=== PATIENT | male | born 1940 | race Caucasian/White ===

== ENCOUNTER → 2023-03-09 12:51 | Outpatient (CLI) | payer MEDICARE, SELFPAY ==
--- NOTE | ~2023-03-09 | XR_ITS ---
EXAMINATION: XR thoracic spine 2V DATE: 03/09/2023 13:58 INDICATION: Thoracic back pain TECHNIQUE: AP, lateral and lateral swimmer's views of the thoracic spine were obtained. COMPARISON: None. FINDINGS: There is a mid thoracic compression fracture, possibly T7, with 25% loss of anterior verteb ral body height. The remaining thoracic vertebral bodies appear normal. Bone alignment is normal. The re is mild loss of intervertebral disc space height at multiple levels in the thoracic spine. Coronar y artery stents are noted. IMPRESSION: 1. Mid thoracic compression fracture, possibly T7, with 25% loss of anterior vertebral body height. Reviewed, dictated and finalized at location L. IMPRESSION: 1. Mid thoracic compression fracture, possibly T7, with 25% loss of anterior ve rtebral body height.
--- NOTE | ~2023-03-09 | MR_ITS ---
EXAMINATION: MR lumbar spine wo con DATE: 03/09/2023 13:34 INDICATION: Low back pain. TECHNIQUE: Magnetic resonance imaging (MRI) of the lumbar spine was performed without intravenous con trast. Sequences included sagittal T2-weighted FSE, sagittal T2-weighted FS FSE, sagittal T1-weighted FSE, and axial T2-weighted FSE. COMPARISON: None FINDINGS: There is 5 degrees levocurvature of lumbar spine. There is a transitional segment at lumbos acral junction that is designated L5. There is mild chronic anterior wedging of T11 vertebral body. T here is a chronic burst fracture of T12 with 3/5 loss of height and retropulsion of bone 1 mm into ce ntral spinal canal. There is a chronic compression fracture of L3 with 1/5 loss of height on the left . There is mildly decreased disc height at L2-L3. The distal spinal cord signal intensity is normal. The conus medullaris is at L1. The following disc levels are specifically discussed: L1-L2: The disc is bulging. There is mild bilateral facet joint osteoarthritis. There is mild bilater al neural foraminal stenosis. There is mild central canal stenosis. L2-L3: The disc is bulging. There is moderate right and severe left facet joint osteoarthritis. There is mild bilateral neural foraminal stenosis. There is mild central canal stenosis. L3-L4: The disc is bulging. There is moderate bilateral facet joint osteoarthritis. There is mild grabiel ateral neural foraminal stenosis. There is mild central canal stenosis. L4-L5: The disc is bulging. There is severe bilateral facet joint osteoarthritis. There is mild bilat eral neural foraminal stenosis. There is mild central canal stenosis. L5-S1: The disc does not extend beyond the endplate margin. There is no facet joint hypertrophy. Ther e is no neural foraminal stenosis. There is no central canal stenosis. IMPRESSION: 1. Mild lumbar spondylosis. Reviewed, dictated and finalized at location A. IMPRESSION: 1. Mild lumbar spondylosis.
== END ==
PROVIDERS: PCP Internal Medicine; Visit Provider Nurse Practitioner Family
DX: M54.59 Other low back pain (principal); M48.54XA Collapsed vertebra, not elsewhere classified, thoracic region, initial encounter for fracture; M43.06 Spondylolysis, lumbar region
CPT/HCPCS: 72070; 72148

== ENCOUNTER → 2023-03-25 07:25 | Outpatient (CLI) | payer MEDICARE, SELFPAY ==
--- NOTE | ~2023-03-25 | MR_ITS ---
EXAMINATION: MR thoracic spine wo con DATE: 03/25/2023 08:21 INDICATION: Thoracic back pain. TECHNIQUE: Magnetic resonance imaging (MRI) of the thoracic spine was performed without intravenous c ontrast. COMPARISON: Thoracic spine radiographs 03/09/2023 FINDINGS: There is 14 degrees dextroscoliosis of thoracic spine. There is kyphosis of thoracic spine. There is a chronic compression fracture of T7 with 2/5 loss of height. There is a chronic burst frac ture of L1 with 3/5 loss of height. There is mild chronic anterior wedging of T5, T6, and T11 vertebr al bodies. Intervertebral disc heights are normal and thoracic spine. The discs do not extend beyond the endplate margins in thoracic spine. There is multilevel facet joint osteoarthritis. There is mult ilevel mild neural foraminal stenosis bilaterally. On the right, there is moderate neural foraminal s tenosis at T4-T5. There is no central canal stenosis. The spinal cord signal intensity is normal. The conus medullaris is at L1-L2. IMPRESSION: 1. Moderate neural foraminal stenosis on the right at T4-T5. Otherwise mild thoracic spondylosis. 2. Thoracic dextroscoliosis and kyphosis. Reviewed, dictated and finalized at location E. IMPRESSION: 1. Moderate neural foraminal stenosis on the right at T4-T5. Otherwise mild tho racic spondylosis. 2. Thoracic dextroscoliosis and kyphosis.
== END ==
PROVIDERS: PCP Internal Medicine; Visit Provider Nurse Practitioner Family
DX: M48.04 Spinal stenosis, thoracic region (principal); M41.84 Other forms of scoliosis, thoracic region
CPT/HCPCS: 72146

== ENCOUNTER 2023-04-26 18:49 | Observation (INO) | payer MEDICARE, SELFPAY ==
--- NOTE | ~2023-04-26 | CT_ITS ---
EXAMINATION: CTA chest abdomen pelvis DATE: 04/26/2023 19:32 INDICATION: chest pain into back . TECHNIQUE: Computed tomography (CT) of the chest, abdomen, and pelvis was performed with 100 mL Omnip aque-350 intravenous contrast in the arterial phase. Automated exposure control and iterative reconst ruction technique were employed. The dose-length product was 728.27 mGy-cm. COMPARISON: MRI thoracic and lumbar spine 03/17/2023 and 03/09/2023 respectively. FINDINGS: CHEST: Thoracic aorta: Mild ectasia and moderate arch calcification. No dissection or significant aneurysm.. Lung parenchyma and airways: Biapical pleural scarring. Emphysematous change. Dependent atelectasis. Thoracic inlet, axillae and chest wall: No thyroid or soft tissue mass. No axillary lymphadenopathy. Right gynecomastia. Mediastinum: No mass or lymphadenopathy. Heart and pericardium: Normal heart size. No pericardial effusion. Coronary artery calcifications: Moderate. Pleura: No effusion or mass. Thoracic bones: No acute osseous finding in the chest. ABDOMEN/PELVIS: Liver: Normal. Biliary/Gallbladder: Gallbladder is absent. No bile duct dilation. Pancreas: No mass or duct dilation. Spleen: Normal. Adrenals:No mass. Kidneys: Moderate bilateral perinephric stranding. Bilateral cortical thinning. No suspicious mass, o bstructing calcification, or hydronephrosis GI tract: Uncomplicated duodenal diverticulum. No small or large bowel dilation. Appendix not visuali zed. Diverticulosis without diverticulitis. Mesentery/Peritoneum: No ascites, mass, or free air. Retroperitoneum: No mass Atherosclerotic abdominal aortic and/or arterial calcifications. No signific ant abdominal aortic branch stenosis. Right accessory renal artery. Pelvis: Mild bladder wall thickening and surrounding inflammatory change. Soft Tissues: Moderate uncomplicated fat-containing umbilical hernia. Abdominopelvic bones: Chronic multilevel vertebral body height loss, mild at T7, moderate at L1. Con cave superior endplate deformity at L4. IMPRESSION: No aortic aneurysm or dissection. Asymmetric gynecomastia on the right, recommend outpatient breast ultrasound and mammography. Cystitis. Reviewed, dictated and finalized at location K. CHASER IMPRESSION: No aortic aneurysm or dissection. Asymmetric gynecomastia on the right, recommend outpatient breast ultrasound an d mammography. Cystitis.
[2023-04-26 18:52] VITALS: BP 120/72; PULSE 82; RESP 15; TEMP 36.5; O2SAT 96
--- NOTE | 2023-04-26 18:53 | ECG_ITS ---
Measurements Intervals [place] Rate: 82 P: [place]: 0 QRS: 36 QRSD: 98 T: 1 QT: 364 QTc: 426 Interpretive Statements ATRIAL FIBRILLATION VENTRICULAR PREMATURE COMPLEX BORDERLINE R WAVE PROGRESSION, ANTERIOR LEADS BORDERLINE ST-T WAVE ABNORMALITY- INFERIOR LEADS BASELINE ARTIFACT- I, II, III, AVR, AVL, AVF, V1-V6 ABNORMAL ECG NO PREVIOUS ECG AVAILABLE FOR COMPARISON Electronically Signed On 04-26-2023 19:26:23 VOCATIONAL AIDE by Byron Cisneros D.O.
--- NOTE | 2023-04-26 18:58 | ED.CHESTPAIN ---
HPI - Chest Pain General Chief Complaint: Chest Pain Stated Complaint: chest pain Time Seen by Provider: 04/26/23 18:56 History of Present Illness HPI narrative: Patient is an 83-year-old male with history of CAD with [address], CHF, COPD here with chest pain x3 days. He notes that it has been intermittent over the last 3 days and he has been also experiencing some shortness of breath and a cough. The pain is located in his anterior chest and radiates into his back. Tonight it seemed to be worse and persistent and EMS was called. He did take 2 nitroglycerin prior to EMS arrival, they provided him with 4 aspirin and additional nitroglycerin. Pain has improved but persists. No nausea, vomiting, lightheadedness. He is a former smoker. Related Data Allergies Allergy/AdvReac Type Severity Reaction Status Date / Time Penicillins Allergy Unknown Other Verified 04/26/23 18:57 ticagrelor [From Brilinta] Allergy Difficulty Verified 04/26/23 18:57 Breathing Review of Systems Review of Systems: All systems reviewed & are unremarkable except as noted in HPI and below Exam Narrative: GENERAL: Well-appearing, well-nourished, and in no acute distress. HEAD: Normocephalic, atraumatic. EYES: PERRLA and EOMI. ENT: Nares clear. Mucous membranes moist. NECK: Supple. CHEST: Bilateral wheeze present with some mild increased work of breathing. HEART: Regular rate and rhythm. Normal peripheral pulses. ABDOMEN: Soft, nontender, nondistended. EXTREMITIES: Normal range of motion. Bilateral pitting pedal edema present. SKIN: Warm, dry, no rash. NEURO: No focal deficits. Alert and oriented x3. PSYCH: Normal mood and affect. Course Course Emergency Course: STEMI activated in the field by EMS. Spoke with interventional cardiology [facility], will forward EKG on their arrival. Patient seen on EMS arrival. He has been having chest pains and a STEMI alert was activated in the field. Patient placed on the monitor and our EKG was performed. No obvious STEMI, confirmed by cardiology. Will do ACS workup as well as CTA dissection study given chest pain into the back. Lab work reviewed, CBC unremarkable, CMP grossly unremarkable, creatinine is 1.0. Initial troponin negative, BNP mildly elevated at 1930. COVID, influenza, RSV negative. CTA dissection study negative. Will re-evaluate the patient. Patient feeling much better after dose of morphine. Breathing treatment ordered. Discussed heart score of 6, agreeable to inpatient stay. They did discuss that his brand advocate is at [facility], they would prefer to not wait for a transferring bed and stay here if possible. Will discuss with hospitalist. Additional pain, morphine ordered. Repeat EKG unchanged. Repeat troponin mildly elevated at 0.065. Will hold on heparin given patient is already anticoagulated. Doxycycline ordered given productive cough, expect component of COPD exacerbation playing role in chest discomfort. Spoke with Dr. Mccarty, accepts patient for observation. Patient would like to be full code at this time. Vital Signs Vital signs: Vital Signs Temperature 97.7 F 04/26/23 18:52 Pulse Rate 82 04/26/23 18:52 Respiratory Rate 15 04/26/23 18:52 Blood Pressure 120/72 04/26/23 18:52 Pulse Oximetry 96 04/26/23 18:52 Oxygen Delivery Room Air 04/26/23 18:52 Temperature 97.7 F 04/26/23 18:52 Pulse Rate 68 04/26/23 21:35 Respiratory Rate 16 04/26/23 21:35 Blood Pressure 140/91 H 04/26/23 19:35 Pulse Oximetry 97 04/26/23 19:35 Oxygen Delivery Room Air 04/26/23 18:52 MDM - Chest Pain Lab Data 04/26/23 18:52 04/26/23 18:52 Labs: Lab Results 04/26/23 04/26/23 04/26/23 Range/Units 18:52 19:15 21:44 WBC 9.7 (4.5-10.0) K/mm3 RBC 4.50 L (4.6-6.20) M/mm3 Hgb 14.7 (14.0-18.0) g/dL Hct 45.0 (42.0-52.0) % MCV 100.0 (80-100) fl MCH 32.7 (26-34) pg
[2023-04-26 19:01] LABS: Basophils Absolute Auto 0.1 K/mm3 (0.0-0.1); Basophils Percent Auto 0.6 % (0.2-1.2); Eosinophils Absolute Auto 0.7 K/mm3 (0-0.3); Eosinophils Percent Auto 6.9 % (0-4.4); Hemoglobin 14.7 g/dL (14.0-18.0); Immature Granulocyte Absolute 0.03 K/mm3 (0.00-0.031); Immature Granulocyte Percent A 0.3 % (0-0.5); Lymphocytes Absolute Auto 3.84 K/mm3 (0.9-3.2); Lymphocytes Percent Auto 39.5 % (18.3-44.2); Mean Corpuscular HGB Conc 32.7 g/dl (32-36); Mean Corpuscular Hemoglobin 32.7 pg (26-34); Mean Platelet Volume 10.4 fl (7.4-10.4); Monocytes Absolute Auto 0.9 K/mm3 (0.1-0.6); Monocytes Percent Auto 9.4 % (2.6-8.5); Neutrophils Absolute Auto 4.2 K/mm3 (1.3-6.7); Neutrophils Percent Auto 43.3 % (45.5-73.1); Platelet Count Result 193 k/mm3 (150-375); Red Cell Distribution Width 12.2 % (11.5-14.5); White Blood Count 9.7 K/mm3 (4.5-10.0)
[2023-04-26 19:09] LABS: Alanine Aminotransferase 17 U/L (6-50); Albumin Level 4.5 g/dL (3.5-5.1); Alkaline Phosphatase 84 U/L (38-126); Anion Gap 10 mmol/L (8-16); Aspartate Amino Transferase 36 U/L (17-59); Bilirubin,Total 0.6 mg/dL (0.2-1.3); Blood Urea Nitrogen 10 mg/dL (9-20); Calcium 9.6 mg/dL (8.4-10.2); Carbon Dioxide 29 mmol/L (22-30); Chloride 102 mmol/L (98-107); Estimated CRCL calculation 52 ml/min; Estimated Glomerular Filt Rate > 60; Glucose 117 mg/dL (65-110); Lipase 72 U/L (23-300); Potassium 4.4 mmol/L (3.4-5.0); Sodium 141 mmol/L (137-145)
[2023-04-26 19:13] LABS: INR 1.2; Prothrombin Time 15.6 Seconds (11.1-14.7)
[2023-04-26 19:21] LABS: NT Pro B Type Natriuretic Pept 1930 pg/mL (19.9-100); Troponin I < 0.012 ng/mL (0.000-0.034)
[2023-04-26 19:35] VITALS: BP 140/91; PULSE 83; RESP 15; O2SAT 97
[2023-04-26 19:57] LABS: Influenza A QL RT-PCR Negative (Negative); Influenza B QL RT-PCR Negative (Negative); RSV RNA, RT-PCR Negative (Negative); SARS-CoV-2 RNA PCR Negative (Negative)
[2023-04-26] MEDS: MORPHINE SULFATE (*CRX) 4 MG/ML INJ IV PUSH ×2 (20:02→22:08)
[2023-04-26] MEDS: ONDANSETRON INJ 4 MG/2 ML VIAL IV PUSH (20:02)
[2023-04-26] MEDS: ALBUTEROL SULFATE NEB 2.5 MG/3 ML INH INHALATION (21:26)
[2023-04-26 21:27] VITALS: PULSE 78; RESP 18
[2023-04-26] MEDS: IPRATROPIUM BR 0.02% INH SOLN 0.5 MG/2.5 ML VIAL INHALATION (21:27)
[2023-04-26 21:35] VITALS: PULSE 68; RESP 16
[2023-04-26] MEDS: predniSONE 20 MG TABLET 40 MG PO (21:38)
--- NOTE | 2023-04-26 22:02 | ECG_ITS ---
Measurements Intervals [place] Rate: 85 P: [place]: 0 QRS: 41 QRSD: 100 T: 18 QT: 341 QTc: 407 Interpretive Statements ATRIAL FIBRILLATION LOW QRS VOLTAGE IN LIMB LEADS CANNOT RULE OUT SEPTAL INFARCT, AGE INDETERMINATE BORDERLINE ST-T WAVE ABNORMALITY- INF/LAT LEADS BASELINE ARTIFACT- II, III, AVF ABNORMAL ECG COMPARED TO ECG 04/26/2023 18:51:46 NO SIGNIFICANT CHANGES Electronically Signed On 04-27-2023 6:29:38 SECONDARY HISTORY TEACHER by Byron Cisneros D.O.
[2023-04-26 22:15] LABS: Troponin I 0.065 ng/mL (0.000-0.034)
[2023-04-26 23:21] VITALS: BP 115/69; PULSE 84; RESP 15; O2SAT 94
[2023-04-26 23:22] VITALS: PULSE 84
[2023-04-27] VITALS (21 sets, daily range): BP systolic 100–122; BP diastolic 54–68; PULSE 61–104; RESP 18–20; TEMP 36.2–36.7; O2SAT 92–99; BMI 25.2
[2023-04-27] MEDS: DOXYCYCLINE HYCLATE 100 MG TABLET PO (00:18)
[2023-04-27] MEDS: MORPHINE SULFATE (*CRX) 2 MG/ML INJ 1 MG IV PUSH (00:26)
--- NOTE | 2023-04-27 00:56 | ADMGEN ---
0050 This patient, Yifan Schaefer, was admitted to IMU Room 210-01. Patient/family oriented to hospital policies and general routines including ID bracelet, bed and alarms, visiting hours, pain management, procedures, bathroom and other care routines, personal items, smoking policy, room service/diet, and visiting hours. Information on how to activate the Rapid Response Team has been discussed. Patient/Family are encouraged to report perceived risks to care and to ask questions if they do not understand what they are told or what they should do.
[2023-04-27 02:20] LABS: Troponin I 0.378 ng/mL (0.000-0.034)
[2023-04-27 05:00] LABS: Hematocrit 45.7 % (42.0-52.0); Mean Corpuscular HGB Conc 32.8 g/dl (32-36); Mean Corpuscular Volume 100.4 fl (80-100); Mean Platelet Volume 10.5 fl (7.4-10.4); Platelet Count Result 189 k/mm3 (150-375); Red Blood Count 4.55 M/mm3 (4.6-6.20); Red Cell Distribution Width 11.9 % (11.5-14.5); White Blood Count 13.6 K/mm3 (4.5-10.0)
[2023-04-27 05:22] LABS: Anion Gap 14 mmol/L (8-16); Blood Urea Nitrogen 9 mg/dL (9-20); Calcium 9.3 mg/dL (8.4-10.2); Carbon Dioxide 22 mmol/L (22-30); Chloride 103 mmol/L (98-107); Estimated CRCL calculation 64 ml/min; Estimated Glomerular Filt Rate > 60; Glucose 165 mg/dL (65-110); Magnesium 1.9 mg/dL (1.6-2.3); Potassium 4.4 mmol/L (3.4-5.0); Sodium 139 mmol/L (137-145)
--- NOTE | 2023-04-27 09:16 | ECG_ITS ---
Measurements Intervals [place] Rate: 78 P: [place]: 0 QRS: 26 QRSD: 99 T: 25 QT: 366 QTc: 419 Interpretive Statements ATRIAL FIBRILLATION VENTRICULAR PREMATURE COMPLEX LOW QRS VOLTAGE IN LIMB LEADS ANTEROSEPTAL INFARCT, AGE INDETERMINATE BASELINE WANDER- V1-V2 ABNORMAL ECG COMPARED TO ECG 04/26/2023 22:06:42 MYOCARDIAL INFARCT NOW PRESENT Electronically Signed On 04-27-2023 9:32:52 HYPERBARIC NURSE by Byron Cisneros D.O.
--- NOTE | 2023-04-27 09:36 | PM.IMHP ---
H&P: HPI History of Present Illness Date/Time: 04/27/23 09:36 Chief Complaint: chest pain Narrative: A pleasant 83M accompanied by his w/ PMH HTN, a fib on eliquis, emphysema, previous smoker, NIDDM, CKD stage 2, chronic back pain, dementia, right eye blindness, CHF (unable to specify) CAD s/p 19 stents. He gets his heart care at [facility] w/ Dr. Almaraz. His last stent was 10/2022 and laser was needed. He complains of severe dull mid chest pain while sitting down at home. The pain was only mildly improved with aspirin and nitroglycerin. He denies any associated symptoms such as dizziness, sweating, numbness, radiation of pain, however him and his report this is the pain he has and every time has a cardiac cath with intervention. Of note, he has had a cough for many years likely related to his emphysema, productive of clear sputum. Denies urinary symptoms, n/v/d. In room 210 the pain is now resolved. Him and request transfer to [facility]. Review of Systems Review of Systems: All systems reviewed & are unremarkable except as noted in HPI and below PMFSH Past Medical History Medical History (Updated 04/27/23 @ 09:48 by Negrita Lee MD) CAD (coronary artery disease) Social History Social History Smoking packs per day: 2 Smoking cigarettes per day: 40.0 Smoking status: Former smoker Alcohol intake: never Substance use: never Lack of Transportation: No Lack of Food: Never True Current Housing: I Have Housing Concerned About Future Housing: No Difficulty Paying Gas/Electric Bills: No Difficulty Paying for Meds: No Currently Unemployed: No Education: Decline to Answer Difficulty w/ Childcare or Family Care: No Spiritual care concerns: No Meds Home Medications and Allergies Home Medications Medication Instructions Recorded Confirmed Type albuterol sulfate 2.5 mg/3 mL 2.5 mg inhalation TID PRN 04/27/23 04/27/23 History (0.083 %) solution for nebulization Shortness Of Breath Or Wheezing amlodipine 10 mg tablet 10 mg PO DAILY 04/27/23 04/27/23 History apixaban 5 mg tablet (Eliquis) 5 mg PO BID 04/27/23 04/27/23 History budesonide-formoterol HFA 160 2 inh inhalation BID 04/27/23 04/27/23 History mcg-4.5 mcg/actuation aerosol inhaler (Symbicort) calcitriol 0.25 mcg capsule 0.25 mcg PO DAILY 04/27/23 04/27/23 History clopidogrel 75 mg tablet 75 mg PO DAILY 04/27/23 04/27/23 History cyclobenzaprine 5 mg tablet 5 mg PO Q8-10H 04/27/23 04/27/23 History ergocalciferol (vitamin D2) 1,250 1,250 mcg PO WEEKLY 04/27/23 04/27/23 History mcg (50,000 unit) capsule furosemide 40 mg tablet 40 mg PO DAILY 04/27/23 04/27/23 History isosorbide mononitrate 120 mg 120 mg PO DAILY 04/27/23 04/27/23 History tablet,extended release 24 hr metformin 500 mg tablet 500 mg PO BID 04/27/23 04/27/23 History metoprolol tartrate 25 mg tablet 25 mg PO BID 04/27/23 04/27/23 History pantoprazole 40 mg tablet,delayed 40 mg PO DAILY PRN Acid Reflux 04/27/23 04/27/23 History release rosuvastatin 20 mg tablet 20 mg PO DAILY 04/27/23 04/27/23 History spironolactone 25 mg tablet 25 mg PO DAILY 04/27/23 04/27/23 History Allergies Allergy/AdvReac Type Severity Reaction Status Date / Time Penicillins Allergy Unknown Other Verified 04/26/23 18:57 ticagrelor [From Brilinta] Allergy Difficulty Verified 04/26/23 18:57 Breathing Vital Signs Vital Signs - 24 hr 04/26/23 18:52 04/26/23 19:35 04/26/23 21:27 Temperature 97.7 F Pulse Rate 82 83 78 Respiratory Rate 15 15 18 Blood Pressure 120/72 140/91 H Pulse Oximetry 96 97 Oxygen Delivery Room Air Oxygen Flow Rate 04/26/23 21:35 04/26/23 23:21 04/26/23 23:22 Temperature Pulse Rate 68 84 84 Respiratory Rate 16 15 Blood Pressure 115/69 Pulse Oximetry 94 Oxygen Delivery Oxygen Flow Rate 04/27/23 00:38 04/27/23 00:49 04/27/23 01:06 Temperature 97.2 F L Pulse Rate 92 104 H Respir
--- NOTE | 2023-04-27 10:39 | PM.CNCAR ---
Assessment and Plan Assessment and plan (1) NSTEMI (non-ST elevated myocardial infarction): Code(s): I21.4 - Non-ST elevation (NSTEMI) myocardial infarction Status: Acute Assessment and Plan: Patient presents with an NSTEMI. Troponins of <0.012 / 0.065 / 0.378 / 9.890. EKG shows rate controlled atrial fibrillation, no ischemic changes. After discussion with the patient and his this morning, I explained to them that given his NSTEMI, we do recommend cardiac catheterization, however, would need a 48 hour washout of Eliquis, therefore, the earliest time we would be able to cath patient would be on Monday. However, his last intervention required laser atherectomy, which we do not have here at this institution. Therefore, if patient needed complex or high risk intervention, we would not be able to perform it here at [facility] and patient would need to be transferred to a tertiary center with those capabilities. Given this, patient and request transfer to [facility] where their primary cardiology team ([facility]) is so that cardiac catheterization and possible intervention can be performed by them. In the meantime, while awaiting transfer, recommend continued medical management with Heparin drip, ASA, Plavix, antianginal therapy. Recommendations/Plan discussed with Hospitalist. History of Present Illness History of Present Illness Consult date/time: 04/27/23 10:39 Requesting physician: Negrita Lee MD Consult reason: Other (NSTEMI) Reason For Visit: chest pain Narrative: We are consulted for NSTEMI. This is an 83 year old male with coronary artery disease s/p stents, atrial fibrillation on Eliquis, emphysema, congestive heart failure who presented with progressive chest pain that began about 3 days ago. Patient follows with Dr. Ramirez with [facility]. Patient tells me that he's had total of 19 stents placed. From the records I see from [facility], last coronary intervention was done in October 2022. He had a 99% mid LAD in-stent restenosis that was treated with laser atherectomy and stent. Has known chronic total occlusion of distal LAD. Patient states that his chest pain this time is similar to when he needed his prior coronary interventions done. Patient states that his chest pain is getting better this morning. Has NTG patch on. Last took his Eliquis 04/26 morning. Review of Systems Review of Systems: All systems reviewed & are unremarkable except as noted in HPI and below (HPI) [facility] Past Medical History Medical History CAD (coronary artery disease) Social History Social History Smoking packs per day: 2 Smoking cigarettes per day: 40.0 Smoking status: Former smoker Alcohol intake: never Substance use: never Lack of Transportation: No Lack of Food: Never True Current Housing: I Have Housing Concerned About Future Housing: No Difficulty Paying Gas/Electric Bills: No Difficulty Paying for Meds: No Currently Unemployed: No Education: Decline to Answer Difficulty w/ Childcare or Family Care: No Spiritual care concerns: No Meds Home Medications and Allergies Home Medications Medication Instructions Recorded Confirmed Type albuterol sulfate 2.5 mg/3 mL 2.5 mg inhalation TID PRN 04/27/23 04/27/23 History (0.083 %) solution for nebulization Shortness Of Breath Or Wheezing amlodipine 10 mg tablet 10 mg PO DAILY 04/27/23 04/27/23 History apixaban 5 mg tablet (Eliquis) 5 mg PO BID 04/27/23 04/27/23 History budesonide-formoterol HFA 160 2 inh inhalation BID 04/27/23 04/27/23 History mcg-4.5 mcg/actuation aerosol inhaler (Symbicort) calcitriol 0.25 mcg capsule 0.25 mcg PO DAILY 04/27/23 04/27/23 History clopidogrel 75 mg tablet 75 mg PO DAILY 04/27/23 04/27/23 History cyclobenzaprine 5 mg tablet 5 mg PO Q8-10H 04/27/23 04/27/23 History ergocalci
[2023-04-27] MEDS: CLOPIDOGREL BISULFATE 75 MG TABLET PO (10:51)
[2023-04-27] MEDS: ROSUVASTATIN 10 MG TABLET 20 MG PO (10:51)
[2023-04-27] MEDS: FUROSEMIDE 40 MG TABLET PO (10:51)
[2023-04-27] MEDS: METOPROLOL TARTRATE 25 MG TABLET PO ×2 (10:52→17:38)
[2023-04-27] MEDS: SPIRONOLACTONE 25 MG TABLET PO (10:52)
[2023-04-27] MEDS: NITROGLYCERIN 0.4 MG/HR PATCH 1 PATCH TRANSDERM (10:53)
[2023-04-27] MEDS: HEPARIN SOD/D5W 100 UNITS/ML 25,000 UNITS/250 ML BAG 10 UNITS IV CONT (10:54)
[2023-04-27] MEDS: DEXTROSE 5%/0.9% SOD CHL 1,000 ML 50 ML IV CONT (10:55)
[2023-04-27] MEDS: ASPIRIN 81 MG ENTERIC TABLET PO (11:08)
[2023-04-27 11:30] LABS: Glucose Point of Care 155 mg/dl (65-105)
[2023-04-27 12:31] LABS: Appearance Urine Clear (Clear); Bilirubin Urine Negative (Negative); Blood Urine Negative (Negative); Color Urine Yellow (Yellow); Glucose Urine UA Negative (Negative); Ketones Urine Negative (Negative); Leukocyte Esterase Ur Negative LEU/UL (NEGATIVE); Nitrate Urine Negative (Negative); Protein Urine Negative (Negative); Specific Grav Ur 1.008 (1.001-1.035); Urobilinogen Urine 0.2 mg/dL (<2.0); pH Urine 6.5 (5.0-9.0)
[2023-04-27 12:46] LABS: Add Urine Microscopic? NO
--- NOTE | 2023-04-27 12:46 | ECG_ITS ---
Measurements Intervals [place] Rate: 74 P: [place]: 0 QRS: 10 QRSD: 86 T: 52 QT: 348 QTc: 386 Interpretive Statements ATRIAL FIBRILLATION LOW QRS VOLTAGE IN LIMB LEADS ANTEROSEPTAL INFARCT, AGE INDETERMINATE ABNORMAL ECG COMPARED TO ECG 04/27/2023 09:29:59 NO SIGNIFICANT CHANGES Electronically Signed On 04-27-2023 13:05:43 RESISTANCE WELDER by Byron Cisneros D.O.
[2023-04-27] MEDS: IPRATROPIUM BR 0.02% INH SOLN 0.5 MG/2.5 ML VIAL INHALATION (12:56)
[2023-04-27] MEDS: ALBUTEROL SULFATE NEB 2.5 MG/3 ML INH INHALATION (12:56)
[2023-04-27] MEDS: CYCLOBENZAPRINE HCL 5 MG TABLET PO (14:29)
[2023-04-27 16:23] LABS: Glucose Point of Care 166 mg/dl (65-105)
--- NOTE | 2023-04-27 16:39 | PC.NURSE ---
Updated akila Tyler on pt's troponin levels. New order to continue to trend troponin until peak. Continue heparin gtt, ASA, & plavix. Await transfer to [facility].
[2023-04-27] MEDS: HEPARIN SODIUM 5,000 UNITS/ML VIAL 3500 UNITS IV PUSH (17:43)
--- NOTE | 2023-04-27 18:40 | PC.NURSE ---
1816: Report called to DIVINE Meng @ [facility]. 1825: Henna, /POA, updated that the patient has received a room at [facility] and will be transferred this evening. Pt will be going to room 919.
--- NOTE | 2023-05-02 16:45 | PM.TDS ---
Transfer Discharge Sum: Prov Provider Date of admission: 04/26/23 23:41 Primary care physician: Vinny Sorto, Admitting clinician: Rebekah Mccarty MD Attending physician on admission: Rebekah Mccarty Consults: 04/27/23 Consult to Physician Routine Comment: left voicemail with Jaz Brenner @[id number](ER,US) Consulting Provider: Jaz Brenner call center nurse/MD group to consult: Reason for consultation: CHEST PAIN, ELEVATED TROPONIN, HX OF 19 CARDIAC STENTS Has provider been notified: Yes Attending physician on discharge: Rebekah Mccarty V. Discharging clinician: Negrita Lee Anticipated date of transfer: 04/27/23 Receiving physician/facility: [facility] DS: Admitting Diagnosis Discharge Date 04/27/23 Admitting Diagnosis chest pain DS: Discharge Diagnosis Discharge Diagnosis (1) CAD (coronary artery disease): Code(s): I25.10 - Atherosclerotic heart disease of [place] coronary artery without angina pectoris Status: Acute (2) NSTEMI (non-ST elevated myocardial infarction): Code(s): I21.4 - Non-ST elevation (NSTEMI) myocardial infarction Status: Acute (3) Chest pain: Qualifiers: Chest pain type: unspecified Qualified Code(s): R07.9 - Chest pain, unspecified Code(s): R07.9 - Chest pain, unspecified Status: Acute Transfer Discharge Sum: Med Medications Active and Home Medications: Home Medications albuterol sulfate 2.5 mg/3 mL (0.083 %) solution for nebulization 2.5 mg inhalation TID PRN Shortness Of Breath Or Wheezing 04/27/23 [History Confirmed 04/27/23] amlodipine 10 mg tablet 10 mg PO DAILY 04/27/23 [History Confirmed 04/27/23] apixaban 5 mg tablet (Eliquis) 5 mg PO BID 04/27/23 [History Confirmed 04/27/23] budesonide-formoterol HFA 160 mcg-4.5 mcg/actuation aerosol inhaler (Symbicort) 2 inh inhalation BID 04/27/23 [History Confirmed 04/27/23] calcitriol 0.25 mcg capsule 0.25 mcg PO DAILY 04/27/23 [History Confirmed 04/27/23] clopidogrel 75 mg tablet 75 mg PO DAILY 04/27/23 [History Confirmed 04/27/23] cyclobenzaprine 5 mg tablet 5 mg PO Q8-10H 04/27/23 [History Confirmed 04/27/23] ergocalciferol (vitamin D2) 1,250 mcg (50,000 unit) capsule 1,250 mcg PO WEEKLY 04/27/23 [History Confirmed 04/27/23] furosemide 40 mg tablet 40 mg PO DAILY 04/27/23 [History Confirmed 04/27/23] isosorbide mononitrate 120 mg tablet,extended release 24 hr 120 mg PO DAILY 04/27/23 [History Confirmed 04/27/23] metformin 500 mg tablet 500 mg PO BID 04/27/23 [History Confirmed 04/27/23] metoprolol tartrate 25 mg tablet 25 mg PO BID 04/27/23 [History Confirmed 04/27/23] pantoprazole 40 mg tablet,delayed release 40 mg PO DAILY PRN Acid Reflux 04/27/23 [History Confirmed 04/27/23] rosuvastatin 20 mg tablet 20 mg PO DAILY 04/27/23 [History Confirmed 04/27/23] spironolactone 25 mg tablet 25 mg PO DAILY 04/27/23 [History Confirmed 04/27/23] Transfer Discharge Sum: Hosp Hospital Course Hospital course: A pleasant 83M accompanied by his w/ PMH HTN, a fib on eliquis, emphysema, previous smoker, NIDDM, CKD stage 2, chronic back pain, dementia, right eye blindness, CHF (unable to specify) CAD s/p 19 stents. He gets his heart care at [facility] w/ Dr. Almaraz. His last stent was 10/2022 and laser was needed. He complains of severe dull mid chest pain while sitting down at home. The pain was only mildly improved with aspirin and nitroglycerin. He denies any associated symptoms such as dizziness, sweating, numbness, radiation of pain, however him and his report this is the pain he has and every time has a cardiac cath with intervention. Of note, he has had a cough for many years likely related to his emphysema, productive of clear sputum. Denies urinary symptoms, n/v/d. In room 210 the pain is now resolved. Him and request transfer to [facility]. Cardiology was consulted and they suggested the patient have continuity of care at [facility]
== END 2023-04-27 19:45 | disposition home or self-care (01) ==
LOC: ANHED 23:48 → ANHIMU 04-27 00:44
PROVIDERS: General Practice; Internal Medicine; Admitting Provider Internal Medicine; Emergency Provider Student in an Organized Health Care Education/Training Program; PCP Internal Medicine; Visit Provider Internal Medicine
DX: I21.4 Non-ST elevation (NSTEMI) myocardial infarction (principal); J44.1 Chronic obstructive pulmonary disease with (acute) exacerbation; J43.9 Emphysema, unspecified; I25.10 Atherosclerotic heart disease of native coronary artery without angina pectoris; Z95.5 Presence of coronary angioplasty implant and graft; I13.0 Hypertensive heart and chronic kidney disease with heart failure and stage 1 through stage 4 chronic kidney disease, or unspecified chronic kidney disease; E11.22 Type 2 diabetes mellitus with diabetic chronic kidney disease; N18.2 Chronic kidney disease, stage 2 (mild); I50.9 Heart failure, unspecified; J96.01 Acute respiratory failure with hypoxia; N30.90 Cystitis, unspecified without hematuria; G89.29 Other chronic pain; M54.9 Dorsalgia, unspecified; N62 Hypertrophy of breast; R94.31 Abnormal electrocardiogram [ECG] [EKG]; F03.90 Unspecified dementia, unspecified severity, without behavioral disturbance, psychotic disturbance, mood disturbance, and anxiety; Z20.822 Contact with and (suspected) exposure to COVID-19; I48.91 Unspecified atrial fibrillation; Z79.51 Long term (current) use of inhaled steroids; Z79.01 Long term (current) use of anticoagulants; Z79.02 Long term (current) use of antithrombotics/antiplatelets; Z79.84 Long term (current) use of oral hypoglycemic drugs; Z79.899 Other long term (current) drug therapy
CPT/HCPCS: 36415; 71275; 74174; 80048; 80053; 81003; 82948; 83690; 83735; 83880; 84100; 84484; 85025; 85027; 85610; 85730; 87637; 93005; 94640; 96365; 96366; 96374; 96375; 96376; 99285; A9270; G0378; J1644; J2270; J2405; J7042; J7512; Q9967

== ENCOUNTER → 2023-05-27 08:05 | Outpatient (CLI) | payer MEDICARE, SELFPAY ==
--- NOTE | ~2023-05-27 | MR_ITS ---
EXAMINATION: MR brain/brain stem wo con DATE: 05/27/2023 09:07 INDICATION: Dementia. TECHNIQUE: Magnetic resonance imaging (MRI) of the brain and brainstem was performed without intraven ous contrast. COMPARISON: None. FINDINGS: There are scattered small acute infarcts in the frontal lobes, right parietal lobe, and lef t temporal occipital region. There are small old infarcts in the cerebellum bilaterally. There is an old infarct in the right basal ganglia. There are old infarcts in the occipital lobes, frontal lobes, and parietal lobes. There is no intracranial hemorrhage or abnormal mass lesion. There are scattered areas of nonspecific increased T2-weighted signal intensity in the cerebral white matter and manuel. T he ventricles are normal in size. There is mucosal thickening in the paranasal sinuses. There are lik jhonny changes of left ocular lens replacement surgery. There is a trace right mastoid effusion. IMPRESSION: 1. Small acute infarcts in the frontal lobes, right parietal lobe, and left temporal occipital region . 2. Multiple old infarcts in the brain. 3. Moderate nonspecific cerebral white matter disease and pontine disease, which likely represents ch ronic small vessel ischemic disease. Reviewed, dictated and finalized at location A. [employer] IMPRESSION: 1. Small acute infarcts in the frontal lobes, right parietal lobe, and left tem poral occipital region. 2. Multiple old infarcts in the brain. 3. Moderate nonspecific cerebral white matter disease and pontine disease, whic h likely represents chronic small vessel ischemic disease.
== END ==
PROVIDERS: PCP Internal Medicine; Visit Provider Internal Medicine
DX: F03.90 Unspecified dementia, unspecified severity, without behavioral disturbance, psychotic disturbance, mood disturbance, and anxiety (principal); R90.82 White matter disease, unspecified
CPT/HCPCS: 70551

== ENCOUNTER → 2023-07-31 08:08 | Outpatient (CLI) | payer MEDICARE, SELFPAY ==
--- NOTE | ~2023-07-31 | MM_ITS ---
EXAMINATION: MM diagnostic davon RT w amber HISTORY: Gynecomastia on CT TECHNIQUE: Craniocaudal and mediolateral oblique 3-D tomosynthesis images of the right breast were pe rformed and synthetic 2-D images were generated. Mediolateral oblique 3-D tomosynthesis images of the left breast anteriorly synthetic images were generated for comparison. CAD analysis was submitted an d interpreted. COMPARISON: CT, 04/26/2023 BREAST PARENCHYMAL COMPOSITION: The breasts are almost entirely fatty. FINDINGS: There is moderate asymmetric gynecomastia of the right breast compared to the left. No susp icious mass, calcification, or architectural distortion are identified. IMPRESSION: 1. Asymmetric gynecomastia of the right breast without mammographic evidence of malignancy. BI-RADS Category 2: Benign finding(s). Reviewed, dictated and finalized at location B. E WIRER
== END ==
PROVIDERS: Visit Provider Internal Medicine
DX: N62 Hypertrophy of breast (principal)
CPT/HCPCS: 77061; 77065; G0279

== ENCOUNTER 2024-01-31 08:16 | Outpatient (CLI) | payer MEDICARE, SELFPAY ==
--- NOTE | ~2024-01-31 | US_ITS ---
US abdomen limited INDICATION: Elevated liver function tests PROCEDURE: Realtime right upper abdominal ultrasound. COMPARISON: No prior studies for comparison. FINDINGS: The pancreas is normal without focal mass or pancreatic ductal dilation. Nodular appearanc e to the liver surface, suspicious for cirrhosis. No hepatic masses. There is normal directional rubi w in the portal vein. Gallbladder is surgically absent. Common bile duct measures 6 mm. IMPRESSION: 1: Nodular liver surface, compatible with cirrhosis. Reviewed, dictated and finalized at location B.
== END 2024-01-31 08:17 | disposition home or self-care (01) ==
PROVIDERS: PCP Internal Medicine; Visit Provider Internal Medicine
DX: R74.01 Elevation of levels of liver transaminase levels (principal)
CPT/HCPCS: 76705

== ENCOUNTER 2024-07-23 13:31 | Outpatient (CLI) | payer MEDICARE, SELFPAY ==
--- NOTE | ~2024-07-23 | CT_ITS ---
EXAMINATION:CT diagnostic chest wo con DATE: 07/23/2024 13:50 INDICATION: Chronic obstructive pulmonary disease. TECHNIQUE: Computed tomography (CT) of the chest was performed without intravenous contrast. Automate d exposure control and iterative reconstruction technique were employed. The dose-length product (DLP ) was 231.66 mGy-cm. COMPARISON: Chest CT 04/26/2023 FINDINGS: There is mild emphysema. Calcified bilateral lung nodules and calcified hilar and mediastin al lymph nodes are consistent with old granulomatous disease. There is stable mild scarring at the cali ng apices. There are stable nodules in right upper lobe measuring up to 9 mm, likely benign. No pleur al effusion. The heart size is normal. There are coronary artery calcifications. No pericardial effus ion. There are changes of cholecystectomy. There is a 12 mm cyst in the liver. There is right-sided g ynecomastia. There are old healed left rib fractures. There is a chronic compression fracture of T7. There is a chronic burst fracture of L1. IMPRESSION: 1. Mild emphysema. Reviewed, dictated and finalized at location A. OAT DISPATCHER IMPRESSION: 1. Mild emphysema.
== END 2024-07-23 13:32 | disposition home or self-care (01) ==
LOC: MICIMG 13:32
PROVIDERS: PCP Internal Medicine; Visit Provider Internal Medicine
DX: J44.9 Chronic obstructive pulmonary disease, unspecified (principal); J43.9 Emphysema, unspecified
CPT/HCPCS: 71250

== ENCOUNTER 2024-08-08 07:29 | Outpatient (CLI) | payer MEDICARE, SELFPAY ==
--- OUTSIDE RECORDS SUMMARY | 2024-08-08 07:45 | XMS_ITS | Data Portability ---
Author Organization [place] [facility], Main Office Address [address] [place] [address] Care Team Providers Care Event Marketing Specialist Name Role Phone FREEDOM SORTO Primary Care Provider [phone] FREEDOM SORTO Referring Provider TERRY BLAKELY Furniture Dipper [phone] [place] [facility] Pain Management TRAVIS SANZ SI Neurologist YVES MAC General Surgeon TUAN RAMIREZ Pharmacy Picking Technician Assessment Encounter Date Assessment Date Assessment LastModified by Organization Details LastModified Time 01/25/2024 01/25/2024 08/05/2022: A1C 6.3 Folate/B12/FT4: WNL GFR 57 MCV 98.9 TSH: 5.010 HDL 34 Urine <6.0 12/01/2022: A1C 6.4 Gluc 103 MCV 99.1 03/22/2023: A1C 6.3 MCV 101.6 Gluc 106 04/26/2023: Joao ER NT Pro BNP: 1930 Gluc 117 06/21/2023: A1C 6.1 MCV 100.2 10/27/2023: A1C 6.1 TG 151 MCV 100.0 01/18/2024: A1C 6.0 Gluc 106, AST 87 MCV 101.3 Not available 01/25/2024 09:45:05 05/16/2024 05/16/2024 08/05/2022: A1C 6.3 Folate/B12/FT4: WNL GFR 57 MCV 98.9 TSH: 5.010 HDL 34 Urine <6.0 12/01/2022: A1C 6.4 Gluc 103 MCV 99.1 03/22/2023: A1C 6.3 MCV 101.6 Gluc 106 04/26/2023: Jooa ER NT Pro BNP: 1930 Gluc 117 06/21/2023: A1C 6.1 MCV 100.2 10/27/2023: A1C 6.1 TG 151 MCV 100.0 01/18/2024: A1C 6.0 Gluc 106, AST 87 MCV 101.3 05/06/2024: A1C 6.1 Hep panel/GGT: Neg Gluc 111, GFR 56 MCV 100.2 Not available 05/18/2024 12:42:11 07/09/2024 07/09/2024 Time spent with patient included: preparing to see patient by reviewing tests, obtaining and reviewing history, medical examination and evaluation, counseling and educating the patient, ordering medications and tests, documenting clinical information in EHR, independently interpreting results and communicating results to the patient for a total of 68 minutes. [email or web address] Not available 07/09/2024 12:47:18 Plan of Treatment Reminders Order Date Submit Date Provider Last Modified By Organization Details Last Modified Time Details Appointments Any 15 2024 10:30A M Freedom sifuentes MD Not available Not available Not available Any 15 2024 10:00A M Candy Marie NP Not available Not available Not available Lab gas panel, arterial blood 2024 025 [facility], [address] [place] [address] [place] [address], [address], 08/07/2024 08:05:14 BNP (B-type natriuret ic peptide), serum or plasma 2024 025 [facility] (Lab), [facility] RT [address] [place] [address], [address], 08/07/2024 08:05:13 ige, total, serum 2024 025 [facility] ([facility]), [facility] [address], [address], 08/07/2024 08:05:13 tb (M tuberculo sis), ifn-gamma dereck, blood [address] [place] [address] (Lab), [address] [place] [address], [place], [address], 08/07/2024 08:05:13 [address]cl[address] s 1+2+3+4, serum [address] [place] [address] (Lab), [address] [place] [address], [place], [address], 08/07/2024 08:05:13 respirato ry allergen panel, [facility] A, serum [address] [place] [address] (Lab), [address] [place] [address], [place], [address], 08/07/2024 08:05:14 respirato ry allergen panel - [facility] b [address] [place] [address] (Lab), [address] [place] [address], [place], [address], 08/07/2024 08:05:14 eosinophi ls, quant, blood [address] [place] [address] (Lab), [address] [place] [address], [place], [address], 08/07/2024 08:05:14 vitamin B12 + folate, serum or blood [address] (Lab), [address] [place], [address], 05/16/2024 12:35:19 lipid panel, serum [address] (Lab), [address] [place], [address], 05/16/2024 12:35:17 CMP, serum or plasma [address] (Lab), [address] [place], [address], 05/16/2024 12:35:17 CBC w/ auto diff [address] (Lab), [address] [place], [address], 05/16/2024 12:35:17 TSH, serum or plasma [address] (Lab), [address] [place], [address], 05/16/2024 12:35:18 glycohemo globin, total, blood [address] (Lab), [address] [place], [address], 05/16/2024 12:35:18 microalbu min, urine [address] (Lab), [address] [place], [address], 05/16/2024 12:35:18 vitamin B12 + folate, serum or blood [address] (Lab), [address] [place], [address], 07/23/2024 08:48:52 lipid panel, serum 2023 024 [facility] (Lab), [address] [place], [address], 01/26/2024 18:38:14 CMP, serum or plasma 2023 024 [facility] (Lab), [address] [place], [address], 01/26/2024 18:38:14 CBC w/ auto diff 2023 024 [facility] (Lab), [address] [place], [address], 01/26/2024 18:38:12 TSH, serum or plasma 2023 024 [facility] (Lab), [address] [place], [address], 01/26/2024 18:38:15 glycohemo globin, total, blood 2023 024 [facility] (Lab), [address] [place], [address], 01/26/2024 18:38:15 microalbu min, urine 2023 024 [facility] (Lab), [address] [place], [address], 01/26/2024 18:38:13 gamma-glu tamyl transfera se (ggt), serum 2023 024 [facility] (Lab), [address] [place], [address], 05/06/2024 13:13:08 hepatitis panel (A+B+C), acute, serum 2023 024 [facility] (Lab), [address] [place], [address], 05/06/2024 14:33:03 Referral cardiolog ist referral 2024 025 [email or web address] [place], [address], [address], [address], 07/09/2024 18:39:25 [email or web address] gist referral 2024 025 [email or web address] Fidel Fleming MD, [address] [place], [address], 07/09/2024 18:38:15 ophthalmo logist referral - Please call patient to schedule. 2023 024 [email or web address] Terry Garcia, [address], [address], [place], [address], 08/06/2024 16:30:03 podiatris t referral - Please call patient to schedule. 2023 024 Alexi Contreras DPM, [address] [facility], [address], [place], [address], 08/06/2024 16:30:03 cardiolog ist referral - Please call pt to schedule appt. Thank you 2023 024 [place], [address] [facility], [address], [address], 05/27/2024 08:59:48 gastroent erologist referral - Please call patient to schedule. 2023 024 [email or web address] Mikhail Gamez MD, [address], [address], [place], [address], 08/06/2024 16:30:03 ophthalmo logist referral 2023 024 [email or web address] Henrry Burgos, [address] [facility], [place], [address], 05/27/2024 09:00:48 podiatris t referral - Please call pt to schedule appt. Thank you 2023 024 [email or web address] Alexi Contreras DPM, [address] [facility], [address], [place], [address], 05/27/2024 09:00:32 cardiolog ist referral - Please call pt to schedule appt. Thank you 2023 024 [place], [address], [address], [place], [address], 07/23/2024 08:49:08 Procedures None recorded. Surgeries None recorded. Imaging US, liver 2023 024 [email or web address] [facility], [address], [address], [place], [address], 02/15/2024 17:59:11 Medication Orders Trelegy Ellipta 200 mcg-62.5 mcg-25 mcg powder for inhalatio n 2024 025 [id number], [address], [place], [address], 07/09/2024 12:16:25 prednison e 20 mg tablet 2024 025 [id number], [address], [place], [address], 07/09/2024 12:42:01 Zithromax Z-Enio 250 mg tablet 2023 024 [id number], [address], [place], [address], 05/16/2024 12:41:13 albuterol sulfate HFA 90 mcg/actua tion aerosol inhaler 2023 024 [id number], [address], [place], [address], 05/16/2024 12:41:13 Patient TargetsNo targets recorded. Patient Instructions Encounter Date Encounter Id Patient Instructions Last Modified By Organization Details Last Modified Time 01/25/2024 [id number] dementia rating scale-2* [email or web address] Not available 01/25/2024 10:17:53 alcohol misuse* [email or web address] Not available 01/25/2024 10:18:12 depression screening* [email or web address] Not available 01/25/2024 10:18:27 Timed Up and Go test (TUG)* [email or web address] Not available 01/25/2024 10:18:46 multi-dimensiona l health assessment questionnaire* [email or web address] Not available 01/31/2024 08:02:11 advance care planning: care instructions davis Warner Not available 01/25/2024 18:55:22 advance directiv es: care instructions davis Warner Not available 01/25/2024 18:55:23 [place] Advance Directives davis Warner Not available 01/25/2024 18:55:23 Personalized Hea lt Plan and Screening Recommendations Advance Directives - Do you have one? Yes Advance Directives - Do we have your advance directive on file in your health record? Yes Primary Prevention/Interven tion (prevents or decreases the chance of common diseases from occurring) Smoking Risk: Non Smoker Alcohol Misuse Screening: Negative Weight: Appropriate Physical activity: Need more exercise/physical activity decrease sitting time to no more than 5hr/day Nutrition: Good Average Refer to attached handout Heart-Healthy Diet: After Your Visit Fall Risk (screened today): High Refer to attached handout Preventing Falls: After your Visit Recommend regular use of cane or walker Vaccines Pneumococcal: Ordered Recommended today Recommended today, but you have declined No further needed Influenza: Your next one in the fall of this year Chronic Disease Risks Stroke: Low Risk Intermediate Risk Heart Attack: Low risk Intermediate Risk Clogging of the Arteries: Low risk Intermediate Risk Diabetes: High Risk Active diagnosis, Continue current treatment plan Secondary Prevention/Interven tion (detects treatable diseases before they may cause symptoms, disability, or ) Prostate Cancer Screening: No PSA screening necessary Colon Cancer Screening: Colonoscopy Date Screening Last Performed: 2014 Eye Disease Screening: Ordered Recommended today Dementia Risk: High Depression Screening: Negative [email or web address] Not available 01/25/2024 10:21:40 07/09/2024 [id number] complete PFT w/ post bronchodilator spirometry* [email or web address] Not available 08/08/2024 04:18:12 Reason for Referral Staffing Clerk Referral for Type 2 dia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 Please call pt to schedule appt. Thank you Referring Physician: Freedom Sorto, Internal Medicine, Encounter Date: 01/25/2024 Pharmacy Picking Technician Referral for Co ronary arteriosclerosis Please call pt to schedule appt. Thank you Referring Physician: Freedom Sorto Internal Medicine, Encounter Date: 01/25/2024 Furniture Dipper Referral for Visual impairment Referring Physician: Freedom Sorto Internal Medicine, Encounter Date: 01/25/2024 Staffing Clerk Referral for Type 2 dia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 Please call patient to schedule. Referring Physician: Freedom Sorto Internal Medicine, Encounter Date: 05/16/2024 Pharmacy Picking Technician Referral for Co ronary arteriosclerosis Please call pt to schedule appt. Thank you Referring Physician: Freedom Sorto Internal Medicine, Encounter Date: 05/16/2024 Furniture Dipper Referral for Visual impairment Please call patient to schedule. Referring Physician: Desire Melton Medicine, Encounter Date: 05/16/2024 Director Long Term Care Referral for Liver enzymes level above reference range Please call patient to schedule. Referring Physician: Freedom Sorto Internal Medicine, Encounter Date: 05/16/2024 Second Watch Sergeant Referral for C hronic obstructive pulmonary disease Referring Physician: Freedom Sorto Internal Medicine, Encounter Date: 07/09/2024 Pharmacy Picking Technician Referral for Co ronary arteriosclerosis Referring Physician: Freedom Sorto Internal Medicine, Encounter Date: 07/09/2024 Results Created Date Observation Date Name Description Value Unit Range Abnormal Flag Note LastModifiedBy Organization Detail LastModifiedTime 01/18/20 24 01/18/2024 CBC/C OMPLE TE BLD COUNT W/DIF F white blood cells 8.2 x10'3 /uL 4.2-10 .[address] [facility] (Lab) [address] [place], [address], 01/18/2024 11:41:42 01/18/20 24 01/18/2024 CBC/C OMPLE TE BLD COUNT W/DIF F red blood cells 4.48 x10'6 /uL 4.10-5 .[address] [facility] (Lab) [address] [place], [address], 01/18/2024 11:41:42 01/18/20 24 01/18/2024 CBC/C OMPLE TE BLD COUNT W/DIF F hemoglobin 15.2 g/dL 13.2-1 7.0 Not Available [facility] (Lab) [address] [place], [address], 01/18/2024 11:41:42 01/18/20 24 01/18/2024 CBC/C OMPLE TE BLD COUNT W/DIF F hematocrit 45.4 % 39.3-5 0.[address] [facility] (Lab) [address] [place], [address], 01/18/2024 11:41:42 01/18/20 24 01/18/2024 CBC/C OMPLE TE BLD COUNT W/DIF F mean red cell volume 101.3 fL 80.0-9 7.0 high Not Available [facility] (Lab) [address] [place], [address], 01/18/2024 11:41:42 01/18/20 24 01/18/2024 CBC/C OMPLE TE BLD COUNT W/DIF F mean red cell hemoglobin 33.9 pg 27.0-3 3.0 high Not Available [facility] (Lab) [address] [place], [address], 01/18/2024 11:41:42 01/18/20 24 01/18/2024 CBC/C OMPLE TE BLD COUNT W/DIF F mean RBC HGB concentratio n 33.5 g/dL 31.0-3 6.[address] [facility] (Lab) [address] [place], [address], 01/18/2024 11:41:42 01/18/20 24 01/18/2024 CBC/C OMPLE TE BLD COUNT W/DIF F red cell distribution width 11.9 % 11.8-1 5.5 Not Available [facility] (Lab) [address] [place], [address], 01/18/2024 11:41:42 01/18/20 24 01/18/2024 CBC/C OMPLE TE BLD COUNT W/DIF F platelets 186 x10'3 /uL 150-40 0 Not Available [facility] (Lab) [address] [place], [address], 01/18/2024 11:41:42 01/18/2001/18/2024 CBC/C OMPLE TE BLD COUNT W/DIF F mean platelet volume 11.7 fL 9.0-12 .[address] [facility] (Lab) [address] [place], [address], 01/18/2024 11:41:42 01/18/20 24 01/18/2024 CBC/C OMPLE TE BLD COUNT W/DIF F neutrophils 55.2 % 39.0-7 2.[address] [facility] (Lab) [address] [place], [address], 01/18/2024 11:41:42 01/18/20 24 01/18/2024 CBC/C OMPLE TE BLD COUNT W/DIF F lymphocytes 27.5 % 16.0-4 7.0 Not Available [facility] (Lab) [address] [place], [address], 01/18/2024 11:41:42 01/18/20 24 01/18/2024 CBC/C OMPLE TE BLD COUNT W/DIF F monocytes 9.5 % 5.0-12 [address] [facility] (Lab) [address] [place], [address], 01/18/2024 11:41:42 01/18/20 24 01/18/2024 CBC/C OMPLE TE BLD COUNT W/DIF F eosinophils 6.6 % 1.0-7. 0 Not Available [facility] (Lab) [address] [place], [address], 01/18/2024 11:41:42 01/18/20 24 01/18/2024 CBC/C OMPLE TE BLD COUNT W/DIF F basophils 0.7 % 0.0-2. 0 Not Available [facility] (Lab) [address] [place], [address], 01/18/2024 11:41:42 01/18/20 24 01/18/2024 CBC/C OMPLE TE BLD COUNT W/DIF F immature granulocytes 0.5 % 0.00-0 .[address] [facility] (Lab) [address] [place], [address], 01/18/2024 11:41:42 01/18/20 24 01/18/2024 CBC/C OMPLE TE BLD COUNT W/DIF F neutrophils, absolute count 4.52 x10'3 /uL 1.5-8. [address] [facility] (Lab) [address] [place], [address], 01/18/2024 11:41:42 01/18/20 24 01/18/2024 CBC/C OMPLE TE BLD COUNT W/DIF F lymphocytes, absolute count 2.25 x10'3 /uL 1.07-3 .[address] [facility] (Lab) [address] [place], [address], 01/18/2024 11:41:42 01/18/20 24 01/18/2024 CBC/C OMPLE TE BLD COUNT W/DIF F monocytes, absolute count 0.78 x10'3 /uL 0.29-0 .[address] [facility] (Lab) [address] [place], [address], 01/18/2024 11:41:42 01/18/20 24 01/18/2024 CBC/C OMPLE TE BLD COUNT W/DIF F eosinophils, absolute count 0.54 x10'3 /uL 0.02-0 .53 high Not Available [facility] (Lab) [address] [place], [address], 01/18/2024 11:41:42 01/18/20 24 01/18/2024 CBC/C OMPLE TE BLD COUNT W/DIF F basophils, absolute count 0.06 x10'3 /uL 0.01-0 .[address] [facility] (Lab) [address] [place], [address], 01/18/2024 11:41:42 01/18/20 24 01/18/2024 CBC/C OMPLE TE BLD COUNT W/DIF F immature granulocytes ,absolute 0.04 x10'3 /uL 0.00-0 .[address] [facility] (Lab) [address] [place], [address], 01/18/2024 11:41:42 01/18/20 24 01/18/2024 CBC/C OMPLE TE BLD COUNT W/DIF F nucleated red blood cells 0.0 % -0 Not Available [facility] (Lab) [address] [place], [address], 01/18/2024 11:41:42 01/18/20 24 01/18/2024 CBC/C OMPLE TE BLD COUNT W/DIF F NRBC# 0.00 x10'3 /uL Not Available [facility] (Lab) [address] [place], [address], 01/18/2024 11:41:42 01/18/20 24 01/18/2024 MICRO ALBUM IN RANDO M URINE microalbumin , urine 7.6 mg/L 0.0-16 .[address] [facility] (Lab) [address] [place], [address], 01/18/2024 12:36:24 01/18/20 24 01/18/2024 LIPID PANEL cholesterol 85 mg/dL 140-19 9 low NIH MERY NSUS RECOM MENDA TION FOR YESICA STERO L: ADULT CHILD LOW RISK: <200 <170 BORDE RLINE : <200- 239 ----- HIGH RISK: >240 >[address] [facility] (Lab) [address] [place], [address], 01/18/2024 12:46:43 01/18/20 24 01/18/2024 LIPID PANEL triglyceride s 115 mg/dL 0-150 NIH MERY NSUS REPOR T RECOM MENDA TION FOR TRIGL YCERI AURA: ADULT CHILD LOW RISK: <150 ----- BODER LINE: 150-1 99 ----- HIGH RISK: >200 ----- Not Available [facility] (Lab) [address] [place], [address], 01/18/2024 12:46:43 01/18/20 24 01/18/2024 LIPID PANEL HDL cholesterol 43 mg/dL 40- Not Available [facility] (Lab) [address] [place], [address], 01/18/2024 12:46:43 01/18/20 24 01/18/2024 LIPID PANEL LDL cholesterol, calculated 19 mg/dL 0-130 NIH MERY NSUS REPOR T RECOM MENDA TIONS FOR LDL: ADULT CHILD LOW RISK <130 <110 (OPTI MAL LDL) <100 ----- BORDE RLINE : 130-1 59 ----- HIGH RISK: >160 >130 A TRIGL YCERI DE RESUL T >400 INVAL IDATE S THE CALCU LATIO N FOR LDL FRACT IONAT ION - THE LDL RESUL T WILL NOT BE REPOR MARIO. Not Available [facility] (Lab) [address] [place], [address], 01/18/2024 12:46:43 01/18/20 24 01/18/2024 COMPR EHENS MICHAEL METAB OLIC PANEL sodium 140 mmol/ L 137-14 5 Not Available [facility] (Lab) [address] [place], [address], 01/18/2024 12:46:53 01/18/20 24 01/18/2024 COMPR EHENS MICHAEL METAB OLIC PANEL potassium 4.4 mmol/ L 3.5-5. 1 Not Available [facility] (Lab) [address] [place], [address], 01/18/2024 12:46:53 01/18/20 24 01/18/2024 COMPR EHENS MICHAEL METAB OLIC PANEL chloride 104 mmol/ L 98-[address] [facility] (Lab) [address] [place], [address], 01/18/2024 12:46:53 01/18/20 24 01/18/2024 COMPR EHENS MICHAEL METAB OLIC PANEL carbon dioxide 31 mmol/ L 22-30 high Not Available [facility] (Lab) [address] [place], [address], 01/18/2024 12:46:53 01/18/20 24 01/18/2024 COMPR EHENS MICHAEL METAB OLIC PANEL anion gap 9.4 mmol/ L 14-22 low Not Available [facility] (Lab) [address] [place], [address], 01/18/2024 12:46:53 01/18/20 24 01/18/2024 COMPR EHENS MICHAEL METAB OLIC PANEL glucose 106 mg/dL 70-99 high Not Available [facility] (Lab) [address] [place], [address], 01/18/2024 12:46:53 01/18/20 24 01/18/2024 COMPR EHENS MICHAEL METAB OLIC PANEL BUN 16 mg/dL 8-[address] [facility] (Lab) [address] [place], [address], 01/18/2024 12:46:53 01/18/20 24 01/18/2024 COMPR EHENS MICHAEL METAB OLIC PANEL creatinine 1.18 mg/dL 0.66-1 .[address] [facility] (Lab) [address] [place], [address], 01/18/2024 12:46:53 01/18/20 24 01/18/2024 COMPR EHENS MICHAEL METAB OLIC PANEL GFR 59 Refer ence Range : Gardner ge GFR Healt hy Adult : >60 mL/mi n/1.7 3 m2 Chron ic Kidne y Disea se: 15-60 mL/mi n/1.7 3 m2 Kidne y Failu re: <15/m L/min /1.73 m2 www.n iddk. nih.g ov The MDRD study equat ion has not been valid ated in child amanda <18 years of age; pregn ant women ; the elder ly >85 years of age; or in some racia l or ethni c subgr oups, such as Hisjack nics. Outsi de the valid ated anupama eters , estim ated GFR is less accur ate, requi ring clini gustavo judgm ent on a case- by-ca se basis . Clini gustavo inter preta tion for other races and ages must be made by the clini candida. The MDRD study equat ion has not been valid ated for the evalu ation of serum creat inine relat ed to nutri quinton l statu s or medic ation usage . For perso ns <18 years of age, a pedia tric GFR calcu lator is avail able on the F websi te: https ://alice w.cristal rhodes.o rg/pr ofess ional s/kdo qi/gf r_cal culat or Not Available [facility] (Lab) [address] [place], [address], 01/18/2024 12:46:53 01/18/20 24 01/18/2024 COMPR EHENS MICHAEL METAB OLIC PANEL alkaline phosphatase 72 U/L 38-126 Not Available [facility] (Lab) [address] [place], [address], 01/18/2024 12:46:53 01/18/20 24 01/18/2024 COMPR EHENS MICHAEL METAB OLIC PANEL alanine aminotransfe rase 16 U/L 0-50 Not Available [facility] (Lab) [address] [place], [address], 01/18/2024 12:46:53 01/18/20 24 01/18/2024 COMPR EHENS MICHAEL METAB OLIC PANEL aspartate aminotransfe rase 87 U/L 15-46 high Not Available [facility] (Lab) [address] [place], [address], 01/18/2024 12:46:53 01/18/20 24 01/18/2024 COMPR EHENS MICHAEL METAB OLIC PANEL bilirubin, total 1.10 mg/dL 0.20-1 .[address] [facility] (Lab) [address] [place], [address], 01/18/2024 12:46:53 01/18/20 24 01/18/2024 COMPR EHENS MICHAEL METAB OLIC PANEL calcium 9.6 mg/dL 8.4-10 .[address] [facility] (Lab) [address] [place], [address], 01/18/2024 12:46:53 01/18/20 24 01/18/2024 COMPR EHENS MICHAEL METAB OLIC PANEL total protein 8.0 g/dL 6.3-8. [address] [facility] (Lab) [address] [place], [address], 01/18/2024 12:46:53 01/18/20 24 01/18/2024 COMPR EHENS MICHAEL METAB OLIC PANEL albumin 4.4 g/dL 3.0-4. [address] [facility] (Lab) [address] [place], [address], 01/18/2024 12:46:53 01/18/20 24 01/18/2024 COMPR EHENS MICHAEL METAB OLIC PANEL globulin 3.6 g/dL 2.6-4. [address] [facility] (Lab) [address] [place], [address], 01/18/2024 12:46:53 01/18/20 24 01/18/2024 COMPR EHENS MICHAEL METAB OLIC PANEL A/G ratio 1.2 ratio 1.0-2. [address] [facility] (Lab) [address] [place], [address], 01/18/2024 12:46:53 01/18/20 24 01/18/2024 HEMOG LOBIN A1C HA1C 6.0 % 4.0-6. 0 Diabe vinayak Scree shae Crite chirag: <5.7% Consi stent with absen ce of diabe vinayak 5.7-6 .4% Consi stent with incre ased risk for diabe vinayak (pred iabet es) >OR=6 .5% Consi stent with diabe vinayak REFER ENCE: Diabe vinayak Care 2016, 39(Singer ppl.1 ):s13 -s22 Not Available [facility] (Lab) [address] [place], [address], 01/18/2024 14:19:34 01/18/2001/18/2024 TSH W/REF EVELYN FT4 TSH with reflex free T4 1.800 uIU/m L 0.465- 4.[address] [facility] (Lab) [address] [place], [address], 01/18/2024 14:24:57 01/18/20 24 01/18/2024 VITAM IN B12 (DOYLE FLORIDALMA ) vb12 371 pg/mL 239-[address] [facility] (Lab) [address] [place], [address], 01/18/2024 15:14:16 01/18/20 24 01/18/2024 FOLAT E, SERUM /PLAS MA folate >20.0 NG/mL 2.76-2 0.[address] [facility] (Lab) [address], [place], [address], 01/18/2024 15:14:17 01/31/20 24 01/31/2024 US, liver No observ ation record ed. [email or web address] [facility] [address], [place], [address], 02/14/2024 15:51:42 03/28/20 24 03/28/2024 imagi ng/di agnos tic resul t No observ ation record ed. [facility] [address] [facility] [address], [place], [address], 03/28/2024 14:12:49 03/28/20 24 03/28/2024 imagi ng/di agnos tic resul t No observ ation record ed. [facility] [address] [facility], [place], [address], 03/28/2024 14:24:55 07/23/19 25 07/23/2024 CT, chest , w/o contr ast No observ ation record ed. [facility] [address], [place], [address], 07/23/2024 17:33:21 Result Notes None recorded. 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 Not Available [facility] 4 08:43:19 Abdominal pain 00807589 Active Not Available [facility] 4 08:43:19 Transient cerebral ischemia 051462936 Active 2021 Not Available [facility] 4 08:43:19 Dyspnea 632470210 Active 2016 Not Available [facility] 4 08:43:19 Moderate chronic obstructi ve pulmonary disease 262726610 Active 2016 Not Available [facility] 4 08:43:19 Dysphagia 05616062 Active Not Available [facility] 4 08:43:19 Chronic ischemic heart disease 464061699 Active Marcia Joseph, CCM null, [place] [facility] 4 13:32:07 Compressi on fracture of lumbar spine 554759083 Active Not Available [facility] 4 08:43:19 Former heavy tobacco smoker 02633243639 4100 Active 2016 Not Available [facility] 4 08:43:19 Atrial fibrillat ion 74927027 Active 2017 Marcia Joseph CCM null, [place] [facility] [place] [facility] 4 13:32:07 Coronary arteriosc lerosis 96700579 Active 2016 Not Available [facility] 4 08:43:19 Hyperlipi demia 60485342 Active Not Available [facility] 4 08:43:19 Essential hypertens ion 39640515 Active Not Available [facility] 4 08:43:19 Ex-smoker 6368331 Completed 201603/20/2017 Not Available [facility] 3 06:08:09 Gastroeso phageal reflux disease without esophagit is 034599729 Active 2022 Not Available [facility] 4 08:43:19 Type 2 diabetes mellitus without complicat ion 461115461 Active 2022 Not Available [facility] 4 08:43:19 Visual impairmen t 444029076 Active 2022 Not Available [facility] 4 08:43:19 Aneurysm of thoracic aorta 329187106 Active 2022 Not Available [facility] 4 08:43:19 Macrocyto sis 488403516 Active 2022 Not Available [facility] 4 08:43:19 Umbilical hernia 466087316 Active 2022 Not Available [facility] 4 08:43:19 Proteinur ia 82106778 Active 2022 Not Available [facility] 4 08:43:19 Thoracic back pain 076778562 Active 2022 Not Available [facility] 4 08:43:19 Dementia 40078287 Active 2022 Marcia Joseph CCM null, [facility] 4 13:32:07 COVID-19 276062537 Active 2023 Not Available [facility] 4 08:43:19 Cerebral infarctio n 238153724 Active 2023 Not Available [facility] 4 08:43:19 Gynecomas tia 6547659 Active 2023 Not Available [facility] 4 08:43:19 Skin lesion 33066630 Active 2023 Janet Monroy MA null, [place] [facility] [employer] [facility] 4 14:25:13 Epidermoi d cyst of skin of neck 430430295 Active 2023 Yves rincon MD [address], [place], [address] , [facility] [employer] [facility] 4 15:17:03 Liver enzymes level above reference range 871665552 Active 2023 Freedom patricia MD [address], [place], [address] , [facility] 4 09:46:09 Unsteady when walking 04262487 Active 2023 Freedom patricia MD [address], [place], [address] , [facility] [place] [facility] 4 09:51:47 Sinusitis 43920089 Active 2023 Khadra Zhang CMA null, [facility] 4 13:51:23 Upper respirato ry infection 29658221 Active 2023 Freedom patricia MD [address], [place], [address] , [facility] [employer] [facility] 4 12:39:06 Cough 99554675 Active 2024 Yoly Stewart MA null, [facility] [employer] [facility] 5 16:05:59 Dyspnea on exertion 67528421 Active 2024 Candy Marie NP [address], [place], [address] , [facility] [employer] [facility] 5 12:03:04 Chronic cough 46484133 Active 2024 Candy Marie NP [address], [place], [address] , [facility] [employer] [facility] 5 12:42:47 Oxygen saturatio n below reference range 555432975 Active 2024 Candy Marie NP [address], [place], [address] , [facility] 5 12:43:55 Notes:Some problems listed i n Document: #[id number] could not be added to this patient's chart. Please review this document and add these problems to the patient's chart manually as needed. Problem Notes None recorded. Procedures Surgical History Date Name Laterality Status Provider Name and Address Organization Details Recorded Time 01/25/20 Medicare Wellness CPT Code, subsequent completed Luis M River LPN [facility] [employer] [facility] 01/25/2024 09:10:11 01/25/20 24 Advanced Care Planning completed Luis M River LPN [facility] 01/25/2024 10:14:01 01/22/20 24 Chronic care management services completed Lexi Jones [facility] 01/22/2024 14:17:20 12/21/19 24 Chronic care management services completed Lexi Jones [facility] 12/21/2023 13:33:15 12/19/19 24 Blank Procedure completed Yves faith MD [address], [place], [address], [facility] 12/19/2023 13:03:23 12/19/19 24 incision and drainage of cyst completed LYNDSEY Serrano [facility] 01/25/2024 09:32:10 11/07/19 24 Chronic care management services completed Lexi Jones [facility] 11/07/2023 13:42:57 12/09/19 23 Medicare Wellness CPT Code, subsequent completed Mary De La Vega RN [facility] 12/08/2022 10:33:58 10/05/19 23 Transitional_Care_ Management completed Freedom Sorto MD [address], [place], [address], [facility] 10/04/2022 12:05:41 03/13/20 19 Cardiovascular Procedure completed Not Available [facility] 07/27/2022 05:58:45 11/29/19 17 Cardiac Stent Placement completed Not Available [facility] 07/27/2022 05:58:45 07/28/19 16 Cataract Surgery completed Not Available [facility] 07/27/2022 05:58:45 Cholecystectomy completed Not Available [facility] 07/27/2022 05:58:45 Appendectomy completed Not Available [facility] 07/27/2022 05:58:45 Imaging Results Imaging Date Name Status LastModified by Organiz ation Details LastModified Time 01/31/2024 US, liver completed [email or web address] [facility] [address], [place], [address], 02/14/2024 15:51:42 03/28/2024 imaging/diagn ostic result active [facility] [address] [facility] [address], [place], [address], 03/28/2024 14:12:49 03/28/2024 imaging/diagn ostic result active [facility] [address] , [place], [address], 03/28/2024 14:24:55 07/23/2024 CT, chest, w/o contrast active [facility] [address], [place], [address], 07/23/2024 17:33:21 Procedure Notes None recorded. Medical Equipment None Reported. Allergies Allergen ID Allergen Name Allergen Category Reaction Reaction Severity Criticality Documentation Date Start Date Code Code System Note Provider Name and Address Organization Details Recorded Time 78269 ticagrelo r medicatio n Not available Not available Not available 07/27/2022 20049 32 RxNorm Other react ions and sever ities : 'Adve rse react ion to subst ance' . HODA Benjamin, [employer] 4 14:15:59 13441 Product containin g penicilli n (product) medicatio n Not available Not available Not available 07/27/2022 76253 8001 SNOMED Other react ions and sever ities : 'Adve rse react ion to subst ance' . HODA Benjamin, [employer] 4 14:15:59 Medications Name Sig Start Date Stop Date Status Note LastModified by Organization Details LastModified Time losartan 50 mg tablet TAKE 1 TABLET BY MOUTH EVERY DAY 03/25 completed Not Available Not Available Not Available furosemid e 40 mg tablet TAKE 1 TABLET BY MOUTH EVERY DAY active Not Available Not Available No t Available metformin 500 mg tablet TAKE 1 TABLET BY MOUTH TWICE A DAY active Not Available Not Available No t Available albuterol sulfate 0.63 mg/3 mL solution for nebulizat ion Inhale 2 mL every 4 hours by inhalati on route. 04/27 completed Not Available Not Available Not Available prednison e 10 mg tablet Take 10 mg by oral route for 10 days. active Not Available Not Available No t Available clindamyc in HCl 300 mg capsule TAKE 1 CAPSULE BY MOUTH EVERY 6 HOURS UNTIL GONE 01/21 completed Not Available Not Available Not Available albuterol sulfate 2.5 mg/3 mL (0.083 %) solution for nebulizat ion INHALE THE CONTENTS OF 1 VIAL VIA NEBULIZE R 3 TIMES A DAY NEEDED active Not Available Not Available No t Available azithromy cata 250 mg tablet Take 2 TABLET EVERY DAY by oral route for 1 day. Than 1 tablet for 4 days active Not Available Not Available No t Available aspirin 325 mg tablet Take 1 tablet every day by oral route for 90 days. 11/24 completed Not Available Not Available Not Available ofloxacin 0.3 % eye drops 01/18 completed Not Available Not Available Not Available metoprolo l succinate ER 50 mg tablet,ex tended release 24 hr 12/19 completed Not Available Not Available Not Available hydrocodo ne 5 mg-acetam inophen 325 mg tablet active Not Available Not Available Not Available ondansetr on HCl 4 mg tablet active Not Available Not Available No t Available prednison e 20 mg tablet PLEASE SEE ATTACHED FOR DETAILED DIRECTIO NS active Not Available Not Available No t Available Niaspan 500 mg tablet,ex tended release Take 1 tablet every day by oral route for 90 days. 2012 active Not Available Not Available Not Avai lable clopidogr el 75 mg tablet TAKE 1 TABLET BY MOUTH EVERY DAY active Not Available Not Available No t Available amlodipin e 5 mg tablet TAKE 1 TABLET BY MOUTH EVERY DAY 11/12 completed Not Available Not Available Not Available folic acid 400 mcg tablet Take 1 tablet every day by oral route as directed . 2016 active Not Available Not Available Not Avai lable sulfameth oxazole 800 mg-trimet hoprim 160 mg tablet 07/13 completed Not Available Not Available Not Available tramadol 50 mg tablet TAKE 1 TABLET BY MOUTH EVERY 6 HOURS NEEDED FOR PAIN active Not Available Not Available No t Available spironola ctone 25 mg tablet TAKE 1 TABLET BY MOUTH EVERY DAY active Not Available Not Available No t Available isosorbid e mononitra te ER 120 mg tablet,ex tended release 24 hr TAKE 1 TABLET BY MOUTH ONCE DAILY 07/04 completed Not Available Not Available Not Available ketorolac 0.5 % eye drops active Not Available Not Available Not Available meloxicam 7.5 mg tablet Take 1 tablet twice a day by oral route as needed for 30 days. 03/27 completed Not Available Not Available Not Available isosorbid e mononitra te ER 60 mg tablet,ex tended release 24 hr 07/13 completed Not Available Not Available Not Available prednisol one acetate 1 % eye drops,christine pension active Not Available Not Available Not Available amlodipin e 10 mg tablet TAKE 1 TABLET BY MOUTH EVERY DAY active Not Available Not Available No t Available cephalexi n 500 mg capsule Take 1 capsule 3 times a day by oral route. active Not Available Not Available No t Available pantopraz ole 40 mg tablet,de layed release TAKE 1 TABLET BY MOUTH DAILY NEEDED ONLY active Not Available Not Available No t Available simvastat in 20 mg tablet TAKE ONE TABLET BY MOUTH EVERY DAY active Not Available Not Available No t Available tobramyci n 0.3 % eye drops active Not Available Not Available No t Available nitroglyc pancho 400 mcg/spray transling ual [place] 1 spray as needed by translin gual route as needed. active Not Available Not Available No t Available dexametha sone 0.75 mg tablet 04/27 completed Not Available Not Available Not Available nitroglyc pancho 0.4 mg sublingua l tablet prn 01/21 completed Not Available Not Available Not Available omeprazol e 20 mg capsule,d elayed release TAKE ONE CAPSULE BY MOUTH EVERY DAY active Not Available Not Available No t Available ergocalci ferol (vitamin D2) 1,250 mcg (50,000 unit) capsule TAKE 1 CAPSULE BY MOUTH ONE TIME PER WEEK FOR 90 DAYS active Not Available Not Available No t Available levofloxa cata 500 mg tablet Take 1 tablet every 24 hours by oral route for 7 days. 08/24 completed Not Available Not Available Not Available methylpre dnisolone 4 mg tablets in a dose pack 07/13 completed Not Available Not Available Not Available albuterol sulfate HFA 90 mcg/actua tion aerosol inhaler INHALE 2 PUFFS BY MOUTH 4 TIMES A DAY NEEDED active Not Available Not Available No t Available fluticaso ne propionat e 50 mcg/actua tion nasal spray,christine pension [place] 2 sprays every day by intranas al route. active Not Available Not Available No t Available calcitrio l 0.25 mcg capsule Take 1 capsule every day by oral route. active Not Available Not Available No t Available ramipril 5 mg capsule TAKE ONE CAPSULE BY MOUTH EVERY DAY 07/27 completed Not Available Not Available Not Available ASA Buff (Mag Carb-Al Glyc) 325 mg tablet Take 1 tablet every day by oral route. 03/28 completed duplicat e Not Available Not Available Not Available ramipril 10 mg capsule TAKE 1 CAPSULE BY MOUTH EVERY DAY 11/12 completed Not Available Not Available Not Available Aspir-Tri n 325 mg tablet,de layed release Take 1 tablet every day by oral route as directed . 03/20 completed Not Available Not Available Not Available DuoNeb 2.5 mg-0.5 mg/3 mL solution for nebulizat ion Inhale 3 mL 4 times a day by nebuliza tion route as directed . 03/20 completed Not Available Not Available Not Available Vitamin D3 25 mcg (1,000 unit) capsule Take 1 capsule every day by oral route. 2021 active Not Available Not Available Not Avai lable cyclobenz aprine 5 mg tablet TAKE 1 TABLET BY MOUTH EVERY 8 HOURS 07/04 completed Not Available Not Available Not Available rosuvasta tin 20 mg tablet TAKE 1 TABLET BY MOUTH EVERY DAY active Not Available Not Available No t Available metoprolo l tartrate 25 mg tablet TAKE 1 TABLET BY MOUTH TWICE A DAY active Not Available Not Available No t Available Spiriva with [employer] r 18 mcg and inhalatio n capsules Inhale 1 capsule every day by inhalati on route. 04/27 completed Not Available Not Available Not Available albuterol sulfate 11/24 completed Not Available Not Available Not Available losartan 11/24 completed 50mg daily, [facility] [place] added on 07/08/19 21 Not Available Not Available Not Available multivita min TK 1T PO QD 2016 active Not Available Not Available Not Avai lable fenofibra te nanocryst allized 48 mg tablet TAKE 1 TABLET BY MOUTH ONCE DAILY 03/27 completed Not Available Not Available Not Available Symbicort 160 mcg-4.5 mcg/actua tion HFA aerosol inhaler INHALE 2 PUFFS BY MOUTH TWICE A DAY 07/09 completed Not Available Not Available Not Available ranolazin e ER 1,000 mg tablet,ex tended release,1 2 hr TAKE 1 TABLET BY MOUTH TWICE A DAY FOR CHRONIC ANGINA. 11/08 completed Stopped per 11/06/21 [facility] discharg e summary Not Available Not Available Not Available GaviLyte- N 420 gram oral solution active Not Available Not Available Not Available Effient 10 mg tablet active Not Available Not Available Not Available Combivent Respimat 20 mcg-100 mcg/actua tion solution for inhalatio n 12/19 completed Not Available Not Available Not Available Eliquis 5 mg tablet TAKE 1 TABLET BY MOUTH TWICE A DAY active Not Available Not Available No t Available Jardiance 10 mg tablet Take 1 tablet every day by oral route. 07/04 completed Not Available Not Available Not Available Incruse Ellipta 62.5 mcg/actua tion powder for inhalatio n Inhale 1 puff every day by inhalati on route. 11/04 completed Not Available Not Available Not Available Eye Health Plus Lutein TAKE 1 CAP BY MOUTH TWICE A DAY 2021 active Not Available Not Available Not Avai lable Wixela Inhub 250 mcg-50 mcg/dose powder for inhalatio n INHALE 1 PUFF TWICE A DAY BY INHALATI ON ROUTE. 10/04 completed Not Available Not Available Not Available Trelegy Ellipta 200 mcg-62.5 mcg-25 mcg powder for inhalatio n INHALE 1 PUFF BY MOUTH ONCE DAILY active Not Available Not Available No t Available aspirin 81 mg capsule Take 1 capsule every day by oral route. active Not Available Not Available No t Available Paxlovid 300 mg (150 mg x 2)-100 mg tablets in a dose pack USE DIRECTED 07/04 completed Not Available Not Available Not Available Inpefa 200 mg tablet TAKE 1 TABLET BY MOUTH EVERY DAY 03/28 completed stopped by cardio and nephro Not Available Not Available Not Available Vitals Date Recorded Body height Provider Name an d Address Organization Details Last Updated DateTime 01/19/2024 180.34 cm Lexi Jones CCM [facility] 01/22/2024 14:15:28 Date Recorded Body height Body mass index (BMI) Body weight Body temperature Heart rate Systolic blood pressure Diastolic blood pressure Provider Name and Address Organization Details Last Updated DateTime 4 180.34 cm 23.7 kg/m2 20716.7 g 97.4 [degF] 72 /min 124 mm[Hg] 62 mm[Hg] Noelle [place] [facility] 4 09:34:18 Date Recorded Pain severity - 0-10 verbal numeric rating [Score] - Reported Provider Name and Address Organization Details Last Updated DateTime 01/25/2024 0 Luis M River LPN [facility] 01/25/2024 10:08:13 Date Recorded Body height Body mass index (BMI) Body weight Body temperature Heart rate Systolic blood pressure Provider Name and Address Organization Details Last Updated DateTime 4 180.34 cm 23.6 kg/m2 04690.1 1 g 97.4 [degF] 78 /min 126 mm[Hg] Noelle [place] [facility] Merc[facility] 4 11:56:59 Date Recorded Body height Body temperature Heart rate Oxygen saturation Oxygen saturation in Arterial blood by Pulse oximetry Pain severity - 0-10 verbal numeric rating [Score] - Reported Systolic blood pressure Diastolic blood pressure Provider Name and Address Organization Details Last Updated DateTime 5 180.34 cm 97.4 [degF] 63 /min 91 % 91 % 0 128 mm[Hg] 60 mm[Hg] Odalys Sheffield MA [facility] 5 10:50:41 Date Recorded Body height Body mass index (BMI) Body weight Heart rate Oxygen saturation Oxygen saturation in Arterial blood by Pulse oximetry Body temperature Systolic blood pressure Diastolic blood pressure Provider Name and Address Organization Details Last Updated DateTime 5 180.34 cm 22.9 kg/m2 24666.1 5 g 78 /min 92 % 92 % 97.5 [degF] 130 mm[Hg] 64 mm[Hg] Yoly Stewart [place] [facility] 5 11:55:18 Social History Question Answer Notes LastModified by Organization Details LastModified Time Tobacco Smoking Status Former Smoker Patient quit 20 years ago. Not Available [facility] 07/27/2022 05:56:41 Do You Have An Advance Directive? No 01/25/24 POLST Signed Today. ACP Done Information not available 01/25/2024 What Is Your Level Of Alcohol Consumption? 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 [email or web address] [id number] Information not available 07/27/2022 Is Blood Transfusion Acceptable In An Emergency? Yes Information not available 01/25/2024 What Is Your Level Of Caffeine Consumption? Occasional [id number] Information not available 07/27/2022 What Is Your Code Status? DNR [email or web address] Information not available 01/25/2024 In The 14 Days Before Symptom Onset, Have You Had Close Contact With A Laboratory-confi rmed COVID-19 While That Case Was Ill? No [id number] Information not available 07/27/2022 In The 14 Days Before Symptom Onset, Have You Had Close Contact With A Person Who Is Under Investigation For COVID-19 While That Person Was Ill? No [id number] Information not available 07/27/2022 Are You Currently Employed? No Retired [email or web address] Information not available 11/02/2023 Are You Deaf Or Do You Have Serious Difficulty Hearing? No [id number] Information not available 07/27/2022 What Type Of Diet Are You Following? REGULAR [id number] Information not available 07/27/2022 What Is The Highest Grade Or Level Of School You Have Completed Or The Highest Degree You Have Received? [id number] [email or web address].[id number] Information not available 07/27/2022 How Many Days Of Moderate To Strenuous Exercise, Like A Brisk Walk, Did You Do In The Last 7 Days? 0 [email or web address].[id number] Information not available 07/27/2022 Have There Been Any Changes To Your Family Or Social Situation? No [email or web address].[id number] Information not available 07/27/2022 What Is The Fluoride Status Of Your Home? Unknown [email or web address] [id number] Information not available 07/27/2022 When Did You Quit Smoking? 16+yearssincelastc igarette [id number] Information not available 07/27/2022 Are There Any Guns Present In Your Home? Yes [email or web address] Information not available 01/25/2024 Do You Use Insect Repellent Routinely? No [email or web address].[id number] Information not available 07/27/2022 Where Do You Live? SingleLevelHouse [email or web address] [id number] Information not available 07/27/2022 Advance Directive- Providers Has Reviewed Directive And Consents To Follow Them (insert Provider Name With Any Objectives In Notes Field) Yes Information not available 01/25/2024 Presence Of Domestic Violence No [email or web address] Information not available 01/25/2024 Guns Present In The Home? Yes [email or web address] Information not available 01/25/2024 Are You Able To Care For Yourself? Yes Information not available 01/25/2024 Are You Blind Or Do Yo Have Difficulty Seeing? Yes Blind In Right Eye [email or web address] Information not available 01/25/2024 Are You Deaf Or Do You Have Serious Difficulty Hearing? No Information not available 01/25/2024 General Stress Level? Low [email or web address] Information not available 01/25/2024 Live Alone Of With Others? With Others [email or web address] Information not available 01/25/2024 Do You Have A Medical Power Of Marble Worker? No [id number] Information not available 07/27/2022 What Was The Date Of Your Most Recent Tobacco Screening? 07/09/2024 [email or web address] Information not available 07/09/2024 How Many Children Do You Have? 1 Information not available 01/25/2024 Have You Ever Been Counseled For Unhealthy Alcohol Use? No [id number] Information not available 07/27/2022 Do You Have Any Pets? Yes Dog [email or web address] Information not available 01/25/2024 What Is Your Relationship Status? [email or web address].[id number] Information not available 07/27/2022 Do You Use Your Seat Belt Or Car Seat Routinely? Yes [email or web address].[id number] Information not available 07/27/2022 Are You Sexually Active? No [email or web address] Information not available 01/25/2024 Do You Have Smoke And Carbon Monoxide Detectors In Your Home? Yes [id number] [id number] Information not available 07/27/2022 Are You Passively Exposed To Smoke? Yes [id number] [id number] Information not available 07/27/2022 Are There Any Smokers In Your House? Yes [email or web address] [id number] Information not available 07/27/2022 What Types Of Sporting Activities Do You Participate In? None MIGRATION.0301 [id number] Information not available 07/27/2022 Do You Feel Stressed (tense, Restless, Nervous, Or Anxious, Or Unable To Sleep At Night)? [id number] MIGRATION.0301 [id number] Information not available 07/27/2022 Do You Use Any Illicit Or Recreational Drugs? No MIGRATION.0301 [id number] Information not available 07/27/2022 Do You Use Sunscreen Routinely? No MIGRATION.0301 [id number] Information not available 07/27/2022 Has Tobacco Cessation Counseling Been Provided? No N/A MIGRATION.0301 [id number] Information not available 07/27/2022 Have You Recently Traveled Abroad? No MIGRATION.0301 [id number] Information not available 07/27/2022 Do You Have Any Dietary Restrictions? No MIGRATION.0301 [id number] Information not available 07/27/2022 Do You Or Have You Ever Used Any Other Forms Of Tobacco Or Nicotine? No MIGRATION.0301 [id number] Information not available 07/27/2022 Sex: Male Functional Status Question Answer Note LastModified by Organizat ion Details LastModified Time Do you have difficulty walking or climbing stairs? Yes uses Walker, cane [email or web address] Information not available 01/25/2024 Do you have transportation difficulties? No MIGRATION.[id number] Information not available 07/27/2022 Are you able to walk? YESASSIST Uses cane and walker [email or web address] Information not available 01/25/2024 Do you have difficulty doing errands alone? Yes does not drive [email or web address] Information not available 01/25/2024 Are you able to care for yourself? Yes MIGRATION.[id number] Information not available 07/27/2022 Do you have difficulty dressing or bathing? No MIGRATION.025001 [id number] Information not available 07/27/2022 What is your exercise level? None [email or web address] Information not available 01/25/2024 Mental Status Question Answer Note LastModified by Organizat ion Details LastModified Time Do you have difficulty concentrating, remembering or making decisions? Yes Dementia dx. [email or web address] Information not available 01/25/2024 Family History Relationship Description Onset Age of this Age Resolved Age Notes LastModified by Organization Details LastModified Time Mother Heart disease [id number] Not available 07/27/2022 05:58:50 Father Malignant tumor of lung [email or web address] Not available 2023 12:08:10 Medical History Condition Response NERVE DISEASE N BLINDNESS N RHEUMATIC FEVER N KIDNEY STONES N BLADDER PROBLEMS N MRSA N OTHER # 1 N POLIO N LUNG DISEASE/DISORDER N HISTORY OF DRUG ABUSE N RADIATION / CHEMOTHERAPY N COPD Y Other # 2 N BLOOD DISEASES N EAR OR HEARING PROBLEMS N MUMPS N SHINGLES N DEPRESSION (INCLUDING POST ) N BOWEL PROBLEMS N STROKE/TIA Y ULCERS N BENIGN PROSTATIC HYPERPLASIA N MEASLES N HYPOTENSION N MYOCARDIAL INFARCTION N OBESITY N GERD/NAUSEA Y ANEURYSM N URINARY/BLADDER/KIDNEY PROBLEMS N CORONARY ARTERY DISEASE (CAD) Y ADDICTION CONCERNS N Impotence N ENDOMETRIOSIS N USE OF BLOOD THINNERS N SKIN PROBLEMS N GASTROINTESTINAL DISORDER N PERIPHERAL VASCULAR DISEASE N MUSCLE,JOINT OR BONE PROBLEMS N GASTROINTESTINAL BLEEDING N BLOOD CLOTS N ASTHMA N CATARACTS N ERECTILE DYSFUNCTION N VARICOSITIES N GI PROBLEMS N Low Testosterone N INFERTILITY N AIDS/HIV N CHEMOTHERAPY / RADIATION N LIVER DISEASE N MALE HYPOGONADISM N HYPERTENSION Y Deficiency N TOURETTE'S N ANXIETY DISORDER N BLOOD TRANSFUSION N ANEMIA/BLOOD DISORDER N CHRONIC EAR INFECTIONS N BRONCHITIS N TUBERCULOSIS N GLAUCOMA N FOOT PROBLEM N DIVERTICULITIS N SLEEP APNEA N CHICKENPOX N INFECTIOUS DISEASE N PROSTATE N HEART ARRHYTHMIA N INSOMNIA N HIGH CHOLESTEROL / HYPERLIPIDEMIA Y HYPERTHYROIDISM N EYE PROBLEMS N EDEMA N CHRONIC PAIN SYNDROME N HYPOTHYROIDISM N CONSTIPATION N CAROTID BLOCKAGE N BACK / NECK PROBLEMS Y ATHEROSCLEROSIS N BREAST PROBLEMS N DIALYSIS N ECZEMA N OSTEOPOROSIS N ARTHRITIS N APPENDICITIS N DIABETES, TYPE N BAD TEETH N ENT N HEARTBURN / REFLUX N AUTISM SPECTRUM DISORDER (ASD) N HEPATITIS / LIVER DISEASE N GOUT N SLEEP DISORDER N ALZHEIMER'S DISEASE N Brain Problems N HERPES N DEMENTIA N SEIZURES/EPILEPSY N HEADACHES/MIGRAINES N VASCULAR DISEASE N PACEMAKER N Blood Disorder N DIZZINESS N KIDNEY DISEASE N HEART DISEASE/HEART PROBLEMS Y MULTIPLE SCLEROSIS N CARDIAC ARRHYTHMIA N CANCER: SPECIFY N Gall Stones N ATRIAL FIBRILLATION N PULMONARY EMBOLISM N AUTOIMMUNE DISEASE N Immunizations Vaccine Type Date Status Note Provider Nam e and Address Organization Details Recorded Time Influenza, adjuvanted, quadrivalent, PF 2 completed Lexi Jones CCM null, [facility] 11/07/2023 13:38:40 COVID-19, mRNA, LNP-S, PF, 30 mcg/0.3 mL dose 1 completed Lexi Jones CCM null, [facility] 11/07/2023 13:38:40 COVID-19, mRNA, LNP-S, PF, 30 mcg/0.3 mL dose 1 completed Lexi Jones CCM null, [facility] 11/07/2023 13:38:40 Influenza, high-dose, quadrivalent, PF 3 completed Freedom Sorto MD [address] [place] [address], [address], [address], [facility] 03/28/2023 16:43:46 COVID-19, mRNA, LNP-S, PF, 100 mcg/0.5mL dose or 50 mcg/0.25mL dose 1 completed HODA Benjamin, [facility] 11/07/2023 13:38:40 COVID-19, mRNA, LNP-S, PF, 100 mcg/0.5mL dose or 50 mcg/0.25mL dose 1 completed HODA Benjamin, [facility] 11/07/2023 13:38:40 Influenza, high-dose, trivalent, PF 9 completed Lexi Jones CCM null, [facility] 11/07/2023 13:38:40 Influenza, split virus, quadrivalent, PF 2 completed Lexi Jones CCM null, [facility] 11/07/2023 13:38:40 COVID-19, mRNA, LNP-S, PF, 30 mcg/0.3 mL dose 1 completed HODA Benjamin, [facility] [employer] [facility] 11/07/2023 13:38:40 Influenza, high-dose, quadrivalent, PF 1 completed Not Available [facility] 07/03/2023 08:43:21 Influenza, high-dose, quadrivalent, PF 0 completed Not Available [facility] 07/03/2023 08:43:21 pneumococcal polysaccharide PPV23 0 completed Not Available [facility] 07/03/2023 08:43:21 Pneumococcal conjugate PCV 13 8 completed Not Available [facility] 07/03/2023 08:43:21 Influenza, high-dose, trivalent, PF 8 completed Not Available [facility] 07/03/2023 08:43:21 Influenza, high-dose, trivalent, PF 7 completed Not Available [facility] 07/03/2023 08:43:21 Influenza, high-dose, trivalent, PF 6 completed Not Available [facility] 07/03/2023 08:43:21 Influenza, high-dose, trivalent, PF 5 completed Not Available [facility] 07/03/2023 08:43:21 Influenza, split virus, trivalent, preservative 4 completed LYNDSEY Serrano, [facility] [employer] [facility] 05/15/2024 14:44:06 Influenza, split virus, trivalent, preservative 3 completed LYNDSEY Serrano, [facility] [employer] [facility] 05/15/2024 14:44:07 Past Encounters Encounter ID Performer Location Encounter Start Date Encounter Closed Date Diagnosis/Indication Diagnosis SNOMED-CT Code Diagnosis ICD10 Code Diagnosis Note [id number] [facility] [address] [facility] [address] [place] [address] 11/24/2020 00:00:00 11/24/2020 15:37:17 [id number] [facility] [place] [address] [facility] [address] [place] [address] 01/12/2021 00:00:00 01/12/2021 09:59:30 [id number] [facility] [address] [place] [address] Ave[address] [address] 03/25/2021 00:00:00 03/25/2021 17:19:03 [id number] [facility] [address] [place], [place] [address]e., [place] [address] 04/01/2021 00:00:00 04/01/2021 11:26:18 [id number] [facility] [address] [place], [place] [address]e., [address] [address] 07/29/2021 00:00:00 07/29/2021 11:23:15 [id number] [facility] [address] [place], [place] [address]e., [address] [address] 11/04/2021 00:00:00 11/04/2021 14:16:35 [id number] [facility] [address] [place], [place] [address]e., [place] [address] 1 11/16/2021 00:00:00 11/16/2021 15:45:01 [id number] [facility] [address] [place], [place] [address]., [place] [address] 1 02/03/2022 00:00:00 02/03/2022 11:33:21 [id number] Freedom patricia MD [facility] [address] [place], [place] [address]e., [place] [address] 1 08/11/2022 10:28:09 08/11/2022 10:49:09 Screening - NAD [id number] Z13.9 C-scope: 4 years ago, at [place], clear as per his history, Get [email or web address]/ 08/15 Dr Ibarra CLeniscope UTD on flu shotUTD PCV #13 03/27/18, #23 11/13/2019 Should get shingles vaccineCan do tdapUTD COVID 19 vaccine and do all boosters as per CDC 11/14/17:F illed his handicap parking RTC in 3 monthsDo labsER if any symptoms worsensHe did verbalize his understand ing of the above Coronary arteriosclerosis 34810346 I25.10 S/p [facility] d/c on 01/03/2021 Hx of a.fibHx of ascending aortic dilatation On ASAOn NTGOn amlodipine 10mg dailyOn eliquisOn lasix 40mg dailyOn isosorbide 120mg daily filled by Marie Carter metoprolol 25mg bidOn aldactone 25mg dailyNot on ranolazine ER 1000mg bid Dr Ramirez Off plavix, stopped by Dr Ramirez 07/08/2020 Not on losartan 50mg daily, started by Dr Ramirez 07/08/[address] Ramirez 11/04/2021 : C/o severe SOB, +ve rales noted grabiel lower to mid lungs, severe pitting edemaAt this time refer to the ER at [facility], he will be taken in a wheelchair , discussed with Dr Palomo [facility] ER MD, also personally called Dr Ramirez 11/16/2021 :Much improved OV 02/03/2022 :Dr Ramirez 12/23/2021 , is now on jardiance, f/u in 05/2022 OV 08/11/2022 :Keep apt with Dr Ramirez Gastroesop 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 [id number] K21.9 On pantoprazo le 40mg daily PRNDoes well Hyperlipidemia 27841565 E78.5 On rosuvastat in 20mg dailyDoes well, get labs Chronic ob structive pulmonary disease 53532166 J44.9 Not on incruse On flonaseOn symbicortO n proairOn HHNs Does wellStill declines any referrals to pulmonary 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 857365317 E11.9 On metformin 500mg bidOn jardiance 10mg daily Does wellGet labs Dr Warren 08/06/2021 Visual impairment 755258 003 H54.[address] Dennis states that he is able to drive Aneurysm o f thoracic aorta 530874863 I71.20 S/p CT chest: 11/18/[address] [facility] [address] Ramirez Macrocytosis 184185357 D 75.89 Get labs Umbilical hernia 8698175 07 K42.9 Does well Proteinuria 86452604 R80 .9 CKD Declines any referrals to nephrology at this time Transient cerebral ischemia 554468211 G45.9 OV 02/03/2022 :S/p MRI 12/27/2021 : Neg for acuteNeeds to see neurology, referral was provided to Dr Hernandez, but he is very adamant that he does not want to see a neurologis t, states he is doing 'fine' and does not need to see 'all them doctors'Ad vised to go to the ER if there are any complaints and advised him of the red flags for a stroke, he did verbalize his understand ing of the above OV 08/11/2022 :States that he is doing very well now [id number] Freedom patricia MD [facility] Internal Med [facility] [address] [facility], [facility] [address] [place] [address] 10/04/2022 11:39:45 10/04/2022 12:18:29 Transition of care [id number] 105 Z75.8 Transition Care Management Questionna ireDate of Discharge 09/23/22Adm ission Date: 09/21/22Dat e of Contact: 1st attempt: 09/26/22Reas on for Admission[facility] Facility Type inpatient acute care [facility] Diagnosis( es): Acute COPD exacerbati on, acute on chronic diastolic CHFDiagnos tic Test(s) Performed: Other: chest xray, lab workDid your hospital physician prescribe any new medicines upon discharge? yes: Eliquis dose increased to 10mg BIDDid you apple picker your prescripti on(s) and begin taking them as the doctor prescribed ? yesDo you have any questions about your new medication s? noDid the hospital set up a follow up appointmen t with your PCP? yes, when: 3Did the hospital set up an appointmen t up with any specialist s? noDid the hospital set up Home Health Care or Outpatient therapy? noDid the hospital set you up with any equipment before discharge? noDo you have all the equipment you need to perform daily living activities ? yesPerform ed by: (include credential s) Lennox De La Vega RN Screening - NAD [id number] 3 Z13.9 C-scope: 4 years ago, at [place], clear as per his history, Get / 08/15 Dr Stacey Kennedy-francois UTD on flu shotUTD PCV #13 03/27/18, #23 11/13/2019 Should get shingles vaccineCan do tdapUTD COVID 19 vaccine and do all boosters as per CDC 11/14/17:F illed his handicap parking RTC in 2 monthsDo labsER if any symptoms worsensHe did verbalize his understand ing of the above Coronary arteriosclerosis 70021652 I25.10 S/p [facility] d/c on 01/03/2021 Hx of a.fibHx of ascending aortic dilatation On ASAOn NTGOn amlodipine 10mg dailyOn eliquisOn lasix 40mg dailyOn isosorbide 120mg daily filled by Marie Carter metoprolol 25mg bidOn aldactone 25mg dailyNot on ranolazine ER 1000mg bid Dr Ramirez Off plavix, stopped by Dr Ramirez 07/08/2020 Not on losartan 50mg daily, started by Dr Ramirez 07/08/[address] Ramirez 11/04/2021 : C/o severe SOB, +ve rales noted grabiel lower to mid lungs, severe pitting edemaAt this time refer to the ER at [facility], he will be taken in a wheelchair , discussed with Dr Palomo [facility] ER MD, also personally called Dr Ramirez 11/16/2021 :Much improved OV 02/03/2022 :Dr Ramirez 12/23/2021 , is now on jardiance, f/u in 05/2022 OV 08/11/2022 :Keep apt with Dr Ramirez OV 10/04/2022 :Admitted and d/c [facility] 09/21 to 09/23 for SOB, noted to have RUL pneumonia, treated with duoneb, IV solumedrol and azithromyc in, IV lasixAlso on eliquis 10mg bid then 5mg bid D/c onamlodipi ne 10mg dailyeliqu is 5mg bidisosorb amddie 120mg dailylasix 40mg dailymetfo rmin 500mg bidmetopro lol 25mg bidproairr osuvastati n 20mg ailyspiron olactone 25mg dailysymbi anel Gastroesop 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 339007812 K21.9 On pantoprazo le 40mg daily PRNDoes well Hyperlipidemia 62120314 E78.5 On rosuvastat in 20mg dailyDoes well, get labs Chronic ob structive pulmonary disease 46894307 J44.9 Not on incruse On flonaseOn symbicortO n proairOn HHNsOn Wixela, states 10/04/2022 that he has stopped this as it was 'not working' now agreeable to see Dr Fleming Does well 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 574235259 E11.9 On metformin 500mg bidOn jardiance 10mg daily Does wellGet labs Dr Warren 08/06/2021 Visual impairment 733569 003 H54.[address] Dennis states that he is able to drive Aneurysm o f thoracic aorta 531181308 I71.20 S/p CT chest: 11/18/[address] [facility] [address] Ramirez Macrocytosis 567855979 D 75.89 Get labs Umbilical hernia 5291269 07 K42.9 Does well Proteinuria 14538832 R80 .9 CKD Declines any referrals to nephrology at this time Transient cerebral ischemia 814261315 G45.9 OV 02/03/2022 :S/p MRI 12/27/2021 : Neg for acuteNeeds to see neurology, referral was provided to Dr Hernandez, but he is very adamant that he does not want to see a neurologis t, states he is doing 'fine' and does not need to see 'all them doctors'Ad vised to go to the ER if there are any complaints and advised him of the red flags for a stroke, he did verbalize his understand ing of the above OV 08/11/2022 :States that he is doing very well now OV 10/04/2022 :Does well now [id number] Freedom patricia MD [facility] Internal Med [facility] [address] [facility], [place] [address] [place] [address] 12/08/2022 10:02:59 12/08/2022 10:40:51 Screening - NAD 861602063 Z13.9 C-scope: 4 years ago, at [place], clear as per his history, Get [email or web address]/ 08/15 Dr Ibarra C-scope UTD on flu shotUTD PCV #13 03/27/18, #23 11/13/2019 Should get shingles vaccineCan do tdapUTD COVID 19 vaccine and do all boosters as per CDC 11/14/17:F illed his handicap parking RTC in 3 monthsDo labsER if any symptoms worsensHe did verbalize his understand ing of the above Coronary arteriosclerosis 69668845 I25.10 S/p [facility] d/c on 01/03/2021 Hx of a.fibHx of ascending aortic dilatation On ASAOn NTGOn amlodipine 10mg dailyOn plavixOn eliquisOn lasix 40mg dailyOn isosorbide 120mg daily filled by Marie Carter metoprolol 25mg bidOn aldactone 25mg dailyNot on ranolazine ER 1000mg bid Dr Ramirez Off plavix, stopped by Dr Ramirez 07/08/2020 Not on losartan 50mg daily, started by Dr Ramirez 07/08/[address] Ramirez 11/04/2021 : C/o severe SOB, +ve rales noted grabiel lower to mid lungs, severe pitting edemaAt this time refer to the ER at [facility], he will be taken in a wheelchair , discussed with Dr Palomo [facility] ER MD, also personally called Dr Ramirez 11/16/2021 :Much improved OV 02/03/2022 :Dr Ramirez 12/23/2021 , is now on jardiance, f/u in 05/2022 OV 08/11/2022 :Keep apt with Dr Ramirez OV 12/08/2022 :Sees Dr Ennis venous doppler 09/29/2022 Dr Ramirez Gastroesop 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 122998316 K21.9 On pantoprazo le 40mg daily PRNDoes well Hyperlipidemia 09720921 E78.5 On rosuvastat in 20mg dailyDoes well, get labs Chronic ob structive pulmonary disease 21726094 J44.9 Not on incruse On flonaseOn symbicortO n proairOn HHNs Does wellStill declines any referrals to pulmonary 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 741182766 E11.9 On metformin 500mg bidOn jardiance 10mg daily Does wellGet labs Dr Warren 08/06/2021 Visual impairment 368702 003 H54.[address] Burgos He states that he is able to drive Aneurysm o f thoracic aorta 617914167 I71.20 S/p CT chest: 11/18/[address] [facility] [address] Ramirez Macrocytosis 335690409 D 75.89 Get labs Umbilical hernia 0157473 07 K42.9 Does well Proteinuria 29806263 R80 .9 CKDDecline s any referrals to nephrology at this time BUN/Cr/GFR stable 12/01/2022 Transient cerebral ischemia 374562502 G45.9 OV 02/03/2022 :S/p MRI 12/27/2021 : Neg for acuteNeeds to see neurology, referral was provided to Dr Hernandez, but he is very adamant that he does not want to see a neurologis t, states he is doing 'fine' and does not need to see 'all them doctors'Ad vised to go to the ER if there are any complaints and advised him of the red flags for a stroke, he did verbalize his understand ing of the above OV 08/11/2022 :States that he is doing very well now OV 12/08/2022 : Does well now Adult heal th examination 714324490 Z00.00 Screening for disorder 073380085 Z13.9 [id number] Freedom patricia MD [facility] Internal Med [facility] [address] [facility], [facility] [address] [place] [address] 03/28/2023 09:10:36 03/28/2023 10:23:39 Screening - NAD 900247650 Z13.9 C-scope: 4 years ago, at [place], clear as per his history, Get / 08/15 Dr Ibarra C-scope UTD on flu shotUTD PCV #13 03/27/18, #23 11/13/2019 Should get shingles vaccineCan do tdapUTD COVID 19 vaccine and do all boosters as per CDC 11/14/17:F illed his handicap parking RTC in 3 monthsDo labsER if any symptoms worsensHe and his did verbalize his understand ing of the above Coronary arteriosclerosis 08003412 I25.10 S/p [facility] d/c on 01/03/2021 Hx of a.fibHx of ascending aortic dilatation On ASAOn NTGOn amlodipine 10mg dailyOn plavixOn eliquisOn lasix 40mg dailyOn isosorbide 120mg daily filled by Marie Carter metoprolol 25mg bidOn aldactone 25mg dailyNot on ranolazine ER 1000mg bid Dr Ramirez Off plavix, stopped by Dr Ramirez 07/08/2020 Not on losartan 50mg daily, started by Dr Ramirez 07/08/[address] Ramirez 11/04/2021 : C/o severe SOB, +ve rales noted grabiel lower to mid lungs, severe pitting edemaAt this time refer to the ER at [facility], he will be taken in a wheelchair , discussed with Dr Palomo [facility] ER MD, also personally called Dr Ramirez 11/16/2021 :Much improved OV 02/03/2022 :Dr Ramirez 12/23/2021 , is now on jardiance, f/u in 05/2022 OV 08/11/2022 :Keep apt with Dr Ramirez OV 12/08/2022 :Sees Dr Ennis venous doppler 09/29/2022 Dr Ramirez OV 03/28/2023 :On ASAOn plavixOn eliquisOn lasixOn isosorbide 120mg dailyOn metoprolol 25mg bidOn NTHOn spironolac tone 25mg dailyKeep apt with cardiology Dr Ramirez Gastroesop 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 152530200 K21.9 On pantoprazo le 40mg daily PRNDoes well Hyperlipidemia 69532942 E78.5 On rosuvastat in 20mg daily Does well, get labs Chronic ob structive pulmonary disease 72518967 J44.9 Not on incruse On flonaseOn symbicortO n proairOn HHNs Does wellStill declines any referrals to pulmonary 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 812082721 E11.9 On metformin 500mg bidOn jardiance 10mg daily Does wellGet labs Dr Warren 08/06/2021 Visual impairment 179779 003 H54.[address] Burgos He states that he is able to drive Aneurysm o f thoracic aorta 832544914 I71.20 S/p CT chest: 11/18/[address] [facility] [address] Ramirez Macrocytosis 438373110 D 75.89 Get labs Umbilical hernia 4538856 07 K42.9 Does well Proteinuria 79837965 R80 .9 CKDDecline s any referrals to nephrology at this time BUN/Cr/GFR stable 12/01/2022 Transient cerebral ischemia 241214188 G45.9 OV 02/03/2022 :S/p MRI 12/27/2021 : Neg for acuteNeeds to see neurology, referral was provided to Dr Hernandez, but he is very adamant that he does not want to see a neurologis t, states he is doing 'fine' and does not need to see 'all them doctors'Ad vised to go to the ER if there are any complaints and advised him of the red flags for a stroke, he did verbalize his understand ing of the above OV 08/11/2022 :States that he is doing very well now OV 12/08/2022 : Does well now OV 03/28/2023 : Does well, does not want a neurology referral in spite of c/o some forgetfuln ess, states that he does not want to go to any more referrals, states that his and him want a 'break' from the 'doctors' Thoracic back pain 08894 8004 M54.6 Xray T spine: 03/09/2023 MRI L Spine: 03/09/2023 See NS Adult heal th examination 818594263 Z00.00 Depression screening 171 304833 Z13.31 Administra tion of influenza vaccine 07199553 Z23 [id number] Freedom patricia MD [facility] Internal Med [facility] [address] [facility], [place] [address] [place] [address] 07/04/2023 09:12:10 07/04/2023 09:55:23 Screening - NAD 682332185 Z13.9 C-scope: 4 years ago, at [place], clear as per his history, Get yjaffpu24/ 08/15 Dr Ibarra C-scope, no complaints now, declines any testing or referrals UTD on flu shotUTD PCV #13 03/27/18, #23 11/13/2019 Should get shingles vaccineCan do tdapUTD COVID 19 vaccine and do all boosters as per CDCCan do RSV vaccine 11/14/17:F illed his handicap parking RTC in 3 monthsDo labsER if any symptoms worsensHe and his did verbalize his understand ing of the above Coronary arteriosclerosis 65145085 I25.10 S/p [facility] d/c on 01/03/2021 Hx of a.fibHx of ascending aortic dilatation 11/04/2021 : C/o severe SOB, +ve rales noted grabiel lower to mid lungs, severe pitting edemaAt this time refer to the ER at [facility], he will be taken in a wheelchair , discussed with Dr Palomo [facility] ER MD, also personally called Dr Ashley Ramirez 12/23/2021 , is now on jardiance, f/u in 05/2022 [place] venous doppler 09/29/2022 Dr Ramirez On ASAOn amlodipine 10mg dailyOn plavixOn eliquisOn lasixOn isosorbide 120mg dailyOn metoprolol 25mg bidOn NTGOn spironolac tone 25mg dailyKeep apt with cardiology Dr Ramirez Gastroesop 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 [id number] K21.9 On pantoprazo le 40mg daily PRNDoes well Hyperlipidemia 87650172 E78.5 On rosuvastat in 20mg daily Does well, get labs Chronic ob structive pulmonary disease 11293054 J44.9 Not on incruse On flonaseOn symbicortO n proairOn HHNs Does wellStill declines any referrals to pulmonary 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 915073390 E11.9 On metformin 500mg bidNot on jardiance 10mg daily Does wellGet labs Dr Warren 08/06/2021 Visual impairment 140431 003 H54.[address] Burgos He states that he is able to drive Aneurysm o f thoracic aorta 261548050 I71.20 S/p CT chest: 11/18/[address] [facility] [address] Ramirez Macrocytosis 711022827 D 75.89 Get labs Umbilical hernia 8744936 07 K42.9 Does well Proteinuria 89953683 R80 .9 CKDDecline s any referrals to nephrology at this time BUN/Cr/GFR stable 06/21/2023 Transient cerebral ischemia 028787310 G45.9 OV 02/03/2022 :S/p MRI 12/27/2021 : Neg for acuteNeeds to see neurology, referral was provided to Dr Hernandez, but he is very adamant that he does not want to see a neurologis t, states he is doing 'fine' and does not need to see 'all them doctors'Ad vised to go to the ER if there are any complaints and advised him of the red flags for a stroke, he did verbalize his understand ing of the above OV 08/11/2022 :States that he is doing very well now OV 12/08/2022 : Does well now OV 03/28/2023 : Does well, does not want a neurology referral in spite of c/o some forgetfuln ess, states that he does not want to go to any more referrals, states that his and him want a 'break' from the 'doctors' OV 07/04/2023 :MRI brain: 05/27/2023 : See case 06/12/2023 , needs to see neurology, as per she will get an apt [place] Thoracic back pain 30154 8004 M54.6 Xray T spine: 03/09/2023 MRI L Spine: 03/09/2023 As per his he is doing well, he still has some back pain, but she would like him to see neurology Gynecomastia 8900616 N62 Noted on CTA C/A/P 04/26/2023 [id number] Freedom patricia MD [facility] Internal Med [facility] [address] [facility], [facility] [address] [place] [address] 11/02/2023 09:58:39 11/02/2023 10:49:02 Screening - NAD [id number] Z13.9 C-scope: 4 years ago, at [place], clear as per his history, Get klamqfx31/ 08/15 Dr Ibarra C-scope, no complaints now, declines any testing or referrals UTD on flu shotUTD PCV #13 03/27/18, #23 11/13/2019 Should get shingles vaccine, declined 11/02/2023 Can do tdapUTD COVID 19 vaccine and do all boosters as per CDCCan do RSV vaccine 11/14/17:F illed his handicap parking RTC in 3 monthsDo labsER if any symptoms worsensHe and his did verbalize his understand ing of the above Coronary arteriosclerosis 51807407 I25.10 S/p [facility] d/c on 01/03/2021 Hx of a.fibHx of ascending aortic dilatation 11/04/2021 : C/o severe SOB, +ve rales noted grabiel lower to mid lungs, severe pitting edemaAt this time refer to the ER at [facility], he will be taken in a wheelchair , discussed with Dr Palomo [facility] ER MD, also personally called Dr Ashley Ramirez 12/23/2021 , is now on jardiance, f/u in 05/2022 US venous doppler 09/29/2022 Dr Ramirez On ASAOn amlodipine 10mg dailyOn plavixOn eliquisOn lasixNot taking isosorbide 120mg dailyOn metoprolol 25mg bidOn NTGOn spironolac tone 25mg daily Dr Ramirez 09/05/2023 , next in 6 months Gastroesop 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 719587034 K21.9 On pantoprazo le 40mg daily PRNDoes well Hyperlipidemia 99183464 E78.5 On rosuvastat in 20mg daily Does well, get labs Chronic ob structive pulmonary disease 50333754 J44.9 Not on incruse On flonaseOn symbicortO n proairOn HHNs Does wellStill declines any referrals to pulmonary 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 386745281 E11.9 On metformin 500mg bidNot on jardiance 10mg daily Does wellGet labs Dr Warren 08/06/2021 Visual impairment 632090 003 H54.[address] Burgos He states that he is able to drive Aneurysm o f thoracic aorta 231087630 I71.20 S/p CT chest: 11/18/[address] [facility] [address] Ramirez Macrocytosis 545693618 D 75.89 Get labs Umbilical hernia 0208120 07 K42.9 Does well Proteinuria 40598873 R80 .9 CKDDecline s any referrals to nephrology at this time BUN/Cr/GFR stable 06/21/2023 Transient cerebral ischemia 703442562 G45.9 OV 02/03/2022 :S/p MRI 12/27/2021 : Neg for acuteNeeds to see neurology, referral was provided to Dr Hernandez, but he is very adamant that he does not want to see a neurologis t, states he is doing 'fine' and does not need to see 'all them doctors'Ad vised to go to the ER if there are any complaints and advised him of the red flags for a stroke, he did verbalize his understand ing of the above OV 08/11/2022 :States that he is doing very well now OV 12/08/2022 : Does well now OV 03/28/2023 : Does well, does not want a neurology referral in spite of c/o some forgetfuln ess, states that he does not want to go to any more referrals, states that his and him want a 'break' from the 'doctors' OV 07/04/2023 :MRI brain: 05/27/2023 : See case 06/12/2023 , needs to see neurology, as per she will get an apt [place] OV 11/02/2023 :Dr Sanz 07/11/2023 , next in one year Thoracic back pain 51524 8004 M54.6 Xray T spine: 03/09/2023 MRI L Spine: 03/09/2023 As per his he is doing well, he still has some back pain, but she would like him to see neurology IPC 06/27/2023 : [place] Younger, f/u PRN Gynecomastia 2474094 N62 Noted on CTA C/A/P 04/26/2023 Mammogram: 07/31/2023 : asymmetric gynecomast ia of the R breastDoes not want any referrals 11/02/2023 [id number] Shital Nix [facility] Internal Med [facility] [address] [place] [place] [address] 11/07/2023 13:36:48 11/07/2023 14:02:21 Chronic obstructive pulmonary disease 15778468 J44.9 Hyperlipidemia 36338064 E78.5 Essential hypertension 82749665 I10 Atrial fibrillation 4943 6004 I48.91 [id number] Yves rincon MD [facility] General Surgery [address] [place] [address] 12/19/2023 12:04:09 12/25/2023 14:06:45 Epidermoid cyst of skin of neck 750359536 L72.0 [id number] Shital Nix [facility] Internal Med [facility] [address] [address] 12/21/2023 13:29:29 02/15/2024 15:14:35 Skin lesion 40675489 L98.9 Essential hypertension 51017760 I10 Hyperlipidemia 65952297 E78.5 Chronic ob structive pulmonary disease 64714685 J44.9 [id number] Freedom patricia MD [facility] Internal Med [facility] [address] [address] 01/25/2024 09:20:02 01/25/2024 10:03:11 Screening - NAD 934723312 Z13.9 C-scope: 4 years ago, at [place], clear as per his history, Get dsenixd78/ 08/15 Dr Ibarra C-scope, no complaints now, declines any testing or referrals UTD on flu shotUTD PCV #13 03/27/18, #23 11/13/2019 Should get shingles vaccine, declined 11/02/2023 Can do tdapUTD COVID 19 vaccine and do all boosters as per CDCCan do RSV vaccine 11/14/17:F illed his handicap parking RTC in 3 monthsDo labsER if any symptoms worsensHe and his did verbalize his understand ing of the above Coronary arteriosclerosis 99930497 I25.10 S/p [facility] d/c on 01/03/2021 Hx of a.fibHx of ascending aortic dilatation 11/04/2021 : C/o severe SOB, +ve rales noted grabiel lower to mid lungs, severe pitting edemaAt this time refer to the ER at [facility], he will be taken in a wheelchair , discussed with Dr Palomo [facility] ER MD, also personally called Dr Ashley Ramirez 12/23/2021 , is now on jardiance, f/u in 05/2022 US venous doppler 09/29/2022 Dr Ramirez On ASAOn amlodipine 10mg dailyNot on plavixOn eliquisOn lasixNot taking isosorbide 120mg dailyOn metoprolol 25mg bidOn NTGOn spironolac tone 25mg daily Dr Ramirez 09/05/2023 , next in 6 months Gastroesop 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 851907853 K21.9 On pantoprazo le 40mg daily PRNDoes well Hyperlipidemia 20637159 E78.5 On rosuvastat in 20mg daily Does well, get labs Chronic ob structive pulmonary disease 27205716 J44.9 Not on incruse On flonaseOn symbicortO n proairOn HHNs Does wellStill declines any referrals to pulmonary 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 466983340 E11.9 On metformin 500mg bidNot on jardiance 10mg daily Does wellGet labs Dr Warren 08/06/2021 Visual impairment 604870 003 H54.[address] Burgos He states that he is able to drive Aneurysm o f thoracic aorta 373746275 I71.20 S/p CT chest: 11/18/[address] [facility] [address] Ramirez Macrocytosis 004303337 D 75.89 Get labs Umbilical hernia 8946829 07 K42.9 Does well Proteinuria 07337180 R80 .9 CKDDecline s any referrals to nephrology at this time BUN/Cr/GFR stable 06/21/2023 Transient cerebral ischemia 233033489 G45.9 OV 02/03/2022 :S/p MRI 12/27/2021 : Neg for acuteNeeds to see neurology, referral was provided to Dr Hernandez, but he is very adamant that he does not want to see a neurologis t, states he is doing 'fine' and does not need to see 'all them doctors'Ad vised to go to the ER if there are any complaints and advised him of the red flags for a stroke, he did verbalize his understand ing of the above OV 08/11/2022 :States that he is doing very well now OV 12/08/2022 : Does well now OV 03/28/2023 : Does well, does not want a neurology referral in spite of c/o some forgetfuln ess, states that he does not want to go to any more referrals, states that his and him want a 'break' from the 'doctors' OV 07/04/2023 :MRI brain: 05/27/2023 : See case 06/12/2023 , needs to see neurology, as per she will get an apt [place] OV 11/02/2023 :Dr Sanz 07/11/2023 , next in one year OV 01/25/2024 : Sees his neurologis t Thoracic back pain 70443 8004 M54.6 Xray T spine: 03/09/2023 MRI L Spine: 03/09/2023 As per his he is doing well, he still has some back pain, but she would like him to see neurology IPC 06/27/2023 : [place] Younger, f/u PRN Gynecomastia 9387666 N62 Noted on CTA C/A/P 04/26/2023 Mammogram: 07/31/2023 : asymmetric gynecomast ia of the R breastDoes not want any referrals 11/02/2023 Adult heal th examination 196344739 Z00.00 Screening for disorder 040864789 Z13.9 Liver enzy mes level above reference range 756584468 R74.01 Get Labs and US liver done Unsteady when walking 22 817721 R26.89 OV 01/25/2024 :He does need to get a walker, this will assist him in his ADLs, IADLs and assist him in safely ambulating [id number] Shital Nix [facility] Internal Med [place] [address] [facility] [address] [address] 01/22/2024 14:14:26 02/21/2024 10:06:42 Chronic obstructive pulmonary disease 10742958 J44.9 Essential hypertension 25149846 I10 Hyperlipidemia 16682680 E78.5 Coronary arteriosclerosis 84560440 I25.10 [id number] Freedom patricia MD [facility] Internal Med [facility] [address] 05/16/2024 11:23:51 05/16/2024 12:40:03 Screening - NAD 323548275 Z13.9 C-scope: 4 years ago, at [place], clear as per his history, Get qwveaqa16/ 08/15 Dr Ibarra C-scope, no complaints now, declines any testing or referrals UTD on flu shotUTD PCV #13 03/27/18, #23 11/13/2019 Should get shingles vaccine, declined 11/02/2023 Can do tdapUTD COVID 19 vaccine and do all boosters as per CDCCan do RSV vaccine 11/14/17:F illed his handicap parking RTC in 3 monthsDo labsER if any symptoms worsensHe and his did verbalize his understand ing of the above Coronary arteriosclerosis 99873195 I25.10 S/p [facility] d/c on 01/03/2021 Hx of a.fibHx of ascending aortic dilatation 11/04/2021 : C/o severe SOB, +ve rales noted grabiel lower to mid lungs, severe pitting edemaAt this time refer to the ER at [facility], he will be taken in a wheelchair , discussed with Dr Palomo [facility] ER MD, also personally called Dr Ashley Ramirez 12/23/2021 , is now on jardiance, f/u in 05/2022 US venous doppler 09/29/2022 Dr Ramirez On ASAOn amlodipine 10mg dailyNot on plavixOn eliquisOn lasixNot taking isosorbide 120mg dailyOn metoprolol 25mg bidOn NTGOn spironolac tone 25mg daily Dr Ramirez 09/05/2023 , next in 6 months Gastroesop 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 116141567 K21.9 On pantoprazo le 40mg daily PRNDoes well Hyperlipidemia 84293084 E78.5 On rosuvastat in 20mg daily Does well, get labs Chronic ob structive pulmonary disease 52054549 J44.9 Not on incruse On flonaseOn symbicortO n proairOn HHNs Does wellStill declines any referrals to pulmonary 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 910110555 E11.9 On metformin 500mg bidNot on jardiance 10mg daily Does wellGet labs Dr Warren 08/06/2021 Visual impairment 081104 003 H54.[address] Burgos He states that he is able to drive Aneurysm o f thoracic aorta 525261611 I71.20 S/p CT chest: 11/18/[address] Ramirez Macrocytosis 855924101 D 75.89 Get labs Umbilical hernia 1283623 07 K42.9 Does well Proteinuria 33709612 R80 .9 CKDDecline s any referrals to nephrology at this time BUN/Cr/GFR stable 06/21/2023 Transient cerebral ischemia 048947586 G45.9 OV 02/03/2022 :S/p MRI 12/27/2021 : Neg for acuteNeeds to see neurology, referral was provided to Dr Hernandez, but he is very adamant that he does not want to see a neurologis t, states he is doing 'fine' and does not need to see 'all them doctors'Ad vised to go to the ER if there are any complaints and advised him of the red flags for a stroke, he did verbalize his understand ing of the above OV 08/11/2022 :States that he is doing very well now OV 12/08/2022 : Does well now OV 03/28/2023 : Does well, does not want a neurology referral in spite of c/o some forgetfuln ess, states that he does not want to go to any more referrals, states that his and him want a 'break' from the 'doctors' OV 07/04/2023 :MRI brain: 05/27/2023 : See case 06/12/2023 , needs to see neurology, as per she will get an apt [place] OV 11/02/2023 :Dr Sanz 07/11/2023 , next in one year OV 01/25/2024 : Sees his neurologis t Thoracic back pain 63069 8004 M54.6 Xray T spine: 03/09/2023 MRI L Spine: 03/09/2023 As per his he is doing well, he still has some back pain, but she would like him to see neurology IPC 06/27/2023 : [place] Younger, f/u PRN Gynecomastia 1928903 N62 Noted on CTA C/A/P 04/26/2023 Mammogram: 07/31/2023 : asymmetric gynecomast ia of the R breastDoes not want any referrals 11/02/2023 Liver enzy mes level above reference range 846446425 R74.01 Get LabsUS liver 01/31/2024 : nodular liver, cirrhosis, see GI today 05/16/2024 , he and his have declined any new referrals Unsteady when walking 22 017761 R26.89 OV 01/25/2024 :He does need to get a walker, this will assist him in his ADLs, IADLs and assist him in safely ambulating OV 05/16/2024 : He now has a walker, his GD bought him a walker, advised to use this diligently Upper resp iratory infection 31261737 J06.9 Has noted a cough and productive for whitish sputum, mild wheezingGe t on Z-pack, take OTC zyrtec, get on albuterol PRN, ER if worse, he and his verbalized his understand ing of the above [id number] Freedom patricia MD [facility] Internal Med [facility] [address] [facility], [facility] [place] [address] 07/09/2024 10:41:41 07/09/2024 11:46:17 Screening - NAD 163154616 Z13.9 C-scope: 4 years ago, at [place], clear as per his history, Get yqcezsz55/ 08/15 Dr Ibarra C-scope, no complaints now, declines any testing or referrals UTD on flu shotUTD PCV #13 03/27/18, #23 11/13/2019 Should get shingles vaccine, declined 11/02/2023 Can do tdapUTD COVID 19 vaccine and do all boosters as per CDCCan do RSV vaccine 11/14/17:F illed his handicap parking RTC in 3 monthsDo labsER if any symptoms worsensHe and his did verbalize his understand ing of the above Coronary arteriosclerosis 05265563 I25.10 S/p [facility] d/c on 01/03/2021 Hx of a.fibHx of ascending aortic dilatation 11/04/2021 : C/o severe SOB, +ve rales noted grabiel lower to mid lungs, severe pitting edemaAt this time refer to the ER at [facility], he will be taken in a wheelchair , discussed with Dr Palomo [facility] ER MD, also personally called Dr Ashley Ramirez 12/23/2021 , is now on jardiance, f/u in 05/2022 US venous doppler 09/29/2022 Dr Ramirez On ASAOn amlodipine 10mg dailyNot on plavixOn eliquisOn lasixNot taking isosorbide 120mg dailyOn metoprolol 25mg bidOn NTGOn spironolac tone 25mg daily Dr Ramirez 09/05/2023 , next in 6 months Chronic ob structive pulmonary disease 84180740 J44.9 Not on incruse On flonaseOn symbicortO n proairOn HHNs Has noted a cough, as per this is constant, his meds were renewed, will get referral to pulmonary Addendum: 07/09/2024 :Candy Marie NP 07/09/2024 , now on trelegy and is to see her again in 09/10/2024 [id number] Candy Marie NP [facility] [address] [address] 07/09/2024 11:39:32 07/11/2024 15:50:58 Chronic obstructive pulmonary disease 50647365 J44.9 Stop Symbicort and start Trelegy and use discussed- continued productive cough over 2 months, increased sob-requir es hob above 45 degreesUse Albuterol inhaler as neededAlbu terol nebulizer prnPFT orderLab work orderWife can give him Claritin dailyPredn isone titrate over 6 dayswill have [facility] home check doneDue to hx of smoking will consider Lung scan-does not want to do right nowEncoura ge to maintain vaccines when dueF/u with PMD for any new labsF/u with me in 3 months-Sym bicort use-will call if needs Albuterol (has some at home)Aware to call if any changes in symptoms or increase in use of Albuterol- severe symptoms ERPatient has COPD, hence the medical need for home oxygen therapy.O2 sat sitting on room air 81-85%Gosia ent is benefiting from oxygen therapy as this helps increase the patent's activities of daily living.The re is a continued need for oxygen as COPD is not reversible . Dyspnea on exertion 6084 5006 R06.09 Lab work todayPFT orderO2 orderCAT-3 7Mmrc-3PFT for baselinefo llow-up once testing is complete-s ooner for any changes in breathing and increase use of inhaler Chronic cough 68950400 R 05.3 CT order done by primary Oxygen sat uration below reference range 037387156 R79.81 [employer] order for care check, O2 set up, Goals Section Goal Description Progress Status Start Date LastModified by Organization Details LastModified Time Food Security Reports ability to access and obtain foods to meet nutritional needs NoChange active 2023 Lexi Jones CCM Information not available 11/07/2023 18:00:12 Follow-u p Appointm ent(s) Attends referral and/or follow-up appointment(s) as per care team recommendation (s) Progressing active 2023 Lexi Jones CCM Information not available 12/21/2023 17:37:53 Medicati on Regimen Follows medication regimen as per care team recommendation (s) Progressing active 2023 Lexi Jones CCM Information not available 12/21/2023 17:37:56 Activiti es of Daily Living Performs activities of daily living independently or with minimal assistance NoChange active 2023 Lexi Jones CCM Information not available 11/07/2023 18:00:12 Exercise Regularl y Follows a regular exercise regimen or instructed exercise plan as per care team recommendation (s) NoChange active 2023 Lexi Jones CCM Information not available 11/07/2023 18:00:12 Decrease d Alcohol Consumpt ion Reports decreased alcohol consumption as per care team recommendation (s) NoChange active 2023 Lexi Jones CCM Information not available 11/07/2023 18:00:12 Vaccinat ion Status Remains up to date on vaccines as per care team recommendation (s) Progressing active 2023 Lexi Jones CCM Information not available 12/21/2023 17:38:03 Heart Rate Control Achieves target heart rate as defined by care team Progressing active 2023 Lexi Jones CCM Information not available 12/21/2023 17:38:05 Chronic Disease Symptom Manageme nt Reports no new or worsening symptoms Progressing active 2023 Lexi Jones CCM Information not available 12/21/2023 17:38:08 Stroke/T IA Risk Reductio n Reduces risk factors for stroke NoChange active 2023 Lexi Jones CCM Information not available 11/07/2023 18:00:13 Effectiv e Coping Manages life events with effective coping methods NoChange active 2023 Lexi Jones CCM Information not available 11/07/2023 18:00:13 Diet Adherenc e Follows prescribed or recommended diet NoChange active 2023 Lexi Jones CCM Information not available 11/07/2023 18:00:13 Chronic Conditio n Action Plan Follows action plan for any worsening of chronic condition(s) as per care team recommendation (s) NoChange active 2023 Lexi Jones CCM Information not available 11/07/2023 18:00:13 Fall Safety Reports no recent falls and/or fall injuries NoChange active 2023 Lexi Jones CCM Information not available 11/07/2023 18:00:13 Knowledg e of Disease or Conditio n Demonstrates understanding of disease(s) or condition(s) Progressing active 2023 Lexi Jones CCM Information not available 12/21/2023 17:38:17 Adequate Sleep Achieves adequate, well-rested sleep with minimal disruption NoChange active 2023 Lexi Jones CCM Information not available 11/07/2023 18:00:13 Financia l Jeremiahit y Reports financial status and/or income meets needs NoCbeth israel hospitalge active 2023 Lexi Jones CCM Information not available 11/07/2023 18:00:13 Recreati onal Activiti es Participates in recreational activities NoC[facility]rael hospitalge active 2023 Lexi Jones CCM Information not available 11/07/2023 18:00:13 Weight Mervin dailey Exhibits stable weight with normal fluctuation NoChange active 2023 Lexi Jones CCM Information not available 11/07/2023 18:00:14 Blood Pressure Maintains blood pressure goal as defined by care team Progressing active 2023 Lexi Jones CCM Information not available 12/21/2023 17:38:24 Lipid Levels Maintains normal lipid levels as defined by care team NoChange active 2023 Lexi Jones CCM Information not available 11/07/2023 18:00:14 Health Concerns Section Related Observation LastModified by Organization Ricardoai ls LastModified Time None Recorded Concern Status LastModified by Organization Details LastModified Time Atrial fibrillation Active Lexi Jones CCM Not Availa ble 11/07/2023 17:53:58 Hyperlipidemia Active Lexi Jones CCM Not Available 0 11/07/2023 17:59:11 Essential hypertension Active Lexi Jones CCM Not Milena ilable 11/07/2023 17:54:24 Chronic obstructive lung disease Active Lexi Jones CCM Not Available 11/07/2023 17:5 4:07 Advance Directives Directive N: 01/25/24 POLST signed enid duncan Payers Encounter Date Sequence Insurance Name Policy Number Policy Rosen Covered Member ID Rosen Member ID Guarantor Name 01/19/2024 1 [facility] (MEDICARE REPLACEMENT/ ADVANTAGE - HMO) [id number] Yifan Schaefer [id number] Yifan Schaefer 01/25/2024 1 [facility] (MEDICARE REPLACEMENT/ ADVANTAGE - HMO) [id number] Yifan Schaefer [id number] Yifan [place] 05/16/2024 1 [facility] (MEDICARE REPLACEMENT/ ADVANTAGE - HMO) [id number] Yifan Schaefer [id number] Yifan T Silvano 07/09/2024 1 [facility] (MEDICARE REPLACEMENT/ ADVANTAGE - HMO) [id number] Yifan Schaefer [id number] Yifan T Silvano 07/09/2024 1 [facility] (MEDICARE REPLACEMENT/ ADVANTAGE - HMO) [id number] Yifan Schaefer [id number] [facility] Silvano Notes Date Note Type Note Provider Name and Address Organization Details Recorded Time 01/25/2024 text/html Here to everett Ram Hx:CADHTNHLDCOPDGERDR jorge social family and surgical historyHere to establish care, get labs alsoHere with his Ar states that he is doing very well, and needs to get a 'referral to Dr Ramirez'OV 07/27/17:Here for his 3 month aptHe states that he is doing well at this time, no recent labsHe did see Dr Ramirez on 05/15/17 and his next apt is in one yearOV 11/14/17:Here for his routine apt,He states that he is doing wellHe did do the labs on 07/28/17 and was contacted regarding theseOV 01/18/18:ACV:Here with his wifeHe is c/o pain in the back on the R side, more in the R hip areaNo acute or remote trauma notedNo N/T or weakness in the legsNo loss of bowel or bladder controlNormal gaitOV 02/13/18:Here for his follow up on the R hip and back painHe states that he is doing wellOV 03/27/18:Here s/p heart angio on 02/23/18He states that he is doing wellYesterday he did see Dr Ramirez, and was told to follow up in 6 months OV 09/20/18:Here for his routine aptHe did do the labsHe feels very well, infact he states that he is now doing a lot of yard work OV 03/12/19:Here for his routine aptHe do the labsHe does now have some SOB, and chest pain, states that has the pain in the mid chest and radiates also to the backSome palpitations, no presyncope or syncopeOV 03/19/19:Here s/p hospitalization for a cardiac stentIs doing much better now, no chest painDoes have L shoulder pain since the fall in 12/14, no N/T in UEHe is R HD OV 07/16/2019:Here for his routine aptHe does have some cough, white sputum, no bloodNo fevers or chills, no N/V or diarrhea, no chest pain or wheezing todayHe did do the labsOV 11/13/2019:Here for his routine aptHe did do the labsHe feels wellOV 03/17/2020:Here for his routine aptHe is doing well at this timeHe did do the labsOV 07/07/2020:Here for his routine aptHe is doing well and states that he is doing 'great' and he has done the labsOV 11/24/2020:Here for his routine aptHe does c/o some LE edema, and wants an earlier apt with Dr Ramirez [facility] as some of his meds were changed by Dr Vasquez did do the labsOV 01/12/2021:TCM visitAdmitted and d/c from [facility] for atypical R sided chest pain as per d/c summary from 01/03/2021een by cardiologyAt this time doing very wellSee extensive ROSOV 03/25/2021:Here for his routine aptHe feels wellHe did do the labsHere for his MWV also OV 04/01/2021:ACV: S/p ER visit for a fallSeen in the Er on 03/25/2021, for chest wall painS/p xray done no fractureHe feels well today, still has some tenderness in the mid to left chest wall, no bruising notedAble to take a deep breath, but has a cough with productive sputum, no fevers or chills no blood in the sputum, no wheezingOV 07/29/2021:Here for his routine aptHe is doing wellHe did do the labs on 07/27/2021 OV 11/04/2021:Here for his routine apt and MWVHe is c/o SOB, LE edema, states that he is unable to take a shower, cough is clearHe did the labs on 2OV 11/16/2021:Here for TCMAdmitted and D/c from [facility] for COPD/CHFFeels much better nowOV 02/03/2022:Here for his f/u apt, he feels well today, he did have a TIA and was admitted to [facility] from 12/27 to 12/30 and is feeling much better, he does need to see neurology and cardiology OV 08/11/2022:Here for his apt, he is doing well, he did do the labs on 08/05/2022 OV 10/04/2022:Here for his TCM apt, he feels well today OV 12/08/2022: Here for his f/u apt and MWV, he is doing well today, he did do the labs OV 03/28/2023: Here for his routine apt, c/o LBP, no injury, no N/T or weakness in LE or loss of B/B sx, he does state that he is not wanting to see any new 'doctors' as he already sees pain management OV 07/04/2023: Here for his f/u apt, he is doing well now, he did do the labs OV 11/02/2023: Here for his routine apt, he feels well today OV 01/25/2024: Here for his f/u apt, he is here for his MWV also, is doing well today, he is here with his Freedom Sorto MD [address] [facility], [facility] [address], [place], [address], [place] [employer] 01/25/2024 18:55:28 05/16/2024 text/html Here to everett Ram Hx:TIFFANI jorge social family and surgical historyHere to establish care, get labs alsoHere with his Ar states that he is doing very well, and needs to get a 'referral to Dr Ramirez'OV 07/27/17:Here for his 3 month aptHe states that he is doing well at this time, no recent labsHe did see Dr Ramirez on 05/15/17 and his next apt is in one yearOV 11/14/17:Here for his routine apt,He states that he is doing wellHe did do the labs on 07/28/17 and was contacted regarding theseOV 01/18/18:ACV:Here with his wifeHe is c/o pain in the back on the R side, more in the R hip areaNo acute or remote trauma notedNo N/T or weakness in the legsNo loss of bowel or bladder controlNormal gaitOV 02/13/18:Here for his follow up on the R hip and back painHe states that he is doing wellOV 03/27/18:Here s/p heart angio on 02/23/18He states that he is doing wellYesterday he did see Dr Ramirez, and was told to follow up in 6 months OV 09/20/18:Here for his routine aptHe did do the labsHe feels very well, infact he states that he is now doing a lot of yard work OV 03/12/19:Here for his routine aptHe do the labsHe does now have some SOB, and chest pain, states that has the pain in the mid chest and radiates also to the backSome palpitations, no presyncope or syncopeOV 03/19/19:Here s/p hospitalization for a cardiac stentIs doing much better now, no chest painDoes have L shoulder pain since the fall in 12/14, no N/T in UEHe is R HD OV 07/16/2019:Here for his routine aptHe does have some cough, white sputum, no bloodNo fevers or chills, no N/V or diarrhea, no chest pain or wheezing todayHe did do the labsOV 11/13/2019:Here for his routine aptHe did do the labsHe feels wellOV 03/17/2020:Here for his routine aptHe is doing well at this timeHe did do the labsOV 07/07/2020:Here for his routine aptHe is doing well and states that he is doing 'great' and he has done the labsOV 11/24/2020:Here for his routine aptHe does c/o some LE edema, and wants an earlier apt with Dr Ashley WORTHINGTON as some of his meds were changed by Dr Vasquez did do the labsOV 01/12/2021:TCM visitAdmitted and d/c from [facility] for atypical R sided chest pain as per d/c summary from 01/03/2021een by cardiologyAt this time doing very wellSee extensive ROSOV 03/25/2021:Here for his routine aptHe feels wellHe did do the labsHere for his MWV also OV 04/01/2021:ACV: S/p ER visit for a fallSeen in the Er on 03/25/2021, for chest wall painS/p xray done no fractureHe feels well today, still has some tenderness in the mid to left chest wall, no bruising notedAble to take a deep breath, but has a cough with productive sputum, no fevers or chills no blood in the sputum, no wheezingOV 07/29/2021:Here for his routine aptHe is doing wellHe did do the labs on 07/27/2021 OV 11/04/2021:Here for his routine apt and MWVHe is c/o SOB, LE edema, states that he is unable to take a shower, cough is clearHe did the labs on 2OV 11/16/2021:Here for TCMAdmitted and D/c from [facility] for COPD/CHFFeels much better nowOV 02/03/2022:Here for his f/u apt, he feels well today, he did have a TIA and was admitted to [facility] from 12/27 to 12/30 and is feeling much better, he does need to see neurology and cardiology OV 08/11/2022:Here for his apt, he is doing well, he did do the labs on 08/05/2022 OV 10/04/2022:Here for his TCM apt, he feels well today OV 12/08/2022: Here for his f/u apt and MWV, he is doing well today, he did do the labs OV 03/28/2023: Here for his routine apt, c/o LBP, no injury, no N/T or weakness in LE or loss of B/B sx, he does state that he is not wanting to see any new 'doctors' as he already sees pain management OV 07/04/2023: Here for his f/u apt, he is doing well now, he did do the labs OV 11/02/2023: Here for his routine apt, he feels well today OV 01/25/2024: Here for his f/u apt, he is here for his MWV also, is doing well today, he is here with his OV 05/16/2024: Here for his f/u apt, he is here with his , c/o URI sx with some wheezing and a mild cough productive for whiteish sputum, states that he now has been using a walker and he did do the labs Freedom Sorto MD [address] [place] [address], [address], [place], [address], [facility] 05/18/2024 12:42:55 07/09/2024 text/html Here to everett Ram Hx:LAURENCEHTNHLDCHATA jorge social family and surgical historyHere to establish care, get labs alsoHere with his Ar states that he is doing very well, and needs to get a 'referral to Dr Ramirez'OV 07/27/17:Here for his 3 month aptHe states that he is doing well at this time, no recent labsHe did see Dr Ramirez on 05/15/17 and his next apt is in one yearOV 11/14/17:Here for his routine apt,He states that he is doing wellHe did do the labs on 07/28/17 and was contacted regarding theseOV 01/18/18:ACV:Here with his wifeHe is c/o pain in the back on the R side, more in the R hip areaNo acute or remote trauma notedNo N/T or weakness in the legsNo loss of bowel or bladder controlNormal gaitOV 02/13/18:Here for his follow up on the R hip and back painHe states that he is doing wellOV 03/27/18:Here s/p heart angio on 02/23/18He states that he is doing wellYesterday he did see Dr Ramirez, and was told to follow up in 6 months OV 09/20/18:Here for his routine aptHe did do the labsHe feels very well, infact he states that he is now doing a lot of yard work OV 03/12/19:Here for his routine aptHe do the labsHe does now have some SOB, and chest pain, states that has the pain in the mid chest and radiates also to the backSome palpitations, no presyncope or syncopeOV 03/19/19:Here s/p hospitalization for a cardiac stentIs doing much better now, no chest painDoes have L shoulder pain since the fall in 12/14, no N/T in UEHe is R HD OV 07/16/2019:Here for his routine aptHe does have some cough, white sputum, no bloodNo fevers or chills, no N/V or diarrhea, no chest pain or wheezing todayHe did do the labsOV 11/13/2019:Here for his routine aptHe did do the labsHe feels wellOV 03/17/2020:Here for his routine aptHe is doing well at this timeHe did do the labsOV 07/07/2020:Here for his routine aptHe is doing well and states that he is doing 'great' and he has done the labsOV 11/24/2020:Here for his routine aptHe does c/o some LE edema, and wants an earlier apt with Dr Ramirez [facility] as some of his meds were changed by Dr Vasquez did do the labsOV 01/12/2021:TCM visitAdmitted and d/c from [facility] for atypical R sided chest pain as per d/c summary from 01/03/2021een by cardiologyAt this time doing very wellSee extensive ROSOV 03/25/2021:Here for his routine aptHe feels wellHe did do the labsHere for his MWV also OV 04/01/2021:ACV: S/p ER visit for a fallSeen in the Er on 03/25/2021, for chest wall painS/p xray done no fractureHe feels well today, still has some tenderness in the mid to left chest wall, no bruising notedAble to take a deep breath, but has a cough with productive sputum, no fevers or chills no blood in the sputum, no wheezingOV 07/29/2021:Here for his routine aptHe is doing wellHe did do the labs on 07/27/2021 OV 11/04/2021:Here for his routine apt and MWVHe is c/o SOB, LE edema, states that he is unable to take a shower, cough is clearHe did the labs on 2OV 11/16/2021:Here for TCMAdmitted and D/c from [facility] for COPD/CHFFeels much better nowOV 02/03/2022:Here for his f/u apt, he feels well today, he did have a TIA and was admitted to [facility] from 12/27 to 12/30 and is feeling much better, he does need to see neurology and cardiology OV 08/11/2022:Here for his apt, he is doing well, he did do the labs on 08/05/2022 OV 10/04/2022:Here for his TCM apt, he feels well today OV 12/08/2022: Here for his f/u apt and MWV, he is doing well today, he did do the labs OV 03/28/2023: Here for his routine apt, c/o LBP, no injury, no N/T or weakness in LE or loss of B/B sx, he does state that he is not wanting to see any new 'doctors' as he already sees pain management OV 07/04/2023: Here for his f/u apt, he is doing well now, he did do the labs OV 11/02/2023: Here for his routine apt, he feels well today OV 01/25/2024: Here for his f/u apt, he is here for his MWV also, is doing well today, he is here with his OV 05/16/2024: Here for his f/u apt, he is here with his , c/o MARCO ANTONIO hendersonx with some wheezing and a mild cough productive for whiteish sputum, states that he now has been using a walker and he did do the labs OV 07/09/2024: Here for his f/u apt, see case, he does have continues cough, non productive sputum, no fevers or chills, no chest pain Freedom Sorto MD [address], [address], [place], [address], [employer] 07/09/2024 18:12:46 07/09/2024 text/html COPDReported bypatient.Severity:ve ry limiting; severe; uses nebulizer/inhaler an average of 21 times/week lately Duration:attacks are frequent; constant Onset/Timing:chronic; chronic: slowly much worse Context:cigarette smoking; occupational exposure Modifying Factors:relieved with rest; worse with exertion Associated Symptoms:no snoring; no excessive daytime sleepiness; no arousals from sleep; no decrease in exercise capacity; no coughing up sputum; no fever; no weight loss; no depression;dyspnea at rest;decrease in exercise capacity;fatigue;coug bella up sputum clear / white and frothy;cough loose;wheezing at restNotes:sleeps with his dogcough started about 2 months agoincreased sob- has to help with dressing, shower and all ADL'shx of 2 ppd smoker for 50+ yearstruck driverhx of heart diseasewife notes pt has dementia early stage-wakes up scared because he is sob Candy Marie NP [address], [address], [place], [address], [employer] 07/11/2024 15:24:44
--- OUTSIDE RECORDS SUMMARY | 2024-08-08 07:45 | XMS_ITS ---
Author Organization [facility] Address [address] [address] [place] [address] Care Team Providers Care Degreasing Solution Reclaimer Name Role Phone Ronak Carlos Unavailable [phone] MEDICATIONS Medication SIG (Take, Route, Frequency, Duration) Notes Start Date End Date Status Ergocalciferol 1.25 MG (56815 UT) 1 capsule Orally Once a week for 90 day(s) 04/14/2023 01/09/2024 Active Calcitriol 0.25 MCG 1 capsule Orally Onc e a day for 90 day(s) 04/14/2023 01/09/2024 Active SOCIAL HISTORY Sex Assigned At : Social History Observation Description Sex Assigned At Male Encounters Encounter Location Date Provider Diagnosis [place] [facility] [address] [facility] [address] [place] [address] 04/14/2023 Carlos Simons PLAN OF TREATMENT Medication Medication Name Sig Start Date Stop Date Notes Ergocalciferol 1.25 MG (5000 0 UT) 1 capsule Orally Once a week for 90 day(s) 04/14/2023 01/09/2024 Calcitriol 0.25 MCG 1 capsule Orally Onc e a day for 90 day(s) 04/14/2023 01/09/2024 Progress Notes * Kevan SCHAEFER (Yifan) :1940 (83 yo M)Acc No.[id number]:04/14/2023 Patient: Kevan SCHAEFER) :1940 Age:83 Y Sex:Male Address:[address] [place] [address] * Refills Start Calcitriol Capsule, 0.25 MCG, Orally, 90 Capsule, 1 capsule, Once a day, 90 day(s), Refills=2 Start Ergocalciferol Capsule, 1.25 MG (39611 UT), Orally, 13, 1 capsule, Once a week, 90 day(s), Refills=2 * true * Date:
--- OUTSIDE RECORDS SUMMARY | 2024-08-08 07:45 | XMS_ITS | Patient Health Record ---
Author Organization [facility] Address [address] [place] [address] Care Team Providers Care Avionics Repair Technician Name Role Phone Ronak Carlos Unavailable [phone] REASON FOR REFERRAL No Information MEDICATIONS Medication SIG (Take, Route, Frequency, Duration) Notes Start Date End Date Status Calcitriol 0.25 MCG TAKE 1 CAPSULE BY MO UTH EVERY DAY FOR 90 DAYS for 90 Active Vitamin D (Ergocalciferol) 1.25 MG (22129 UT) TAKE 1 CAPSULE BY MOUTH ONE TIME PER WEEK FOR 90 DAYS for 90 Active SOCIAL HISTORY Sex Assigned At : Social History Observation Description Sex Assigned At Male PROBLEMS Problem Type ICD Code Onset Dates Problem Status W/U Status Risk SNOMED Code Notes Problem Vitamin D deficiency, unspecified (E55.9) Active confirmed Vitamin D deficiency (30939614) Problem Anxiety disorder, unspecified (F41.9) Active confirmed Anxiety disorde r (742119085) Problem Essential (primary) hypertension (I10) Active confirmed Essential hypertension (54673543) Problem Renal osteodystrophy (N25.0) Active confirmed Renal osteodystrophy (99712958) Problem Chronic kidney disease, stage 3a (N18.31) Active confirmed Chronic kidney disease stage 3A (disorder) (937649503) Encounters Encounter Location Date Provider Diagnosis [place] [facility] [address] [facility] [address] [place] [address] 11/03/2023 Carlos Simons Chronic kidney disea se, stage 3a N18.31 ; Essential (primary) hypertension I10 ; Anxiety disorder, unspecified F41.9 ; Renal osteodystrophy N25.0 and Vitamin D deficiency, unspecified E55.9 ASSESSMENTS Encounter Date Diagnosis Assessment Notes Treatment Notes Treatment Clinical Notes Section Notes 11/03/2023 Chronic kidney disease, stage 3a (ICD-10 - N18.31) 11/03/2023 Essential (primary) hypertension (ICD-10 - I10) 11/03/2023 Anxiety disorder, unspecified (ICD-10 - F41.9) 11/03/2023 Renal osteodystrophy (ICD-10 - N25.0) 11/03/2023 Vitamin D deficiency, unspecified (ICD-10 - E55.9) PLAN OF TREATMENT No Information
--- OUTSIDE RECORDS SUMMARY | 2024-08-08 07:46 | XMS_ITS ---
Author Organization [facility] Address [address] [address] [place] [address] Care Team Providers Care Washer Cutter Name Role Phone Ronak Carlos Unavailable [phone] MEDICATIONS Medication SIG (Take, Route, Frequency, Duration) Notes Start Date End Date Status Calcitriol 0.25 MCG 1 capsule Orally Onc e a day for 90 day(s) 04/14/2023 01/09/2024 Active Ergocalciferol 1.25 MG (98368 UT) 1 capsule Orally Once a week for 90 day(s) 04/14/2023 01/09/2024 Active SOCIAL HISTORY Sex Assigned At : Social History Observation Description Sex Assigned At Male Encounters Encounter Location Date Provider Diagnosis [place] [facility] [address] [facility] [address] [place] [address] 07/07/2023 Carlos Simons Chronic kidney disea se, stage 3a N18.31 ; Essential (primary) hypertension I10 ; Anxiety disorder, unspecified F41.9 ; Renal osteodystrophy N25.0 and Vitamin D deficiency, unspecified E55.9 ASSESSMENTS Encounter Date Diagnosis Assessment Notes Treatment Notes Treatment Clinical Notes Section Notes 07/07/2023 Chronic kidney disease, stage 3a (ICD-10 - N18.31) 07/07/2023 Essential (primary) hypertension (ICD-10 - I10) 07/07/2023 Anxiety disorder, unspecified (ICD-10 - F41.9) 07/07/2023 Renal osteodystrophy (ICD-10 - N25.0) 07/07/2023 Vitamin D deficiency, unspecified (ICD-10 - E55.9) PLAN OF TREATMENT No Information Progress Notes * Kevan SCHAEFER (Yifan) :1940 (84 yo M)Acc No.[id number]:07/07/2023 Progress Notes Patient: Kevan SCHAEFER (Yifan) Provider: MD LEELEE, Christian.Pastor.Brent.P, F.A.S.N. :1940 Age:83 Y Sex:Male Date:07/07/2023 Address:[address] [place] [address] Subjective: * Chief Complaints: * * Medical History: * Medications: Taking Calcitriol 0.25 MCG Capsule 1 capsule Orally Once a day , stop date 01/09/2024, Taking Ergocalciferol 1.25 MG (19220 UT) Capsule 1 capsule Orally Once a week , stop date 01/09/2024 Objective: Assessment: * Assessment: 1. Chronic kidney disease, stage 3a - N18.31 2. Essential (primary) hypertension - I10 3. Anxiety disorder, unspecified - F41.9 4. Renal osteodystrophy - N25.0 5. Vitamin D deficiency, unspecified - E55.9 Plan: * Treatment: * Billing Information: * Visit Code: [id number] Office Visit, Est Pt., Level 4. * Procedure Codes: * Sign off status: Pending * Provider: MD LEELEE, Corwin.P, F.A.S.N. Date: 07/07/2023
--- OUTSIDE RECORDS SUMMARY | 2024-08-08 07:46 | XMS_ITS ---
Author Organization [facility] Address [address] [address] [place] [address] Care Team Providers Care Sanitation Superintendent Name Role Phone Ronak Carlos Unavailable [phone] MEDICATIONS Medication SIG (Take, Route, Frequency, Duration) Notes Start Date End Date Status Calcitriol 0.25 MCG 1 capsule Orally Onc e a day for 90 day(s) 04/14/2023 01/09/2024 Active Ergocalciferol 1.25 MG (51973 UT) 1 capsule Orally Once a week for 90 day(s) 04/14/2023 01/09/2024 Active SOCIAL HISTORY Sex Assigned At : Social History Observation Description Sex Assigned At Male Encounters Encounter Location Date Provider Diagnosis [place] [facility] [address] [facility] [address] [place] [address] 11/03/2023 Carlos Simons Chronic kidney disea se, [...] Kevan SCHAEFER (Yifan) :1940 (84 yo M)Acc No.[id number]:11/03/2023 Progress Notes Patient: Kevan SCHAEFER (Yifan) Provider: MD LEELEE, DishaP, F.A.S.N. :1940 Age:83 Y Sex:Male Date:11/03/2023 Address:[address] [place] [address] Subjective: * Chief Complaints: * * Medical History: * Medications: Taking Calcitriol 0.25 MCG Capsule 1 capsule Orally Once a day , stop date 01/09/2024, Taking Ergocalciferol 1.25 MG (19879 UT) Capsule 1 capsule Orally Once a week , stop date 01/09/2024 Objective: Assessment: * Assessment: 1. Chronic kidney disease, stage 3a - N18.31 (Primary) 2. Essential (primary) hypertension - I10 3. Anxiety disorder, unspecified - F41.9 4. Renal osteodystrophy - N25.0 5. Vitamin D deficiency, unspecified - E55.9 Plan: * Treatment: * Billing Information: * Visit Code: [id number] Office Visit, Est Pt., Level 4. * Procedure Codes: * Sign off status: Pending * Provider: MD LEELEE, DishaP, F.A.S.N. Date: 11/03/2023
[2024-08-08 08:46] LABS: Basophils Absolute Auto 0.1 K/mm3 (0.0-0.1); Basophils Percent Auto 0.8 % (0.2-1.2); Eosinophils Absolute Auto 0.9 K/mm3 (0-0.3); Hematocrit 44.8 % (42.0-52.0); Hemoglobin 14.8 g/dL (14.0-18.0); Immature Granulocyte Absolute 0.02 K/mm3 (0.00-0.031); Immature Granulocyte Percent A 0.3 % (0-0.5); Lymphocytes Absolute Auto 1.77 K/mm3 (0.9-3.2); Lymphocytes Percent Auto 23.7 % (18.3-44.2); Mean Corpuscular Hemoglobin 32.9 pg (26-34); Mean Corpuscular Volume 99.6 fl (80-100); Mean Platelet Volume 10.5 fl (7.4-10.4); Monocytes Absolute Auto 0.7 K/mm3 (0.1-0.6); Monocytes Percent Auto 9.8 % (2.6-8.5); Neutrophils Percent Auto 53.4 % (45.5-73.1); Platelet Count Result 223 k/mm3 (150-375); Red Cell Distribution Width 11.9 % (11.5-14.5); White Blood Count 7.5 K/mm3 (4.5-10.0)
[2024-08-08 08:59] LABS: Alanine Aminotransferase 16 U/L (6-50); Albumin Level 4.4 g/dL (3.5-5.1); Alkaline Phosphatase 81 U/L (38-126); Anion Gap 9 mmol/L (4-12); Aspartate Amino Transferase 26 U/L (17-59); Bilirubin,Total 1.2 mg/dL (0.2-1.3); Blood Urea Nitrogen 19 mg/dL (9-20); Calcium 10.3 mg/dL (8.4-10.2); Carbon Dioxide 29 mmol/L (22-30); Chloride 102 mmol/L (98-107); Cholesterol 97 mg/dL (0-200); Estimated Glomerular Filt Rate 60; Glucose 95 mg/dL (65-110); HDL Direct 48 mg/dL; Potassium 4.3 mmol/L (3.4-5.0); Sodium 140 mmol/L (137-145); Triglycerides 107 mg/dL (<150)
[2024-08-08 09:05] LABS: NT Pro B Type Natriuretic Pept 2420 pg/mL (19.9-100)
[2024-08-08 09:08] LABS: Creatinine Urine 163.7 mg/dL
[2024-08-08 09:15] LABS: MALB Creatinine Ratio 10.4 mg/g (0-30)
[2024-08-08 09:56] LABS: Hemoglobin A1C 5.9 % (<5.7)
[2024-08-08 10:14] LABS: Folic Acid > 20.0 ng/mL (2.76->20)
[2024-08-08 18:18] LABS: LDL Cholesterol Direct < 30 mg/dL
[2024-08-10 18:18] LABS: Immunoglobulin E 44 kU/L (<OR=114)
[2024-08-10 19:34] LABS: Immunoglobulin G, Serum 846 mg/dL (600-1540); Immunoglobulin G1 519 mg/dL (382-929); Immunoglobulin G2 221 mg/dL (241-700); Immunoglobulin G3 70 mg/dL (22-178); Immunoglobulin G4 28.1 mg/dL (4.0-86.0)
[2024-08-12 11:59] LABS: NIL 0.03 IU/mL; Quantiferon TB Plus, 1T NEGATIVE (NEGATIVE)
== END 2024-08-08 07:30 | disposition home or self-care (01) ==
PROVIDERS: PCP Internal Medicine; Visit Provider Internal Medicine
DX: R06.9 Unspecified abnormalities of breathing (principal); J44.9 Chronic obstructive pulmonary disease, unspecified; E78.5 Hyperlipidemia, unspecified; E11.9 Type 2 dia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s
CPT/HCPCS: 36415; 80053; 80061; 82043; 82607; 82746; 82784; 82785; 82787; 83036; 83880; 84443; 85025; 86480

== ENCOUNTER 2024-09-06 17:31 | Emergency (ER) | payer MEDICARE, SELFPAY ==
--- NOTE | ~2024-09-06 | XR_ITS ---
XR chest 2V Ordering provider: Dulce Maria Greenfield APRN History: 84 years Male with . upper abdominal, lower chest pain . Comparison: None. FINDINGS: MEDIASTINUM: The cardiac silhouette is not enlarged. LUNGS: No infiltrates, effusions or pneumothorax. Granuloma seen in the right apical area. OTHER: No free air under the diaphragm. Degenerative changes of the spine. Old compression fractures are seen in the midthoracic area. Dextroscoliosis. IMPRESSION: No acute cardiopulmonary pathology. Reviewed, dictated and finalized at location A.
[2024-09-06 17:33] VITALS: BP 140/77; PULSE 72; RESP 16; TEMP 36.7; O2SAT 95
--- OUTSIDE RECORDS SUMMARY | 2024-09-06 17:35 | XMS_ITS | Continuity of Care Document ---
Author Organization [facility] Address [id number] [place] [address] [place] [address] Phone Care Team Providers Care C.O.D. Audit Clerk Name Role Phone [facility] Unavailable Unavail able Darnell Wynne Unavailable Unavailable Procedures Procedure Date Progressive Lens, Polycarb Frames Deluxe Scratch Resistant Coating Eye Exam, New Patient Refraction Advance Directives Directive Yes / No Effective Date File Name No Information Encounters Encounter Description Practice Location Reason(s) For Visit Diagnoses Date Provider Providers Copied on Encounter [facility], [address] [place] [address] [facility] [place], [place], [id number], [place] tel:[phone] [facility] [place] No Information [address] [facility] . [address] [facility], [address], [id number], [place]. tel:[phone] Referring Provider: Lobito Sotelo OD Pastor, [address] [place] [address] [address], [place], [address]. tel:[phone] sulting Provider: Darnell Wynne, [address] [place], [place] [address]ate [facility], [place], [address]. tel:[phone] [facility], [address] [place] [address] [address], [place], [place], [id number], [place] tel:[phone] [facility] [place] No Information Sep- 4-200 7 Sotelo GRACIELA Robin. [address] [place] [address] , [address], [place], [address], [place]. tel:[phone] Family History Family Member Type Diagnosis Age At Onset No Information Payers Payer name Insurance type Covered green party ID Fernando sow(s) [employer] Plan [id number] Social History Type Description Quantity Date Captured Comments Sex Male Smoking Status No Information Chief Complaint And Reason For Visit No Information Reason For Referral Reason For Referral No Information History Of Present Illness Encounter Date Complaint History Of Prese nt Illness No Information Functional Status Date Functional Assessmen t No Information Instructions Date Instruction Additional Infor mation No Information Assessments Type Assessment Date No Information Patient Care Teams Name Effective Dates (start - stop) Status Members No Information
--- OUTSIDE RECORDS SUMMARY | 2024-09-06 17:35 | XMS_ITS | Patient Health Record ---
Author Organization [facility] Address [address] [place] [address] Care Team Providers Care Dividing Machine Operator Helper Name Role Phone Ronak Carlos Unavailable [phone] REASON FOR REFERRAL No Information MEDICATIONS Medication SIG (Take, Route, Frequency, Duration) Notes Start Date End Date Status Calcitriol 0.25 MCG TAKE 1 CAPSULE BY MO UTH EVERY DAY FOR 90 DAYS for 90 Active Vitamin D (Ergocalciferol) 1.25 MG (31018 UT) TAKE 1 CAPSULE BY MOUTH ONE TIME PER WEEK FOR 90 DAYS for 90 Active SOCIAL HISTORY Sex Assigned At : Social History Observation Description Sex Assigned At Male PROBLEMS Problem Type ICD Code Onset Dates Problem Status W/U Status Risk SNOMED Code Notes Problem Vitamin D deficiency, unspecified (E55.9) Active confirmed Vitamin D deficiency (18516139) Problem Anxiety disorder, unspecified (F41.9) Active confirmed Anxiety disorde r (216588745) Problem Essential (primary) hypertension (I10) Active confirmed Essential hypertension (53294264) Problem Renal osteodystrophy (N25.0) Active confirmed Renal osteodystrophy (84958883) Problem Chronic kidney disease, stage 3a (N18.31) Active confirmed Chronic kidney disease stage 3A (disorder) (902789825) Encounters Encounter Location Date Provider Diagnosis [facility] [address] [facility] [address] [place] [address] 11/03/2023 Carlos Simons Chronic kidney disea se, [...]
--- OUTSIDE RECORDS SUMMARY | 2024-09-06 17:35 | XMS_ITS ---
Author Organization [facility] Address [address] [address] [place] [address] Care Team Providers Care Business Support Administrator Name Role Phone Ronak Carlos Unavailable [phone] MEDICATIONS Medication SIG (Take, Route, Frequency, Duration) Notes Start Date End Date Status Calcitriol 0.25 MCG 1 capsule Orally Onc e a day for 90 day(s) 04/14/2023 01/09/2024 Active Ergocalciferol 1.25 MG (40507 UT) 1 capsule Orally Once a week for 90 day(s) 04/14/2023 01/09/2024 Active SOCIAL HISTORY Sex Assigned At : Social History Observation Description Sex Assigned At Male Encounters Encounter Location Date Provider Diagnosis [place] [facility] [address] [facility] [place] [address] [place] [address] 07/07/2023 Carlos Simons Chronic kidney disea se, [...] Kevan SCHAEFER (Yifan) :1940 (84 yo M)Acc No.[id number]:07/07/2023 Progress Notes Patient: Kevan SCHAEFER (Yifan) Provider: MD LEELEE, Christian.Pastor.Brent.P, F.A.S.N. :1940 Age:83 Y Sex:Male Date:07/07/2023 Address:[address] [place] [address] Subjective: * Chief Complaints: * * Medical History: * Medications: Taking Calcitriol 0.25 MCG Capsule 1 capsule Orally Once a day , stop date 01/09/2024, Taking Ergocalciferol 1.25 MG (27472 UT) Capsule 1 capsule Orally Once a week , stop date 01/09/2024 Objective: Assessment: * Assessment: 1. Chronic kidney disease, stage 3a - N18.31 2. Essential (primary) hypertension - I10 3. Anxiety disorder, unspecified - F41.9 4. Renal osteodystrophy - N25.0 5. Vitamin D deficiency, unspecified - E55.9 Plan: * Treatment: * Billing Information: * Visit Code: 87923 Office Visit, Est Pt., Level 4. * Procedure Codes: * Sign off status: Pending * Provider: MD LEELEE, Corwin.P, F.A.S.N. Date: 07/07/2023
--- OUTSIDE RECORDS SUMMARY | 2024-09-06 17:35 | XMS_ITS | Data Portability ---
Author Organization [place] - [facility], Main Office Address [address] [place] [address] Care Team Providers Care Dairy Equipment Repairer Name Role Phone FREEDOM SORTO Primary Care Provider [phone] FREEDOM SORTO Referring Provider TERRY BLAKELY Antenna Installer [place] [facility] Pain Management TRAVIS SANZ SI Neurologist YVES MAC General Surgeon TUAN RAMIREZ Vamp Creaser Assessment Encounter Date Assessment Date Assessment LastModified [...] Modified Time Details Appointments Any 15 2024 10:00A M Candy Marie NP Not available Not available Not available Any 15 2024 10:30A M Freedom sifuentes MD Not available Not available Not available Lab gas panel, arterial blood [address] [facility], [address] [place] [address] [place] [address], [address], 08/21/2024 09:53:03 BNP (B-type natriuret ic peptide), serum or plasma [address] (Lab), [address] [place] [address] [address], [address], 08/21/2024 09:51:40 ige, total, serum [address] (Lab), [facility] [address], [address], 08/21/2024 09:51:53 tb (M tuberculo sis), ifn-gamma dereck, blood [address] (Lab), [address] [place] [address] [address], [place], [address], 08/21/2024 09:52:04 igg subclasse s 1+2+3+4, serum [address] [place] [address] (Lab), [address] [place] [address] [address], [place], [address], 08/21/2024 09:52:16 respirato ry allergen panel, [facility] A, serum [address] [place] [address] (Lab), [address] [place] [address] [address], [place], [address], 08/21/2024 09:52:28 respirato ry allergen panel - [facility] b [address] [place] [address] (Lab), [address] [place] [address] [address], [place], [address], 08/21/2024 09:52:41 eosinophi ls, quant, blood [address] (Lab), [address] [place] [address] [address], [place], [address], 08/21/2024 09:52:51 vitamin B12 + folate, serum or blood 2023 024 [facility] (Lab), [address] [place], [address], 08/08/2024 13:48:39 lipid panel, serum 2023 024 [facility] (Lab), [address] [place], [address], 08/08/2024 13:48:38 CMP, serum or plasma 2023 024 [facility] (Lab), [address] [place], [address], 08/08/2024 13:48:38 CBC w/ auto diff 2023 024 [facility] (Lab), [address] [place], [address], 08/08/2024 13:44:46 TSH, serum or plasma 2023 024 [facility] (Lab), [address] [place], [address], 08/08/2024 13:48:38 glycohemo globin, total, blood 2023 024 [facility] (Lab), [address] [place], [address], 08/08/2024 13:48:39 microalbu min, urine 2023 024 [facility] (Lab), [address] [place], [address], 08/08/2024 13:48:39 vitamin B12 + folate, serum or blood [address] (Lab), [address] [place], [address], 07/23/2024 08:48:52 lipid panel, serum 2023 024 [facility] (Lab), [address] [place], [address], 01/26/2024 18:38:14 CMP, serum or plasma 2023 024 [facility] (Lab), [address] [place], [address], 01/26/2024 18:38:14 CBC w/ auto diff 2023 024 [facility] (Lab), [address] [place], [address], 01/26/2024 18:38:12 TSH, serum or plasma 2023 024 [facility] (Lab), [address] [place], [address], 01/26/2024 18:38:15 glycohemo globin, total, blood 2023 024 [facility] (Lab), [address] [place], [address], 01/26/2024 18:38:15 microalbu min, urine 2023 024 [facility] (Lab), [address] [place], [address], 01/26/2024 18:38:13 gamma-glu tamyl transfera se (ggt), serum 2023 024 [facility] (Lab), [address] [place], [address], 05/06/2024 13:13:08 hepatitis panel (A+B+C), acute, serum 2023 024 [facility] (Lab), [address] [place], [address], 05/06/2024 14:33:03 Referral cardiolog ist referral 2024 025 [email or web address] [place], [address] [address], [address], [address], 07/09/2024 18:39:25 pulmonolo gist referral 2024 025 [email or web address] Fidel Fleming MD, [address] [place], [address], 07/09/2024 18:38:15 ophthalmo logist referral - Please call patient to schedule. 2023 024 Terry Gordonzoey, [address], [address], [place], [address], 08/06/2024 16:30:03 podiatris t referral - Please call patient to schedule. 2023 024 Alexi Contreras DPM, [address] [facility], [address], [place], [address], 08/06/2024 16:30:03 cardiolog ist referral - Please call pt to schedule appt. Thank you 2023 024 [email or web address] [place], [address] [address], [facility] [address], [address], 05/27/2024 08:59:48 gastroent erologist referral - Please call patient to schedule. 2023 024 [email or web address] Mikhail Gamez MD, [address] [facility], [address], [place], [address], 08/06/2024 16:30:03 ophthalmo logist referral 2023 024 [email or web address] Henrry Burgos, [address] [facility], [place], [address], 05/27/2024 09:00:48 podiatris t referral - Please call pt to schedule appt. Thank you 2023 024 [email or web address] Alexi Contreras DPM, [address] [facility], [address], [place], [address], 05/27/2024 09:00:32 cardiolog ist referral - Please call pt to schedule appt. Thank you 2023 024 [place], [address], [address], [place], [address], 07/23/2024 08:49:08 Procedures None recorded. Surgeries None recorded. Imaging US, liver 2023 024 [email or web address] [facility], [address], [address], [place], [address], 02/15/2024 17:59:11 Medication Orders Trelegy Ellipta 200 mcg-62.5 mcg-25 mcg powder for inhalatio n 2024 025 [id number], [address] [facility], [place], [address], 07/09/2024 12:16:25 prednison e 20 mg tablet 2024 [address]25 [id number], [address] [facility], [place], [address], 08/15/2024 11:25:02 Zithromax Z-Enio 250 mg tablet 2023 024 [id number], [address] [facility], [place], [address], 08/15/2024 11:24:43 albuterol sulfate HFA 90 mcg/actua tion aerosol inhaler 2023 024 [id number], [address] [facility], [place], [address], 05/16/2024 12:41:13 Patient TargetsNo targets recorded. Patient Instructions Encounter Date Encounter Id Patient Instructions Last Modified By Organization Details Last Modified Time 01/25/2024 [id number] dementia rating scale-2* [email or web address] Not available 01/25/2024 10:17:53 alcohol misuse* [email or web address] Not available 01/25/2024 10:18:12 depression screening* [email or web address] Not available 01/25/2024 10:18:27 Timed Up and Go test (TUG)* [email or web address] Not available 01/25/2024 10:18:46 multi-dimensiona l health assessment questionnaire* [email or web address] Not available 01/31/2024 08:02:11 advance care planning: care instructions davis Warner Not available 01/25/2024 18:55:22 advance directiv es: care instructions davis 2 Not available 01/25/2024 18:55:23 [place] Advance Directives davis 2 Not available 01/25/2024 18:55:23 Personalized Hea lt [...] today Dementia Risk: High Depression Screening: Negative [email or web address] Not available 01/25/2024 10:21:40 07/09/2024 [id number] complete PFT w/ post bronchodilator spirometry* Not available 08/21/2024 11:20:02 Reason for Referral Front Desk Attendant Referral for Type 2 dia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 Please call pt to schedule appt. Thank you Referring Physician: Freedom Sorto, Internal Medicine, Encounter Date: 01/25/2024 Vamp Creaser Referral for Co ronary arteriosclerosis Please call pt to schedule appt. Thank you Referring Physician: Freedom Sorto Internal Medicine, Encounter Date: 01/25/2024 Antenna Installer Referral for Visual impairment Referring Physician: Freedom Sorto Internal Medicine, Encounter Date: 01/25/2024 Front Desk Attendant Referral for Type 2 dia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 Please call patient to schedule. Referring Physician: Freedom Sorto Internal Medicine, Encounter Date: 05/16/2024 Vamp Creaser Referral for Co ronary arteriosclerosis Please call pt to schedule appt. Thank you Referring Physician: Freedom Sorto Internal Medicine, Encounter Date: 05/16/2024 Antenna Installer Referral for Visual impairment Please call patient to schedule. Referring Physician: Desire Melton Medicine, Encounter Date: 05/16/2024 Hard Rock Miner Blasting Referral for Liver enzymes level above reference range Please call patient to schedule. Referring Physician: Freedom Sorto Internal Medicine, Encounter Date: 05/16/2024 Polisher Balance Screwhead Referral for C hronic obstructive pulmonary disease Referring Physician: Freedom Sorto Internal Medicine, Encounter Date: 07/09/2024 Vamp Creaser Referral for Co ronary arteriosclerosis Referring Physician: Freedom Sorto Internal Medicine, Encounter Date: 07/09/2024 Vamp Creaser Referral for Co ronary arteriosclerosis Please call patient to schedule an appointment. Thank you. Referring Physician: Freedom Sorto Internal Medicine, Encounter Date: 08/15/2024 Front Desk Attendant Referral for Type 2 dia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 Please call patient to schedule an appointment. Thak you. Referring Physician: Freedom Sorto Internal Medicine, Encounter Date: 08/15/2024 Antenna Installer Referral for Visual impairment Please call patient to schedule an appointment. Thank you. Referring Physician: Freedom Sorto Internal Medicine, Encounter Date: 08/15/2024 [place] Miner Blasting Referral for Liver enzymes level above reference range Please call patient to schedule an appointment. Thank you. Referring Physician: Freedom Sorto Internal Medicine, Encounter Date: 08/15/2024 Neurologist Referral for Tra nsient cerebral ischemia Please call patient to schedule an appointment. Thank you. Referring Physician: Freedom Sorto Internal Medicine, Encounter Date: 08/15/2024 Results Created Date Observation Date Name Description Value Unit Range Abnormal Flag Note LastModifiedBy Organization Detail LastModifiedTime 01/18/20 24 01/18/2024 CBC/C OMPLE TE BLD COUNT W/DIF F white blood cells 8.2 x10'3 /uL 4.2-10 .8 Not Available [facility] (Lab) [address] [place], [address], 01/18/2024 11:41:42 01/18/20 24 01/18/2024 CBC/C OMPLE TE BLD COUNT W/DIF F red blood cells 4.48 x10'6 /uL 4.10-5 .80 Not Available [facility] (Lab) [address] [place], [address], 01/18/2024 11:41:42 01/18/20 24 01/18/2024 CBC/C OMPLE TE BLD COUNT W/DIF F hemoglobin 15.2 g/dL 13.2-1 7.0 Not Available [facility] (Lab) [address] [place], [address], 01/18/2024 11:41:42 01/18/20 24 01/18/2024 CBC/C OMPLE TE BLD COUNT W/DIF F hematocrit 45.4 % 39.3-5 0.0 Not Available [facility] (Lab) [address] [place], [address], 01/18/2024 11:41:42 01/18/20 24 01/18/2024 CBC/C OMPLE TE BLD COUNT W/DIF F mean red cell volume 101.3 fL 80.0-9 7.0 high Not Available [facility] (Lab) [address] [place], [address], 01/18/2024 11:41:42 01/18/20 24 01/18/2024 CBC/C OMPLE TE BLD COUNT W/DIF F mean red cell hemoglobin 33.9 pg 27.0-3 3.0 high Not Available [facility] (Lab) [address] [place], [address], 01/18/2024 11:41:42 01/18/20 24 01/18/2024 CBC/C OMPLE TE BLD COUNT W/DIF F mean RBC HGB concentratio n 33.5 g/dL 31.0-3 6.0 Not Available [facility] (Lab) [address] [place], [address], 01/18/2024 11:41:42 01/18/20 24 01/18/2024 CBC/C OMPLE TE BLD COUNT W/DIF F red cell distribution width 11.9 % 11.8-1 5.5 Not Available [facility] (Lab) [address] [place], [address], 01/18/2024 11:41:42 01/18/2001/18/2024 CBC/C OMPLE TE BLD COUNT W/DIF F platelets 186 x10'3 /uL 150-40 0 Not Available [facility] (Lab) [address] [place], [address], 01/18/2024 11:41:42 01/18/20 24 01/18/2024 CBC/C OMPLE TE BLD COUNT W/DIF F mean platelet volume 11.7 fL 9.0-12 .4 Not Available [facility] (Lab) [address] [place], [address], 01/18/2024 11:41:42 01/18/20 24 01/18/2024 CBC/C OMPLE TE BLD COUNT W/DIF F neutrophils 55.2 % 39.0-7 2.0 Not Available [facility] (Lab) [address] [place], [address], 01/18/2024 11:41:42 01/18/20 24 01/18/2024 CBC/C OMPLE TE BLD COUNT W/DIF F lymphocytes 27.5 % 16.0-4 7.0 Not Available [facility] (Lab) [address] [place], [address], 01/18/2024 11:41:42 01/18/20 24 01/18/2024 CBC/C OMPLE TE BLD COUNT W/DIF F monocytes 9.5 % 5.0-12 .0 Not Available [facility] (Lab) [address] [place], [address], 01/18/2024 11:41:42 01/18/20 24 01/18/2024 CBC/C OMPLE TE BLD COUNT W/DIF F eosinophils 6.6 % 1.0-7. 0 Not Available [facility] (Lab) [address] [place], [address], 01/18/2024 11:41:42 01/18/20 24 01/18/2024 CBC/C OMPLE TE BLD COUNT W/DIF F basophils 0.7 % 0.0-2. 0 Not Available [facility] (Lab) [address] [place], [address], 01/18/2024 11:41:42 01/18/20 24 01/18/2024 CBC/C OMPLE TE BLD COUNT W/DIF F immature granulocytes 0.5 % 0.00-0 .50 Not Available [facility] (Lab) [address] [place], [address], 01/18/2024 11:41:42 01/18/20 24 01/18/2024 CBC/C OMPLE TE BLD COUNT W/DIF F neutrophils, absolute count 4.52 x10'3 /uL 1.5-8. 0 Not Available [facility] (Lab) [address] [place], [address], 01/18/2024 11:41:42 01/18/20 24 01/18/2024 CBC/C OMPLE TE BLD COUNT W/DIF F lymphocytes, absolute count 2.25 x10'3 /uL 1.07-3 .43 Not Available [facility] (Lab) [address] [place], [address], 01/18/2024 11:41:42 01/18/20 24 01/18/2024 CBC/C OMPLE TE BLD COUNT W/DIF F monocytes, absolute count 0.78 x10'3 /uL 0.29-0 .99 Not Available [facility] (Lab) [address] [place], [address], 01/18/2024 11:41:42 01/18/20 24 01/18/2024 CBC/C OMPLE TE BLD COUNT W/DIF F eosinophils, absolute count 0.54 x10'3 /uL 0.02-0 .53 high Not Available [facility] (Lab) [address] [place], [address], 01/18/2024 11:41:42 01/18/20 24 01/18/2024 CBC/C OMPLE TE BLD COUNT W/DIF F basophils, absolute count 0.06 x10'3 /uL 0.01-0 .08 Not Available [facility] (Lab) [address] [place], [address], 01/18/2024 11:41:42 01/18/20 24 01/18/2024 CBC/C OMPLE TE BLD COUNT W/DIF F immature granulocytes ,absolute 0.04 x10'3 /uL 0.00-0 .05 Not Available [facility] (Lab) [address] [place], [address], 01/18/2024 11:41:42 01/18/20 24 01/18/2024 CBC/C OMPLE TE BLD COUNT W/DIF F nucleated red blood cells 0.0 % -0 Not Available [facility] (Lab) [address] [place], [address], 01/18/2024 11:41:42 01/18/20 24 01/18/2024 CBC/C OMPLE TE BLD COUNT W/DIF F NRBC# 0.00 x10'3 /uL Not Available [facility] (Lab) [address] [place], [address], 01/18/2024 11:41:42 01/18/20 24 01/18/2024 MICRO ALBUM IN RANDO M URINE microalbumin , urine 7.6 mg/L 0.0-16 .6 Not Available [facility] (Lab) [address] [place], [address], 01/18/2024 12:36:24 01/18/20 24 01/18/2024 LIPID PANEL cholesterol 85 mg/dL 140-19 9 low NIH MERY NSUS RECOM MENDA TION FOR YESICA STERO L: ADULT CHILD LOW RISK: <200 <170 BORDE RLINE : <200- 239 ----- HIGH RISK: >240 >200 Not Available [facility] (Lab) [address] [place], [address], 01/18/2024 12:46:43 01/18/20 24 01/18/2024 LIPID PANEL triglyceride s 115 mg/dL 0-150 NIH MERY NSUS REPOR T RECOM MENDA TION FOR TRIGL YCERI AURA: ADULT CHILD LOW RISK: <150 ----- BODER LINE: 150-1 99 ----- HIGH RISK: >200 ----- Not Available [facility] (Lab) [address] [place], [address], 01/18/2024 12:46:43 01/18/20 24 01/18/2024 LIPID PANEL HDL cholesterol 43 mg/dL 40- Not Available [facility] (Lab) [address] [place], [address], 01/18/2024 12:46:43 01/18/20 24 01/18/2024 LIPID PANEL [...] WILL NOT BE REPOR MARIO. Not Available [facility] (Lab) [address] [place], [address], 01/18/2024 12:46:43 01/18/20 24 01/18/2024 COMPR EHENS MICHAEL METAB OLIC PANEL sodium 140 mmol/ L 137-14 5 Not Available [facility] (Lab) [address] [place], [address], 01/18/2024 12:46:53 01/18/20 24 01/18/2024 COMPR EHENS MICHAEL METAB OLIC PANEL potassium 4.4 mmol/ L 3.5-5. 1 Not Available [facility] (Lab) [address] [place], [address], 01/18/2024 12:46:53 01/18/20 24 01/18/2024 COMPR EHENS MICHAEL METAB OLIC PANEL chloride 104 mmol/ L 98-107 Not Available [facility] (Lab) [address] [place], [address], 01/18/2024 12:46:53 01/18/20 24 01/18/2024 COMPR EHENS MICHAEL METAB OLIC PANEL carbon dioxide 31 mmol/ L 22-30 high Not Available [facility] (Lab) [address] [place], [address], 01/18/2024 12:46:53 01/18/20 24 01/18/2024 COMPR EHENS MICHAEL METAB OLIC PANEL anion gap 9.4 mmol/ L 14-22 low Not Available [facility] (Lab) [address] [place], [address], 01/18/2024 12:46:53 01/18/20 24 01/18/2024 COMPR EHENS MICHAEL METAB OLIC PANEL glucose 106 mg/dL 70-99 high Not Available [facility] (Lab) [address] [place], [address], 01/18/2024 12:46:53 01/18/20 24 01/18/2024 COMPR EHENS MICHAEL METAB OLIC PANEL BUN 16 mg/dL 8-19 Not Available [facility] (Lab) [address] [place], [address], 01/18/2024 12:46:53 01/18/20 24 01/18/2024 COMPR EHENS MICHAEL METAB OLIC PANEL creatinine 1.18 mg/dL 0.66-1 .25 Not Available [facility] (Lab) [address] [place], [address], 01/18/2024 12:46:53 01/18/20 24 01/18/2024 COMPR EHENS MICHAEL METAB OLIC PANEL GFR 59 Refer ence Range : [place] ge GFR Healt hy Adult : >60 [...] or ethni c subgr oups, such as Hispa nics. Outsi de the valid ated anupama [...] calcu lator is avail able on the [facility] websi te: https :[email or web address] samaniego.cristal rhodes.o dada/pr ofess ional s/kdo qi/gf r_cal culat or Not Available [facility] (Lab) [address] [place], [address], 01/18/2024 12:46:53 01/18/20 24 01/18/2024 COMPR EHENS MICHAEL METAB OLIC PANEL alkaline phosphatase 72 U/L 38-126 Not Available [facility] (Lab) [address] [place], [address], 01/18/2024 12:46:53 01/18/20 24 01/18/2024 COMPR EHENS MICHAEL METAB OLIC PANEL alanine aminotransfe rase 16 U/L 0-50 Not Available [facility] (Lab) [address] [place], [address], 01/18/2024 12:46:53 01/18/20 24 01/18/2024 COMPR EHENS MICHAEL METAB OLIC PANEL aspartate aminotransfe rase 87 U/L 15-46 high Not Available [facility] (Lab) [address] [place], [address], 01/18/2024 12:46:53 01/18/20 24 01/18/2024 COMPR EHENS MICHAEL METAB OLIC PANEL bilirubin, total 1.10 mg/dL 0.20-1 .30 Not Available [facility] (Lab) [address] [place], [address], 01/18/2024 12:46:53 01/18/20 24 01/18/2024 COMPR EHENS MICHAEL METAB OLIC PANEL calcium 9.6 mg/dL 8.4-10 .2 Not Available [facility] (Lab) [address] [place], [address], 01/18/2024 12:46:53 01/18/20 24 01/18/2024 COMPR EHENS MICHAEL METAB OLIC PANEL total protein 8.0 g/dL 6.3-8. 2 Not Available [facility] (Lab) [address] [place], [address], 01/18/2024 12:46:53 01/18/20 24 01/18/2024 COMPR EHENS MICHAEL METAB OLIC PANEL albumin 4.4 g/dL 3.0-4. 4 Not Available [facility] (Lab) [address] [place], [address], 01/18/2024 12:46:53 01/18/20 24 01/18/2024 COMPR EHENS MICHAEL METAB OLIC PANEL globulin 3.6 g/dL 2.6-4. 2 Not Available [facility] (Lab) [address] [place], [address], 01/18/2024 12:46:53 01/18/20 24 01/18/2024 COMPR EHENS MICHAEL METAB OLIC PANEL A/G ratio 1.2 ratio 1.0-2. 0 Not Available [facility] (Lab) [address] [place], [address], 01/18/2024 12:46:53 01/18/20 24 01/18/2024 HEMOG LOBIN A1C HA1C 6.0 % 4.0-6. 0 Diabe vinayak Scree shae Crite chirag: <5.7% Consi stent with absen ce of diabe vinayak 5.7-6 .4% Consi stent with incre ased risk for diabe vinayak (pred iabet es) >OR=6 .5% Consi stent with diabe vinayak REFER ENCE: Diabe vniayak Care 2016, 39(Singer ppl.1 ):s13 -s22 Not Available [facility] (Lab) [address] [place], [address], 01/18/2024 14:19:34 01/18/20 24 01/18/2024 TSH W/REF EVELYN FT4 TSH with reflex free T4 1.800 uIU/m L 0.465- 4.680 Not Available [facility] (Lab) [address] [place], [address], 01/18/2024 14:24:57 01/18/20 24 01/18/2024 VITAM IN B12 (DOYLE FLORIDALMA ) vb12 371 pg/mL 239-93 1 Not Available [facility] (Lab) [address] [place], [address], 01/18/2024 15:14:16 01/18/20 24 01/18/2024 FOLAT E, SERUM /PLAS MA folate >20.0 NG/mL 2.76-2 0.0 Not Available [facility] (Lab) [address] [place], [address], 01/18/2024 15:14:17 01/31/20 24 01/31/2024 US, liver No observ ation record ed. [facility] [address] [facility] [address], [place], [address], 02/14/2024 15:51:42 03/28/20 24 03/28/2024 imagi ng/di agnos tic resul t No observ ation record ed. [facility] [address] [facility] [address], [facility] [place], [address], 03/28/2024 14:12:49 03/28/20 24 03/28/2024 imagi ng/di agnos tic resul t No observ ation record ed. [facility] [address], [place], [address], 03/28/2024 14:24:55 07/23/19 25 07/23/2024 CT, chest , w/o contr ast No observ ation record ed. [facility] [address], [place], [address], 07/23/2024 17:33:21 Result Notes None recorded. 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 Not Available [facility] 4 08:43:19 Abdominal pain 31933558 Active Not Available [facility] 4 08:43:19 Transient cerebral ischemia 929779081 Active 2021 Not Available [facility] 4 08:43:19 Dyspnea 064589974 Active 2016 Not Available [facility] 4 08:43:19 Moderate chronic obstructi ve pulmonary disease 986463329 Active 2016 Not Available [facility] 4 08:43:19 Dysphagia 97585384 Active Not Available [facility] 4 08:43:19 Chronic ischemic heart disease 406016225 Active Marcia Joseph CCM null, [place] - [facility] 4 13:32:07 Compressi on fracture of lumbar spine 400190789 Active Not Available [facility] 4 08:43:19 Former heavy tobacco smoker 03329424659 4100 Active 2016 Not Available [facility] 4 08:43:19 Atrial fibrillat ion 35933484 Active 2017 Marcia Joseph CCM null, [place] - [facility] 4 13:32:07 Coronary arteriosc lerosis 53711101 Active 2016 Not Available [facility] 4 08:43:19 Hyperlipi demia 78605604 Active Not Available [facility] 4 08:43:19 Essential hypertens ion 43117723 Active Not Available [facility] 4 08:43:19 Ex-smoker 2486073 Completed 201603/20/2017 Not Available [facility] 3 06:08:09 Gastroeso phageal reflux disease without esophagit is 001515934 Active 2022 Not Available [facility] 4 08:43:19 Type 2 diabetes mellitus without complicat ion 438964853 Active 2022 Not Available [facility] 4 08:43:19 Visual impairmen t 709145409 Active 2022 Not Available [facility] 4 08:43:19 Aneurysm of thoracic aorta 483838006 Active 2022 Not Available [facility] 4 08:43:19 Macrocyto sis 875573258 Active 2022 Not Available [facility] 4 08:43:19 Umbilical hernia 263282915 Active 2022 Not Available [facility] 4 08:43:19 Proteinur ia 21242481 Active 2022 Not Available [facility] 4 08:43:19 Thoracic back pain 897749998 Active 2022 Not Available [facility] 4 08:43:19 Dementia 48949627 Active 2022 Marcia Joseph CCM null, [place] - [facility] 4 13:32:07 COVID-19 707911056 Active 2023 Not Available [facility] 4 08:43:19 Cerebral infarctio n 135858101 Active 2023 Not Available [facility] 4 08:43:19 Gynecomas tia 2030546 Active 2023 Not Available [facility] 4 08:43:19 Skin lesion 66895092 Active 2023 Janet Monroy MA null, [place] - [facility] [facility] 4 14:25:13 Epidermoi d cyst of skin of neck 925717875 Active 2023 Yves rincon MD [address], [place], [address] , [place] [facility] 4 15:17:03 Liver enzymes level above reference range 619961011 Active 2023 Freedom patricia MD [address], [place], [address] , [facility] 4 09:46:09 Unsteady when walking 92338504 Active 2023 Freedom patricia MD [address], [place], [address] , [facility] [place] [facility] 4 09:51:47 Sinusitis 51510798 Active 2023 Khadra Zhang CMA null, [place] [facility] 4 13:51:23 Upper respirato ry infection 00003513 Active 2023 Freedom patricia MD [address], [place], [address] , [place] [facility] 4 12:39:06 Cough 77309092 Active 2024 Yoly Stewart MA null, [place] [facility] 5 16:05:59 Dyspnea on exertion 51747403 Active 2024 Candy Marie NP [address], [place], [address] , [place] [facility] 12:03:04 Chronic cough 79244857 Active 2024 Candy Marie NP [address], [place], [address] , [place] [facility] 12:42:47 Oxygen saturatio n below reference range 411697315 Active 2024 Candy Marie NP [address], [place], [address] , [place] - [employer] [facility] 12:43:55 Notes:Some problems listed i n Document: #[id number] could not be added to this patient's chart. Please review this document and add these problems to the patient's chart manually as needed. Problem Notes None recorded. Procedures Surgical History Date Name Laterality Status Provider Name and Address Organization Details Recorded Time 01/25/20 Medicare Wellness CPT Code, subsequent completed Luis M River LPN [place] [employer] [place] [facility] 01/25/2024 09:10:11 01/25/20 24 Advanced Care Planning completed Luis M River LPN [employer] [facility] [employer] [facility] 01/25/2024 10:14:01 01/22/20 24 Chronic care management services completed Lexi Jones [facility] [employer] S [employer] [facility] 01/22/2024 14:17:20 12/21/19 24 Chronic care management services completed Lexi Jones [facility] [employer] [facility] [employer] [facility] 12/21/2023 13:33:15 12/19/19 24 Blank Procedure completed Yves faith MD [address], [place], [address], [employer] [facility] [employer] [facility] 12/19/2023 13:03:23 12/19/19 24 incision and drainage of cyst completed LYNDSEY Serrano [employer] - [facility] 01/25/2024 09:32:10 11/07/19 24 Chronic care management services completed Lexi Jones [facility] [place] [employer] [facility] 11/07/2023 13:42:57 12/09/19 23 Medicare Wellness CPT Code, subsequent completed Mary De La Vega RN [employer] 12/08/2022 10:33:58 10/05/19 23 Transitional_Care_ Management completed Freedom Sorto MD [address] [facility], [address], [place], [address], [place] [facility] 10/04/2022 12:05:41 03/13/20 19 Cardiovascular Procedure completed Not Available [facility] 07/27/2022 05:58:45 11/29/19 17 Cardiac Stent Placement completed Not Available [facility] 07/27/2022 05:58:45 07/28/19 16 Cataract Surgery completed Not Available [facility] 07/27/2022 05:58:45 Cholecystectomy completed Not Available [facility] 07/27/2022 05:58:45 Appendectomy completed Not Available [facility] 07/27/2022 05:58:45 Imaging Results Imaging Date Name Status LastModified by Organiz ation Details LastModified Time 01/31/2024 US, liver completed [email or web address] [facility] [address], [place], [address], 02/14/2024 15:51:42 03/28/2024 imaging/diagn ostic result active [facility] [address] [facility] [address], [place], [address], 03/28/2024 14:12:49 03/28/2024 imaging/diagn ostic result active [facility] [address] [facility], [place], [address], 03/28/2024 14:24:55 07/23/2024 CT, chest, w/o contrast active [facility] [address], [place], [address], 07/23/2024 17:33:21 Procedure Notes None recorded. Medical Equipment None Reported. Allergies Allergen ID Allergen Name Allergen Category Reaction Reaction Severity Criticality Documentation Date Start Date Code Code System Note Provider Name and Address Organization Details Recorded Time 87511 ticagrelo r medicatio n Not available Not available Not available 07/27/2022 57439 32 RxNorm Other react ions and sever ities : 'Adve rse react ion to subst ance' . Lexi Jones CCM null, [place] [employer] [facility] [facility] 4 14:15:59 74470 Product containin g penicilli n (product) medicatio n Not available Not available Not available 07/27/2022 65587 8001 SNOMED Other react ions and sever ities : 'Adve rse react ion to subst ance' . Lexi Jones CCM null, [employer] [facility] 4 14:15:59 Medications Name Sig Start Date [...] day. Than 1 tablet for 4 days 08/15 completed Not Available Not Available Not Available aspirin 325 mg tablet Take 1 [...] PLEASE SEE ATTACHED FOR DETAILED DIRECTIO NS 08/15 completed Not Available Not Available Not Available Niaspan 500 mg tablet,ex tended release [...] TAKE 1 TABLET BY MOUTH EVERY DAY 2024 active Not Available Not Available Not Avai lable isosorbid e mononitra te ER 120 mg [...] Available nitroglyc pancho 400 mcg/spray transling ual [place] 1 spray as needed by translin gual [...] BY MOUTH 4 TIMES A DAY NEEDED 2024 active Not Available Not Available Not Avai lable fluticaso ne propionat e 50 mcg/actua tion nasal spray,christine pension [place] 2 sprays every day by intranas al route. active Not Available Not Available No t Available calcitrio l 0.25 mcg capsule TAKE 1 CAPSULE BY MOUTH EVERY DAY active Not [...] CHRONIC ANGINA. 11/08 completed Stopped per 11/06/21 [facility] discharg e summary Not Available Not Available [...] Not Available Vitals Date Recorded Body height Body mass index (BMI) Body weight Body temperature Heart rate Systolic blood pressure Diastolic blood pressure Provider Name and Address Organization Details Last Updated DateTime 4 180.34 cm 23.7 kg/m2 97189.7 g 97.4 [degF] 72 /min 124 mm[Hg] 62 mm[Hg] LYNDSEY Serrano [facility] [place] [employer] 4 09:34:18 Date Recorded Pain severity - 0-10 verbal numeric rating [Score] - Reported Provider Name and Address Organization Details Last Updated DateTime 01/25/2024 0 Luis M River LPN [facility] [place] [employer] 01/25/2024 10:08:13 Date Recorded Body height Body mass index (BMI) Body weight Body temperature Heart rate Systolic blood pressure Provider Name and Address Organization Details Last Updated DateTime 4 180.34 cm 23.6 kg/m2 39534.1 1 g 97.4 [degF] 78 /min 126 mm[Hg] LYNDSEY Serrano [facility] [employer] [facility] 4 11:56:59 Date Recorded Body [...] 128 mm[Hg] 60 mm[Hg] Odalys Sheffield MA [facility] [employer] [facility] 5 10:50:41 Date Recorded Body height Body mass index (BMI) Body weight Heart rate Oxygen saturation Oxygen saturation in Arterial blood by Pulse oximetry Body temperature Systolic blood pressure Diastolic blood pressure Provider Name and Address Organization Details Last Updated DateTime 5 180.34 cm 22.9 kg/m2 09979.1 5 g 78 /min 92 % 92 % 97.5 [degF] 130 mm[Hg] 64 mm[Hg] Yoly Stewart MA [facility] [employer] [facility] 5 11:55:18 Date Recorded Body height Body mass index (BMI) Body weight Body temperature Heart rate Systolic blood pressure Diastolic blood pressure Provider Name and Address Organization Details Last Updated DateTime 5 180.34 cm 23.3 kg/m2 59829.9 3 g 97.4 [degF] 72 /min 120 mm[Hg] 64 mm[Hg] LYNDSEY Serrano [facility] [employer] [facility] 5 11:28:49 Social History Question Answer Notes LastModified by Organization Details LastModified Time Tobacco Smoking Status Former Smoker Patient quit 20 years ago. Not Available [employer] 07/27/2022 05:56:41 Do You Have An Advance Directive? No 01/25/24 POLST Signed Today. ACP Done [email or web address] Information not available 01/25/2024 What Is Your Level Of Alcohol Consumption? None [email or web address] Information not available 01/25/2024 Are You Blind Or Do You Have Difficulty Seeing? 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 MIGRATION.0301 [id number] Information not available 07/27/2022 Is Blood Transfusion Acceptable In An Emergency? Yes [email or web address] Information not available 01/25/2024 What Is Your Level Of Caffeine Consumption? Occasional MIGRATION.0301 [id number] Information not available 07/27/2022 What Is Your Code Status? DNR [email or web address] Information not available 01/25/2024 In The 14 Days Before Symptom Onset, Have You Had Close Contact With A Laboratory-confi rmed COVID-19 While That Case Was Ill? No MIGRATION.030 834817 Information not available 07/27/2022 In The 14 Days Before Symptom Onset, Have You Had Close Contact With A Person Who Is Under Investigation For COVID-19 While That Person Was Ill? No MIGRATION.0301 [id number] Information not available 07/27/2022 Are You Currently Employed? No Retired [email or web address] Information not available 11/02/2023 Are You Deaf Or Do You Have Serious Difficulty Hearing? No MIGRATION.0301 [id number] Information not available 07/27/2022 What Type Of Diet Are You Following? REGULAR MIGRATION.030 274608 Information not available 07/27/2022 What Is The Highest Grade Or Level Of School You Have Completed Or The Highest Degree You Have Received? [id number] MIGRATION.030 755813 Information not available 07/27/2022 How Many Days Of Moderate To Strenuous Exercise, Like A Brisk Walk, Did You Do In The Last 7 Days? 0 MIGRATION.030 560743 Information not available 07/27/2022 Have There Been Any Changes To Your Family Or Social Situation? No MIGRATION.030 915844 Information not available 07/27/2022 What Is The Fluoride Status Of Your Home? Unknown MIGRATION.030 808162 Information not available 07/27/2022 When Did You Quit Smoking? 16+yearssincelastc igarette MIGRATION.030 074558 Information not available 07/27/2022 Are There Any Guns Present In Your Home? Yes [email or web address] Information not available 01/25/2024 Do You Use Insect Repellent Routinely? No MIGRATION.0301 061171 Information not available 07/27/2022 Where Do You Live? SingleLevelHouse MIGRATION.0301 743090 Information not available 07/27/2022 Advance Directive- Providers Has Reviewed Directive And Consents To Follow Them (insert Provider Name With Any Objectives In Notes Field) Yes [email or web address] Information not available 01/25/2024 Presence Of Domestic Violence No Information not available 01/25/2024 Guns Present In The Home? Yes Information not available 01/25/2024 Are You Able To Care For Yourself? Yes [email or web address] Information not available 01/25/2024 Are You Blind Or Do Yo Have Difficulty Seeing? Yes Blind In Right Eye [email or web address] Information not available 01/25/2024 Are You Deaf Or Do You Have Serious Difficulty Hearing? No [email or web address] Information not available 01/25/2024 General Stress Level? Low [email or web address] Information not available 01/25/2024 Live Alone Of With Others? With Others [email or web address] Information not available 01/25/2024 Do You Have A Medical Power Of Cable Worker Helper? No MIGRATION.0301 229075 Information not available 07/27/2022 What Was The Date Of Your Most Recent Tobacco Screening? 08/15/2024 [email or web address] Information not available 08/15/2024 How Many Children Do You Have? 1 [email or web address] Information not available 01/25/2024 Have You Ever Been Counseled For Unhealthy Alcohol Use? No MIGRATION.0301 984063 Information not available 07/27/2022 Do You Have Any Pets? Yes Dog Information not available 01/25/2024 What Is Your Relationship Status? MIGRATION.0301 236431 Information not available 07/27/2022 Do You Use Your Seat Belt Or Car Seat Routinely? Yes MIGRATION.0301 792093 Information not available 07/27/2022 Are You Sexually Active? No [email or web address] Information not available 01/25/2024 Do You Have Smoke And Carbon Monoxide Detectors In Your Home? Yes MIGRATION.0301 734781 Information not available 07/27/2022 Are You Passively Exposed To Smoke? Yes MIGRATION.0301 996137 Information not available 07/27/2022 Are There Any Smokers In Your House? Yes MIGRATION.0301 715355 Information not available 07/27/2022 What Types Of Sporting Activities Do You Participate In? None MIGRATION.0301 714043 Information not available 07/27/2022 Do You Feel Stressed (tense, Restless, Nervous, Or Anxious, Or Unable To Sleep At Night)? [id number] MIGRATION.0301 928797 Information not available 07/27/2022 Do You Use Any Illicit Or Recreational Drugs? No MIGRATION.0301 438771 Information not available 07/27/2022 Do You Use Sunscreen Routinely? No MIGRATION.0301 726651 Information not available 07/27/2022 Has Tobacco Cessation Counseling Been Provided? No N/A MIGRATION.0301 727727 Information not available 07/27/2022 Have You Recently Traveled Abroad? No MIGRATION.0301 546301 Information not available 07/27/2022 Do You Have Any Dietary Restrictions? No MIGRATION.0301 702698 Information not available 07/27/2022 Do You Or Have You Ever Used Any Other Forms Of Tobacco Or Nicotine? No MIGRATION.0301 523440 Information not available 07/27/2022 Sex: Male Functional Status Question Answer Note LastModified by Organizat ion Details LastModified Time Do you have difficulty walking or climbing stairs? Yes uses Walker, cane [email or web address] Information not available 01/25/2024 Do you have transportation difficulties? No MIGRATION.771095 0749 Information not available 07/27/2022 Are you able to walk? YESASSIST Uses cane and walker [email or web address] Information not available 01/25/2024 Do you have difficulty doing errands alone? Yes does not drive [email or web address] Information not available 01/25/2024 Are you able to care for yourself? Yes MIGRATION.415658 5735 Information not available 07/27/2022 Do you have difficulty dressing or bathing? No MIGRATION.745496 7945 Information not available 07/27/2022 What is your exercise level? None [email or web address] Information not available 01/25/2024 Mental Status Question Answer Note LastModified by Organizat ion Details LastModified Time Do you have difficulty concentrating, remembering or making decisions? Yes Dementia dx. Information not available 01/25/2024 Family History Relationship Description Onset Age of this Age Resolved Age Notes LastModified by Organization Details LastModified Time Mother Heart disease MIGRATION.885 [id number] Not available 07/27/2022 05:58:50 Father Malignant tumor [...] HEARING PROBLEMS N MUMPS N SHINGLES N BOWEL PROBLEMS N DEPRESSION (INCLUDING POST ) N STROKE/TIA Y ULCERS N BENIGN PROSTATIC HYPERPLASIA N MEASLES N HYPOTENSION N MYOCARDIAL INFARCTION N OBESITY N GERD/NAUSEA Y ANEURYSM N URINARY/BLADDER/KIDNEY PROBLEMS N CORONARY ARTERY DISEASE (CAD) Y ADDICTION CONCERNS N ENDOMETRIOSIS N Impotence N USE OF BLOOD THINNERS N SKIN [...] GLAUCOMA N FOOT PROBLEM N DIVERTICULITIS N CHICKENPOX N SLEEP APNEA N INFECTIOUS DISEASE N HEART ARRHYTHMIA N PROSTATE N INSOMNIA N HIGH CHOLESTEROL / HYPERLIPIDEMIA Y HYPERTHYROIDISM N EYE PROBLEMS N EDEMA N CHRONIC PAIN SYNDROME N HYPOTHYROIDISM N CAROTID BLOCKAGE N CONSTIPATION N BACK / NECK PROBLEMS Y ATHEROSCLEROSIS N BREAST PROBLEMS N DIALYSIS N ECZEMA N OSTEOPOROSIS N ARTHRITIS N APPENDICITIS N DIABETES, TYPE N BAD TEETH N ENT N HEARTBURN / REFLUX N AUTISM SPECTRUM DISORDER (ASD) N HEPATITIS / LIVER DISEASE N GOUT N SLEEP DISORDER N ALZHEIMER'S DISEASE N Brain Problems N HERPES N DEMENTIA N HEADACHES/MIGRAINES N SEIZURES/EPILEPSY N VASCULAR DISEASE N PACEMAKER N Blood Disorder N DIZZINESS N HEART DISEASE/HEART PROBLEMS Y KIDNEY DISEASE N MULTIPLE SCLEROSIS N CARDIAC ARRHYTHMIA N CANCER: SPECIFY N ATRIAL FIBRILLATION N Gall Stones N PULMONARY EMBOLISM N AUTOIMMUNE DISEASE N Immunizations Vaccine Type Date Status Note Provider Nam e and Address Organization Details Recorded Time Influenza, adjuvanted, quadrivalent, PF 2 completed Lexi Jones CCM null, [facility] [employer] [facility] 11/07/2023 13:38:40 COVID-19, mRNA, LNP-S, PF, 30 mcg/0.3 mL dose 1 completed Lexi Jones CCM null, [facility] [place] [employer] [facility] 11/07/2023 13:38:40 COVID-19, mRNA, LNP-S, PF, 30 mcg/0.3 mL dose 1 completed Lexi Jones CCM null, [facility] 11/07/2023 13:38:40 Influenza, high-dose, quadrivalent, PF 3 completed Freedom Sorto MD [address] [place] [address], [address], [facility] 03/28/2023 16:43:46 COVID-19, mRNA, LNP-S, PF, 100 mcg/0.5mL dose or 50 mcg/0.25mL dose 1 completed Lexi Jones CCM null, [facility] 11/07/2023 13:38:40 COVID-19, mRNA, LNP-S, PF, 100 mcg/0.5mL dose or 50 mcg/0.25mL dose 1 completed [facility] 11/07/[facility]23 13:38:40 Influenza, high-dose, trivalent, PF 9 completed Lex[facility] 11/07/2023 13:38:40 Influenza, split virus, quadrivalent, PF 2 completed Lexi [facility] 11/07/2023 13:38:40 COVID-19, mRNA, LNP-S, PF, 30 mcg/0.3 mL dose 1 completed Lexi Jones [facility] 11/07/2023 13:38:40 Influenza, high-dose, quadrivalent, PF 1 completed Not Available [facility] 07/03/2023 08:43:21 Influenza, high-dose, quadrivalent, PF 0 completed Not Available [facility] 07/03/2023 08:43:21 pneumococcal polysaccharide PPV23 0 completed Not Available [facility] 07/03/2023 08:43:21 Pneumococcal conjugate PCV 13 8 completed Not Available [facility] 07/03/2023 08:43:21 Influenza, high-dose, trivalent, PF 8 completed Not Available [facility] 07/03/2023 08:43:21 Influenza, high-dose, trivalent, PF 7 completed Not Available [facility] 07/03/2023 08:43:21 Influenza, high-dose, trivalent, PF 6 completed Not Available [facility] 07/03/2023 08:43:21 Influenza, high-dose, trivalent, PF 5 completed Not Available [facility] 07/03/2023 08:43:21 Influenza, split virus, trivalent, preservative 4 completed Noelle Colorado RMA null, [facility] 05/15/2024 14:44:06 Influenza, split virus, trivalent, preservative 3 completed Noelle Colorado RMA null, [facility] [facility] 05/15/2024 14:44:07 Past Encounters Encounter ID Performer Location Encounter Start Date Encounter Closed Date Diagnosis/Indication Diagnosis SNOMED-CT Code Diagnosis ICD10 Code Diagnosis Note [id number] [facility] Internal [facility] [address] [place], [place] [address]e., [address] [address] 11/24/2020 00:00:00 11/24/2020 15:37:17 [id number] [facility] Internal Med [facility] [address] [place], [place] [address]e., [address] [address] 01/12/2021 00:00:00 01/12/2021 09:59:30 [id number] [facility] Internal Med [facility] [address] [place] [address] Ave[address] [address] 03/25/2021 00:00:00 03/25/2021 17:19:03 [id number] [facility] Internal [facility] [address] [place] [address] Ave[address] [address] 04/01/2021 00:00:00 04/01/2021 11:26:18 [id number] [facility] Internal [facility] [address] [address] 07/29/2021 00:00:00 07/29/2021 11:23:15 [id number] S_GMG Internal Med [facility] [address] [place] [address] 11/04/2021 00:00:00 11/04/2021 14:16:35 [id number] [facility] Internal Med [facility] [address] [facility] 15 [place] [address] 11/16/2021 00:00:00 11/16/2021 15:45:01 [id number] [facility] Internal Med [facility] [address] [place] [address] Ave[address] [facility] [address] [place] [address] 02/03/2022 00:00:00 02/03/2022 11:33:21 [id number] Freedom patricia MD S_[facility]G Internal Med [facility] [address] [facility] 15 [place] [address] 08/11/2022 10:28:09 08/11/2022 10:49:09 Screening - NAD [id number] Z13.9 C-scope: 4 years ago, at [facility], clear as per his history, Get [id number]/ 08/15 Dr Ibarra C-scope UTD on flu shotUTD PCV #13 03/27/18, #23 11/13/2019 Should get shingles vaccineCan do tdapUTD COVID 19 vaccine and do all boosters as per CDC 11/14/17:F illed his handicap parking RTC in 3 monthsDo labsER if any symptoms worsensHe did verbalize his understand ing of the above Coronary arteriosclerosis 51071150 I25.10 S/p [facility] d/c on 01/03/2021 Hx of a.fibHx of [...] this time refer to the ER at [facility], he will be taken in a wheelchair , discussed with Dr Palomo [facility] ER MD, also personally called Dr Ramirez 11/16/2021 :Much improved OV 02/03/2022 :Dr Ramirez 12/23/2021 , is now on jardiance, f/u in 05/2022 OV 08/11/2022 :Keep apt with Dr Ramirez Gastroesop 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 [id number] K21.9 On pantoprazo le 40mg daily PRNDoes well Hyperlipidemia 50512797 E78.5 On rosuvastat in 20mg dailyDoes well, get labs Chronic ob structive pulmonary disease 63529980 J44.9 Not on incruse On flonaseOn symbicortO n proairOn HHNs Does wellStill declines any referrals to pulmonary 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 [id number] E11.9 On metformin 500mg bidOn jardiance 10mg daily Does wellGet labs Dr Warren 08/06/2021 Visual impairment 831717 003 H54.[address] Dennis states that he is able to drive Aneurysm o f thoracic aorta 716561135 I71.20 S/p CT chest: 11/18/[address] Ramirez Macrocytosis 719005348 D 75.89 Get labs Umbilical hernia 6349834 07 K42.9 Does well Proteinuria 77157178 R80 .9 CKD Declines any referrals to nephrology at this time Transient cerebral ischemia 339604229 G45.9 OV 02/03/2022 :S/p MRI 12/27/2021 : [...] that he is doing very well now [id number] Freedom patricia MD [facility] Internal Med [facility] [address] [place] [address] 10/04/2022 11:39:45 10/04/2022 12:18:29 Transition of care [id number] 105 Z75.8 Transition Care Management Questionna ireDate of Discharge 09/23/22Adm ission Date: 09/21/22Dat e of Contact: 1st attempt: 09/26/22Reas on for Admission: [facility]Disc [facility] Diagnosis[facility] es): Acute COPD exacerbati on, acute on chronic diastolic CHFDiagnos tic Test(s) Performed: Other: chest xray, lab workDid your hospital physician prescribe any new medicines upon discharge? yes: Eliquis dose increased to 10mg BIDDid you brain picker your prescripti on(s) and begin taking [...] De La Vega RN Screening - NAD 05487091 3 Z13.9 C-scope: 4 years ago, at [facility], clear as per his history, Get [id number]/ 08/15 Dr Ibarra C-scope UTD on flu shotUTD PCV #13 03/27/18, #23 11/13/2019 Should get shingles vaccineCan do tdapUTD COVID 19 vaccine and do all boosters as per CDC 11/14/17:F illed his handicap parking RTC in 2 monthsDo labsER if any symptoms worsensHe did verbalize his understand ing of the above Coronary arteriosclerosis [id number] I25.10 S/p [facility] d/c on 01/03/2021 Hx of a.fibHx of [...] this time refer to the ER at [facility], he will be taken in a wheelchair , discussed with Dr Palomo [facility] ER MD, also personally called Dr Ramirez 11/16/2021 :Much improved OV 02/03/2022 :Dr Ramirez 12/23/2021 , is now on jardiance, f/u in 05/2022 OV 08/11/2022 :Keep apt with Dr Ramirez OV 10/04/2022 :Admitted and d/c [facility] 09/21 to 09/23 for SOB, noted to have RUL pneumonia, treated with duoneb, IV solumedrol and azithromyc in, IV lasixAlso on eliquis 10mg bid then 5mg bid D/c onamlodipi ne 10mg dailyeliqu is 5mg bidisosorb maddie 120mg dailylasix 40mg dailymetfo rmin 500mg bidmetopro lol 25mg bidproairr osuvastati n 20mg ailyspiron olactone 25mg dailysymbi anel Gastroesop 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 295474213 K21.9 On pantoprazo le 40mg daily PRNDoes well Hyperlipidemia 49744445 E78.5 On rosuvastat in 20mg dailyDoes well, get labs Chronic ob structive pulmonary disease 12798487 J44.9 Not on incruse On flonaseOn symbicortO n proairOn HHNsAgustín Pinedo, states 10/04/2022 that he has stopped this as it was 'not working' now agreeable to see Dr Fleming Does well 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 944440564 E11.9 On metformin 500mg bidOn jardiance 10mg daily Does wellGet labs Dr Warren 08/06/2021 Visual impairment 150643 003 H54.[address] Dennis states that he is able to drive Aneurysm o f thoracic aorta 144795160 I71.20 S/p CT chest: 11/18/2019 [facility] Dr Ramirez Macrocytosis 953568005 D 75.89 Get labs Umbilical hernia 6353685 07 K42.9 Does well Proteinuria 05715969 R80 .9 CKD Declines any referrals to nephrology at this time Transient cerebral ischemia 408727023 G45.9 OV 02/03/2022 :S/p MRI 12/27/2021 : [...] well now OV 10/04/2022 :Does well now [id number] Freedom patricia MD [facility] Internal Med [address] [address] [facility], [address] [place] [address] 12/08/2022 10:02:59 12/08/2022 10:40:51 Screening - NAD 323129442 Z13.9 C-scope: 4 years ago, at [place], clear as per his history, Get jftguvq32/ 08/15 Dr Ibarra C-scope UTD on flu shotUTD PCV #13 03/27/18, #23 11/13/2019 Should get shingles vaccineCan do tdapUTD COVID 19 vaccine and do all boosters as per CDC 11/14/17:F illed his handicap parking RTC in 3 monthsDo labsER if any symptoms worsensHe did verbalize his understand ing of the above Coronary arteriosclerosis 60069662 I25.10 S/p [facility] d/c on 01/03/2021 Hx of a.fibHx of ascending aortic dilatation On ASAOn NTGOn amlodipine 10mg dailyOn plavixOn eliquisOn lasix 40mg dailyOn isosorbide 120mg daily filled by Marie FranklinOn metoprolol 25mg bidOn aldactone 25mg dailyNot on ranolazine ER 1000mg bid Dr Ramirez Off plavix, stopped by Dr Ramirez 07/08/2020 Not on losartan 50mg daily, started by Dr Ramirez 07/08/[address] Ramirez 11/04/2021 : C/o severe SOB, +ve rales noted grabiel lower to mid lungs, severe pitting edemaAt this time refer to the ER at [facility], he will be taken in a wheelchair , discussed with Dr Palomo [facility] ER MD, also personally called Dr Ramirez 11/16/2021 :Much improved OV 02/03/2022 :Dr Ramirez 12/23/2021 , is now on jardiance, f/u in 05/2022 OV 08/11/2022 :Keep apt with Dr Ramirez OV 12/08/2022 :Sees Dr RamirezUS venous doppler 09/29/2022 Dr Ramirez Gastroesop 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 953993250 K21.9 On pantoprazo le 40mg daily PRNDoes well Hyperlipidemia 48963525 E78.5 On rosuvastat in 20mg dailyDoes well, get labs Chronic ob structive pulmonary disease 96895887 J44.9 Not on incruse On flonaseOn symbicortO n proairOn HHNs Does wellStill declines any referrals to pulmonary Type 2 connei 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 276434722 E11.9 On metformin 500mg bidOn jardiance 10mg daily Does wellGet labs Dr Warren 08/06/2021 Visual impairment 717183 003 H54.[address] Burgos He states that he is able to drive Aneurysm o f thoracic aorta 241747379 I71.20 S/p CT chest: 11/18/[address] [facility] [address] Ramirez Macrocytosis 896278020 D 75.89 Get labs Umbilical hernia 4994397 07 K42.9 Does well Proteinuria 09719003 R80 .9 CKDDecline s any referrals to nephrology at this time BUN/Cr/GFR stable 12/01/2022 Transient cerebral ischemia 353745184 G45.9 OV 02/03/2022 :S/p MRI 12/27/2021 : [...] Does well now Adult heal th examination 128622452 Z00.00 Screening for disorder 280120101 Z13.9 [id number] Freedom patricia MD [facility] Internal Med [address] [facility], [address] [place] [address] 03/28/2023 09:10:36 03/28/2023 10:23:39 Screening - NAD 620600423 Z13.9 C-scope: 4 years ago, at [place], clear as per his history, Get / 08/15 Dr Ibarra C-scope UTD on flu shotUTD PCV #13 03/27/18, #23 11/13/2019 Should get shingles vaccineCan do tdapUTD COVID 19 vaccine and do all boosters as per CDC 11/14/17:F illed his handicap parking RTC in 3 monthsDo labsER if any symptoms worsensHe and his did verbalize his understand ing of the above Coronary arteriosclerosis 66709352 I25.10 S/p [facility] d/c on 01/03/2021 Hx of a.fibHx of [...] this time refer to the ER at [facility], he will be taken in a wheelchair , discussed with Dr Palomo [facility] ER , also personally called Dr Ramirez 11/16/2021 :Much [...] Ramirez Gastroesop 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 230535177 K21.9 On pantoprazo le 40mg daily PRNDoes well Hyperlipidemia 80258587 E78.5 On rosuvastat in 20mg daily Does well, get labs Chronic ob structive pulmonary disease 22056348 J44.9 Not on incruse On flonaseOn symbicortO n proairOn HHNs Does wellStill declines any referrals to pulmonary 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 241249491 E11.9 On metformin 500mg bidOn jardiance 10mg daily Does wellGet labs Dr Warren 08/06/2021 Visual impairment 375376 003 H54.[address] Burgos He states that he is able to drive Aneurysm o f thoracic aorta 811311809 I71.20 S/p CT chest: 11/18/[address] Ramirez Macrocytosis 567834220 D 75.89 Get labs Umbilical hernia 1818598 07 K42.9 Does well Proteinuria 57870499 R80 .9 CKDDecline s any referrals to nephrology at this time BUN/Cr/GFR stable 12/01/2022 Transient cerebral ischemia 829755728 G45.9 OV 02/03/2022 :S/p MRI 12/27/2021 : [...] 'break' from the 'doctors' Thoracic back pain 46035 8004 M54.6 Xray T spine: 03/09/2023 MRI L Spine: 03/09/2023 See NS Adult heal th examination 784797661 Z00.00 Depression screening 171 542018 Z13.31 Administra tion of influenza vaccine 74654771 Z23 [id number] Freedom patricia MD [facility] Internal Med [facility] [address] [facility], [facility] [address] [place] [address] 07/04/2023 09:12:10 07/04/2023 09:55:23 Screening - NAD 973516765 Z13.9 C-scope: 4 years ago, at [place], clear as per his history, Get / 08/15 Dr Ibarra C-scope, no complaints now, [...] understand ing of the above Coronary arteriosclerosis 82984912 I25.10 S/p [facility] d/c on 01/03/2021 Hx of a.fibHx of ascending aortic dilatation 11/04/2021 : C/o severe SOB, +ve rales noted grabiel lower to mid lungs, severe pitting edemaAt this time refer to the ER at [facility], he will be taken in a wheelchair , discussed with Dr Palomo [facility] ER , also personally called Dr Ashley Ramirez 12/23/2021 , is now on jardiance, f/u in 05/2022 US venous doppler 09/29/2022 Dr Ramirez On ASAOn amlodipine 10mg dailyOn plavixOn eliquisOn lasixOn isosorbide 120mg dailyOn metoprolol 25mg bidOn NTGOn spironolac tone 25mg dailyKeep apt with cardiology Dr Ramirez Gastroesop 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 722294906 K21.9 On pantoprazo le 40mg daily PRNDoes well Hyperlipidemia 49232797 E78.5 On rosuvastat in 20mg daily Does well, get labs Chronic ob structive pulmonary disease 32137638 J44.9 Not on incruse On flonaseOn symbicortO n proairOn HHNs Does wellStill declines any referrals to pulmonary 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 045136156 E11.9 On metformin 500mg bidNot on jardiance 10mg daily Does wellGet labs Dr Warren 08/06/2021 Visual impairment 465270 003 H54.[address] Burgos He states that he is able to drive Aneurysm o f thoracic aorta 844543915 I71.20 S/p CT chest: 11/18/[address] [facility] [address] Ramirez Macrocytosis 428740764 D 75.89 Get labs Umbilical hernia 2313730 07 K42.9 Does well Proteinuria 59864383 R80 .9 CKDDecline s any referrals to nephrology at this time BUN/Cr/GFR stable 06/21/2023 Transient cerebral ischemia 016244080 G45.9 OV 02/03/2022 :S/p MRI 12/27/2021 : [...] get an apt WINDY Thoracic back pain 78200 8004 M54.6 Xray T spine: 03/09/2023 MRI L Spine: 03/09/2023 As per his he is doing well, he still has some back pain, but she would like him to see neurology Gynecomastia 4975251 N62 Noted on CTA C/A/P 04/26/2023 [id number] Freedom patricia MD [facility] Internal Med [facility] [address] [facility], [facility] [address] [place] [address] 11/02/2023 09:58:39 11/02/2023 10:49:02 Screening - NAD 027760405 Z13.9 C-scope: 4 years ago, at [place], clear as per his history, Get oienvit42/ 08/15 Dr Ibarra C-scope, no complaints now, [...] understand ing of the above Coronary arteriosclerosis 88185248 I25.10 S/p [facility] d/c on 01/03/2021 Hx of a.fibHx of ascending aortic dilatation 11/04/2021 : C/o severe SOB, +ve rales noted grabiel lower to mid lungs, severe pitting edemaAt this time refer to the ER at [facility], he will be taken in a wheelchair , discussed with Dr Palomo [facility] ER MD, also personally called Dr Ashley Ramirez 12/23/2021 , is now on jardiance, f/u in 05/2022 US venous doppler 09/29/2022 Dr Ramirez On ASAOn amlodipine 10mg dailyOn plavixOn eliquisOn lasixNot taking isosorbide 120mg dailyOn metoprolol 25mg bidOn NTGOn spironolac tone 25mg daily Dr Ramirez 09/05/2023 , next in 6 months Gastroesop 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 394167602 K21.9 On pantoprazo le 40mg daily PRNDoes well Hyperlipidemia 26176835 E78.5 On rosuvastat in 20mg daily Does well, get labs Chronic ob structive pulmonary disease 34183187 J44.9 Not on incruse On flonaseOn symbicortO n proairOn HHNs Does wellStill declines any referrals to pulmonary 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 948226008 E11.9 On metformin 500mg bidNot on jardiance 10mg daily Does wellGet labs Dr Warren 08/06/2021 Visual impairment 305827 003 H54.[address] Burgos He states that he is able to drive Aneurysm o f thoracic aorta 931231053 I71.20 S/p CT chest: 11/18/[address] [facility] [address] Ramirez Macrocytosis 839418668 D 75.89 Get labs Umbilical hernia 8660962 07 K42.9 Does well Proteinuria 25592499 R80 .9 CKDDecline s any referrals to nephrology at this time BUN/Cr/GFR stable 06/21/2023 Transient cerebral ischemia 298734735 G45.9 OV 02/03/2022 :S/p MRI 12/27/2021 : [...] next in one year Thoracic back pain 30790 8004 M54.6 Xray T spine: 03/09/2023 MRI L Spine: 03/09/2023 As per his he is doing well, he still has some back pain, but she would like him to see neurology IPC 06/27/2023 : [place] Younger, f/u PRN Gynecomastia 6904247 N62 Noted on CTA C/A/P 04/26/2023 Mammogram: 07/31/2023 : asymmetric gynecomast ia of the R breastDoes not want any referrals 11/02/2023 [id number] Shital Nix [facility] Internal Med [place] [address] [facility] [address] [place] [address] 11/07/2023 13:36:48 11/07/2023 14:02:21 Chronic obstructive pulmonary disease 07384381 J44.9 Hyperlipidemia 53094783 E78.5 Essential hypertension 85897781 I10 Atrial fibrillation 4943 6004 I48.91 [id number] Yves irncon MD [facility] General Surgery [address] [place] [address] 12/19/2023 12:04:09 12/25/2023 14:06:45 Epidermoid cyst of skin of neck 281160720 L72.0 [id number] Shital Nix [facility] Internal Med [place] [address] [place] [address] [place] [address] 12/21/2023 13:29:29 02/15/2024 15:14:35 Skin lesion 00337190 L98.9 Essential hypertension 06067127 I10 Hyperlipidemia 60135942 E78.5 Chronic ob structive pulmonary disease 25446130 J44.9 [id number] Freedom patricia MD [facility] Internal Med [place] [address] [facility] [address] [place] [address] 1 01/25/2024 09:20:02 01/25/2024 10:03:11 Screening - NAD 464032112 Z13.9 C-scope: 4 years ago, at [place], clear as per his history, Get omvqgqd05/ 08/15 Dr Stacey Terrell, no complaints now, declines any testing or [...] understand ing of the above Coronary arteriosclerosis 95832938 I25.10 S/p [facility] d/c on 01/03/2021 Hx of a.fibHx of ascending aortic dilatation 11/04/2021 : C/o severe SOB, +ve rales noted grabiel lower to mid lungs, severe pitting edemaAt this time refer to the ER at [facility], he will be taken in a wheelchair , discussed with Dr Palomo [facility] ER MD, also personally called Dr Ashley Ramirez 12/23/2021 , is now on jardiance, f/u in 05/2022 US venous doppler 09/29/2022 Dr Ramirez On ASAOn amlodipine 10mg dailyNot on plavixOn eliquisOn lasixNot taking isosorbide 120mg dailyOn metoprolol 25mg bidOn NTGOn spironolac tone 25mg [address] Ramirez 09/05/2023 , next in 6 months Gastroesop 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 892828242 K21.9 On pantoprazo le 40mg daily PRNDoes well Hyperlipidemia 47349179 E78.5 On rosuvastat in 20mg daily Does well, get labs Chronic ob structive pulmonary disease 45299965 J44.9 Not on incruse On flonaseOn symbicortO n proairOn HHNs Does wellStill declines any referrals to pulmonary 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 151179775 E11.9 On metformin 500mg bidNot on jardiance 10mg daily Does wellGet labs Dr Warren 08/06/2021 Visual impairment 723289 003 H54.[address] Burgos He states that he is able to drive Aneurysm o f thoracic aorta 435658063 I71.20 S/p CT chest: 11/18/[address] Ramirez Macrocytosis 946372453 D 75.89 Get labs Umbilical hernia 8693586 07 K42.9 Does well Proteinuria 79140188 R80 .9 CKDDecline s any referrals to nephrology at this time BUN/Cr/GFR stable 06/21/2023 Transient cerebral ischemia 015841893 G45.9 OV 02/03/2022 :S/p MRI 12/27/2021 : [...] Sees his neurologis t Thoracic back pain 20606 8004 M54.6 Xray T spine: 03/09/2023 MRI L Spine: 03/09/2023 As per his he is doing well, he still has some back pain, but she would like him to see neurology IPC 06/27/2023 : [place] Younger, f/u PRN Gynecomastia 9740490 N62 Noted on CTA C/A/P 04/26/2023 Mammogram: 07/31/2023 : asymmetric gynecomast ia of the R breastDoes not want any referrals 11/02/2023 Adult heal th examination 398826894 Z00.00 Screening for disorder 483009363 Z13.9 Liver enzy mes level above reference range 494575158 R74.01 Get Labs and US liver done Unsteady when walking 22 410950 R26.89 OV 01/25/2024 :He does need to get a walker, this will assist him in his ADLs, IADLs and assist him in safely ambulating [id number] Shital Nix [facility] Internal Med [facility] [address] [place] [address] 01/22/2024 14:14:26 02/21/2024 10:06:42 Chronic obstructive pulmonary disease 96184048 J44.9 Essential hypertension 41905010 I10 Hyperlipidemia 41785410 E78.5 Coronary arteriosclerosis 05647535 I25.10 [id number] Freedom patricia MD [facility] Internal Med [facility] [address] [place] [address] 05/16/2024 11:23:51 05/16/2024 12:40:03 Screening - NAD 334118208 Z13.9 C-scope: 4 years ago, at [place], clear as per his history, Get / 08/15 Dr Ibarra C-scope, no complaints now, [...] understand ing of the above Coronary arteriosclerosis 01721211 I25.10 S/p [facility] d/c on 01/03/2021 Hx of a.fibHx of ascending aortic dilatation 11/04/2021 : C/o severe SOB, +ve rales noted grabiel lower to mid lungs, severe pitting edemaAt this time refer to the ER at [facility], he will be taken in a wheelchair , discussed with Dr Palomo [facility] ER MD, also personally called Dr Ashley Ramirez 12/23/2021 , is now on jardiance, f/u in 05/2022 US venous doppler 09/29/2022 Dr Ramirez On ASAOn amlodipine 10mg dailyNot on plavixOn eliquisOn lasixNot taking isosorbide 120mg dailyOn metoprolol 25mg bidOn NTGOn spironolac tone 25mg daily Dr Ramirez 09/05/2023 , next in 6 months Gastroesop 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 334412728 K21.9 On pantoprazo le 40mg daily PRNDoes well Hyperlipidemia 46883599 E78.5 On rosuvastat in 20mg daily Does well, get labs Chronic ob structive pulmonary disease 17840835 J44.9 Not on incruse On flonaseOn symbicortO n proairOn HHNs Does wellStill declines any referrals to pulmonary 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 665369751 E11.9 On metformin 500mg bidNot on jardiance 10mg daily Does wellGet labs Dr Warren 08/06/2021 Visual impairment 302107 003 H54.[address] Burgos He states that he is able to drive Aneurysm o f thoracic aorta 377446369 I71.20 S/p CT chest: 11/18/[address] [facility] [address] Ramirez Macrocytosis 459961664 D 75.89 Get labs Umbilical hernia 9368643 07 K42.9 Does well Proteinuria 92784008 R80 .9 CKDDecline s any referrals to nephrology at this time BUN/Cr/GFR stable 06/21/2023 Transient cerebral ischemia 890409261 G45.9 OV 02/03/2022 :S/p MRI 12/27/2021 : [...] as per she will get an apt IWNDY OV 11/02/2023 :Dr Sanz 07/11/2023 , next in one year OV 01/25/2024 : Sees his neurologis t Thoracic back pain 03462 8004 M54.6 Xray T spine: 03/09/2023 MRI L Spine: 03/09/2023 As per his he is doing well, he still has some back pain, but she would like him to see neurology IPC 06/27/2023 : [place] Younger, f/u PRN Gynecomastia 4392827 N62 Noted on CTA C/A/P 04/26/2023 Mammogram: 07/31/2023 : asymmetric gynecomast ia of the R breastDoes not want any referrals 11/02/2023 Liver enzy mes level above reference range 393503412 R74.01 Get LabsUS liver 01/31/2024 : nodular liver, cirrhosis, see GI today 05/16/2024 , he and his have declined any new referrals Unsteady when walking 22 187323 R26.89 OV 01/25/2024 :He does need to get a walker, this will assist him in his ADLs, IADLs and assist him in safely ambulating OV 05/16/2024 : He now has a walker, his GD bought him a walker, advised to use this diligently Upper resp iratory infection 25812298 J06.9 Has noted a cough and productive for whitish sputum, mild wheezingGe t on Z-pack, take OTC zyrtec, get on albuterol PRN, ER if worse, he and his verbalized his understand ing of the above [id number] Freedom patricia MD [facility] Internal Med [place] [address] [facility] [address] [place] [address] 07/09/2024 10:41:41 07/09/2024 11:46:17 Screening - NAD 784470145 Z13.9 C-scope: 4 years ago, at [place], clear as per his history, Get hadorfn47/ 08/15 Dr Ibarra C-scope, no complaints now, [...] understand ing of the above Coronary arteriosclerosis 61480192 I25.10 S/p [facility] d/c on 01/03/2021 Hx of a.fibHx of ascending aortic dilatation 11/04/2021 : C/o severe SOB, +ve rales noted grabiel lower to mid lungs, severe pitting edemaAt this time refer to the ER at [facility], he will be taken in a wheelchair , discussed with Dr Palomo [facility] ER MD, also personally called Dr Ashley Ramirez 12/23/2021 , is now on jardiance, f/u in 05/2022 US venous doppler 09/29/2022 Dr Ramirez On ASAOn amlodipine 10mg dailyNot on plavixOn eliquisOn lasixNot taking isosorbide 120mg dailyOn metoprolol 25mg bidOn NTGOn spironolac tone 25mg daily Dr Ramirez 09/05/2023 , next in 6 months Chronic ob structive pulmonary disease 53844832 J44.9 Not on incruse On flonaseOn symbicortO n proairOn HHNs Has noted a cough, as per this is constant, his meds were renewed, will get referral to pulmonary Addendum: 07/09/2024 :Candy Marie FOOD COUNTER ATTENDANT 07/09/2024 , now on trelegy and is to see her again in 09/10/2024 [id number] Candy Marie NP [facility] Pulmonolo [facility] [place] [address] [address] 07/09/2024 11:39:32 07/11/2024 15:50:58 Chronic obstructive pulmonary disease 91715452 J44.9 Stop Symbicort and start Trelegy and [...] and increase use of inhaler Chronic cough 80538293 R 05.3 CT order done by primary Oxygen sat uration below reference range 973765875 R79.81 [facility] order for care check, O2 set up, [id number] Allyson Kumar [facility] Internal Med [facility] [address] [address] 08/15/2024 11:06:29 08/15/2024 12:03:01 Screening - NAD 710776192 Z13.9 C-scope: 4 years ago, at [place], clear as per his history, Get quddpfy21/ 08/15 Dr Ibarra C-scope, no complaints now, [...] understand ing of the above Coronary arteriosclerosis 47156479 I25.10 S/p [facility] d/c on 01/03/2021 Hx of a.fibHx of ascending aortic dilatation 11/04/2021 : C/o severe SOB, +ve rales noted grabiel lower to mid lungs, severe pitting edemaAt this time refer to the ER at [facility], he will be taken in a wheelchair , discussed with Dr Palomo [facility] ER MD, also personally called Dr Ashley Ramirez 12/23/2021 , is now on jardiance, f/u in 05/2022 US venous doppler 09/29/2022 Dr Ramirez On ASAOn amlodipine 10mg dailyNot on plavixOn eliquisOn lasixNot taking isosorbide 120mg dailyOn metoprolol 25mg bidOn NTGOn spironolac tone 25mg daily Dr Ramirez 09/05/2023 , next in 6 monthsDr Ramirez 03/04/2024 , f/u in 6 months Chronic ob structive pulmonary disease 53035744 J44.9 Not on incruse On flonaseOn symbicortO n proairOn HHNs Has noted a cough, as per this is constant, his meds were renewed, will get referral to pulmonary Addendum: 07/09/2024 :Candy Marie FOOD COUNTER ATTENDANT 07/09/2024 , now on trelegy and is to see her again in 09/10/2024 CT chest: 07/23/2024 : Mild emphysema Gastroesop 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 105215806 K21.9 On pantoprazo le 40mg daily PRNDoes well Hyperlipidemia 34845621 E78.5 On rosuvastat in 20mg daily Does well, get labs 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 132572471 E11.9 On metformin 500mg bidNot on jardiance 10mg daily Does wellGet labs Dr Warren 08/06/2021 Visual impairment 476133 003 H54.[address] Burgos He states that he is able to drive Aneurysm o f thoracic aorta 387688204 I71.20 S/p CT chest: 11/18/2019 [facility] Dr Ramirez Macrocytosis 370856303 D 75.89 Get labs Umbilical hernia 5488432 07 K42.9 Does well Proteinuria 11138982 R80 .9 CKDDecline s any referrals to nephrology at this time BUN/Cr/GFR stable 06/21/2023 Transient cerebral ischemia 406822278 G45.9 OV 02/03/2022 :S/p MRI 12/27/2021 : [...] Sees his neurologis t Thoracic back pain 05635 8004 M54.6 Xray T spine: 03/09/2023 MRI L Spine: 03/09/2023 As per his he is doing well, he still has some back pain, but she would like him to see neurology IPC 06/27/2023 : [place] Younger, f/u PRN Gynecomastia 5284035 N62 Noted on CTA C/A/P 04/26/2023 Mammogram: 07/31/2023 : asymmetric gynecomast ia of the R breastDoes not want any referrals 11/02/2023 Liver enzy mes level above reference range 380622518 R74.01 Get LabsUS liver 01/31/2024 : nodular liver, cirrhosis, see GI today 05/16/2024 , he and his have declined any new referrals Unsteady when walking 22 480006 R26.89 OV 01/25/2024 :He does need to get a walker, this will assist him in his ADLs, IADLs and assist him in safely ambulating OV 05/16/2024 : He now has a walker, his GD bought him a walker, advised to use this diligently OV 08/15/2024 : Does well now, uses his walker Goals Section Goal Description Progress Status Start Date LastModified by Organization Details LastModified Time Food Security Reports ability to access and obtain foods to meet nutritional needs NoCvenusge active 2023 Lexi Jones CCM Information not [...] daily living independently or with minimal assistance NoCvenusge active 2023 Lexi Jones CCM Information not available 11/07/2023 18:00:12 Exercise Regularl y Follows a regular exercise regimen or instructed exercise plan as per care team recommendation (s) Juange active 2023 Lexi Jones CCM Information not available 11/07/2023 18:00:12 Decrease d Alcohol Consumpt ion Reports decreased alcohol consumption as per care team recommendation (s) NoCvenusge active 2023 Lexi Jones CCM Information not [...] prescribed or recommended diet NoChange active 2023 eLxi Jones CCM Information not available 11/07/2023 18:00:13 [...] Information not available 11/07/2023 18:00:13 Financia l Stabilit y Reports financial status and/or income meets needs NoChange active 2023 Lexi Jones CCM Information not available 11/07/2023 18:00:13 Recreati onal Activiti es Participates in recreational activities NoChange active 2023 Lexi Jones CCM Information not available 11/07/2023 18:00:13 Weight Maintena nce Exhibits stable weight with normal fluctuation NoChange [...] Concerns Section Related Observation LastModified by Organization Detai ls LastModified Time None Recorded Concern Status [...] Member ID Rosen Member ID Guarantor Name 01/25/2024 1 [facility] (MEDICARE REPLACEMENT/ ADVANTAGE - HMO) [id number] Yifan Schaefer [id number] Yifan Schaefer 05/16/2024 1 [facility] (MEDICARE REPLACEMENT/ ADVANTAGE - HMO) [id number] Yifan Schaefer [id number] Yifan Schaefer 07/09/2024 1 [facility] (MEDICARE REPLACEMENT/ ADVANTAGE - HMO) [id number] Yifan Schaefer [id number] Yifan Schaefer 07/09/2024 1 [facility] (MEDICARE REPLACEMENT/ ADVANTAGE - HMO) [id number] Yifan Schaefer [id number] Yifan Schaefer Notes Date Note Type Note Provider Name and Address Organization Details Recorded Time 01/25/2024 text/html Here to everett Ram Hx:CADHTNHLDCOPDGBAKARI jorge social family and surgical historyHere to [...] the labsOV 01/12/2021:TCM visitAdmitted and d/c from [facility] for atypical R sided chest pain as [...] 2OV 11/16/2021:Here for TCMAdmitted and D/c from [facility] for COPD/CHFFeels much better nowOV 02/03/2022:Here for his f/u apt, he feels well today, he did have a TIA and was admitted to [facility] from 12/27 to 12/30 and is feeling [...] here with his Freedom Sorto MD [address] [facility], [place], [address], [facility] [employer] 01/25/2024 18:55:28 05/16/2024 text/html Here to everett [...] the labsOV 01/12/2021:TCM visitAdmitted and d/c from [facility] for atypical R sided chest pain as [...] 2OV 11/16/2021:Here for TCMAdmitted and D/c from [facility] for COPD/CHFFeels much better nowOV 02/03/2022:Here for his f/u apt, he feels well today, he did have a TIA and was admitted to [facility] from 12/27 to 12/30 and is feeling [...] did do the labs Freedom Sorto MD [address] [facility], [facility] [address], [place], [address], [facility] [employer] 05/18/2024 12:42:55 07/09/2024 text/html Here to everett Ram Hx:TIFFANI jorge [...] the labsOV 01/12/2021:TCM visitAdmitted and d/c from [facility] for atypical R sided chest pain as [...] 2OV 11/16/2021:Here for TCMAdmitted and D/c from [facility] for COPD/CHFFeels much better nowOV 02/03/2022:Here for his f/u apt, he feels well today, he did have a TIA and was admitted to [facility] from 12/27 to 12/30 and is feeling [...] chest pain Freedom Sorto MD [address], [place], [address], [employer] 07/09/2024 18:12:46 07/09/2024 text/html COPDReported bypatient.Severity:ve ry [...] he is sob Candy Marie NP [address], [place], [address], [employer] [facility] 07/11/2024 15:24:44
--- OUTSIDE RECORDS SUMMARY | 2024-09-06 17:35 | XMS_ITS ---
Author Organization [facility] Address [address] [address] [place] [address] Care Team Providers Care Food Demonstrator Name Role Phone Ronak Carlos Unavailable [phone] MEDICATIONS Medication SIG (Take, Route, Frequency, Duration) Notes Start Date End Date Status Ergocalciferol 1.25 MG (72981 UT) 1 capsule Orally Once a week for 90 day(s) 04/14/2023 01/09/2024 Active Calcitriol 0.25 MCG 1 capsule Orally Onc e a day for 90 day(s) 04/14/2023 01/09/2024 Active SOCIAL HISTORY Sex Assigned At : Social History Observation Description Sex Assigned At Male Encounters Encounter Location Date Provider Diagnosis [facility] [address] [facility] [address] [place] [address] 04/14/2023 Carlos Simons PLAN OF TREATMENT Medication Medication Name Sig Start Date Stop Date Notes Ergocalciferol 1.25 MG (5000 0 UT) 1 capsule Orally Once a week for 90 day(s) 04/14/2023 01/09/2024 Calcitriol 0.25 MCG 1 capsule Orally Onc e a day for 90 day(s) 04/14/2023 01/09/2024 Progress Notes * Kevan SCHAEFER (Yifan) :1940 (83 yo M)Acc No.[id number]:04/14/2023 Patient: Kevan SCHAEFER) :1940 Age:83 Y Sex:Male Address:[address] [place] [address] * Refills Start Calcitriol Capsule, 0.25 MCG, Orally, 90 Capsule, 1 capsule, Once a day, 90 day(s), Refills=2 Start Ergocalciferol Capsule, 1.25 MG (88543 UT), Orally, 13, 1 capsule, Once a week, 90 day(s), Refills=2 * true * Date:
--- OUTSIDE RECORDS SUMMARY | 2024-09-06 17:35 | XMS_ITS ---
Author Organization [facility] Address [address] [address] [place] [address] Care Team Providers Care Wiring Technician Name Role Phone Ronak Carlos Unavailable [phone] MEDICATIONS Medication SIG (Take, Route, Frequency, Duration) Notes Start Date End Date Status Calcitriol 0.25 MCG 1 capsule Orally Onc e a day for 90 day(s) 04/14/2023 01/09/2024 Active Ergocalciferol 1.25 MG (04256 UT) 1 capsule Orally Once a week for 90 day(s) 04/14/2023 01/09/2024 Active SOCIAL HISTORY Sex Assigned At : Social History Observation Description Sex Assigned At Male Encounters Encounter Location Date Provider Diagnosis [facility] [address] [facility] [address] [place] [address] 11/03/2023 Carlos Simons Chronic kidney disea se, [...] Kevan SCHAEFER (Yifan) :1940 (84 yo M)Acc No.[id number]:11/03/2023 Progress Notes Patient: Kevan SCHAEFER (Yifan) Provider: MD LEELEE, DishaP, F.A.S.N. :1940 Age:83 Y Sex:Male Date:11/03/2023 Address:[address] [place] [address] Subjective: * Chief Complaints: * * Medical History: * Medications: Taking Calcitriol 0.25 MCG Capsule 1 capsule Orally Once a day , stop date 01/09/2024, Taking Ergocalciferol 1.25 MG (48278 UT) Capsule 1 capsule Orally Once a week , stop date 01/09/2024 Objective: Assessment: * Assessment: 1. Chronic kidney disease, stage 3a - N18.31 (Primary) 2. Essential (primary) hypertension - I10 3. Anxiety disorder, unspecified - F41.9 4. Renal osteodystrophy - N25.0 5. Vitamin D deficiency, unspecified - E55.9 Plan: * Treatment: * Billing Information: * Visit Code: 09691 Office Visit, Est Pt., Level 4. * Procedure Codes: * Sign off status: Pending * Provider: MD LEELEE, DishaP, F.A.S.N. Date: 11/03/2023
--- OUTSIDE RECORDS SUMMARY | 2024-09-06 17:35 | XMS_ITS | CONTINUITY OF CARE DOCUMENT ---
Author Name crystal rojas Address Unknown Organization [facility] Address [address] [place] [address] Phone [phone] Care Team Providers Care Care Attendant Name Role Phone Tuan Ramriez MD Unavailable [phone] FREEDOM ATWOOD MD Unavailable [phone] FREEDOM ATWOOD MD Unavailable [phone] PROBLEMS Condition Status Date Provider Notes CAD-07/02 NUC ISCHEMIA completed - Tuan Ramirez MD HTN active Tuan Ramirez MD Tobacco use quit active Don Hermosillo MD to o reme screen CAD - 02/2019 CATH [employer] mid/distal LAD, patent RCA stent, mid LAD stent (90% ISR) active Heriberto Ott AAA-03/02 ABD US NORM completed - Tuan Ramirez MD CAROTID STENOSIS - <50% LICA active Tuan Ramirez MD Syncope active Tuan Ramirez MD Bradycardia active Tuan Ramirez MD Angina pectoris completed - Tuan Ramirez MD R groin lump completed - Tuan Ramirez MD Shortness of breath completed - Heriberto Ott Wheezing completed - Don Hermosillo MD COPD active Tuan Ramirez MD Atrial fibrillation active Heriberto Birch rg Chest pain completed - Tuan Ramirez MD Current use of anticoagulants active Heriberto Ott Claudication completed - Heriberto Vigilberg Leg pain, bilateral completed - Heriberto Ott Ascending aortic dilatation active Tuan Ramirez MD NSTEMI active Heriberto Ott Overweight active Heriberto Ott Cough due to DESTINY inhibitors active Don Hermosillo MD Leg edema, bilateral active Brandon Lovett MD CHF active Tuan Ramirez MD Confusion active Paulo Chester Cardiology examination active Tuan Garcia ENCOUNTERS Date Type Provider Location Encounter Diag nosis - In-person encounter Office Visit Tuan Ramirez MD [facility] Cardiology examination - In-person encounter Office Visit Tuan Ramirez MD [facility] - In-person encounter Office Visit Tuan Ramirez MD [facility] - In-person encounter Office Visit Tuan Ramirez MD [facility] Confusion - In-person encounter Office Visit Tuan Ramirez MD [facility] - In-person encounter Office Visit Tuan Ramirez MD [facility] - In-person encounter Office Visit Tuan Ramirez MD [facility] - In-person encounter Office Visit Tuan Ramirez MD [facility] - In-person encounter Office Visit Tuan Ramirez MD [facility] CHF - In-person encounter Office Visit Tuan Ramirez MD [facility] - In-person encounter Office Visit Tuan Ramirez MD [facility] - In-person encounter Office Visit Tuan Ramirez MD [facility] - In-person encounter Office Visit Tuan Ramirez MD [facility] - In-person encounter Office Visit Brandon Lovett MD [facility] Leg edema, bilateral - In-person encounter Office Visit Tuan Ramirez MD [facility] - In-person encounter Office Visit Don Hermosillo MD [facility] Tobacco use quitWheezingCough due to DESTINY inhibitors - In-person encounter Office Visit Tuan Ramirez MD [facility] Shortness of breathOverweight - In-person encounter Office Visit Tuan Ramirez MD [facility] 02/2019 CATH [employer] mid/distal LAD, patent RCA stent, mid LAD stent (90% ISR)Angina pectorisAtrial fibrillationChest painClaudicationLeg pain, bilateralNSTEMI - In-person encounter Office Visit Tuan Ramirez MD [facility] Ascending aortic dilatation - In-person encounter Office Visit Tuan Ramirez MD [facility] - In-person encounter Office Visit Tuan Ramirez MD [facility] R groin lump - In-person encounter Office Visit Tuan Ramirez MD [facility] - In-person encounter Office Visit Sunny Simons MD [facility] - In-person encounter Office Visit Tuan Ramirez MD [facility] - In-person encounter Office Visit Tuan Ramirez MD [facility] 02/2019 CATH [employer] mid/distal LAD, patent RCA stent, mid LAD stent (90% ISR)Current use of anticoagulants - In-person encounter Office Visit Tuan Ramirez MD [facility] - In-person encounter Office Visit Tuan Ramirez MD [facility] BradycardiaCOPD - In-person encounter Office Visit Tuan Ramirez MD [facility] - In-person encounter Office Visit Tuan Ramirez MD [facility] HTNCAD - 02/2019 CAT H [employer] mid/distal LAD, patent RCA stent, mid LAD stent (90% ISR)R groin lump - In-person encounter Office Visit Tuan Ramirez MD [facility] CAROTID STENOSIS - <50% LICA - In-person encounter Office Visit Tuan Ramirez MD [facility] CAD-07/02 NUC ISCHEMIATobacco use quitCAD - 02/2019 CATH [employer] mid/distal LAD, patent RCA stent, mid LAD stent (90% ISR)AAA-03/02 [facility] US NORMCAROTID STENOSIS - <50% LICABradycardia - In-person encounter Office Visit Tuan Ramirez MD [facility] - In-person encounter Office Visit Tuan Ramirez MD [facility] SyncopeBradycardia - In-person encounter Office Visit Tuan Ramirez MD [facility] - In-person encounter Office Visit Tuan Ramirez MD [facility] - In-person encounter Office Visit Tuan Ramirez MD [facility] - In-person encounter Office Visit Tuan Ramirez MD [facility] - In-person encounter Office Visit Tuan Ramirez MD [facility] - In-person encounter Office Visit Tuan Ramirez MD [facility] - In-person encounter Office Visit Tuan Ramirez MD [facility] - In-person encounter Office Visit Tuan Ramirez MD [facility] - In-person encounter Office Visit Tuan Ramirez MD [facility] VITAL SIGNS Date Observation Value Provider Body Mass Index (Ratio) 24.13 kg/m2 Marcus Mack blood pressure, diastolic 88 mm[Hg] Rosemary nkLogic blood pressure, systolic 144 mm[Hg] Aileen kLogic pulse rate 64 /min Martha Martinez blood pressure, cuff size regular Ta bitha Martinez blood pressure, diastolic 88 mm[Hg] Ta bitha Martinez blood pressure, systolic 144 mm[Hg] Tab itha Martinez respiratory rate E&M 18 /min Martha Martinez weight E&M 173 [lb_av] Martha Martinez height E&M 71 [in_i] Martha Hanover Body Mass Index (Ratio) 24.54 kg/m2 Grah am Nemo pulse rate 58 /min [facility] blood pressure, cuff size regular Fa [facility] blood pressure, diastolic 65 mm[Hg] Fa [facility] blood pressure, systolic 117 mm[Hg] [facility] oxygen saturation, oximetry 93 % [facility] respiratory rate E&M 18 /min Jazlyn M iller weight E&M 176 [lb_av] [facility] height E&M 71 [in_i] [facility] Body Mass Index (Ratio) 24.82 kg/m2 Grah am Nemo blood pressure, cuff size regular Fa ith Hanover blood pressure, diastolic 74 mm[Hg] Fa ith Hanover blood pressure, systolic 111 mm[Hg] Mauri [facility] oxygen saturation, oximetry 92 % [facility] respiratory rate E&M 16 /min Jazlyn M iller pulse rate 65 /min [facility] weight E&M 178 [lb_av] [facility] height E&M 71 [in_i] Jazlyn Martinez Body Mass Index (Ratio) 26.36 kg/m2 Tuan Ramirez MD blood pressure, cuff size regular Ja rret blood pressure, diastolic 79 mm[Hg] Ja rret blood pressure, systolic 142 mm[Hg] Jar ret pulse rate 77 /min Eduardo respiratory rate E&M 12 /min Eduardo oxygen saturation, oximetry 94 % weight E&M 189 [lb_av] Eduardo height E&M 71 [in_i] Eduardo Body Mass Index (Ratio) 27.75 kg/m2 Tuan Ramirez MD blood pressure, cuff size regular Ja rret blood pressure, diastolic 73 mm[Hg] Ja rret blood pressure, systolic 140 mm[Hg] Jar ret oxygen saturation, oximetry 96 % respiratory rate E&M 12 /min pulse rate 55 /min Eduardo weight E&M 199 [lb_av] Eduardo height E&M 71 [in_i] Eduardo Body Mass Index (Ratio) 29.29 kg/m2 Brionna Gray blood pressure, cuff size regular Ke rri Gruenenfeldjordin blood pressure, diastolic 80 mm[Hg] Ke rri Gruenenfelder blood pressure, systolic 124 mm[Hg] Darin Frances oxygen saturation, oximetry 97 % Sabina Frances respiratory rate E&M 12 /min Sabina moyeldjordin pulse rate 74 /min Sabina Schmidt er weight E&M 210 [lb_av] Sabina Schmidt er height E&M 71 [in_i] Sabina Schmidt [facility] Body Mass Index (Ratio) 29.87 kg/m2 Yaa tripp Estefanycoella blood pressure, diastolic 71 mm[Hg] Br júniorsebastian [facility] blood pressure, systolic 134 mm[Hg] Chika sahrahilario [facility] oxygen saturation, oximetry 98 % Nanette Jacobscoella respiratory rate E&M 15 /min Yaageorges katelynn Allisoncoella pulse rate 80 /min Nanette Allison adela weight E&M 214.2 [lb_av] Nanette goodrich height E&M 71 [in_i] Nanette Allison adela Body Mass Index (Ratio) 27.61 kg/m2 Luma Lacey RN blood pressure, cuff size large De khoa Almonte blood pressure, diastolic 70 mm[Hg] Alberta couch Al[place]te blood pressure, systolic 135 mm[Hg] [facility] ernesto Almonte oxygen saturation, oximetry 98 % Cely Almonte respiratory rate E&M 16 /min Rashida Almonte pulse rate 82 /min Cely garcia weight E&M 198 [lb_av] Cely garcia height E&M 71 [in_i] Cely garcia Body Mass Index (Ratio) 27.61 kg/m2 Tuan Ramirez MD blood pressure, diastolic 67 mm[Hg] Rosemary nkLogic blood pressure, systolic 145 mm[Hg] Aileen kLogic blood pressure, diastolic 67 mm[Hg] Ca therine [place] blood pressure, systolic 145 mm[Hg] Cat herine Alex oxygen saturation, oximetry 94 % Didi [place] respiratory rate E&M 14 /min Catheri ne Alex pulse rate 71 /min Iddi Alex weight E&M 198 [lb_av] Didi Alex blood pressure, cuff size regular Ca therine [place] height E&M 71 [in_i] Didi Alex Body Mass Index (Ratio) 27.47 kg/m2 Yaa arlin Han blood pressure, cuff size large Tr jermaine Daigle blood pressure, diastolic 60 mm[Hg] Tr jermaine Daigle blood pressure, systolic 130 mm[Hg] Nikolay orozcobarbara Daigle respiratory rate E&M 18 /min Rose Daigle oxygen saturation, oximetry 96 % Rose Daigle pulse rate 96 /min Rose Daigle weight E&M 197 [lb_av] Rose Daigle height E&M 71 [in_i] Rose Daigle Body Mass Index (Ratio) 28.31 kg/m2 Yaa tripp Emely blood pressure, cuff size regular Giorgi Simsby respiratory rate E&M 19 /min Ramandeep Simsby pulse rate 75 /min Ramandeep Simsby oxygen saturation, oximetry 96 % Ramandeep Simsby blood pressure, diastolic 72 mm[Hg] Giorgi isty Sabine blood pressure, systolic 140 mm[Hg] Giorgii mitali Regalado weight E&M 203 [lb_av] Ramandeep Sabine blood pressure, resting Yes Alex Regalado height E&M 71 [in_i] Ramandeep Sabine Body Mass Index (Ratio) 29.15 kg/m2 [facility] blood [facility], resting Yes Alex Sims blood pressure, cuff size regular Giorgi Sims blood pressure, diastolic 70 mm[Hg] Giorgi Sims blood pressure, systolic 130 mm[Hg] Dianelys Sims pulse rate 93 /min Ramandeep Sims oxygen saturation, oximetry 96 % Ramandeep Sims respiratory rate E&M 19 /min Ramandeep Sims weight E&M 209 [lb_av] Ramandeep Sims height E&M 71 [in_i] Ramandeepkatelynn Regalado Body Mass Index (Ratio) 29.84 kg/m2 Lakshmi Lovett MD blood pressure, diastolic 80 mm[Hg] Rosemary nkLogradha blood pressure, systolic 140 mm[Hg] Aileen kLog blood pressure, resting Yes Telly Webbford blood pressure, diastolic 80 mm[Hg] [facility] Webbford blood pressure, systolic 140 mm[Hg] She kathrinst. franc[facility] medical centereulalia WebbWolff oxygen saturation, oximetry 98 % [facility] Webbford pulse rate 64 /min [facility] Networkp[facility]ash Webb mackenzie respiratory rate E&M 18 /min [facility] Networkkarla darby Wolff weight E&M 214 [lb_av] Teresa Webb mackenzie height E&M 71 [in_i] Teresa Webb mackenzie Body Mass Index (Ratio) 30.40 kg/m2 Khoi Ott blood pressure, resting Yes Telly Webbford blood pressure, diastolic 68 mm[Hg] [facility] Centerm[facility] Webbford blood pressure, systolic 140 mm[Hg] She rkeiteulalia WebbWolff oxygen saturation, oximetry 97 % Teresa Wolff respiratory rate E&M 18 /min Joce Wolff pulse rate 90 /min Teresa mackenzie weight E&M 218 [lb_av] Teresa mackenzie height E&M 71 [in_i] Teresa mackenzie Body Mass Index (Ratio) 29.98 kg/m2 Tino Hermosillo MD blood pressure, cuff size large Ke rri Gruenenfeldjordin blood pressure, diastolic 80 mm[Hg] Ke rri Gruenenfelder blood pressure, systolic 150 mm[Hg] Ker ri Saraynffabier oxygen saturation, oximetry 95 % Sabina Yvrose respiratory rate E&M 16 /min Sabina Igor rodney pulse rate 77 /min Sabina Aguilare lder weight E&M 215 [lb_av] Sabina Gruenenfe lder height E&M 71 [in_i] Sabina Gruenenfe lder Body Mass Index (Ratio) 29.29 kg/m2 Khoi Ott blood pressure, diastolic 91 mm[Hg] To nsha Dalal blood pressure, systolic 165 mm[Hg] Ton juan carlos Dalal oxygen saturation, oximetry 97 % Tonsha Dalal respiratory rate E&M 16 /min Tonsha Dalal pulse rate 78 /min Tonsha Dalal height E&M 71 [in_i] Tonsha Dalal weight E&M 210 [lb_av] Heriberto Mcdonnell erg temperature site temporal Michelle Tank sley temperature E&M 97.5 [degF] Michelle Tanks samuel Body Mass Index (Ratio) 28.17 kg/m2 Tuan Ramirez MD blood pressure, cuff size regular Cy zoie Skelton blood pressure, diastolic 70 mm[Hg] Cy zoie Skelton blood pressure, systolic 134 mm[Hg] Sarah esther Skelton oxygen saturation, oximetry 95 % Neelima Skelton respiratory rate E&M 18 /min Neelima Skelton pulse rate 98 /min Neelima aguilera weight E&M 202 [lb_av] Neelima Sweeney l height E&M 71 [in_i] Neelima Sweeney l Body Mass Index (Ratio) 28.45 kg/m2 Khoi Ott blood pressure, diastolic 58 mm[Hg] astity Ruby blood pressure, systolic 110 mm[Hg] Arelis stity Ruby oxygen saturation, oximetry 97 % Chastity Ruby pulse rate 57 /min Chastity Ruby respiratory rate E&M 16 /min Chastit y Ruby weight E&M 204 [lb_av] Chastity Ruby height E&M 71 [in_i] Chastity Ruby Body Mass Index (Ratio) 29.43 kg/m2 Khoi Ott blood pressure, diastolic, left arm 70 mm [Hg] Liz Leigh blood pressure, systolic, left arm 142 mm [Hg] Wheeling Leigh blood pressure, diastolic, right arm 60 m m[Hg] Wheeling Leigh blood pressure, systolic, right arm 130 m m[Hg] Liz Leigh blood pressure, diastolic 70 mm[Hg] Ki lleen blood pressure, systolic 142 mm[Hg] Nikos farley Leigh oxygen saturation, oximetry 95 % Wheeling Leigh respiratory rate E&M 16 /min Wheeling Leigh pulse rate 54 /min Wheeling Leigh weight E&M 211 [lb_av] Wheeling Leigh height E&M 71 [in_i] Liz Leigh Body Mass Index (Ratio) 27.75 kg/m2 Khoi jacobo Namrata blood pressure, diastolic 80 mm[Hg] Da yusra Lona blood pressure, systolic 142 mm[Hg] Dac ia Lona oxygen saturation, oximetry 92 % Kimmy Lona respiratory rate E&M 16 /min Kimmy V oss pulse rate 53 /min Kimmy Lona weight E&M 199 [lb_av] Kimmy Lona height E&M 71 [in_i] Kimmy Lona Body Mass Index (Ratio) 27.61 kg/m2 Khoi jacobo [facility] blood pressure, cuff size large Cy zoie Skelton blood pressure, diastolic 70 mm[Hg] Cy zoie Skelton blood pressure, systolic 138 mm[Hg] Sarah esther Skelton oxygen saturation, oximetry 95 % Neelima Skelton respiratory rate E&M 20 /min Neelimaesther Skelton pulse rate 66 /min Neelima Corwinbel l weight E&M 198 [lb_av] Neelima Campbel l height E&M 71 [in_i] Neelima Campbel l Body Mass Index (Ratio) 29.10 kg/m2 Jose Ramon Simons MD weight E&M 208.7 [lb_av] Tuyet march blood pressure, cuff size regular Selvin Horton blood pressure, diastolic 86 mm[Hg] Selvin Horton blood pressure, systolic 160 mm[Hg] Keisha Horton oxygen saturation, oximetry 96 % Tuyet Horton respiratory rate E&M 20 /min Yoli Horton pulse rate 64 /min Tuyet prescott height E&M 71 [in_i] Tuyet Kaufman mary Body Mass Index (Ratio) 29.01 kg/m2 Khoi Ott blood pressure, cuff size regular Ke rri Aguilaramol blood pressure, diastolic 91 mm[Hg] Ke rri Yvrose blood pressure, systolic 147 mm[Hg] Darin ri Aguilaramol oxygen saturation, oximetry 98 % Sabina Sheikhfabijordin respiratory rate E&M 22 /min Sabina Costa chuyhermancentral vermont medical centerjordin pulse rate 88 /min Sabina Schmidt [facility] weight E&M 208 [lb_av] Sabina Schmidt [facility] height E&M 71 [in_i] Sabina [facility] Body Mass Index (Ratio) 27.89 kg/m2 Khoi Ott blood pressure, diastolic 71 mm[Hg] Selvin Horton blood pressure, systolic 148 mm[Hg] Keisha Horton oxygen saturation, oximetry 93 % Tuyet Horton respiratory rate E&M 18 /min Yoli Horton pulse rate 60 /min Tuyet prescott weight E&M 200 [lb_av] Tuyet prescott height E&M 71 [in_i] Tuyet prescott Body Mass Index (Ratio) 28.67 kg/m2 Tuan Ramirez MD blood pressure, diastolic 64 mm[Hg] Selvin Horton blood pressure, systolic 161 mm[Hg] Keisha Horton oxygen saturation, oximetry 97 % Tuyet Horton respiratory rate E&M 18 /min Yoli Horton pulse rate 60 /min Tuyet prescott weight E&M 205.6 [lb_av] Tuyet march height E&M 71 [in_i] Tuyet garzaon Body Mass Index (Ratio) 26.36 kg/m2 Khoi Ott blood pressure, cuff size regular Aj Sheikhamol blood pressure, diastolic 102 mm[Hg] Aj Sheikhamol blood pressure, systolic 157 mm[Hg] Darin morton Sarayhalleamol oxygen saturation, oximetry 91 % Sabina Sheikhamol respiratory rate E&M 20 /min Sabina Costa ronel pulse rate 83 /min Sabina Schmidt [facility] weight E&M 189 [lb_av] Sabina Schmidt [facility] height E&M 71 [in_i] Sabina Schmidt [facility] Body Mass Index (Ratio) 25.80 kg/m2 Khoi Ott blood pressure, diastolic, left arm 64 mm [Hg] Ramandeep [place] blood pressure, systolic, left arm 130 mm [Hg] Raamndeep [place] blood pressure, diastolic, standing 70 mm [Hg] Ramandeep Sabine blood pressure, systolic, standing 120 mm [Hg] Ramandeep [place] respiratory rate E&M 16 /min Ramandeep [place] oxygen saturation, oximetry 93 % Ramandeep Sabine pulse rate 77 /min Ramandeep Sabine blood pressure, diastolic 64 mm[Hg] Kr isty [place] blood pressure, systolic 130 mm[Hg] Kri sty [place] weight E&M 185 [lb_av] Ramandeep [place] blood pressure, cuff size regular Kr isty Sabine height E&M 71 [in_i] Ramandeep [place] Body Mass Index (Ratio) 25.41 kg/m2 Khoi Ott blood pressure, resting Yes Tuan Ramirez MD Body Mass Index (Ratio) 26.25 kg/m2 Tuan Ramirez MD height E&M 71 [in_i] Tuan Ramirez MD blood pressure, diastolic, left arm 58 mm [Hg] Michelle Wernerhley blood pressure, systolic, left arm 116 mm [Hg] Michelle Oliverio blood pressure, diastolic, right arm 60 m m[Hg] Michelle Oliverio blood pressure, systolic, right arm 118 m m[Hg] Michelle Oliverio blood pressure, cuff size regular Te kash Oliverio blood pressure, diastolic 58 mm[Hg] Te [facility] blood pressure, systolic 116 mm[Hg] Radames [facility] oxygen saturation, oximetry 95 % Michelle Oliverio respiratory rate E&M 18 /min Michelle Oliverio pulse rate 59 /min Michelle Oliverio blood pressure, resting Yes Khoi jacobo Namrata weight E&M 182.2 [lb_av] Michelle Fung y blood pressure, diastolic 69 mm[Hg] Selvin Horton blood pressure, systolic 144 mm[Hg] Keisha Horton oxygen saturation, oximetry 96 % Tuyet Horton respiratory rate E&M 20 /min Yoli Horton pulse rate 51 /min Tuyet prescott weight E&M 188.2 [lb_av] Tuyet march height E&M 71 [in_i] Tuyet prescott blood pressure, diastolic 60 mm[Hg] Selvin Horton blood pressure, systolic 130 mm[Hg] Keisha Horton pulse rate 54 /min Tuyet prescott oxygen saturation, oximetry 97 % Tuyet Horton respiratory rate E&M 16 /min Yoli Horton Body Mass Index (Ratio) 25.27 kg/m2 Maria Fernanda Horton weight E&M 181.2 [lb_av] Tuyet march blood pressure, diastolic 70 mm[Hg] Selvin Horton blood pressure, systolic 160 mm[Hg] Keisha Horton Body Mass Index (Ratio) 25.33 kg/m2 Maria Fernanda Horton pulse rate 46 /min Tuyet garzaon oxygen saturation, oximetry 94 % Tuyet Horton respiratory rate E&M 16 /min Yoli Horton weight E&M 181.6 [lb_av] Tuyet march blood pressure, diastolic 75 mm[Hg] Selvin Horton blood pressure, systolic 156 mm[Hg] Keisha Horton Body Mass Index (Ratio) 25.58 kg/m2 Maria Fernanda Horton pulse rate 49 /min Tuyet garzaon oxygen saturation, oximetry 95 % Tuyet Horton respiratory rate E&M 16 /min Yoli Horton weight E&M 183.4 [lb_av] Tuyetvianney damonon blood pressure, diastolic, left arm 69 mm [Hg] Pedro Pablo Lassiter RN blood pressure, systolic, left arm 139 mm [Hg] Pedro Pablo Lassiter RN blood pressure, diastolic, right arm 78 m m[Hg] Pedro Pablo Lassiter RN blood pressure, systolic, right arm 153 m m[Hg] Pedro Pablo Lassiter RN blood pressure, diastolic 69 mm[Hg] Live Lassiter RN blood pressure, systolic 139 mm[Hg] Pedro Pablo Lassiter RN pulse rate 54 /min Pedro Pablo Lassiter RN oxygen saturation, oximetry 97 % Pedro Pablo Lassiter RN respiratory rate E&M 12 /min Pedro Pablo skinner RN Body Mass Index (Ratio) 27.72 kg/m2 Pedro Pablo Lassiter RN weight E&M 198 [lb_av] Pedro Pablo Lassiter RN blood pressure, diastolic, left arm 64 mm [Hg] Adele Stueber blood pressure, systolic, left arm 122 mm [Hg] Adele Stueber blood pressure, diastolic, right arm 70 m m[Hg] Adele Stber blood pressure, systolic, right arm 128 m m[Hg] Adele Stber Body Mass Index (Ratio) 27.46 kg/m2 [address] blood pressure, diastolic 64 mm[Hg] Ollie thurman blood pressure, systolic 122 mm[Hg] Georges owen ber pulse rate 52 /min Adele oxygen saturation, oximetry 99 % Adele respiratory rate E&M 20 /min Adele Henderson mare weight E&M 196.2 [lb_av] Adele ber height E&M 71 [in_i] Adele Stber blood pressure, diastolic, left arm 76 mm [Hg] Pedro Pablo Lassiter RN blood pressure, systolic, left arm 141 mm [Hg] PedroP ablo Lassiter RN blood pressure, diastolic, right arm 71 m m[Hg] Pedro Pablo Lassiter RN blood pressure, systolic, right arm 143 m m[Hg] Pedro Pablo Lassiter RN blood pressure, diastolic 71 mm[Hg] Live Lassiter RN blood pressure, systolic 143 mm[Hg] Pedro Pablo Lassiter RN pulse rate 52 /min Pedro Pablo Lassiter RN oxygen saturation, oximetry 97 % Pedro Pablo Lassiter RN respiratory rate E&M 16 /min Pedro Pablo skinner RN weight E&M 195 [lb_av] Pedro Pablo Lassiter RN blood pressure, diastolic 74 mm[Hg] Selvin ray O'Willis blood pressure, systolic 152 mm[Hg] Keisha Limon'Willis pulse rate 56 /min Yuliet O'Willis oxygen saturation, oximetry 95 % Yuliet O'Willis respiratory rate E&M 18 /min Yuliet O'Willis weight E&M 202 [lb_av] Yuliet O'Willis blood pressure, diastolic 79 mm[Hg] Wale mane Zavala blood pressure, systolic 134 mm[Hg] Prabhu nunn Zavala pulse rate 60 /min Keeley Zavala oxygen saturation, oximetry 97 % Keeley Zavala respiratory rate E&M 16 /min Alexis Srivastavais weight E&M 197 [lb_av] Keeley Zavala blood pressure, diastolic, left arm 93 mm [Hg] Nita Charleston blood pressure, systolic, left arm 168 mm [Hg] Nita [place] blood pressure, diastolic, right arm 90 m m[Hg] Nita [place] blood pressure, systolic, right arm 172 m m[Hg] Nita [place] blood pressure, diastolic 90 mm[Hg] Fe ambrose Kiki blood pressure, systolic 172 mm[Hg] Fel icia Kiki pulse rate 57 /min Nita Kiki oxygen saturation, oximetry 96 % Nita Kiki respiratory rate E&M 20 /min Nita [place] weight E&M 204 [lb_av] Nita [place] blood pressure, diastolic 75 mm[Hg] Rolanda seph [place] blood pressure, systolic 149 mm[Hg] David monique [place] pulse rate 62 /min Andrea [place] oxygen saturation, oximetry 95 % Andrea [place] respiratory rate E&M 20 /min Andrea [place] weight E&M 208 [lb_av] Andrea Pazantonio blood pressure, diastolic, left arm 71 mm [Hg] Pedro Pablo Lassiter RN blood pressure, systolic, left arm 143 mm [Hg] Pedro Pablo Lassiter RN blood pressure, diastolic, right arm 83 m m[Hg] Pedro Pablo Lassiter RN blood pressure, systolic, right arm 146 m m[Hg] Pedro Pablo Lassiter RN pulse rate 73 /min Pedro Pablo Lassiter RN oxygen saturation, oximetry 93 % Pedro Pablo Lassiter RN respiratory rate E&M 18 /min Pedro Pablo pinonbeatriz RN weight E&M 203 [lb_av] Pedro Pablo Lassiter DIVINE blood pressure, diastolic 96 mm[Hg] Benedict Clemens blood pressure, systolic 155 mm[Hg] Salas pulse rate 52 /min Zenobia Clemens oxygen saturation, oximetry 95 % Zenobia Clemens respiratory rate E&M 20 /min Zenobia mcelroy weight E&M 202 [lb_av] Zenobia Clemens ALLERGIES Allergy Name Onset Date Reaction Criticality Status COZAAR NAUSEA NAUSEA Low Criticality active RAMIPRIL COUGH COUGH High Criticality active BETA BLOCKERS Bradycardia Bradycardia Low Criti cality active BRILINTA SOB SOB Low Criticality active PCN Low Criticality active RESULTS Date Observation Value Provider Reference Range Interpretation Location thyroid stimulating hormone, serum 2.600 u[IU]/mL Tuan Ramirez MD triglyceride, serum, random 100 mg/dL Tuan Ramirez MD triglyceride, serum, fasting 100 mg/dL Tuan Ramirez MD HDL cholesterol, serum 44 mg/dL Tuan Ramirez MD LDL cholesterol, serum 25 mg/dL Tuan Ramirez MD cholesterol, serum 89 mg/dL Tuan Ramirez MD platelet count 198 10*3/mm3 Tuan Ramirez MD platelet count 198 10*3/uL Tuan Ramirez MD red blood cell distribution width 12.0 % Tuan Ramirez MD mean corpuscular hemoglobin concentration, RBC 33.2 g/dL Tuan Ramirez MD mean corpuscular hemoglobin, RBC 32.5 pg Tuan Ramirez MD mean corpuscular volume, RBC 97.9 fL Tuan Ramirez MD hematocrit, blood 41.3 % Tuan Ramirez MD hemoglobin, blood 13.7 g/dL Tuan Ramirez MD erythrocyte (RBC) count 4.22 10*6/mm3 Tuan Ramirez MD leukocyte count, blood 8.2 10*3/mm3 Tuan Ramirez MD carbon dioxide, venous blood 28 mmol/L Tuan Ramirez MD protein, total, serum 7.0 g/dL Tuan Ramirez MD albumin, serum 4.2 g/dL Tuan Ramirez MD bilirubin, serum, total 0.80 mg/dL Tuan Ramirez MD alkaline phosphatase, serum 79 1/L Tuan Ramirez MD alanine aminotransferase (SGPT), serum 29 1/L Tuan Ramirez MD aspartate aminotransferase (SGOT), serum 42 1/L Tuan Ramirez MD calcium, serum 9.2 mg/dL Tuan Ramirez MD blood glucose, random 97 mg/dL Tuan Ramirez MD creatinine, serum 0.93 mg/dL Tuan Ramirez MD urea nitrogen, blood 17 mg/dL Tuan Ramirez MD carbon dioxide, serum, total 28 mmol/L Tuan Ramirez MD chloride, serum 103 mmol/L Tuan Ramirez MD potassium, serum 4.6 mmol/L Tuan Ramirez MD sodium, serum 141 mmol/L Tuan Ramirez MD hemoglobin A1C, blood, as % of total hemoglobin 6.2 % Heriberto Ott triglyceride, serum, fasting 108 mg/dL [facility] HDL cholesterol, serum 33 mg/dL [facility] LDL cholesterol, serum 67 mg/dL [facility] cholesterol, serum 123 mg/dL [facility] platelet count 204 10*3/uL [facility] red blood cell distribution width 11.7 % [facility] mean corpuscular hemoglobin concentration, RBC 32.5 g/dL [facility] mean corpuscular hemoglobin, RBC 31.9 pg [facility] mean corpuscular volume, RBC 97.9 fL [facility] hematocrit, blood 41.8 % [facility] hemoglobin, blood 13.6 g/dL [facility] erythrocyte (RBC) count 4.27 10*6/mm3 [facility] leukocyte count, blood 9.2 10*3/mm3 [facility] calcium, serum 9.2 mg/dL [facility] blood glucose, random 105 mg/dL [facility] creatinine, serum 0.85 mg/dL [facility] urea nitrogen, blood 13 mg/dL [facility] carbon dioxide, serum, total 29 mmol/L [facility] chloride, serum 103 mmol/L [facility] potassium, serum 4.7 mmol/L [facility] sodium, serum 139 mmol/L [facility] LDL cholesterol, serum 90 mg/dL [facility] prothrombin time (patient) 10.2 s Maria Fernanda Ashby RN international normalized ratio (INR) 0.99 Maria Fernanda Ashby RN creatinine, serum 1.02 mg/dL Maria Fernanda Ashby RN urea nitrogen, blood 11 mg/dL Maria Fernanda Ashby RN carbon dioxide, serum, total 34 mmol/L Maria Fernanda Ashby RN potassium, serum 4.0 mmol/L Maria Fernanda Ashby RN sodium, serum 138 mmol/L Maria Fernanda Ashby RN platelet count 222 10*3/uL Maria Fernanda Ashby RN mean corpuscular hemoglobin, RBC 32.2 pg Maria Fernanda Ashby RN mean corpuscular volume, RBC 95.5 fL Maria Fernanda Ashby RN hematocrit, blood 46.9 % Maria Fernanda Ashby RN hemoglobin, blood 15.8 g/dL Maria Fernanda Ashby DIVINE erythrocyte (RBC) count 4.91 10*6/mm3 Maria Fernanda Ashby DIVINE leukocyte count, blood 10.1 10*3/mm3 Maria Fernanda Ashby DIVINE HISTORY OF MEDICATION USE Medication Status Instructions Dates Provider Indications Com ments clopidogrel 75 mg tablet active TAKE 1 TABLET BY MOUTH DAILY Sabina Frances calcitriol 0.25 mcg capsule active Jazlyn Martinez furosemide 40 mg tablet active TAKE 1 TABLET BY MOUTH EVERY DAY Eduardo Ortega [place] 200 mg tablet completed 1 tablet by mouth once a day - Tuan Ramirez MD furosemide 40 mg tablet completed Take 1 tablet by mouth once a day - [facility]op[facility] 25 mg tablet active Tuan Ramirez MD rosuvastatin 20 mg tablet active Didihubert Johnson spironolactone 25 mg tablet active Didi Johnson isosorbide mononitrate 120 mg tablet extended release 24 hr completed Take 1 tablet by mouth once a day Take 1 tablet by mouth once daily - Jazlyn Martinez amlodipine 10 mg tablet active TAKE 1 TABLET BY MOUTH EVERY DAY [facility] Eliquis 5 mg tablet active TAKE 1 TABLET BY MOUTH TWICE A DAY Rachael Rushifarhan furosemide 40 mg tablet completed TAKE 1 TABLET BY MOUTH EVERY DAY - Sabina Frances albuterol sulfate 2.5 mg/3 mL (0.083 %) solution for nebulization active Ramandeep Regalado metformin 500 mg tablet active twice a day Ramandeep Regalado Lasix 40 mg tablet completed Take 1 once a day - Tuan Ramirez MD RANEXA 1000 MG ORAL TABLET EXTENDED RELEASE 12 HOUR completed ONE TAB. TWICE DAILY for chronic angina - Ramandeep Regalado Plavix 75 mg tablet completed 1 tablet once a day - Sabina Frances LOSARTAN POTASSIUM 50 MG ORAL TABLET completed Take one tablet daily - Teresa Wolff Crestor 20 mg tablet active 1 tablet once a day Veronicalinda Ruby isosorbide mononitrate 120 mg tablet extended release 24 hr completed Take 1 tablet by mouth once a day - Marie Melchor NP FENOFIBRATE 48 MG ORAL TABLET completed once a day - Liz Leigh PLAVIX 75 MG ORAL TABLET completed ONE TAB. DAILY - Don Hermosillo MD amlodipine 10 mg tablet completed 1 tablet once a day - Yoly Eden ProAir HFA 90 mcg/actuation HFA aerosol inhaler active as needed Ramandeep Regalado albuterol sulfate (bulk) powder active 2 puff twice a day Tuyet Horton Symbicort 160-4.5 mcg/actuation HFA aerosol inhaler active 2 puff twice a day Tuyet Horton SPIRIVA HANDIHALER 18 MCG INHALATION CAPSULE completed once daily - Sabina Frances FOLIC ACID 1 MG ORAL TABLET completed ONE TAB. DAILY - Tuyet Horton TOPROL XL 25 MG ORAL TABLET EXTENDED RELEASE 24 HOUR completed ONE TAB DAILY - Tuyet Horton Eliquis 5 mg tablet completed Take 1 tablet by mouth twice a day - Tone Leon MEDROL DOSEPACK (METHYLPREDNISOLO NE TBPK) completed Take as directed - Tuyet Horton COMBIVENT RESPIMAT 20-100 MCG/ACT INHALATION AEROSOL SOLUTION completed Two puffs three times daily - Tuyet Horton Nitrolingual 400 mcg/spray spray,non-aerosol active 1 as needed Tuan Ramirez MD LASIX 40 MG ORAL TABLET completed One tablet daily - Sabina Tevinjordin BACTRIM DS TABLET completed one tab twice daily x 7 days - Ramandeep Regalado PLAVIX 75 MG ORAL TABLET completed ONE TABLET DAILY - Tuyet Horton ASPIRIN ADULT LOW DOSE 81 MG ORAL TABLET DELAYED RELEASE completed One Tab By Mouth Daily - Don JACOBS BRILINTA 90 MG ONE TAB TWICE A DAY completed - Michelle JACOBS ASPIRIN 81 MG ONE TAB DAILY completed - Michelle Duron ISOSORBIDE MONONITRATE ER 60 MG ORAL TABLET EXTENDED RELEASE 24 HOUR completed One tab daily - Ramandeep Regalado PANTOPRAZOLE SODIUM 40 MG ORAL TABLET DELAYED RELEASE completed - Teresa Wolff PLAVIX 75 MG ORAL TABLET completed 1 tab daily - Starr White NIASPAN 500 MG ORAL TABLET EXTENDED RELEASE completed ONE TAB. AT BEDTIME - Dispense as written - Tuyet Horton SIMVASTATIN 20 MG ORAL TABLET completed ONE TAB. DAILY - Tuyet Horton EFFIENT 10 MG ORAL TABLET completed One tablet daily - Pedro Pablo Lassiter RN SIMCOR 500-20 MG ORAL TABLET EXTENDED RELEASE 24 HOUR completed ONE TAB. DAILY - Dispense as written - Pedro Pablo Lassiter RN ALTACE 10 MG ORAL CAPSULE completed take one pill a day - Tonseulalia Dalal OMEPRAZOLE 20 MG ORAL CAPSULE DELAYED RELEASE completed take one daily - Pedro Pablo Lassiter RN RANITIDINE HCL 150 MG ORAL TABLET completed ONE TAB TWICE DAILY - Nita Swanson RANEXA 500 MG ORAL TABLET EXTENDED RELEASE 12 HOUR completed ONE TAB. TWICE DAILY - Tuan Ramirez MD ASACOL 400 MG TBEC completed 3 tablets by mouth twice daily - Pedro Pablo Lassiter RN folic acid 400 mcg tablet active 1 tablet once a day Tuan Ramirez MD MULTIVITAMINS CAPS active 1 tablet once a day Pedro Pablo Lassiter RN ASPIRIN 325 MG ORAL TABLET completed one tab daily - Starr White MAGNEBIND 400 TABLET completed - Zenobia Clemens PLAVIX 75 MG ORAL TABLET completed ONE TAB. DAILY - Keeley Lucas PEPCID 20 MG ORAL TABLET completed ONE TAB.TWICE DAILY - Maria Fernanda Ashby RN AMBIEN 10 MG ORAL TABLET completed ONE TAB. AT BEDTIME - Zenobia Clemens SOCIAL HISTORY Date Observation Value Provider smoking, year quit 1998 Go Harvinder shashi number of years as a smoker 10+ Go Mack cigarette use yes Go Mack smoking status Former smoker Go pace smoking, year quit 1998 [facility] number of years as a smoker 10+ [facility] cigarette use yes [facility] smoking status Former smoker [facility] smoking, year quit 1998 [facility] number of years as a smoker 10+ [facility] cigarette use yes [facility] smoking status Former smoker [facility] physical exercise, frequency, days per week no Tuan Ramirez MD caffeine use, averag e drinks per day 1+ Tuan Ramirez MD smoking, year quit 1998 Tuan millan MD number of years as a smoker 10+ Tuan Ramirez MD cigarette use yes Tuan Ramirez MD smoking status Former smoker Tuan Ramirez MD social history revie wed E&M reviewed - no changes required Tuan Ramirez MD social history revie wed E&M reviewed - no changes required Tuan Ramirez MD social history revie wed E&M reviewed - no changes required Dejuan Gray social history preet frias E&M reviewed - no changes required Tuan Ramirez MD social history preet frias E&M reviewed - no changes required Tuan Ramirez MD social history E&M Marital Statu s: L margy with family/friends E thnicity: Smoking History: P atient is a former smoker. Tuan Ramirez MD social history preet frias E&M reviewed - no changes required Tuan Ramirez MD physical exercise, frequency, days per week no Didi Alex caffeine use, averag e drinks per day 1+ Didi Alex smoking, year quit 1998 Didi Alex number of years as a smoker 10+ Didi [place] cigarette use yes Didi Alex smoking status Former smoker Didi Ot is social history E&M Marital Statu s: L margy with family/friends E thnicity: Smoking History: P atient is a former smoker. Tuan Ramirez MD social history preet frias E&M reviewed - no changes required Tuan Ramirez MD cigarette use yes Trynett Edward s smoking status Former smoker Trynett Edwa rds social history E&M Marital Statu s: L margy with family/friends E thnicity: Smoking History: P atsky is a former smoker. Tuan Ramirez MD social history preet frias E&M reviewed - no changes required Tuan Ramirez MD physical exercise, frequency, days per week no Ramandeep Sabine caffeine use, averag e drinks per day 1+ Ramandeep [place] smoking, year quit 1998 Ramandeep Bu sby number of years as a smoker 10+ Ramandeep [place] cigarette use yes Ramandeep Sabine smoking status Former smoker Ramandeep Regalado social history E&M Marital Statu s: Ale ji with family/friends E thnicity: Smoking History: Lindsey henry is a former smoker. Tuan Ramirez MD social history revie wed E&M reviewed - no changes required Tuan Ramirez MD physical exercise, frequency, days per week no Ramandeep Regalado caffeine use, averag e drinks per day 1+ Ramandeep Regalado smoking, year quit 1998 Ramandeep silva number of years as a smoker 10+ Ramandeep Regalado cigarette use yes Ramandeep Regalado smoking status Former smoker Ramandeep Regalado social history E&M Marital Statu s: Ale ji with family/friends E thnicity: Smoking History: Lindsey henry is a former smoker. Vanessa Judge NP social history revie wed E&M reviewed - no changes required Vanessa Judge NP physical exercise, frequency, days per week no Teresa New caffeine use, averag e drinks per day 1+ Teresa New smoking, year quit 1998 Juanita Wolff number of years as a smoker 10+ Tellyajradha Wolff cigarette use yes Teresa rogers smoking status Former smoker Teresa Kennedy saida social history revie wed E&M reviewed - no changes required Heriberto Ott physical exercise, frequency, days per week no Teresa Wolff caffeine use, averag e drinks per day 1+ Teresa Wolff smoking, year quit 1998 Juanita Wolff number of years as a smoker 10+ Teresa Wolff cigarette use yes Teresa rogers smoking status Former smoker Teresa Kennedy saida quit smoking, stage quit Don pineda MD social history E&M Marital Statu s: Ale ji with family/friends E thnicity: Smoking History: Lindsey henry is a former smoker. Don Hermosillo MD social history revtulio wed E&M reviewed - no changes required Don Hermosillo MD physical exercise, frequency, days per week no Sabina Frances caffeine use, averag e drinks per day 1+ Sabinaselene Frances smoking, year quit 1998 Sabina Mir iyer number of years as a smoker 10+ Sabina Yvrsoe cigarette use yes Sabina carmichael smoking status Former smoker Sabina Oviedoleonor chaidez social history revie wed E&M reviewed - no changes required Heriberto Ott physical exercise, frequency, days per week no Tonsha Dalal caffeine use, averag e drinks per day 1+ Tonsha Dalal smoking, year quit 1998 Tonseulalia Mo eduardo number of years as a smoker 10+ Tonsha Dalal cigarette use yes Tonsha Dalal smoking status Former smoker Tonsha Dalal social history revtulio wed E&M reviewed - no changes required Heriberto Ott physical exercise, frequency, days per week no Neelima Skelton caffeine use, averag e drinks per day 1+ Neelima Skelton smoking, year quit 1998 Neelima meza number of years as a smoker 10+ Neelima Skelton cigarette use yes Neelima he smoking status Former smoker Neelima corado social history revtulio wed E&M reviewed - no changes required Tuan Ramirez MD physical exercise, frequency, days per week no Barbi Beltran caffeine use, averag e drinks per day 1+ Chastity Ruby smoking, year quit 1998 Chastity Ruby number of years as a smoker 10+ Chastity Ruby cigarette use yes Veronicaity Ruby smoking status Former smoker Barbi De [place] social history revie wed E&M reviewed - no changes required Heriberto Namrata physical exercise, frequency, days per week no Liz Leigh alcohol use, average drinks per day social basis only Liz Leigh caffeine use, averag e drinks per day 1+ Liz Leigh smoking, year quit 1998 Liz Shore ngram number of years as a smoker 10+ Liz Leigh cigarette use yes Liz Leigh smoking status Former smoker Liz Williamson am social history revie wed E&M reviewed - no changes required Heriberto Ott physical exercise, frequency, days per week no Kimmy Lona alcohol use, average drinks per day social basis only Kimmy Lona caffeine use, averag e drinks per day 1+ Kimmy Lona smoking, year quit 1998 Kimmy Carmen s number of years as a smoker 10+ Kimmy Lona cigarette use yes Kimmy Lona smoking status Former smoker Kimmy Lnoa number of grandchildren Tuan Ramirez MD social history revie wed E&M reviewed - no changes required Tuan Ramirez MD social history E&M Marital Statu s: L margy with family/friends E thnicity: Smoking History: Lindsey henry is a former smoker. Tuan Ramirez MD physical exercise, frequency, days per week no Neelima Skelton alcohol use, average drinks per day social basis only Neelima Skelton caffeine use, averag e drinks per day 1+ Neelima Skelton smoking, year quit 1998 Neelima Brent meza number of years as a smoker 10+ Tuan Ramirez MD cigarette use yes Neelima Oliviaharvinder he smoking status Former smoker Neelima Olivia corado social history E&M Marital Statu s: Ale ji with family/friends E thnicity: Smoking History: Lindsey henry is a former smoker. Sunny Simons MD social history revie wed E&M reviewed - no changes required Sunny Simons MD number of grandchildren Sunny Simons MD T milena Simons MD physical exercise, frequency, days per week no TuyetEsther Horton alcohol use, average drinks per day social basis only Tuyet Horton caffeine use, averag e drinks per day 1+ Tuyet Horton smoking, year quit 1998 Tuyet Horton number of years as a smoker more than 10 years Tuyet Horton cigarette use yes Tuyet march smoking status Former smoker Tuyet Killian social history revie wed E&M reviewed - no changes required Heriberto Ott physical exercise, frequency, days per week no Sabina Frances alcohol use, average drinks per day social basis only Sabina Frances caffeine use, averag e drinks per day 1+ Sabina Frances smoking, year quit 1998 Sabina iyer number of years as a smoker more than 10 years Sabina Frances cigarette use yes Sabina carmichael smoking status Former smoker Sabina chaidez social history revie wed E&M reviewed - no changes required Heriberto Ott physical exercise, frequency, days per week no Heriberto Ott alcohol use, average drinks per day social basis only Heriberto Ott caffeine use, averag e drinks per day 1+ Heriberto Ott smoking, year quit 1998 Heriberto Ott number of years as a smoker more than 10 years Heriberto Ott cigarette use yes Heriberto isabel smoking status Former smoker Heriberto mclean social history revie wed E&M reviewed - no changes required Tuan Ramirez MD physical exercise, frequency, days per week no Tuyet Horton alcohol use, average drinks per day social basis only Tuyet Horton caffeine use, averag e drinks per day yes Tuyet Horton smoking, year quit 1998 Tuyet Horton number of years as a smoker 10 years or more Tuyet Horton cigarette use yes Tuyet march smoking status Former smoker Tuyet Killian social history revie wed E&M reviewed - no changes required Tuan Ramirez MD physical exercise, frequency, days per week no Sabina Frances alcohol use, average drinks per day social basis only Sabina Frances caffeine use, averag e drinks per day yes Sabina Frances smoking, year quit 1998 Sabina iyer number of years as a smoker 10 years or more Sabina Frances cigarette use yes Sabina carmichael smoking status Former smoker Sabina chaidez social history revie wed E&M reviewed - no changes required Tuan Ramirez MD number of grandchildren Tuan Regalado physical exercise, frequency, days per week no Ramandeep Regalado alcohol use, average drinks per day social basis only Ramandeep Regalado caffeine use, averag e drinks per day yes Ramandeep Regalado smoking, year quit 1998 Ramandeep silva number of years as a smoker 10 years or more Ramandeep Regalado cigarette use yes Ramandeep Sabine smoking status Former smoker Ramandeep Simsby smoking status Former smoker Heriberto mclean physical exercise, frequency, days per week no Tuan Ramirez MD alcohol use, average drinks per day social basis only Tuan Ramirez MD caffeine use, averag e drinks per day yes Tuan Ramirez MD smoking, year quit 1998 Tuan millan MD number of years as a smoker 10 years or more Tuan Ramirez MD cigarette use yes Tuan Ramirez MD social history revie wed E&M reviewed - no changes required Tuan Ramirez MD physical exercise, frequency, days per week no Tuyet Horton alcohol use, average drinks per day social basis only Tuyet Horton caffeine use, averag e drinks per day yes Tuyet Horton smoking, year quit 1998 Tuyet Horton number of years as a smoker 10 years or more Tuyet Horton cigarette use yes Tuyet marhc smoking status Former smoker Tuyet St jordan social history revtulio wed E&M reviewed - no changes required Tuan Ramirez MD social history E&M Marital Statu s: Ale ji with family/friends E thnicity: Smoking History: Lindsey henry is a former smoker. Tuan Ramirez MD physical exercise, frequency, days per week no Tuyet Horton alcohol use, average drinks per day social basis only Tuyet Horton caffeine use, averag e drinks per day yes Tuyet Horton smoking, year quit 1998 Tuyet Horton number of years as a smoker 10 years or more Tuyet Horton cigarette use yes Tuyet march smoking status Former smoker Tuyet Ramos julian social history revie wed E&M reviewed - no changes required Tuan Ramirez MD physical exercise, frequency, days per week no Tuyet Horton alcohol use, average drinks per day social basis only Tuyet Horton caffeine use, averag e drinks per day yes Tuyet Horton smoking/tobacco cess ation, patient education and counseling yes Tuyet Horton smoking, year quit 1998 Tuyet Horton number of years as a smoker 10 years or more Tuyet Horton cigarette use yes Tuyet march smoking status Former smoker Tuyet Killian smoking/tobacco cess ation, patient education and counseling yes Shital Ricketts social history revie wed E&M reviewed - no changes required Shitalher Ricketts cigarette use yes Tuyet march physical exercise, frequency, days per week no Tuyet Horton alcohol use, average drinks per day social basis only Tuyet Horton caffeine use, averag e drinks per day yes Tuyet Horton smoking status Former smoker Tuyet Killian smoking, year quit 1998 Pedro Pablo henderson RN social history revie wed E&M reviewed Pedro Pablo Lassiter RN social history revie wed E&M reviewed Janet Awan smoking status former smoker Adele Alvarado bina social history revie wed E&M reviewed Pedro Pablo Lassiter RN social history revie wed E&M reviewed Pedro Pablo Lassiter RN social history revie wed E&M reviewed Pedro Pablo Lassiter RN social history E&M Marital Statu s: L margy with family/friends E thnicity: Tuan Ramirez MD social history E&M Marital Statu s: L margy with family/friends E thnicity: Tuan Ramirez MD social history revie wed E&M reviewed Pedro Pablo Lassiter RN social history E&M Marital Statu s: L margy with family/friends E thnicity: CaucasianMarital Status: L margy with family/friends E thnicity: Tuan Ramirez MD social history revie rodriguez E&M reviewed Pedro Pablo Lassiter RN physical exercise, frequency, days per week no [employer] caffeine use, averag e drinks per day yes [employer] alcohol use, average drinks per day social basis only [employer] number of years as a smoker 10 years or more [facility] Date Observation Value Provider HRA, CV Assess/Plan, Angina (inactive) Management Plan continue current therapy Martha Martinez HRA, CV Assess/Plan, Angina (inactive) Management Plan continue current therapy Paulo Chester HRA, CV Assess/Plan, Angina (inactive) Management Plan continue current therapy Paulo Chester HRA, CV Assess/Plan, Angina (inactive) Management Plan continue current therapy Tuan Ramirez MD HRA, CV Assess/Plan, Angina (inactive) Management Plan continue current therapy Tuan Ramirez MD HRA, CV Assess/Plan, Angina (inactive) Management Plan continue current therapy Dejuan Gray HRA, CV Assess/Plan, Angina (inactive) Management Plan continue current therapy Tuan Ramirez MD HRA, CV Assess/Plan, Angina (inactive) Management Plan continue current therapy Margarita Apple NP HRA, CV Assess/Plan, Angina (inactive) Management Plan continue current therapy Tuan Ramirez MD HRA, CV Assess/Plan, Angina (inactive) Management Plan continue current therapy Tuan Ramirez MD HRA, CV Assess/Plan, Angina (inactive) Management Plan continue current therapy Tuan Ramirez MD HRA, CV Assess/Plan, Angina (inactive) Management Plan continue current therapy Nanette Han HRA, CV Assess/Plan, Angina (inactive) Management Plan continue current therapy Vanessa Judge NP HRA, CV Assess/Plan, Angina (inactive) Management Plan continue current therapy Heriberto Namrata HRA, CV Assess/Plan, Angina (inactive) Management Plan continue current therapy Don Hermosillo MD HRA, CV Assess/Plan, Angina (inactive) Management Plan continue current therapy Tuan Ramirez MD HRA, CV Assess/Plan, Angina (inactive) Management Plan continue current therapy Heriberto Vigilberg HRA, CV Assess/Plan, Angina (inactive) Management Plan antianginal therapy Tuan Ramirez MD HRA, CV Assess/Plan, Angina (inactive) Management Plan continue current therapy Tuan Ramirez MD HRA, CV Assess/Plan, Angina (inactive) Management Plan continue current therapy Tuan Ramirez MD HRA, CV Assess/Plan, Angina (inactive) Management Plan antianginal therapy Tuan Ramirez MD HRA, CV Assess/Plan, Angina (inactive) Management Plan continue current therapy Tuan Ramirez MD HRA, CV Assess/Plan, Angina (inactive) Management Plan continue current therapy Tuan Ramirez MD HRA, CV Assess/Plan, Angina (inactive) Management Plan continue current therapy Xavier Minaya HRA, CV Assess/Plan, Angina (inactive) Management Plan continue current therapy Tuan Ramirez MD HRA, CV Assess/Plan, Angina (inactive) Management Plan continue current therapy Tuan Ramirez MD HRA, CV Assess/Plan, Angina (inactive) Management Plan continue current therapy Tuan Ramirez MD HRA, CV Assess/Plan, Angina (inactive) Management Plan continue current therapy Tuan Ramirez MD HRA, CV Assess/Plan, Angina (inactive) Management Plan continue current therapy Tuan Ramirez MD MENTAL STATUS Date Observation Value Provider assessment of judgme nt and insight E&M Alert and oriented to time, place and person. Mood and affect are normal. Pedro Pablo Lassiter RN assessment of judgme nt and insight E&M Alert and oriented to time, place and person. Mood and affect are normal. Janet Awan assessment of judgme nt and insight E&M Alert and oriented to time, place and person. Mood and affect are normal. Pedro Pablo Lassiter RN assessment of judgme nt and insight E&M Alert and oriented to time, place and person. Mood and affect are normal. Pedro Pablo Lassiter RN assessment of judgme nt and insight E&M Alert and oriented to time, place and person. Mood and affect are normal. Tuan Ramirez MD assessment of judgme nt and insight E&M Alert and oriented to time, place and person. Mood and affect are normal. Pedro Pablo Lassiter RN assessment of judgme nt and insight E&M Alert and oriented to time, place and person. Mood and affect are normal. Tuan Ramirez MD assessment of judgme nt and insight E&M Alert and oriented to time, place and person. Mood and affect are normal. Pedro Pablo Lassiter RN assessment of judgme nt and insight E&M Alert and oriented to time, place and person. Mood and affect are normal. Pedro Pablo Lassiter RN FAMILY HISTORY Family Member Condition Father Family History of Ot her Cancer Mother Family History of Ot her Medical Problems Mother Family History of Co ronary Artery Disease: Mother Family History of Hy pertension: Full Sister Family History of Di abetes: INSURANCE PROVIDERS Payer name Policy type / Coverage type [place] red republican ID [employer]AGE [address] (HMO POS) Medicare [id number] ADVANCE DIRECTIVES Name Date DISCUSSED - NO DECISION MADE TREATMENT PLAN Date Name Performer [id number],S, H is updated medication list for this problem includes: Rosuvastatin 20 Mg Tablet (Rosuvastatin) Crestor 20 Mg Tablet (Rosuvastatin) ..... 1 tablet once a day Tuan Ramirez MD [id number],S, Tuan Ramirez MD [id number],S,will obtain p Minal Ramirez MD [id number],S, B P today: 142/79 P rior BP: 140/73 (12/12/2022) Labs Reviewed: C reat: 0.93 (09/04/2018) C hol: 89 (09/04/2018) HDL: 44 (09/04/2018) LDL: 25 (09/04/2018) H is updated medication list for this problem includes: Amlodipine 10 Mg Tablet (Amlodipine) ..... Take 1 tablet by mouth every day Furosemide 40 Mg Tablet (Furosemide) ..... Take 1 tablet by mouth once a day Metoprolol Tartrate 25 Mg Tablet (Metoprolol tartrate) Spironolactone 25 Mg Tablet (Spironolactone) Tuan Ramirez MD [id number],S,n ot in Afib H is updated medication list for this problem includes: Metoprolol Tartrate 25 Mg Tablet (Metoprolol tartrate) Plavix 75 Mg Tablet (Clopidogrel) ..... 1 tablet once a day Tuan Ramirez MD [id number],C,n o CP H is updated medication list for this problem includes: Amlodipine 10 Mg Tablet (Amlodipine) ..... Take 1 tablet by mouth every day Metoprolol Tartrate 25 Mg Tablet (Metoprolol tartrate) Isosorbide Mononitrate 120 Mg Tablet Extended Release 24 Hr (Isosorbide mononitrate) ..... Take 1 tablet by mouth once a day take 1 tablet by mouth once daily Nitrolingual 400 Mcg/spray [place],non-aerosol (Nitroglycerin) ..... 1 as needed Plavix 75 Mg Tablet (Clopidogrel) ..... 1 tablet once a day Taun Ramirez MD [id number],N,i ncreased confusion w ill hold inpefa for 1 week to see if confusion improves o btain UACR Tuan Ramirez MD [id number],S,S OB improved. Pt's reports increased confusion. We will obtain, UACR, BMp and proBNP. She would like to hold the inpefa for a week to see if the confusion improves. We will obtain f/u echo and f/u in 3 months H is updated medication list for this problem includes: Amlodipine 10 Mg Tablet (Amlodipine) ..... Take 1 tablet by mouth every day Furosemide 40 Mg Tablet (Furosemide) ..... Take 1 tablet by mouth once a day Metoprolol Tartrate 25 Mg Tablet (Metoprolol tartrate) Spironolactone 25 Mg Tablet (Spironolactone) Isosorbide Mononitrate 120 Mg Tablet Extended Release 24 Hr (Isosorbide mononitrate) ..... Take 1 tablet by mouth once a day take 1 tablet by mouth once daily Nitrolingual 400 Mcg/spray [place],non-aerosol (Nitroglycerin) ..... 1 as needed Plavix 75 Mg Tablet (Clopidogrel) ..... 1 tablet once a day Tuan Ramirez MD [id number],C, R eveiwed his admission from last year with NSTEMI. Tuan Ramirez MD [id number],C, C HF class II His updated medication list for this problem includes: Amlodipine 10 Mg Tablet (Amlodipine) ..... Take 1 tablet by mouth every day Furosemide 40 Mg Tablet (Furosemide) ..... Take 1 tablet by mouth once a day Metoprolol Tartrate 25 Mg Tablet (Metoprolol tartrate) Spironolactone 25 Mg Tablet (Spironolactone) Isosorbide Mononitrate 120 Mg Tablet Extended Release 24 Hr (Isosorbide mononitrate) ..... Take 1 tablet by mouth once a day take 1 tablet by mouth once daily Nitrolingual 400 Mcg/spray [place],non-aerosol (Nitroglycerin) ..... 1 as needed Plavix 75 Mg Tablet (Clopidogrel) ..... 1 tablet once a day Tuan Ramirez MD [id number],C, P atient is wheezing and short of breath, CHF class II Tuan Ramirez MD [id number],S, N ot in AFib. H is updated medication list for this problem includes: Metoprolol Tartrate 25 Mg Tablet (Metoprolol tartrate) Plavix 75 Mg Tablet (Clopidogrel) ..... 1 tablet once a day Tuna Ramirez MD [id number],C, B P today: 140/73 P rior BP: 124/80 (10/05/2022) Labs Reviewed: C reat: 0.93 (09/04/2018) C hol: 89 (09/04/2018) HDL: 44 (09/04/2018) LDL: 25 (09/04/2018) H is updated medication list for this problem includes: Amlodipine 10 Mg Tablet (Amlodipine) ..... Take 1 tablet by mouth every day Furosemide 40 Mg Tablet (Furosemide) ..... Take 1 tablet by mouth once a day Metoprolol Tartrate 25 Mg Tablet (Metoprolol tartrate) Spironolactone 25 Mg Tablet (Spironolactone) Tuan Ramirez MD [id number],S, N o chest pain. His updated medication list for this problem includes: Amlodipine 10 Mg Tablet (Amlodipine) ..... Take 1 tablet by mouth every day Metoprolol Tartrate 25 Mg Tablet (Metoprolol tartrate) Isosorbide Mononitrate 120 Mg Tablet Extended Release 24 Hr (Isosorbide mononitrate) ..... Take 1 tablet by mouth once a day take 1 tablet by mouth once daily Nitrolingual 400 Mcg/spray [place],non-aerosol (Nitroglycerin) ..... 1 as needed Plavix 75 Mg Tablet (Clopidogrel) ..... 1 tablet once a day Tuan Ramirez MD [id number],S, B P today: 124/80 P rior BP: 134/71 (06/22/2022) Labs Reviewed: C reat: 0.93 (09/04/2018) C hol: 89 (09/04/2018) HDL: 44 (09/04/2018) LDL: 25 (09/04/2018) H is updated medication list for this problem includes: Amlodipine 10 Mg Tablet (Amlodipine) ..... Take 1 tablet by mouth every day Furosemide 40 Mg Tablet (Furosemide) ..... Take 1 tablet by mouth once a day Metoprolol Tartrate 25 Mg Tablet (Metoprolol tartrate) Spironolactone 25 Mg Tablet (Spironolactone) Dejuan Marxyovany [id number],S, H is updated medication list for this problem includes: Amlodipine 10 Mg Tablet (Amlodipine) ..... Take 1 tablet by mouth every day Furosemide 40 Mg Tablet (Furosemide) ..... Take 1 tablet by mouth once a day Metoprolol Tartrate 25 Mg Tablet (Metoprolol tartrate) Spironolactone 25 Mg Tablet (Spironolactone) Isosorbide Mononitrate 120 Mg Tablet Extended Release 24 Hr (Isosorbide mononitrate) ..... Take 1 tablet by mouth once a day take 1 tablet by mouth once daily Nitrolingual 400 Mcg/spray [place],non-aerosol (Nitroglycerin) ..... 1 as needed Plavix 75 Mg Tablet (Clopidogrel) ..... 1 tablet once a day Dejuan Gray [id number],C, H is updated medication list for this problem includes: Rosuvastatin 20 Mg Tablet (Rosuvastatin) Crestor 20 Mg Tablet (Rosuvastatin) ..... 1 tablet once a day Nanette Han [id number],C, B P today: 134/71 P rior BP: 135/70 (12/22/2021) Labs Reviewed: C reat: 0.93 (09/04/2018) C hol: 89 (09/04/2018) HDL: 44 (09/04/2018) LDL: 25 (09/04/2018) H is updated medication list for this problem includes: Furosemide 40 Mg Tablet (Furosemide) ..... Take 1 tablet by mouth once a day Metoprolol Tartrate 25 Mg Tablet (Metoprolol tartrate) Spironolactone 25 Mg Tablet (Spironolactone) Amlodipine 10 Mg Tablet (Amlodipine) ..... Take 1 tablet by mouth every day Nanette Han [id number],C, H is updated medication list for this problem includes: Metoprolol Tartrate 25 Mg Tablet (Metoprolol tartrate) Plavix 75 Mg Tablet (Clopidogrel) ..... 1 tablet once a day Nanette Han [id number],C,O verzena doing well. No SOB. He cannot afford Jardiance. Stable at CHF class II. Continues current medications. Nanette Han [id number],S, E ncouraged weight loss. Nanette Han [id number],C,T he pt reports improvement of symptoms with Jardiance. He has problems affording the medication and will provide him with an assistance program. He does not want to participate in any studies at this time. Pt denies CP. H is updated medication list for this problem includes: Metoprolol Tartrate 25 Mg Tablet (Metoprolol tartrate) Spironolactone 25 Mg Tablet (Spironolactone) Isosorbide Mononitrate 120 Mg Tablet Extended Release 24 Hr (Isosorbide mononitrate) ..... Take 1 tablet by mouth once a day take 1 tablet by mouth once daily Amlodipine 10 Mg Tablet (Amlodipine) ..... Take 1 tablet by mouth every day Furosemide 40 Mg Tablet (Furosemide) ..... Take 1 tablet by mouth every day Nitrolingual 400 Mcg/spray [place],non-aerosol (Nitroglycerin) ..... 1 as needed Plavix 75 Mg Tablet (Clopidogrel) ..... 1 tablet once a day Nanette Han [id number],C,T he pt reports improvement of symptoms with Jardiance. He has problems affording the medication and will provide him with an assistance program. He does not want to participate in any studies at this time. Pt denies CP. H is updated medication list for this problem includes: Metoprolol Tartrate 25 Mg Tablet (Metoprolol tartrate) Isosorbide Mononitrate 120 Mg Tablet Extended Release 24 Hr (Isosorbide mononitrate) ..... Take 1 tablet by mouth once a day take 1 tablet by mouth once daily Amlodipine 10 Mg Tablet (Amlodipine) ..... Take 1 tablet by mouth every day Nitrolingual 400 Mcg/spray [place],non-aerosol (Nitroglycerin) ..... 1 as needed Plavix 75 Mg Tablet (Clopidogrel) ..... 1 tablet once a day Nanette Han [id number],C, H is updated medication list for this problem includes: Rosuvastatin 20 Mg Tablet (Rosuvastatin) Crestor 20 Mg Tablet (Rosuvastatin) ..... 1 tablet once a day Tuan Ramirez MD [id number],C, B P today: 135/70 P rior BP: 145/67 (11/24/2021) Labs Reviewed: C reat: 0.93 (09/04/2018) C hol: 89 (09/04/2018) HDL: 44 (09/04/2018) LDL: 25 (09/04/2018) H is updated medication list for this problem includes: Metoprolol Tartrate 25 Mg Tablet (Metoprolol tartrate) Spironolactone 25 Mg Tablet (Spironolactone) Amlodipine 10 Mg Tablet (Amlodipine) ..... Take 1 tablet by mouth every day Furosemide 40 Mg Tablet (Furosemide) ..... Take 1 tablet by mouth every day Tuan Ramirez MD [id number],C, Echo in the hospital showed RV dilatation and elevated PA pressure. Today we will start Jardiance 10 mg daily. F/u in one month and consider R/L cardiac cath depending on his sxs. H is updated medication list for this problem includes: Metoprolol Tartrate 25 Mg Tablet (Metoprolol tartrate) Isosorbide Mononitrate 120 Mg Tablet Extended Release 24 Hr (Isosorbide mononitrate) ..... Take 1 tablet by mouth once a day take 1 tablet by mouth once daily Amlodipine 10 Mg Tablet (Amlodipine) ..... Take 1 tablet by mouth every day Nitrolingual 400 Mcg/spray [place],non-aerosol (Nitroglycerin) ..... 1 as needed Plavix 75 Mg Tablet (Clopidogrel) ..... 1 tablet once a day Nanette Han [id number],C, H is updated medication list for this problem includes: Rosuvastatin 20 Mg Tablet (Rosuvastatin) Crestor 20 Mg Tablet (Rosuvastatin) ..... 1 tablet once a day Tuan Ramirez MD [id number],C, B P today: 145/67 P rior BP: 130/60 (04/28/2021) Labs Reviewed: C reat: 0.93 (09/04/2018) C hol: 89 (09/04/2018) HDL: 44 (09/04/2018) LDL: 25 (09/04/2018) H is updated medication list for this problem includes: Metoprolol Tartrate 25 Mg Tablet (Metoprolol tartrate) Spironolactone 25 Mg Tablet (Spironolactone) Amlodipine 10 Mg Tablet (Amlodipine) ..... Take 1 tablet by mouth every day Furosemide 40 Mg Tablet (Furosemide) ..... Take 1 tablet by mouth every day Tuan Ramirez MD [id number],C,T he pt had a recent admission to [facility] due to CHF exacerbation due to HFpEF. He was diuresed and is feeling better. Echo in the hospital showed RV dilatation adn elevated PA pressure. Today we will start Jardiance 10 mg daily. F/u in one month and consider R/L cardiac cath depending on his sxs. Tuan Ramirez MD [id number],S, E ncouraged weight loss. Nanette Han [id number],Nanette Henderson [id number],C, H is updated medication list for this problem includes: Crestor 20 Mg Tablet (Rosuvastatin) ..... 1 tablet once a day Nanette Han [id number],C, B P today: 130/60 P rior BP: 140/72 (02/15/2021) Labs Reviewed: C reat: 0.93 (09/04/2018) C hol: 89 (09/04/2018) HDL: 44 (09/04/2018) LDL: 25 (09/04/2018) H is updated medication list for this problem includes: Furosemide 40 Mg Tablet (Furosemide) ..... Take 1 tablet by mouth every day Amlodipine 10 Mg Tablet (Amlodipine) ..... 1 tablet once a day Nanette Emely [id number],C,N o SOB H is updated medication list for this problem includes: Symbicort 160-4.5 Mcg/actuation Hfa Aerosol Inhaler (Budesonide-formoterol) ..... 2 puff twice a day Proair Hfa 90 Mcg/actuation Hfa Aerosol Inhaler (Albuterol sulfate) ..... As needed Albuterol Sulfate (bulk) Powder (Albuterol sulfate (bulk)) ..... 2 puff twice a day Albuterol Sulfate 2.5 Mg/3 Ml (0.083 %) Solution For Nebulization (Albuterol sulfate) Nanette Emely [id number],C, He continues to complain of leg swelling, though it has improved since starting the Lasix. Nanette Emely [id number],C,P t did not proceed with cardiac cath due to insurance requiring an echo and/or stress test 90 days prior to the cath. He states his CP has resolved and does not want to proceed with any testing at this time. He continues to complain of leg swelling, though it has improved since starting the Lasix. H is updated medication list for this problem includes: Amlodipine 10 Mg Tablet (Amlodipine) ..... 1 tablet once a day Nitrolingual 400 Mcg/spray [place],non-aerosol (Nitroglycerin) ..... 1 as needed Plavix 75 Mg Tablet (Clopidogrel) ..... 1 tablet once a day Isosorbide Mononitrate 120 Mg Tablet Extended Release 24 Hr (Isosorbide mononitrate) ..... Take 1 tablet by mouth once a day Nanette Han [id number],C, H is updated medication list for this problem includes: Crestor 20 Mg Tablet (Rosuvastatin) ..... 1 tablet once a day Tuan Ramirez MD [id number],STuan MD [id number],C, B P today: 140/72 P rior BP: 130/70 (12/04/2020) Labs Reviewed: C reat: 0.93 (09/04/2018) C hol: 89 (09/04/2018) HDL: 44 (09/04/2018) LDL: 25 (09/04/2018) H is updated medication list for this problem includes: Amlodipine 10 Mg Tablet (Amlodipine) ..... 1 tablet once a day Lasix 40 Mg Tablet (Furosemide) ..... Take 1 once a day Tuan Ramirez MD [id number],Brent Kennedy ontinues on Eliquis. Denies CP or SOB today. Tuan Ramirez MD [id number],BrentP t had a recent admission to the [facility] for chest pain and shortness of breath. He has leg swelling worse on the right. 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 BNP during admissionwas 220. In view of his recent symptoms, will proceed to R/L heart cath and venography with IVUS. H is updated medication list for this problem includes: Symbicort 160-4.5 Mcg/actuation Hfa Aerosol Inhaler (Budesonide-formoterol) ..... 2 puff twice a day Proair Hfa 90 Mcg/actuation Hfa Aerosol Inhaler (Albuterol sulfate) ..... As needed Albuterol Sulfate (bulk) Powder (Albuterol sulfate (bulk)) ..... 2 puff twice a day Albuterol Sulfate 2.5 Mg/3 Ml (0.083 %) Solution For Nebulization (Albuterol sulfate) Tuan Ramirez MD [id number],BrentP t had a recent admission to the [facility] for chest pain and shortness of breath. He has leg swelling worse on the right. 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 BNP during admissionwas 220. In view of his recent symptoms, will proceed to R/L heart cath and venography with IVUS. Tuan Ramirez MD [id number],BrentP t had a recent admission to the [facility] for chest pain and shortness of breath. He has leg swelling worse on the right. 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 BNP during admissionwas 220. In view of his recent symptoms, will proceed to R/L heart cath and venography with IVUS. H is updated medication list for this problem includes: Amlodipine 10 Mg Tablet (Amlodipine) ..... 1 tablet once a day Nitrolingual 400 Mcg/spray [place],non-aerosol (Nitroglycerin) ..... 1 as needed Plavix 75 Mg Tablet (Clopidogrel) ..... 1 tablet once a day Isosorbide Mononitrate 120 Mg Tablet Extended Release 24 Hr (Isosorbide mononitrate) ..... Take 1 tablet by mouth once a day Tuan Ramirez MD [id number],C,O n statin H is updated medication list for this problem includes: Crestor 20 Mg Oral Tablet (Rosuvastatin calcium) ..... One tab once daily Nanette Han [id number],C, B P today: 130/70 P rior BP: 140/80 (11/24/2020) Labs Reviewed: C reat: 0.93 (09/04/2018) C hol: 89 (09/04/2018) HDL: 44 (09/04/2018) LDL: 25 (09/04/2018) H is updated medication list for this problem includes: Lasix 40 Mg Oral Tablet (Furosemide) ..... Take one daily Amlodipine Besylate 10 Mg Oral Tablet (Amlodipine besylate) ..... One tab. daily Nanette Han [id number],C,N o SOB. H is updated medication list for this problem includes: Proair Hfa 108 (90 Base) Mcg/act Inhalation Aerosol Solution (Albuterol sulfate) ..... As needed Albuterol Sulfate Powder (Albuterol sulfate) ..... 2 puffs twice daily Symbicort Aerosol (Budesonide-formoterol fumarate aero) ..... 2 puffs twice daily Nanette Han [id number],C,T he pt developed nausea and vomitting after taking Ranexa. He does not have any chest pain at this time, so we will stop Ranexa. If he has any more chest pain, we will consider a cardiac cath. The following medications were removed from the medication list: Ranexa 1000 Mg Oral Tablet Extended Release 12 Hour (Ranolazine) ..... One tab. twice daily for chronic angina His updated medication list for this problem includes: Plavix 75 Mg Oral Tablet (Clopidogrel bisulfate) ..... One tab. daily Isosorbide Mononitrate Er 120 Mg Oral Tablet Extended Release 24 Hour (Isosorbide mononitrate) ..... Take 1 tablet by mouth once daily Amlodipine Besylate 10 Mg Oral Tablet (Amlodipine besylate) ..... One tab. daily Nitrolingual 0.4 Mg/spray Translingual Solution (Nitroglycerin) ..... Apply one spray inside the mouth every 5 minutes for 3 total doses as needed for chest pain. if no relief after 3rd dose, go to er Nanette Han [id number],C, Leg swelling has improved, will obtain venous duplex and consider venoraphy w/ IVUS and Venaseal. He was also not able to withstand support stockings. Nanette Han [id number],N,P t complains of bilateral leg swelling, denies any leg pain. I recommended compression stockings and will order a venous doppler. Will discontinue Amlodipine. PCP is going to put him on Lasix, I told him to take only 20 or 40 mg. Vanessa Judge NP Cardiology:check ech o to assess Aortic root and ascending aorta dimensions Tuan Ramirez MD Cardiology:check car otid duplex Tuan Ramirez MD Cardiology: H is updated medication list for this problem includes: Rosuvastatin 20 Mg Tablet (Rosuvastatin) Crestor 20 Mg Tablet (Rosuvastatin) ..... 1 tablet once a day Tuan Ramirez MD Cardiology:stable c ontinue medical therapy Tuan Ramirez MD Cardiology:in afib o n eliquis for oac n eeds echo to assess LA index and volume Tuan Ramirez MD Cardiology Go Mack Cardiology:Appears c ompensated o julia to use lasix prn for SOB Go Mack Cardiology: H is updated medication list for this problem includes: Symbicort 160-4.5 Mcg/actuation Hfa Aerosol Inhaler (Budesonide-formoterol) ..... 2 puff twice a day Proair Hfa 90 Mcg/actuation Hfa Aerosol Inhaler (Albuterol sulfate) ..... As needed Albuterol Sulfate (bulk) Powder (Albuterol sulfate (bulk)) ..... 2 puff twice a day Albuterol Sulfate 2.5 Mg/3 Ml (0.083 %) Solution For Nebulization (Albuterol sulfate) Paulo Chester Cardiology:No CP or SOB Paulo shaffer Cardiology: B P today: 117/65 P rior BP: 111/74 (05/15/2023) Labs Reviewed: C reat: 0.93 (09/04/2018) C hol: 89 (09/04/2018) HDL: 44 (09/04/2018) LDL: 25 (09/04/2018) T (09/04/2018) His updated medication list for this problem includes: Furosemide 40 Mg Tablet (Furosemide) ..... Take 1 tablet by mouth every day Amlodipine 10 Mg Tablet (Amlodipine) ..... Take 1 tablet by mouth every day Metoprolol Tartrate 25 Mg Tablet (Metoprolol tartrate) Spironolactone 25 Mg Tablet (Spironolactone) Paulo Chester Cardiology: H is updated medication list for this problem includes: Rosuvastatin 20 Mg Tablet (Rosuvastatin) Crestor 20 Mg Tablet (Rosuvastatin) ..... 1 tablet once a day Paulo Chester Cardiology:. NO CP o r SOB. Inpefa was stopped by corrections unit supervisor becuase of risk of UTI. WIll continue current medications H is updated medication list for this problem includes: Furosemide 40 Mg Tablet (Furosemide) ..... Take 1 tablet by mouth every day Amlodipine 10 Mg Tablet (Amlodipine) ..... Take 1 tablet by mouth every day Metoprolol Tartrate 25 Mg Tablet (Metoprolol tartrate) Spironolactone 25 Mg Tablet (Spironolactone) Nitrolingual 400 Mcg/spray [place],non-aerosol (Nitroglycerin) ..... 1 as needed Plavix 75 Mg Tablet (Clopidogrel) ..... 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 NO CP or SOB. Inpefa was stopped by corrections unit supervisor sanjuanita of risk of UTI. WIll continue current medications. LDL well controlled. Paulo Chester Cardiology: B P today: 111/74 P rior BP: 142/79 (03/13/2023) Labs Reviewed: C reat: 0.93 (09/04/2018) C hol: 89 (09/04/2018) HDL: 44 (09/04/2018) LDL: 25 (09/04/2018) T (09/04/2018) His updated medication list for this problem includes: Furosemide 40 Mg Tablet (Furosemide) ..... Take 1 tablet by mouth every day Amlodipine 10 Mg Tablet (Amlodipine) ..... Take 1 tablet by mouth every day Metoprolol Tartrate 25 Mg Tablet (Metoprolol tartrate) Spironolactone 25 Mg Tablet (Spironolactone) Paulo Chester Cardiology: His updated medication list for this problem includes: Symbicort 160-4.5 Mcg/actuation Hfa Aerosol Inhaler (Budesonide-formoterol) ..... 2 puff twice a day Proair Hfa 90 Mcg/actuation Hfa Aerosol Inhaler (Albuterol sulfate) ..... As needed Albuterol Sulfate (bulk) Powder (Albuterol sulfate (bulk)) ..... 2 puff twice a day Albuterol Sulfate 2.5 Mg/3 Ml (0.083 %) Solution For Nebulization (Albuterol sulfate) Paulo Chester Cardiology: H is updated medication list for this problem includes: Rosuvastatin 20 Mg Tablet (Rosuvastatin) Crestor 20 Mg Tablet (Rosuvastatin) ..... 1 tablet once a day Paulo Chester Cardiology: H is updated medication list for this problem includes: Furosemide 40 Mg Tablet (Furosemide) ..... Take 1 tablet by mouth every day Amlodipine 10 Mg Tablet (Amlodipine) ..... Take 1 tablet by mouth every day Metoprolol Tartrate 25 Mg Tablet (Metoprolol tartrate) Spironolactone 25 Mg Tablet (Spironolactone) Nitrolingual 400 Mcg/spray [place],non-aerosol (Nitroglycerin) ..... 1 as needed Plavix 75 Mg Tablet (Clopidogrel) ..... 1 tablet once a day Paulo Chester Cardiology:Pt presjenelle hitchcock with myocardial infarction, was found to have severe stenosis of mid LAD. He underwent stenting and reports significant improvement of his sx. Apparently he is a candidate for spine injections by pain management. At this time he cannot stop aspirin and plavix, but he can hold eliquis if needed. Paulo Chester Cardiology: H is updated medication list for this problem includes: Rosuvastatin 20 Mg Tablet (Rosuvastatin) Crestor 20 Mg Tablet (Rosuvastatin) ..... 1 tablet once a day Tuan Ramirez MD Cardiology Tuan Ramirez MD Cardiology:will obtain proBNP Gi ale Ramirez MD Cardiology: B P today: 142/79 P rior BP: 140/73 (12/12/2022) Labs Reviewed: C reat: 0.93 (09/04/2018) C hol: 89 (09/04/2018) HDL: 44 (09/04/2018) LDL: 25 (09/04/2018) His updated medication list for this problem includes: Amlodipine 10 Mg Tablet (Amlodipine) ..... Take 1 tablet by mouth every day Furosemide 40 Mg Tablet (Furosemide) ..... Take 1 tablet by mouth once a day Metoprolol Tartrate 25 Mg Tablet (Metoprolol tartrate) Spironolactone 25 Mg Tablet (Spironolactone) Tuan Ramirez MD Cardiology:not in Af ib H is updated medication list for this problem includes: Metoprolol Tartrate 25 Mg Tablet (Metoprolol tartrate) Plavix 75 Mg Tablet (Clopidogrel) ..... 1 tablet once a day Tuan Ramirez MD Cardiology:no CP H is updated medication list for this problem includes: Amlodipine 10 Mg Tablet (Amlodipine) ..... Take 1 tablet by mouth every day Metoprolol Tartrate 25 Mg Tablet (Metoprolol tartrate) Isosorbide Mononitrate 120 Mg Tablet Extended Release 24 Hr (Isosorbide mononitrate) ..... Take 1 tablet by mouth once a day take 1 tablet by mouth once daily Nitrolingual 400 Mcg/spray [place],non-aerosol (Nitroglycerin) ..... 1 as needed Plavix 75 Mg Tablet (Clopidogrel) ..... 1 tablet once a day Tuan Ramirez MD Cardiology:increased confusion w ill hold inpefa for 1 week to see if confusion improves o btain UACR Tuan Ramirez MD Cardiology:SOB impro erica. Pt's reports increased confusion. We will obtain, UACR, BMp and proBNP. She would like to hold the inpefa for a week to see if the confusion improves. We will obtain f/u echo and f/u in 3 months H is updated medication list for this problem includes: Amlodipine 10 Mg Tablet (Amlodipine) ..... Take 1 tablet by mouth every day Furosemide 40 Mg Tablet (Furosemide) ..... Take 1 tablet by mouth once a day Metoprolol Tartrate 25 Mg Tablet (Metoprolol tartrate) Spironolactone 25 Mg Tablet (Spironolactone) Isosorbide Mononitrate 120 Mg Tablet Extended Release 24 Hr (Isosorbide mononitrate) ..... Take 1 tablet by mouth once a day take 1 tablet by mouth once daily Nitrolingual 400 Mcg/spray [place],non-aerosol (Nitroglycerin) ..... 1 as needed Plavix 75 Mg Tablet (Clopidogrel) ..... 1 tablet once a day Tuan Ramirez MD Cardiology: Bina holleyd his admission from last year with NSTEMI. Tuan Ramirez MD Cardiology: C HF class II His updated medication list for this problem includes: Amlodipine 10 Mg Tablet (Amlodipine) ..... Take 1 tablet by mouth every day Furosemide 40 Mg Tablet (Furosemide) ..... Take 1 tablet by mouth once a day Metoprolol Tartrate 25 Mg Tablet (Metoprolol tartrate) Spironolactone 25 Mg Tablet (Spironolactone) Isosorbide Mononitrate 120 Mg Tablet Extended Release 24 Hr (Isosorbide mononitrate) ..... Take 1 tablet by mouth once a day take 1 tablet by mouth once daily Nitrolingual 400 Mcg/spray [place],non-aerosol (Nitroglycerin) ..... 1 as needed Plavix 75 Mg Tablet (Clopidogrel) ..... 1 tablet once a day Tuan Ramirez MD Cardiology: P atient is wheezing and short of breath, CHF class II Tuan Ramirez MD Cardiology: N ot in AFib. H is updated medication list for this problem includes: Metoprolol Tartrate 25 Mg Tablet (Metoprolol tartrate) Plavix 75 Mg Tablet (Clopidogrel) ..... 1 tablet once a day Tuan Ramirez MD Cardiology: B P today: 140/73 P rior BP: 124/80 (10/05/2022) Labs Reviewed: C reat: 0.93 (09/04/2018) C hol: 89 (09/04/2018) HDL: 44 (09/04/2018) LDL: 25 (09/04/2018) His updated medication list for this problem includes: Amlodipine 10 Mg Tablet (Amlodipine) ..... Take 1 tablet by mouth every day Furosemide 40 Mg Tablet (Furosemide) ..... Take 1 tablet by mouth once a day Metoprolol Tartrate 25 Mg Tablet (Metoprolol tartrate) Spironolactone 25 Mg Tablet (Spironolactone) Tuan Ramirez MD Cardiology: N o chest pain. His updated medication list for this problem includes: Amlodipine 10 Mg Tablet (Amlodipine) ..... Take 1 tablet by mouth every day Metoprolol Tartrate 25 Mg Tablet (Metoprolol tartrate) Isosorbide Mononitrate 120 Mg Tablet Extended Release 24 Hr (Isosorbide mononitrate) ..... Take 1 tablet by mouth once a day take 1 tablet by mouth once daily Nitrolingual 400 Mcg/spray [place],non-aerosol (Nitroglycerin) ..... 1 as needed Plavix 75 Mg Tablet (Clopidogrel) ..... 1 tablet once a day Tuan Ramirez MD Cardiology: B P today: 124/80 P rior BP: 134/71 (06/22/2022) Labs Reviewed: C reat: 0.93 (09/04/2018) C hol: 89 (09/04/2018) HDL: 44 (09/04/2018) LDL: 25 (09/04/2018) His updated medication list for this problem includes: Amlodipine 10 Mg Tablet (Amlodipine) ..... Take 1 tablet by mouth every day Furosemide 40 Mg Tablet (Furosemide) ..... Take 1 tablet by mouth once a day Metoprolol Tartrate 25 Mg Tablet (Metoprolol tartrate) Spironolactone 25 Mg Tablet (Spironolactone) Dejuan Gray Cardiology: H is updated medication list for this problem includes: Amlodipine 10 Mg Tablet (Amlodipine) ..... Take 1 tablet by mouth every day Furosemide 40 Mg Tablet (Furosemide) ..... Take 1 tablet by mouth once a day Metoprolol Tartrate 25 Mg Tablet (Metoprolol tartrate) Spironolactone 25 Mg Tablet (Spironolactone) Isosorbide Mononitrate 120 Mg Tablet Extended Release 24 Hr (Isosorbide mononitrate) ..... Take 1 tablet by mouth once a day take 1 tablet by mouth once daily Nitrolingual 400 Mcg/spray [place],non-aerosol (Nitroglycerin) ..... 1 as needed Plavix 75 Mg Tablet (Clopidogrel) ..... 1 tablet once a day Dejuan Gray Cardiology: H is updated medication list for this problem includes: Rosuvastatin 20 Mg Tablet (Rosuvastatin) Crestor 20 Mg Tablet (Rosuvastatin) ..... 1 tablet once a day Nanette Han Cardiology: B P today: 134/71 P rior BP: 135/70 (12/22/2021) Labs Reviewed: C reat: 0.93 (09/04/2018) C hol: 89 (09/04/2018) HDL: 44 (09/04/2018) LDL: 25 (09/04/2018) His updated medication list for this problem includes: Furosemide 40 Mg Tablet (Furosemide) ..... Take 1 tablet by mouth once a day Metoprolol Tartrate 25 Mg Tablet (Metoprolol tartrate) Spironolactone 25 Mg Tablet (Spironolactone) Amlodipine 10 Mg Tablet (Amlodipine) ..... Take 1 tablet by mouth every day Nanette Han Cardiology: H is updated medication list for this problem includes: Metoprolol Tartrate 25 Mg Tablet (Metoprolol tartrate) Plavix 75 Mg Tablet (Clopidogrel) ..... 1 tablet once a day Nanette Han Cardiology:Overall d oing well. No SOB. He cannot afford Jardiance. Stable at CHF class II. Continues current medications. Nanette Han Cardiology: E ncouraged weight loss. Nanette Han Cardiology:The pt re ports improvement of symptoms with Jardiance. He has problems affording the medication and will provide him with an assistance program. He does not want to participate in any studies at this time. Pt denies CP. H is updated medication list for this problem includes: Metoprolol Tartrate 25 Mg Tablet (Metoprolol tartrate) Spironolactone 25 Mg Tablet (Spironolactone) Isosorbide Mononitrate 120 Mg Tablet Extended Release 24 Hr (Isosorbide mononitrate) ..... Take 1 tablet by mouth once a day take 1 tablet by mouth once daily Amlodipine 10 Mg Tablet (Amlodipine) ..... Take 1 tablet by mouth every day Furosemide 40 Mg Tablet (Furosemide) ..... Take 1 tablet by mouth every day Nitrolingual 400 Mcg/spray [place],non-aerosol (Nitroglycerin) ..... 1 as needed Plavix 75 Mg Tablet (Clopidogrel) ..... 1 tablet once a day Nanette Allisonmeyer Cardiology:The pt re ports improvement of symptoms with Jardiance. He has problems affording the medication and will provide him with an assistance program. He does not want to participate in any studies at this time. Pt denies CP. H is updated medication list for this problem includes: Metoprolol Tartrate 25 Mg Tablet (Metoprolol tartrate) Isosorbide Mononitrate 120 Mg Tablet Extended Release 24 Hr (Isosorbide mononitrate) ..... Take 1 tablet by mouth once a day take 1 tablet by mouth once daily Amlodipine 10 Mg Tablet (Amlodipine) ..... Take 1 tablet by mouth every day Nitrolingual 400 Mcg/spray [place],non-aerosol (Nitroglycerin) ..... 1 as needed Plavix 75 Mg Tablet (Clopidogrel) ..... 1 tablet once a day Nanette Han Cardiology: H is updated medication list for this problem includes: Rosuvastatin 20 Mg Tablet (Rosuvastatin) Crestor 20 Mg Tablet (Rosuvastatin) ..... 1 tablet once a day Tuan Ramirez MD Cardiology: B P today: 135/70 P rior BP: 145/67 (11/24/2021) Labs Reviewed: C reat: 0.93 (09/04/2018) C hol: 89 (09/04/2018) HDL: 44 (09/04/2018) LDL: 25 (09/04/2018) His updated medication list for this problem includes: Metoprolol Tartrate 25 Mg Tablet (Metoprolol tartrate) Spironolactone 25 Mg Tablet (Spironolactone) Amlodipine 10 Mg Tablet (Amlodipine) ..... Take 1 tablet by mouth every day Furosemide 40 Mg Tablet (Furosemide) ..... Take 1 tablet by mouth every day Tuan Ramirez MD Cardiology: Echo in the hospital showed RV dilatation and elevated PA pressure. Today we will start Jardiance 10 mg daily. F/u in one month and consider R/L cardiac cath depending on his sxs. H is updated medication list for this problem includes: Metoprolol Tartrate 25 Mg Tablet (Metoprolol tartrate) Isosorbide Mononitrate 120 Mg Tablet Extended Release 24 Hr (Isosorbide mononitrate) ..... Take 1 tablet by mouth once a day take 1 tablet by mouth once daily Amlodipine 10 Mg Tablet (Amlodipine) ..... Take 1 tablet by mouth every day Nitrolingual 400 Mcg/spray [place],non-aerosol (Nitroglycerin) ..... 1 as needed Plavix 75 Mg Tablet (Clopidogrel) ..... 1 tablet once a day Nanette Han Cardiology: H is updated medication list for this problem includes: Rosuvastatin 20 Mg Tablet (Rosuvastatin) Crestor 20 Mg Tablet (Rosuvastatin) ..... 1 tablet once a day Tuan Ramirez MD Cardiology: B P today: 145/67 P rior BP: 130/60 (04/28/2021) Labs Reviewed: C reat: 0.93 (09/04/2018) C hol: 89 (09/04/2018) HDL: 44 (09/04/2018) LDL: 25 (09/04/2018) His updated medication list for this problem includes: Metoprolol Tartrate 25 Mg Tablet (Metoprolol tartrate) Spironolactone 25 Mg Tablet (Spironolactone) Amlodipine 10 Mg Tablet (Amlodipine) ..... Take 1 tablet by mouth every day Furosemide 40 Mg Tablet (Furosemide) ..... Take 1 tablet by mouth every day Tuan Ramirez MD Cardiology:The pt esteban d a recent admission to [facility] due to CHF exacerbation due to HFpEF. He was diuresed and is feeling better. Echo in the hospital showed RV dilatation adn elevated PA pressure. Today we will start Jardiance 10 mg daily. F/u in one month and consider R/L cardiac cath depending on his sxs. Tuan Ramirez MD Cardiology: E ncouraged weight loss. Nanette Han Cardiology Nanette Dumont eyebina Cardiology: H is updated medication list for this problem includes: Crestor 20 Mg Tablet (Rosuvastatin) ..... 1 tablet once a day Nanette Han Cardiology: B P today: 130/60 P rior BP: 140/72 (02/15/2021) Labs Reviewed: C reat: 0.93 (09/04/2018) C hol: 89 (09/04/2018) HDL: 44 (09/04/2018) LDL: 25 (09/04/2018) His updated medication list for this problem includes: Furosemide 40 Mg Tablet (Furosemide) ..... Take 1 tablet by mouth every day Amlodipine 10 Mg Tablet (Amlodipine) ..... 1 tablet once a day Nanette Han Cardiology:No SOB H is updated medication list for this problem includes: Symbicort 160-4.5 Mcg/actuation Hfa Aerosol Inhaler (Budesonide-formoterol) ..... 2 puff twice a day Proair Hfa 90 Mcg/actuation Hfa Aerosol Inhaler (Albuterol sulfate) ..... As needed Albuterol Sulfate (bulk) Powder (Albuterol sulfate (bulk)) ..... 2 puff twice a day Albuterol Sulfate 2.5 Mg/3 Ml (0.083 %) Solution For Nebulization (Albuterol sulfate) Nanette Han Cardiology: He tk nues to complain of leg swelling, though it has improved since starting the Lasix. Nanette Han Cardiology:Pt did no t proceed with cardiac cath due to insurance requiring an echo and/or stress test 90 days prior to the cath. He states his CP has resolved and does not want to proceed with any testing at this time. He continues to complain of leg swelling, though it has improved since starting the Lasix. H is updated medication list for this problem includes: Amlodipine 10 Mg Tablet (Amlodipine) ..... 1 tablet once a day Nitrolingual 400 Mcg/spray [place],non-aerosol (Nitroglycerin) ..... 1 as needed Plavix 75 Mg Tablet (Clopidogrel) ..... 1 tablet once a day Isosorbide Mononitrate 120 Mg Tablet Extended Release 24 Hr (Isosorbide mononitrate) ..... Take 1 tablet by mouth once a day Nanette Han Cardiology: H is updated medication list for this problem includes: Crestor 20 Mg Tablet (Rosuvastatin) ..... 1 tablet once a day Tuan Ramirez MD Cardiology Tuan Ramirez MD Cardiology: B P today: 140/72 P rior BP: 130/70 (12/04/2020) Labs Reviewed: C reat: 0.93 (09/04/2018) C hol: 89 (09/04/2018) HDL: 44 (09/04/2018) LDL: 25 (09/04/2018) His updated medication list for this problem includes: Amlodipine 10 Mg Tablet (Amlodipine) ..... 1 tablet once a day Lasix 40 Mg Tablet (Furosemide) ..... Take 1 once a day Tuan Ramirez MD Cardiology:Continues on Eliquis. Denies CP or SOB today. Tuan Ramirez MD Cardiology:Pt had a recent admission to the [facility] for chest pain and shortness of breath. He has leg swelling worse on the right. 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 BNP during admissionwas 220. In view of his recent symptoms, will proceed to R/L heart cath and venography with IVUS. H is updated medication list for this problem includes: Symbicort 160-4.5 Mcg/actuation Hfa Aerosol Inhaler (Budesonide-formoterol) ..... 2 puff twice a day Proair Hfa 90 Mcg/actuation Hfa Aerosol Inhaler (Albuterol sulfate) ..... As needed Albuterol Sulfate (bulk) Powder (Albuterol sulfate (bulk)) ..... 2 puff twice a day Albuterol Sulfate 2.5 Mg/3 Ml (0.083 %) Solution For Nebulization (Albuterol sulfate) Tuan Ramirez MD Cardiology:Pt had a recent admission to the [facility] for chest pain and shortness of breath. He has leg swelling worse on the right. 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 BNP during admissionwas 220. In view of his recent symptoms, will proceed to R/L heart cath and venography with IVUS. Tuan Ramirez MD Cardiology:Pt had a recent admission to the [facility] for chest pain and shortness of breath. He has leg swelling worse on the right. 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 BNP during admissionwas 220. In view of his recent symptoms, will proceed to R/L heart cath and venography with IVUS. H is updated medication list for this problem includes: Amlodipine 10 Mg Tablet (Amlodipine) ..... 1 tablet once a day Nitrolingual 400 Mcg/spray [place],non-aerosol (Nitroglycerin) ..... 1 as needed Plavix 75 Mg Tablet (Clopidogrel) ..... 1 tablet once a day Isosorbide Mononitrate 120 Mg Tablet Extended Release 24 Hr (Isosorbide mononitrate) ..... Take 1 tablet by mouth once a day Tuan Ramirez MD Cardiology:On statin H is updated medication list for this problem includes: Crestor 20 Mg Oral Tablet (Rosuvastatin calcium) ..... One tab once daily Nanette Han Cardiology: B P today: 130/70 P rior BP: 140/80 (11/24/2020) Labs Reviewed: C reat: 0.93 (09/04/2018) C hol: 89 (09/04/2018) HDL: 44 (09/04/2018) LDL: 25 (09/04/2018) His updated medication list for this problem includes: Lasix 40 Mg Oral Tablet (Furosemide) ..... Take one daily Amlodipine Besylate 10 Mg Oral Tablet (Amlodipine besylate) ..... One tab. daily Nanette Han Cardiology:No SOB. H is updated medication list for this problem includes: Proair Hfa 108 (90 Base) Mcg/act Inhalation Aerosol Solution (Albuterol sulfate) ..... As needed Albuterol Sulfate Powder (Albuterol sulfate) ..... 2 puffs twice daily Symbicort Aerosol (Budesonide-formoterol fumarate aero) ..... 2 puffs twice daily Nanette Han Cardiology:The pt de veloped nausea and vomitting after taking Ranexa. He does not have any chest pain at this time, so we will stop Ranexa. If he has any more chest pain, we will consider a cardiac cath. The following medications were removed from the medication list: Ranexa 1000 Mg Oral Tablet Extended Release 12 Hour (Ranolazine) ..... One tab. twice daily for chronic angina & #13;His updated medication list for this problem includes: Plavix 75 Mg Oral Tablet (Clopidogrel bisulfate) ..... One tab. daily Isosorbide Mononitrate Er 120 Mg Oral Tablet Extended Release 24 Hour (Isosorbide mononitrate) ..... Take 1 tablet by mouth once daily Amlodipine Besylate 10 Mg Oral Tablet (Amlodipine besylate) ..... One tab. daily Nitrolingual 0.4 Mg/spray Translingual Solution (Nitroglycerin) ..... Apply one spray inside the mouth every 5 minutes for 3 total doses as needed for chest pain. if no relief after 3rd dose, go to er Nanette Han Cardiology: Leg swel ling has improved, will obtain venous duplex and consider venoraphy w/ IVUS and Venaseal. He was also not able to withstand support stockings. Nanette Han Cardiology:Pt compla ins of bilateral leg swelling, denies any leg pain. I recommended compression stockings and will order a venous doppler. Will discontinue Amlodipine. PCP is going to put him on Lasix, I told him to take only 20 or 40 mg. Vanessa Judge [employer] Cardiology:Advised p t to be careful to not fall, particularly when taking Plavix in addition to Eliquis. Heriberto Ott Cardiology:His [facility] ed medication list for this problem includes: Crestor 20 Mg Oral Tablet (Rosuvastatin calcium) ..... One tab once daily Heriberto Ott Cardiology:He could not tolerate Losartan due to nausea. Continues on Amlodipine. BP today: 140/68 P rior BP: 150/80 (07/08/2020) The following medications were removed from the medication list: Losartan Potassium 50 Mg Oral Tablet (Losartan potassium) ..... Take one tablet daily His updated medication list for this problem includes: Amlodipine Besylate 10 Mg Oral Tablet (Amlodipine besylate) ..... One tab. daily [facility] Cardiology:Echo show ed normal EF. Holter monitor showed chronic AFib with rare PVC's. Otherwise feels well and denies chest pain, SOB, leg swelling, palpitations, dizziness or syncope. He prefers to stay on Plavix in addition to Eliquis. Beta blockers previously stopped due to bradycardia. His updated medication list for this problem includes: Eliquis 5 Mg Oral Tablet (Apixaban) .... 1 tab po twice daily [facility] Cardiology:Echo show ed normal EF. He could not tolerate Losartan due to nausea. Otherwise feels well and denies chest pain, SOB, leg swelling, palpitations, dizziness or syncope. His updated medication list for this problem includes: Plavix 75 Mg Oral Tablet (Clopidogrel bisulfate) ..... One tab. daily Isosorbide Mononitrate Er 120 Mg Oral Tablet Extended Release 24 Hour (Isosorbide mononitrate) ..... Take 1 tablet by mouth once daily Amlodipine Besylate 10 Mg Oral Tablet (Amlodipine besylate) ..... One tab. daily Nitrolingual 0.4 Mg/spray Translingual Solution (Nitroglycerin) ..... Apply one spray inside the mouth every 5 minutes for 3 total doses as needed for chest pain. if no relief after 3rd dose, go to er [facility] Cardiology Follow up : H is updated medication list for this problem includes: Crestor 20 Mg Oral Tablet (Rosuvastatin calcium) ..... One tab once daily C HOL: 89 (09/04/2018) LDL: 25 (09/04/2018) HDL: 44 (09/04/2018) Don Hermosillo MD Cardiology Follow up Don barillas MD Cardiology Follow up Don barillas MD Cardiology Follow up Don barillas MD Cardiology:Encouraged weight los s. [facility] Cardiology Heriberto Birch Cardiology:His updat ed medication list for this problem includes: Crestor 20 Mg Oral Tablet (Rosuvastatin calcium) ..... One tab once daily [facility] Cardiology:He had a cough which resolved after stopping Ramipril. BP is elevated today. We will increase Amlodipine from 5mg to 10mg daily. Will obtain a f/u echo. BP today: 165/91 P rior BP: 134/70 (05/01/2019) Labs Reviewed: C reat: 0.93 (09/04/2018) The following medications were removed from the medication list: Altace 10 Mg Oral Capsule (Ramipril) ..... Take one pill a day His updated medication list for this problem includes: Amlodipine Besylate 10 Mg Oral Tablet (Amlodipine besylate) ..... One tab. daily [facility] Cardiology:No palpit ations. His updated medication list for this problem includes: Eliquis 5 Mg Oral Tablet (Apixaban) .... 1 tab po twice daily [facility] Cardiology:Due for f /u. Orders: C T Chest without contrast ([id number]) [facility] Cardiology:Reveiwed his admission from last year with NSTEMI. [facility] Cardiology:Denies ch est pain or SOB. Will obtain f/u echo. The following medications were stopped due to a cough: Altace 10 Mg Oral Capsule (Ramipril) ..... Take one pill a day His updated medication list for this problem includes: Isosorb [place] Er 120mg Tab (Isosorbide mononitrate) ..... Take 1 tablet by mouth once daily Plavix 75 Mg Oral Tablet (Clopidogrel bisulfate) ..... One tab. daily Amlodipine Besylate 10 Mg Oral Tablet (Amlodipine besylate) ..... One tab. daily Nitrolingual 0.4 Mg/spray Translingual Solution (Nitroglycerin) ..... Apply one spray inside the mouth every 5 minutes for 3 total doses as needed for chest pain. if no relief after 3rd dose, go to er Aspirin Adult Low Dose 81 Mg Oral Tablet Delayed Release (Aspirin) ..... One tab by mouth daily [facility] follow up :His updated medication list for this problem includes: Eliquis 5 Mg Oral Tablet (Apixaban) .... 1 tab po twice daily [facility] Cardiology hospital follow up :Due for f/u CT before next appt. [facility] hospital follow up :His updated medication list for this problem includes: Crestor 20 Mg Oral Tablet (Rosuvastatin calcium) ..... One tab once daily [facility] hospital follow up :BP today: 134/70 P rior BP: 110/58 (03/01/2019) His updated medication list for this problem includes: Amlodipine Besylate 5 Mg Oral Tablet (Amlodipine besylate) ..... One tab. daily Altace 10 Mg Oral Capsule (Ramipril) ..... Take one pill a day [facility] hospital follow up :Pt had a recent admission to [facility] for chest pain and ruled in for NSTEMI. Cardiac cath showed 90% in-stent restenosis of the LAD, which was stented. Pt reports his angina has resolved. [facility] follow up :Pt had a recent admission to [facility] for chest pain and ruled in for NSTEMI. Cardiac cath showed 90% in-stent restenosis of the LAD, which was stented. Pt reports his angina has resolved. His updated medication list for this problem includes: Isosorb [place] Er 120mg Tab (Isosorbide mononitrate) ..... Take 1 tablet by mouth once daily Plavix 75 Mg Oral Tablet (Clopidogrel bisulfate) ..... One tab. daily Amlodipine Besylate 5 Mg Oral Tablet (Amlodipine besylate) ..... One tab. daily Nitrolingual 0.4 Mg/spray Translingual Solution (Nitroglycerin) ..... Apply one spray inside the mouth every 5 minutes for 3 total doses as needed for chest pain. if no relief after 3rd dose, go to er Aspirin Adult Low Dose 81 Mg Oral Tablet Delayed Release (Aspirin) ..... One tab by mouth daily Altace 10 Mg Oral Capsule (Ramipril) ..... Take one pill a day [facility] Cardiology:No palpitations. On E liquis. [facility] Cardiology:His updat ed medication list for this problem includes: Crestor 20 Mg Oral Tablet (Rosuvastatin calcium) ..... One tab once daily [facility] Cardiology:BP today: 110/58 P rior BP: 142/70 (10/10/2018) His updated medication list for this problem includes: Amlodipine Besylate 5 Mg Oral Tablet (Amlodipine besylate) ..... One tab. daily Altace 10 Mg Oral Capsule (Ramipril) ..... Take one pill a day [facility] Cardiology:He compla ins of increasing frequency of angina. He does not want to have cardiac cath at this time, but he will monitor his symptoms and let us know if they get worse. [facility] Cardiology:He compla ins of increasing frequency of angina. He does not want to have cardiac cath at this time, but he will monitor his symptoms and let us know if they get worse. His updated medication list for this problem includes: Isosorb [place] Er 120mg Tab (Isosorbide mononitrate) ..... Take 1 tablet by mouth once daily Plavix 75 Mg Oral Tablet (Clopidogrel bisulfate) ..... One tab. daily Amlodipine Besylate 5 Mg Oral Tablet (Amlodipine besylate) ..... One tab. daily Nitrolingual 0.4 Mg/spray Translingual Solution (Nitroglycerin) ..... Apply one spray inside the mouth every 5 minutes for 3 total doses as needed for chest pain. if no relief after 3rd dose, go to er Aspirin Adult Low Dose 81 Mg Oral Tablet Delayed Release (Aspirin) ..... One tab by mouth daily Altace 10 Mg Oral Capsule (Ramipril) ..... Take one pill a day [facility] Cardiology:Pt had a fall and CT was performed and pulmonary nodules were suspected. 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 Will obtain an echo and f/u CT in 6 months. We will monitor the size of the aneurysmal dilatation and treat as needed. Heriberto [facility] Cardiology:No palpitations. On E liquis. Heriberto [facility] Cardiology Heriberto Birch Cardiology:CHOL: 123 (02/22/2018) LDL: 67 (02/22/2018) HDL: 33 (02/22/2018) T (02/22/2018) [facility] Cardiology:BP today: 142/70 P rior BP: 142/80 (03/26/2018) His updated medication list for this problem includes: Amlodipine Besylate 5 Mg Oral Tablet (Amlodipine besylate) ..... One tab. daily Altace 10 Mg Oral Capsule (Ramipril) ..... Take one pill a day [facility] Cardiology:No chest pain. His updated medication list for this problem includes: Isosorbide Mononitrate Er 120 Mg Oral Tablet Extended Release 24 Hour (Isosorbide mononitrate) ..... One tablet daily Plavix 75 Mg Oral Tablet (Clopidogrel bisulfate) ..... One tab. daily Amlodipine Besylate 5 Mg Oral Tablet (Amlodipine besylate) ..... One tab. daily Nitrolingual 0.4 Mg/spray Translingual Solution (Nitroglycerin) ..... Apply one spray inside the mouth every 5 minutes for 3 total doses as needed for chest pain. if no relief after 3rd dose, go to er Aspirin Adult Low Dose 81 Mg Oral Tablet Delayed Release (Aspirin) ..... One tab by mouth daily Altace 10 Mg Oral Capsule (Ramipril) ..... Take one pill a day [facility] hospital follow up:LDL: 90 (07/28/2017) His updated medication list for this problem includes: Fenofibrate 48 Mg Oral Tablet (Fenofibrate) ..... Once a day [facility] follow up:BP today: 142/80 P rior BP: 138/70 (12/20/2017) His updated medication list for this problem includes: Amlodipine Besylate 5 Mg Oral Tablet (Amlodipine besylate) ..... One tab. daily Altace 10 Mg Oral Capsule (Ramipril) ..... Take one pill a day [facility] follow up:His updated medication list for this problem includes: Isosorbide Mononitrate Er 120 Mg Oral Tablet Extended Release 24 Hour (Isosorbide mononitrate) ..... One tablet daily Plavix 75 Mg Oral Tablet (Clopidogrel bisulfate) ..... One tab. daily Amlodipine Besylate 5 Mg Oral Tablet (Amlodipine besylate) ..... One tab. daily Nitrolingual 0.4 Mg/spray Translingual Solution (Nitroglycerin) ..... Apply one spray inside the mouth every 5 minutes for 3 total doses as needed for chest pain. if no relief after 3rd dose, go to er Aspirin Adult Low Dose 81 Mg Oral Tablet Delayed Release (Aspirin) ..... One tab by mouth daily Altace 10 Mg Oral Capsule (Ramipril) ..... Take one pill a day [facility] follow up :BP today: 138/70 P rior BP: 160/86 (11/14/2017) His updated medication list for this problem includes: Amlodipine Besylate 5 Mg Oral Tablet (Amlodipine besylate) ..... One tab. daily Altace 10 Mg Oral Capsule (Ramipril) ..... Take one pill a day [facility] follow up :Orders: A rterial Duplex Bi-Lower EX (CPT-72741) [facility] follow up :Orders: A rterial Duplex Bi-Lower EX (CPT-60457) V enous Doppler Bilateral LE - Reflux (CPT-64704) [facility] follow up :His updated medication list for this problem includes: Isosorbide Mononitrate Er 120 Mg Oral Tablet Extended Release 24 Hour (Isosorbide mononitrate) ..... One tablet daily Plavix 75 Mg Oral Tablet (Clopidogrel bisulfate) ..... One tab. daily Amlodipine Besylate 5 Mg Oral Tablet (Amlodipine besylate) ..... One tab. daily Nitrolingual 0.4 Mg/spray Translingual Solution (Nitroglycerin) ..... Apply one spray inside the mouth every 5 minutes for 3 total doses as needed for chest pain. if no relief after 3rd dose, go to er Aspirin Adult Low Dose 81 Mg Oral Tablet Delayed Release (Aspirin) ..... One tab by mouth daily Altace 10 Mg Oral Capsule (Ramipril) ..... Take one pill a day [facility] follow up :His updated medication list for this problem includes: Isosorbide Mononitrate Er 120 Mg Oral Tablet Extended Release 24 Hour (Isosorbide mononitrate) ..... One tablet daily Amlodipine Besylate 5 Mg Oral Tablet (Amlodipine besylate) ..... One tab. daily Nitrolingual 0.4 Mg/spray Translingual Solution (Nitroglycerin) ..... Apply one spray inside the mouth every 5 minutes for 3 total doses as needed for chest pain. if no relief after 3rd dose, go to er Altace 10 Mg Oral Capsule (Ramipril) ..... Take one pill a day [facility] follow up Chris negron [facility] Follow up Sunny anderson MD Cardiology Follow up Sunny anderson MD Cardiology Follow up Sunny anderson MD Cardiology Follow up Sunny anderson MD Cardiology Follow up Sunny anderson MD Cardiology Follow up Heriberto [facility] Follow up:Bradycardia resolved. [facility] Follow up :BP today: 147/91 P rior BP: 148/71 (12/14/2016) His updated medication list for this problem includes: Amlodipine Besylate 5 Mg Oral Tablet (Amlodipine besylate) ..... One tab. daily Altace 10 Mg Oral Capsule (Ramipril) ..... Take one pill a day [facility] Follow up :No chest pain or SOB. WIll continue current medications. His updated medication list for this problem includes: Plavix 75 Mg Oral Tablet (Clopidogrel bisulfate) ..... One tab. daily Amlodipine Besylate 5 Mg Oral Tablet (Amlodipine besylate) ..... One tab. daily Nitrostat 0.4 Mg Sublingual Tablet Sublingual (Nitroglycerin) ..... Put one tablet under tongue as needed Aspirin Adult Low Dose 81 Mg Oral Tablet Delayed Release (Aspirin) ..... One tab by mouth daily Altace 10 Mg Oral Capsule (Ramipril) ..... Take one pill a day Her[facility]erto [facility] Cardiology:Continues on Eliquis 5mg BID. [facility] Cardiology:BP today: 148/71 P rior BP: 161/64 (11/21/2016) The following medications were removed from the medication list: Toprol Xl 25 Mg Tb24 (Metoprolol succinate) ..... One tab daily His updated medication list for this problem includes: Amlodipine Besylate 5 Mg Tabs (Amlodipine besylate) ..... One tab. daily Ramipril 5 Mg Oral Caps (Ramipril) ..... Take one tablet daily [facility] Cardiology:The follo wing medications were removed from the medication list: Toprol Xl 25 Mg Tb24 (Metoprolol succinate) ..... One tab daily His updated medication list for this problem includes: Eliquis 5 Mg Oral Tabs (Apixaban) .... 1 tab po twice daily Plavix 75 Mg Tabs (Clopidogrel bisulfate) ..... One tab. daily Aspirin Adult Low Dose 81 Mg Oral Tbec (Aspirin) ..... One tab by mouth daily Amlodipine Besylate 5 Mg Tabs (Amlodipine besylate) ..... One tab. daily Ramipril 5 Mg Oral Caps (Ramipril) ..... Take one tablet daily [facility] Cardiology:His Metop rolol was stopped due to marked bradycardia. [facility] Cardiology:The pt wa s admitted to [facility] due to chest pain and cardiac cath revealed significant stenosis of the RCA. This was treated with a stent and his chest pain has completely resolved. [facility] Cardiology:The pt wa s admitted to [facility] due to chest pain and cardiac cath revealed significant stenosis of the RCA. This was treated with a stent and his chest pain has completely resolved. The following medications were removed from the medication list: Toprol Xl 25 Mg Tb24 (Metoprolol succinate) ..... One tab daily His updated medication list for this problem includes: Plavix 75 Mg Tabs (Clopidogrel bisulfate) ..... One tab. daily Amlodipine Besylate 5 Mg Tabs (Amlodipine besylate) ..... One tab. daily Nitrostat 0.4 Mg Sl Subl (Nitroglycerin) ..... Put one tablet under tongue as needed Aspirin Adult Low Dose 81 Mg Oral Tbec (Aspirin) ..... One tab by mouth daily Ramipril 5 Mg Oral Caps (Ramipril) ..... Take one tablet daily Heriberto Ott Cardiology: P atient in sinus bradycardia (51 BPM). H is updated medication list for this problem includes: Toprol Xl 25 Mg Tb24 (Metoprolol succinate) ..... One tab daily Nitrostat 0.4 Mg Sl Subl (Nitroglycerin) ..... Put one tablet under tongue as needed Aspirin Adult Low Dose 81 Mg Oral Tbec (Aspirin) ..... One tab by mouth daily Ramipril 5 Mg Oral Caps (Ramipril) ..... One tablet daily Tuan Ramirez MD Cardiology: H is updated medication list for this problem includes: Proair Hfa Aers (Albuterol sulfate aers) ..... As needed Albuterol Sulfate Powd (Albuterol sulfate) ..... 2 puffs twice daily Symbicort Aero (Budesonide-formoterol fumarate aero) ..... 2 puffs twice daily Spiriva Handihaler 18 Mcg Caps (Tiotropium bromide monohydrate) ..... Once daily Combivent Respimat 20-100 Mcg/act Inh Aers (Ipratropium-albuterol) ..... Two puffs three times daily Xavier Minaya Cardiology: T he following medications were removed from the medication list: Plavix 75 Mg Tabs (Clopidogrel bisulfate) ..... One tablet daily His updated medication list for this problem includes: Toprol Xl 25 Mg Tb24 (Metoprolol succinate) ..... One tab daily Nitrostat 0.4 Mg Sl Subl (Nitroglycerin) ..... Put one tablet under tongue as needed Aspirin Adult Low Dose 81 Mg Oral Tbec (Aspirin) ..... One tab by mouth daily Ramipril 5 Mg Oral Caps (Ramipril) ..... One tablet daily Xavier Minaya Cardiology:Patient r ecently admitted to hospital for AFib. Started on anticoagulation (Eliquis) T he following medications were removed from the medication list: Plavix 75 Mg Tabs (Clopidogrel bisulfate) ..... One tablet daily His updated medication list for this problem includes: Toprol Xl 25 Mg Tb24 (Metoprolol succinate) ..... One tab daily Nitrostat 0.4 Mg Sl Subl (Nitroglycerin) ..... Put one tablet under tongue as needed Aspirin Adult Low Dose 81 Mg Oral Tbec (Aspirin) ..... One tab by mouth daily Ramipril 5 Mg Oral Caps (Ramipril) ..... One tablet daily Xavier Minaya Cardiology Follow up :BP today: 157/102 P rior BP: 120/70 (05/25/2016) The following medications were removed from the medication list: Lasix 40 Mg Tabs (Furosemide) ..... One tablet daily His updated medication list for this problem includes: Lynn Aspirin Regimen 325 Mg Oral Tbec (Aspirin) ..... Take one pill a day Ramipril 5 Mg Oral Caps (Ramipril) ..... One tablet daily Tuan Ramirez MD Cardiology Follow up :His updated medication list for this problem includes: Nitrostat 0.4 Mg Sl Subl (Nitroglycerin) ..... Put one tablet under tongue as needed Plavix 75 Mg Tabs (Clopidogrel bisulfate) ..... One tablet daily Lynn Aspirin Regimen 325 Mg Oral Tbec (Aspirin) ..... Take one pill a day Ramipril 5 Mg Oral Caps (Ramipril) ..... One tablet daily Tuan Ramirez MD Cardiology Follow up :ProBNP was normal. Echo showed normal EF. PFT's showed severe reversible obstructive disease. Tuan Ramirez MD Cardiology:BP today: 130/64 P rior BP: 116/58 (05/17/2016) His updated medication list for this problem includes: Lasix 40 Mg Tabs (Furosemide) ..... One tablet daily Aspirin Adult Low Dose 81 Mg Oral Tbec (Aspirin) ..... One tab by mouth daily Ramipril 5 Mg Oral Caps (Ramipril) ..... One tablet daily Heriberto Ott Cardiology:No recurr ence of chest pain. On ASA/Plavix. Heriberto Ott Cardiology:Groin dup nikki at [facility] showed that there was no pseudoaneurysm. The swelling in the groin improved significantly with treatment with Bactrim. Now, there is a small, non-tender, 1x1 cm lump. This may be residual of the closure device vs a lymph node. We will monitor it. [facility]erto [facility] Card[facility]:He contin ues to complain of SOB. Will check proBNP, PFT's and an echo. Will start Lasix 40mg daily. Heriberto [facility] Cardiology:The pt un derwent successful stenting of the RCA and LAD with complete resolution of his symptoms. Heriberto [facility] Cardiology:S/P cardi ac cath last week. He complains of swelling and pain in the right groin. 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 He is scheduled for thrombin injection tomorrow morning by Dr. Bang/Dr. Ash. Heriberto [facility] Cardiology:The pt un derwent successful stenting of the RCA and LAD with complete resolution of his symptoms. He did develop SOB with Brilinta which resolved after switching to Plavix yesterday. Heriberto Ott Cardiology:BP today: 144/69 P rior BP: 130/60 (12/28/2015) His updated medication list for this problem includes: Aspirin Adult Low Dose 81 Mg Oral Tbec (Aspirin) ..... One tab by mouth daily Altace 10 Mg Oral Caps (Ramipril) ..... One tab daily Tuan Ramirez MD Cardiology Tuan Ramirez MD Cardiology:Complaini ng of progressive angina and SOB that started about two weeks ago. He noted with minimal exertion, he needed to use NTG subl. Will schedule cardiac cath. Tuan Ramirez MD Cardiology:BP today: 130/60 P rior BP: 160/70 (12/03/2014) Tuan Ramirez MD Cardiology:No syncopal episode s chepe last seen. Tuan Ramirez MD Cardiology:Denies any chest pain or SOB. Tuan Ramirez MD fu: H is updated medication list for this problem includes: Aspirin 325 Mg Tabs (Aspirin) ..... One tab daily Altace 10 Mg Oral Caps (Ramipril) ..... One tab daily BP today: 160/70 P rior BP: 156/75 (10/29/2014) Labs Reviewed: C reat: 1.02 (03/10/2008) Tuan Ramirez MD fu Tuan Ramirez MD fu: H is updated medication list for this problem includes: Isosorbide Mononitrate Er 60 Mg Oral [id number] (Isosorbide mononitrate) ..... One tab daily Aspirin 325 Mg Tabs (Aspirin) ..... One tab daily Altace 10 Mg Oral Caps (Ramipril) ..... One tab daily Plavix 75 Mg Tabs (Clopidogrel bisulfate) ..... 1 tab daily Tuan Ramirez MD f/u: T he following medications were removed from the medication list: Plavix 75 Mg Tabs (Clopidogrel bisulfate) ..... One tab. daily Ranexa 500 Mg Tb12 (Ranolazine) ..... One tab. twice daily His updated medication list for this problem includes: Aspirin 325 Mg Tabs (Aspirin) ..... One tab daily Ramipril 5 Mg Caps (Ramipril) ..... Take one daily Simcor 500-20 Mg Tb24 (Niacin-simvastatin) ..... One tab. daily - dispense as written Effient 10 Mg Tabs (Prasugrel hcl) ..... One tablet daily Tuan Ramirez MD 6 MONTH F/U -increas e sob: H is updated medication list for this problem includes: Plavix 75 Mg Tabs (Clopidogrel bisulfate) ..... One tab. daily Aspirin 81 Mg Chew (Aspirin) ..... One tab. daily Carotid Duplex Scan: n ormal: (12/22/2003) Echocardiogram: B orderline LVH. EF 65%. Thickened MVL (sclerotic). Mildly thickened aortic valve (sclerotic). Minimal MR. Trace AR. Mild ot moderate TR. Minimal UT. GC office (04/23/2008) Tuan Ramirez MD 6 month follow-up: H is updated medication list for this problem includes: Plavix 75 Mg Tabs (Clopidogrel bisulfate) ..... One tab. daily Aspirin 81 Mg Chew (Aspirin) ..... One tab. daily Carotid Duplex Scan: n ormal: (12/22/2003) Echocardiogram: B orderline LVH. EF 65%. Thickened MVL (sclerotic). Mildly thickened aortic valve (sclerotic). Minimal MR. Trace AR. Mild ot moderate TR. Minimal UT. office (04/23/2008) Aldair Angeles 6 month follow-up: H is updated medication list for this problem includes: Plavix 75 Mg Tabs (Clopidogrel bisulfate) ..... One tab. daily Aspirin 81 Mg Chew (Aspirin) ..... One tab. daily Ranexa 500 Mg Tb12 (Ranolazine) ..... One tab. twice daily Aldair Angeles 6 month follow-up: H is updated medication list for this problem includes: Plavix 75 Mg Tabs (Clopidogrel bisulfate) ..... One tab. daily Aspirin 81 Mg Chew (Aspirin) ..... One tab. daily Ranexa 500 Mg Tb12 (Ranolazine) ..... One tab. twice daily Tuan Ramirez MD office visit: H is updated medication list for this problem includes: Plavix 75 Mg Tabs (Clopidogrel bisulfate) ..... One tab. daily Aspirin 81 Mg Chew (Aspirin) ..... One tab. daily Carotid Duplex Scan: n ormal: (12/22/2003) Echocardiogram: E F- 65%. L VH. D iastolic dysfunction. M ild left atrial enlargement. S mall pericardial effusion. M ild mitral regurgitation. T race aortic insufficieincy. M Ild tricuspid regurgitation. M ild pulmonary hypertension. (09/08/2004) Tuan Ramirez MD cp since monday: H is updated medication list for this problem includes: Plavix 75 Mg Tabs (Clopidogrel bisulfate) ..... One tab. daily Aspirin 81 Mg Chew (Aspirin) ..... One tab. daily O rders: E KG (CPT-80241) C ardiac Cath - PCL (*) BP today: 155/96 Prior BP: / () Tuna Ramirez MD cp since monday: H is updated medication list for this problem includes: Aspirin 81 Mg Chew (Aspirin) ..... One tab. daily BP today: 155/96 Tuan Ramirez MD cp since monday: B P today: 155/96 Prior BP: / () Tuan Ramirez MD Date Name Carotid Duplex Bilat eral Complete Echo BASIC METABOLIC PANE L W/EGFR Microalb/Creatinine Urine, Random PROBNP, N TERMINAL Complete Echo PROTHROMBIN TIME WIT H INR LIPID PANEL CBC (INCLUDES DIFF/P LT) CRP, high sensitivit y PROBNP, N TERMINAL BASIC METABOLIC PANE L W/EGFR Microalb/Creatinine Urine, Random HEMOGLOBIN A1c DLCO - 14944 FRC - 18248 FVC - 85203 Venous Doppler Bilat eral LE Arterial Duplex Bi-L ower EX RPM (remote patient monitoring) RPM (remote patient monitoring) PROTHROMBIN TIME WIT H INR LIPID PANEL CBC (INCLUDES DIFF/P LT) BASIC METABOLIC PANE L W/EGFR Venogram w/ IVUS - G C Cardiac Cath - L/R - GC Venous Doppler Bilat eral LE - Reflux PET/CT - Myocardial Viability Complete Echo Holter Monitor 24 Hr DLCO - 82317 FRC - 78920 FVC - 35501 CT Chest without con trast Complete Echo CT Chest without con trast Complete Echo Venous Doppler Bilat eral LE - Reflux Arterial Duplex Bi-L ower EX MAGNESIUM BASIC METABOLIC PANE L W/EGFR PROTHROMBIN TIME WIT H INR SOCRATES/CV - GC Complete Echo PROBNP, N TERMINAL DLCO - 11821 FRC - 93783 FVC - 36732 Cardiac Cath - Left - CNE Carotid Duplex Bilat eral Mobile Cardiac Tele Complete Echo Complete Echo Carotid Duplex Bilat eral Complete Echo Complete Echo Cardiac Cath - PCL HISTORY OF PROCEDURES Procedure Date Procedure Name Provider Procedure Notes S tatus Complex e/m visit add on Tuan Ramirez MD completed EKG Tuan Ramirez MD completed EKG Tuan Ramirez MD completed EKG Tuan Ramirez MD completed Holter, 24 or 48 Don Hermosillo MD co mpleted EKG Don Hermosillo MD complete d EKG Tuan Ramirez MD completed SNOMED-CT: 417276501 [id number] Current Medications Documented Tuan Ramirez MD completed SNOMED-CT: 506532011 905306 Current Medications Documented slhv .RickyVidalk completed SNOMED-CT: [id number] 011144 Current Medications Documented Tuan Ramirez MD completed SNOMED-CT: 216964726 726435 Current Medications Documented Tuan Ramirez MD completed BLOOD COUNT HEMOGLOBIN Tuan Ramirez MD completed FVC - 59924 Tuan Ramirez MD completed FRC - 76733 Tuan Ramirez MD completed DLCO - 82713 Tuan Ramirez MD complete d SNOMED-CT: 410269807 263242 Current Medications Documented Tuan Ramirez MD completed SNOMED-CT: 828324735 563191 Current Medications Documented Tuan Ramirez MD completed EKG Tuan Ramirez MD completed SNOMED-CT: 400869846 267477 Current Medications Documented Tuan Ramirez MD completed EKG Tuan Ramirez MD completed SNOMED-CT: 053972708 354871 Current Medications Documented Tuan Ramirez MD completed EKG Tuan Ramirez MD completed EKG Tuan Ramirez MD completed EKG Tuan Ramirez MD completed EKG Tuan Ramirez MD completed EKG Tuan Ramirez MD completed EKG Tuan Ramirez MD completed EKG Tuan Ramirez MD completed
--- NOTE | 2024-09-06 17:40 | ECG_ITS ---
Test Date: 2024-09-06 18:01:56 Measurements Intervals [place] Rate: 70 P: 0 CA: 0 QRS: 78 QRSD: 92 T: 42 QT: 367 QTc: 396 Interpretive Statements ATRIAL FIBRILLATION ANTEROSEPTAL INFARCT, AGE INDETERMINATE BASELINE ARTIFACT- I, II, III, AVR, AVL, AVF ABNORMAL ECG No previous ECG available for comparison Electronically Signed On 09-06-2024 18:39:43 CDT by Byron Cisneros D.O.
--- NOTE | 2024-09-06 17:42 | ED_ITS ---
HPI - SOB/Dyspnea General Chief Complaint: Shortness of Breath/Dyspnea <Dulce Maria Greenfield APRN - Last Filed: 09/06/24 17:45> Stated Complaint: Shortness of breath, abd pain <Dulce Maria Greenfield APRN - Last Filed: 09/06/24 17:45> Time Seen by Provider: 09/06/24 17:35 <Dulce Maria Greenfield APRN - Last Filed: 09/06/24 17:45> Focused HPI: Patient is an 84-year-old male who presents to the ER with complaints of upper abdominal pain and shortness of breath that started approximately 1 week ago. He reports the pain is worse in the morning. According to patient's chart he is on blood thinners and has a history of high blood pressure, COPD, and diabetes. He denies any recent fevers, back pain, chest pain, and shoulder pain. GENERAL: Well-appearing, well-nourished, and in no acute distress. HEAD: Normocephalic, atraumatic. CHEST: Clear to auscultation. ?No respiratory distress. HEART: Regular rate and rhythm.? NEURO: ?Alert and oriented x3. Patient screened in triage and initial orders placed.? ?Additional care and disposition to be based upon?diagnostic testing and treatment. <Dulce Maria Greenfield APRN - Last Filed: 09/06/24 17:45> History of Present Illness HPI Narrative: Patient is a 84-year-old gentleman presents emergency department with chief complaint of chest discomfort and shortness of breath and generalized weakness. 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 [place] the patient states that he was feeling weak and run down and short of breath several weeks ago and was treated with a course steroids for 5 days and initially improved the patient denies fever reports that he does have an umbilical hernia that is not causing him any pain the patient reports that has been unchanged for several years <Robert Arvizu MD - Last Filed: 09/06/24 23:12> Related Data Home Medications: Home Medications ?Medication ?Instructions ?Recorded ?Confirmed ?Last Taken ?Type albuterol sulfate 2.5 mg/3 mL 2.5 mg inhalation TID PRN 04/27/23 04/27/23 Unknown History (0.083 %) solution for nebulization Shortness Of Breath Or Wheezing amlodipine 10 mg tablet 10 mg PO DAILY 04/27/23 04/27/23 Unknown History apixaban 5 mg tablet (Eliquis) 5 mg PO BID 04/27/23 04/27/23 Unknown History budesonide-formoterol HFA 160 2 inh inhalation BID 04/27/23 04/27/23 Unknown History mcg-4.5 mcg/actuation aerosol inhaler (Symbicort) calcitriol 0.25 mcg capsule 0.25 mcg PO DAILY 04/27/23 04/27/23 Unknown History clopidogrel 75 mg tablet 75 mg PO DAILY 04/27/23 04/27/23 Unknown History cyclobenzaprine 5 mg tablet 5 mg PO Q8-10H 04/27/23 04/27/23 Unknown History ergocalciferol (vitamin D2) 1,250 1,250 mcg PO WEEKLY 04/27/23 04/27/23 Unknown History mcg (50,000 unit) capsule furosemide 40 mg tablet 40 mg PO DAILY 04/27/23 04/27/23 Unknown History isosorbide mononitrate 120 mg 120 mg PO DAILY 04/27/23 04/27/23 Unknown History tablet,extended release 24 hr metformin 500 mg tablet 500 mg PO BID 04/27/23 04/27/23 Unknown History metoprolol tartrate 25 mg tablet 25 mg PO BID 04/27/23 04/27/23 Unknown History pantoprazole 40 mg tablet,delayed 40 mg PO DAILY PRN Acid Reflux 04/27/23 04/27/23 Unknown History release rosuvastatin 20 mg tablet 20 mg PO DAILY 04/27/23 04/27/23 Unknown History spironolactone 25 mg tablet 25 mg PO DAILY 04/27/23 04/27/23 Unknown History <Dulce Maria Greenfield, [employer] - Last Filed: 09/06/24 17:45> Allergies/Adverse Reactions: Allergies Allergy/AdvReac Type Severity Reaction Status Date / Time Penicillins Allergy Unknown Other Verified 09/06/24 17:33 ticagrelor (From Brilinta) Allergy Difficulty Verified 09/06/24 17:33 Breathing <Dulce Maria Greenfield APRN - Last Filed: 09/06/24 17:45> Review of Systems 2 Review of Systems: A 10 system review of systems was completed on the patient and is negative except for what is stated in the HPI. Nursing and ancillary documentation was reviewed. <Robert Arvizu MD - Last Filed: 09/06/24 23:12> PMFSH Past Medical History Medical History: Medical History CAD (coronary artery disease) <Dulce Maria Greenfield APRN - Last Filed: 09/06/24 17:45> Social History Social History: Social History Smoking packs per day: 2 Smoking cigarettes per day: 40.0 Smoking status: Former smoker Alcohol intake: never Substance use: never Lack of Transportation: No Lack of Food: Never True Current Housing: I Have Housing Concerned About Future Housing: No Difficulty Paying Gas/Electric Bills: No Difficulty Paying for Meds: No Currently Unemployed: No Education: Decline to Answer Difficulty w/ Childcare or Family Care: No Spiritual care concerns: No <Dulce Maria Greenfield APRN - Last Filed: 09/06/24 17:45> Exam 2 Narrative: GENERAL: Well-appearing, well-nourished, and in no acute distress. HEAD: Normocephalic, atraumatic. EYES: PERRLA and EOMI. ENT: Nares clear, no rhinorrhea or epistaxis. Mucous membranes moist. NECK: Supple. CHEST: Scattered wheezes to auscultation. No respiratory distress. HEART: Regular rate and rhythm. No murmur heard. Normal peripheral pulses. ABDOMEN: Soft, nontender, nondistended, normal active bowel sounds. There is an umbilical hernia present that is soft nontender reducible EXTREMITIES: Normal range of motion. No edema. SKIN: Warm, dry, no rash. NEURO: No focal deficits. Alert and oriented x3. PSYCH: Normal mood and affect. <Robert Arvizu MD - Last Filed: 09/06/24 23:12> Course Vital Signs Vital signs: Vital Signs Temperature 36.7 C 09/06/24 17:33 Pulse Rate 72 09/06/24 17:33 Respiratory Rate 16 09/06/24 17:33 Blood Pressure 140/77 09/06/24 17:33 Pulse Oximetry 95 09/06/24 17:33 Temperature 36.7 C 09/06/24 17:33 Pulse Rate 78 09/06/24 21:48 Respiratory Rate 17 09/06/24 21:48 Blood Pressure 125/87 09/06/24 21:48 Pulse Oximetry 96 09/06/24 21:48 Oxygen Delivery Room Air 09/06/24 21:48 <Dulce Maria Greenfield, [employer] - Last Filed: 09/06/24 17:45> Vital Signs Temperature 36.7 C 09/06/24 17:33 Pulse Rate 72 09/06/24 17:33 Respiratory Rate 16 09/06/24 17:33 Blood Pressure 140/77 09/06/24 17:33 Pulse Oximetry 95 09/06/24 17:33 Temperature 36.7 C 09/06/24 17:33 Pulse Rate 78 09/06/24 21:48 Respiratory Rate 17 09/06/24 21:48 Blood Pressure 125/87 09/06/24 21:48 Pulse Oximetry 96 09/06/24 21:48 Oxygen Delivery Room Air 09/06/24 21:48 <Robert Arvizu MD - Last Filed: 09/06/24 23:12> MDM - SOB/Dyspnea MDM Narrative Medical decision making narrative: Differential diagnosis includes ACS, COPD exacerbation, electrolyte abnormalities, pneumonia, COVID, flu, RSV, CHF Patient's BNP was not significantly elevated compared to his previous ones troponin was 0 hour and 3 hour chest x-ray showed no focal infiltrate Patient is feeling much better was able ambulate without difficulty The patient will be started on steroids <Robert Arvizu MD - Last Filed: 09/06/24 23:12> Lab Data Result diagrams: 09/06/24 18:23 09/06/24 18:23 <Dulce Maria Greenfield, [employer] - Last Filed: 09/06/24 17:45> Labs: Lab Results 09/06/24 09/06/24 09/06/24 Range/Units 18:22 18:23 18:23 WBC 10.8 H (4.5-10.0) K/mm3 RBC 4.60 (4.6-6.20) M/mm3 Hgb 15.1 (14.0-18.0) g/dL Hct 45.6 (42.0-52.0) % MCV 99.1 (80-100) fl MCH 32.8 (26-34) pg MCHC 33.1 (32-36) g/dl RDW 11.9 (11.5-14.5) % Plt Count 207 (150-375) k/mm3 MPV 10.3 (7.4-10.4) fl Immature Gran % (Auto) 0.3 (0-0.5) % Neut % (Auto) 58.7 (45.5-73.1) % Lymph % (Auto) 18.5 (18.3-44.2) % Rich % (Auto) 8.9 H (2.6-8.5) % Eos % (Auto) 13.0 H (0-4.4) % Baso % (Auto) 0.6 (0.2-1.2) % Lymph # (Auto) 2.00 (0.9-3.2) K/mm3 Rich # (Auto) 1.0 H (0.1-0.6) K/mm3 Eos # (Auto) 1.4 H (0-0.3) K/mm3 Baso # (Auto) 0.1 (0.0-0.1) K/mm3 Abs Immat Gran (auto) 0.03 (0.00-0.031) K/mm3 Absolute Neuts (auto) 6.4 (1.3-6.7) K/mm3 Absolute Nucleated RBC 0.000 (0.0-0.012) K/mm3 Nucleated RBC % 0.0 (0.0-0.2) % PT 17.1 H (11.1-14.7) Seconds INR 1.3 APTT 35.6 (22.3-36.8) Seconds Sodium 139 (137-145) mmol/L Potassium 4.9 (3.4-5.0) mmol/L Chloride 99 (98-107) mmol/L Carbon Dioxide 31 H (22-30) mmol/L Anion Gap 9 (4-12) mmol/L BUN 16 (9-20) mg/dL Creatinine 1.24 (0.7-1.3) mg/dL Estim Creat Clear Calc 41 ml/min Estimated GFR 55 L (59 - ) Glucose 96 (65-110) mg/dL Calcium 9.7 (8.4-10.2) mg/dL Total Bilirubin 1.0 (0.2-1.3) mg/dL AST 30 (17-59) U/L ALT 17 (6-50) U/L Alkaline Phosphatase 77 (38-126) U/L Troponin I 0.014 (0.000-0.034) ng/mL NT-Pro-B Natriuret Pep 1740 H (19.9-100) pg/mL Total Protein 8.0 (6.3-8.2) g/dL Albumin 4.6 (3.5-5.1) g/dL Lipase 65 Cancelled (23-300) U/L Urine Color (Yellow) Urine Appearance (Clear) Urine pH (5.0-9.0) Ur Specific [place] (1.001-1.035) Urine Protein (Negative) mg/dL Urine Glucose (UA) (Negative) mg/dL Urine Ketones (Negative) mg/dL Ur Blood (Man) (Negative) Urine Nitrate (Negative) Urine Bilirubin (Negative) Urine Urobilinogen (<2.0) mg/dL Leukocyte Esterase Rfl (Negative) JANN/UL Urine RBC (0-2) /hpf Urine WBC (0-3) /hpf Ur Squamous Epith Cells (Few) /hpf Urine Bacteria /hpf Urine Casts Influenza A (RT-PCR) (Negative) Influenza B (RT-PCR) (Negative) RSV (RT-PCR) (Negative) SARS-CoV-2 RNA (RT-PCR) (Negative) 09/06/24 09/06/24 Range/Units 20:32 21:43 WBC (4.5-10.0) K/mm3 RBC (4.6-6.20) M/mm3 Hgb (14.0-18.0) g/dL Hct (42.0-52.0) % MCV (80-100) fl MCH (26-34) pg MCHC (32-36) g/dl RDW (11.5-14.5) % Plt Count (150-375) k/mm3 MPV (7.4-10.4) fl Immature Gran % (Auto) (0-0.5) % Neut % (Auto) (45.5-73.1) % Lymph % (Auto) (18.3-44.2) % Rich % (Auto) (2.6-8.5) % Eos % (Auto) (0-4.4) % Baso % (Auto) (0.2-1.2) % Lymph # (Auto) (0.9-3.2) K/mm3 Rich # (Auto) (0.1-0.6) K/mm3 Eos # (Auto) (0-0.3) K/mm3 Baso # (Auto) (0.0-0.1) K/mm3 Abs Immat Gran (auto) (0.00-0.031) K/mm3 Absolute Neuts (auto) (1.3-6.7) K/mm3 Absolute Nucleated RBC (0.0-0.012) K/mm3 Nucleated RBC % (0.0-0.2) % PT (11.1-14.7) Seconds INR APTT (22.3-36.8) Seconds Sodium (137-145) mmol/L Potassium (3.4-5.0) mmol/L Chloride (98-107) mmol/L Carbon Dioxide (22-30) mmol/L Anion Gap (4-12) mmol/L BUN (9-20) mg/dL Creatinine (0.7-1.3) mg/dL Estim Creat Clear Calc ml/min Estimated GFR (59 - ) Glucose (65-110) mg/dL Calcium (8.4-10.2) mg/dL Total Bilirubin (0.2-1.3) mg/dL AST (17-59) U/L ALT (6-50) U/L Alkaline Phosphatase (38-126) U/L Troponin I 0.020 D (0.000-0.034) ng/mL NT-Pro-B Natriuret Pep (19.9-100) pg/mL Total Protein (6.3-8.2) g/dL Albumin (3.5-5.1) g/dL Lipase (23-300) U/L Urine Color Yellow (Yellow) Urine Appearance Clear (Clear) Urine pH 7.0 (5.0-9.0) Ur Specific [place] 1.018 (1.001-1.035) Urine Protein Trace (Negative) mg/dL Urine Glucose (UA) Negative (Negative) mg/dL Urine Ketones Trace H (Negative) mg/dL Ur Blood (Man) Negative (Negative) Urine Nitrate Negative (Negative) Urine Bilirubin Negative (Negative) Urine Urobilinogen 2.0 H (<2.0) mg/dL Leukocyte Esterase Rfl Negative (Negative) JANN/UL Urine RBC 0-2 (0-2) /hpf Urine WBC 0-5 (0-3) /hpf Ur Squamous Epith Cells None seen (Few) /hpf Urine Bacteria None seen /hpf Urine Casts 0-2 Influenza A (RT-PCR) Negative (Negative) Influenza B (RT-PCR) Negative (Negative) RSV (RT-PCR) Negative (Negative) SARS-CoV-2 RNA (RT-PCR) Negative (Negative) <Dulce Maria Greenfield, [employer] - Last Filed: 09/06/24 17:45> Lab Results 09/06/24 09/06/24 09/06/24 Range/Units 18:22 18:23 18:23 WBC 10.8 H (4.5-10.0) K/mm3 RBC 4.60 (4.6-6.20) M/mm3 Hgb 15.1 (14.0-18.0) g/dL Hct 45.6 (42.0-52.0) % MCV 99.1 (80-100) fl MCH 32.8 (26-34) pg MCHC 33.1 (32-36) g/dl RDW 11.9 (11.5-14.5) % Plt Count 207 (150-375) k/mm3 MPV 10.3 (7.4-10.4) fl Immature Gran % (Auto) 0.3 (0-0.5) % Neut % (Auto) 58.7 (45.5-73.1) % Lymph % (Auto) 18.5 (18.3-44.2) % Rich % (Auto) 8.9 H (2.6-8.5) % Eos % (Auto) 13.0 H (0-4.4) % Baso % (Auto) 0.6 (0.2-1.2) % Lymph # (Auto) 2.00 (0.9-3.2) K/mm3 Rich # (Auto) 1.0 H (0.1-0.6) K/mm3 Eos # (Auto) 1.4 H (0-0.3) K/mm3 Baso # (Auto) 0.1 (0.0-0.1) K/mm3 Abs Immat Gran (auto) 0.03 (0.00-0.031) K/mm3 Absolute Neuts (auto) 6.4 (1.3-6.7) K/mm3 Absolute Nucleated RBC 0.000 (0.0-0.012) K/mm3 Nucleated RBC % 0.0 (0.0-0.2) % PT 17.1 H (11.1-14.7) Seconds INR 1.3 APTT 35.6 (22.3-36.8) Seconds Sodium 139 (137-145) mmol/L Potassium 4.9 (3.4-5.0) mmol/L Chloride 99 (98-107) mmol/L Carbon Dioxide 31 H (22-30) mmol/L Anion Gap 9 (4-12) mmol/L BUN 16 (9-20) mg/dL Creatinine 1.24 (0.7-1.3) mg/dL Estim Creat Clear Calc 41 ml/min Estimated GFR 55 L (59 - ) Glucose 96 (65-110) mg/dL Calcium 9.7 (8.4-10.2) mg/dL Total Bilirubin 1.0 (0.2-1.3) mg/dL AST 30 (17-59) U/L ALT 17 (6-50) U/L Alkaline Phosphatase 77 (38-126) U/L Troponin I 0.014 (0.000-0.034) ng/mL NT-Pro-B Natriuret Pep 1740 H (19.9-100) pg/mL Total Protein 8.0 (6.3-8.2) g/dL Albumin 4.6 (3.5-5.1) g/dL Lipase 65 Cancelled (23-300) U/L Urine Color (Yellow) Urine Appearance (Clear) Urine pH (5.0-9.0) Ur Specific [place] (1.001-1.035) Urine Protein (Negative) mg/dL Urine Glucose (UA) (Negative) mg/dL Urine Ketones (Negative) mg/dL Ur Blood (Man) (Negative) Urine Nitrate (Negative) Urine Bilirubin (Negative) Urine Urobilinogen (<2.0) mg/dL Leukocyte Esterase Rfl (Negative) JANN/UL Urine RBC (0-2) /hpf Urine WBC (0-3) /hpf Ur Squamous Epith Cells (Few) /hpf Urine Bacteria /hpf Urine Casts Influenza A (RT-PCR) (Negative) Influenza B (RT-PCR) (Negative) RSV (RT-PCR) (Negative) SARS-CoV-2 RNA (RT-PCR) (Negative) 09/06/24 09/06/24 Range/Units 20:32 21:43 WBC (4.5-10.0) K/mm3 RBC (4.6-6.20) M/mm3 Hgb (14.0-18.0) g/dL Hct (42.0-52.0) % MCV (80-100) fl MCH (26-34) pg MCHC (32-36) g/dl RDW (11.5-14.5) % Plt Count (150-375) k/mm3 MPV (7.4-10.4) fl Immature Gran % (Auto) (0-0.5) % Neut % (Auto) (45.5-73.1) % Lymph % (Auto) (18.3-44.2) % Rich % (Auto) (2.6-8.5) % Eos % (Auto) (0-4.4) % Baso % (Auto) (0.2-1.2) % Lymph # (Auto) (0.9-3.2) K/mm3 Rich # (Auto) (0.1-0.6) K/mm3 Eos # (Auto) (0-0.3) K/mm3 Baso # (Auto) (0.0-0.1) K/mm3 Abs Immat Gran (auto) (0.00-0.031) K/mm3 Absolute Neuts (auto) (1.3-6.7) K/mm3 Absolute Nucleated RBC (0.0-0.012) K/mm3 Nucleated RBC % (0.0-0.2) % PT (11.1-14.7) Seconds INR APTT (22.3-36.8) Seconds Sodium (137-145) mmol/L Potassium (3.4-5.0) mmol/L Chloride (98-107) mmol/L Carbon Dioxide (22-30) mmol/L Anion Gap (4-12) mmol/L BUN (9-20) mg/dL Creatinine (0.7-1.3) mg/dL Estim Creat Clear Calc ml/min Estimated GFR (59 - ) Glucose (65-110) mg/dL Calcium (8.4-10.2) mg/dL Total Bilirubin (0.2-1.3) mg/dL AST (17-59) U/L ALT (6-50) U/L Alkaline Phosphatase (38-126) U/L Troponin I 0.020 D (0.000-0.034) ng/mL NT-Pro-B Natriuret Pep (19.9-100) pg/mL Total Protein (6.3-8.2) g/dL Albumin (3.5-5.1) g/dL Lipase (23-300) U/L Urine Color Yellow (Yellow) Urine Appearance Clear (Clear) Urine pH 7.0 (5.0-9.0) Ur Specific [place] 1.018 (1.001-1.035) Urine Protein Trace (Negative) mg/dL Urine Glucose (UA) Negative (Negative) mg/dL Urine Ketones Trace H (Negative) mg/dL Ur Blood (Man) Negative (Negative) Urine Nitrate Negative (Negative) Urine Bilirubin Negative (Negative) Urine Urobilinogen 2.0 H (<2.0) mg/dL Leukocyte Esterase Rfl Negative (Negative) JANN/UL Urine RBC 0-2 (0-2) /hpf Urine WBC 0-5 (0-3) /hpf Ur Squamous Epith Cells None seen (Few) /hpf Urine Bacteria None seen /hpf Urine Casts 0-2 Influenza A (RT-PCR) Negative (Negative) Influenza B (RT-PCR) Negative (Negative) RSV (RT-PCR) Negative (Negative) SARS-CoV-2 RNA (RT-PCR) Negative (Negative) <Robert Arvizu MD - Last Filed: 09/06/24 23:12> Discharge Plan Discharge Clinical Impression: Asthma exacerbation in COPD <Dulce Maria Greenfield APRN - Last Filed: 09/06/24 17:45> Patient Disposition: Home <Dulce Maria Greenfield APRN - Last Filed: 09/06/24 17:45> Condition: Stable <Dulce Maria Greenfield APRN - Last Filed: 09/06/24 17:45> Instructions: Antibiotic Form, COPD (Chronic Obstructive Pulmonary Disease) (ED) <Dulce Maria Greenfield APRN - Last Filed: 09/06/24 17:45> Patient Language: Japanese <Dulce Maria Greenfield APRN - Last Filed: 09/06/24 17:45> Prescriptions: New prednisone 20 mg tablet 40 mg PO DAILY 5 Days Qty: 10 0RF No Action furosemide 40 mg tablet 40 mg PO DAILY metformin 500 mg tablet 500 mg PO BID albuterol sulfate 2.5 mg /3 mL (0.083 %) solution for nebulization 2.5 mg inhalation TID PRN (Reason: Shortness Of Breath Or Wheezing) clopidogrel 75 mg tablet 75 mg PO DAILY spironolactone 25 mg tablet 25 mg PO DAILY isosorbide mononitrate 120 mg tablet extended release 24 hr 120 mg PO DAILY amlodipine 10 mg tablet 10 mg PO DAILY pantoprazole 40 mg tablet,delayed release (DR/EC) 40 mg PO DAILY PRN (Reason: Acid Reflux) calcitriol 0.25 mcg capsule 0.25 mcg PO DAILY cyclobenzaprine 5 mg tablet 5 mg PO Q8-10H rosuvastatin 20 mg tablet 20 mg PO DAILY metoprolol tartrate 25 mg tablet 25 mg PO BID budesonide-formoterol [Symbicort] 160-4.5 mcg/actuation HFA aerosol inhaler 2 inh INHALATION BID Eliquis 5 mg tablet 5 mg PO BID ergocalciferol (vitamin D2) 1,250 mcg (50,000 unit) capsule 1,250 mcg PO WEEKLY Rx Instructions: on monday <Dulce Maria Greenfield APRN - Last Filed: 09/06/24 17:45> Follow-up/Referrals: Sheryl,MD Vinny [Primary Care Provider] - <Dulce Maria Greenfield APRN - Last Filed: 09/06/24 17:45> Time of Disposition: 23:12 <Dulce Maria Greenfield APRN - Last Filed: 09/06/24 17:45> 23:12 <Robert Arvizu MD - Last Filed: 09/06/24 23:12>
[2024-09-06 18:31] LABS: Basophils Absolute Auto 0.1 K/mm3 (0.0-0.1); Basophils Percent Auto 0.6 % (0.2-1.2); Eosinophils Absolute Auto 1.4 K/mm3 (0-0.3); Hematocrit 45.6 % (42.0-52.0); Hemoglobin 15.1 g/dL (14.0-18.0); Immature Granulocyte Absolute 0.03 K/mm3 (0.00-0.031); Immature Granulocyte Percent A 0.3 % (0-0.5); Lymphocytes Percent Auto 18.5 % (18.3-44.2); Mean Corpuscular HGB Conc 33.1 g/dl (32-36); Mean Corpuscular Hemoglobin 32.8 pg (26-34); Mean Corpuscular Volume 99.1 fl (80-100); Mean Platelet Volume 10.3 fl (7.4-10.4); Monocytes Percent Auto 8.9 % (2.6-8.5); Neutrophils Absolute Auto 6.4 K/mm3 (1.3-6.7); Neutrophils Percent Auto 58.7 % (45.5-73.1); Platelet Count Result 207 k/mm3 (150-375); Red Cell Distribution Width 11.9 % (11.5-14.5); White Blood Count 10.8 K/mm3 (4.5-10.0)
[2024-09-06 18:44] LABS: Alanine Aminotransferase 17 U/L (6-50); Albumin Level 4.6 g/dL (3.5-5.1); Alkaline Phosphatase 77 U/L (38-126); Anion Gap 9 mmol/L (4-12); Aspartate Amino Transferase 30 U/L (17-59); Blood Urea Nitrogen 16 mg/dL (9-20); Calcium 9.7 mg/dL (8.4-10.2); Carbon Dioxide 31 mmol/L (22-30); Chloride 99 mmol/L (98-107); Estimated CRCL calculation 41 ml/min; Estimated Glomerular Filt Rate 55; Glucose 96 mg/dL (65-110); Potassium 4.9 mmol/L (3.4-5.0); Sodium 139 mmol/L (137-145)
[2024-09-06 18:48] LABS: INR 1.3; Lipase 65 U/L (23-300); Partial Thromboplastin Time 35.6 Seconds (22.3-36.8); Prothrombin Time 17.1 Seconds (11.1-14.7)
[2024-09-06 18:54] LABS: Troponin I 0.014 ng/mL (0.000-0.034)
--- OUTSIDE RECORDS SUMMARY | 2024-09-06 19:46 | XMS_ITS | CONTINUITY OF CARE DOCUMENT ---
Author Name crystal rojas Address Unknown Organization [facility] Address [address] [address] [place] [address] Phone [phone] Care Team Providers Care Jail Manager Name Role Phone Tuan Ramirez MD Unavailable [phone] FREEDOM ATWOOD MD Unavailable [phone] FREEDOM ATWOOD MD Unavailable PROBLEMS Condition Status Date Provider Notes CAD-07/02 NUC ISCHEMIA completed - Tuan Ramirez MD HTN active Tuan Ramirez MD Tobacco use quit active Don Hermosillo MD to o reme screen CAD - 02/2019 CATH MIRROR FRAMER mid/distal LAD, patent RCA stent, mid LAD [...] In-person encounter Office Visit Tuan Ramirez MD [facility] Cardiology examination - In-person encounter Office Visit Tuan Ramirez MD [facility] - In-person encounter Office Visit Tuan Ramirez MD [facility] - In-person encounter Office Visit Tuan Ramirez MD [facility] Confusion - In-person encounter Office Visit Tuan Ramirez MD [facility] - In-person encounter Office Visit Tuan Ramirez MD [facility] - In-person encounter Office Visit Tuan Ramirez MD [facility] - In-person encounter Office Visit Tuan Ramirez MD [facility] - In-person encounter Office Visit Tuan Ramirez MD [facility] CHF - In-person encounter Office Visit Tuan Ramirez MD [facility] - In-person encounter Office Visit Tuan Ramirez MD [facility] - In-person encounter Office Visit Tuan Ramirez MD [facility] [place] [facility] - In-person encounter Office Visit Tuan Ramirez MD [facility] Office - In-person encounter Office Visit Brandon Lovett MD [facility] [place] [facility] Leg edema, bilateral - In-person encounter Office Visit Tuan Ramirez MD [facility] - In-person encounter Office Visit Don Hermosillo MD [facility] Tobacco use quitWheezingCough due to DESTINY inhibitors - In-person encounter Office Visit Tuan Rmairez MD [facility] Shortness of breathOverweight - In-person encounter Office Visit Tuan Ramirez MD [facility] 02/2019 CATH MIRROR FRAMER mid/distal LAD, patent RCA stent, mid LAD stent (90% ISR)Angina pectorisAtrial fibrillationChest painClaudicationLeg pain, bilateralNSTEMI - In-person encounter Office Visit Tuan Ramirez MD [facility] [place] [facility] Ascending aortic dilatation - In-person encounter Office Visit Tuan Ramirez MD [facility] - In-person encounter Office Visit Tuan Ramirez MD [facility] R groin lump - In-person encounter Office Visit Tuan Ramirez MD [facility] - In-person encounter Office Visit Sunny Simons MD [facility] - In-person encounter Office Visit Tuan Ramirez MD [facility] - In-person encounter Office Visit Tuan Ramirez MD [facility] 02/2019 CATH MIRROR FRAMER mid/distal LAD, patent RCA stent, mid LAD stent (90% ISR)Current use of anticoagulants - In-person encounter Office Visit Tuan Ramirez MD [facility] - In-person encounter Office Visit Tuan Ramirez MD [facility] BradycardiaCOPD - In-person encounter Office Visit Tuan Ramirez MD [facility] - In-person encounter Office Visit Tuan Ramirez MD [facility] [place] [facility] HTNCAD - 02/2019 CAT H MIRROR FRAMER mid/distal LAD, patent RCA stent, mid LAD stent (90% ISR)R groin lump - In-person encounter Office Visit Tuan Ramirez MD [facility] CAROTID STENOSIS - <50% LICA - In-person encounter Office Visit Tuan Ramirez MD [facility] CAD-07/02 NUC ISCHEMIATobacco use quitCAD - 02/2019 CATH MIRROR FRAMER mid/distal LAD, patent RCA stent, mid LAD stent (90% ISR)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 [facility] NORMCAROTID STENOSIS - <50% LICABradycardia - In-person encounter Office Visit Tuan Ramirez MD [facility] - In-person encounter Office Visit Tuan Ramirez MD [facility] SyncopeBradycardia - In-person encounter Office Visit Tuan Ramirez MD [facility] - In-person encounter Office Visit Tuan Ramirez MD [facility] - In-person encounter Office Visit Tuan Ramirez MD [facility] - In-person encounter Office Visit Tuan Ramirez MD [facility] [place] [facility] - In-person encounter Office Visit Tuan Ramirez MD [facility] - In-person encounter Office Visit Tuan Ramirez MD [facility] - In-person encounter Office Visit Tuan Ramirez MD [facility] - In-person encounter Office Visit Tuan Ramirez MD [facility] - In-person encounter Office Visit Tuan Ramirez MD [facility] VITAL SIGNS Date Observation Value Provider [...] Martha Martinez height E&M 71 [in_i] Martha [place] Body Mass Index (Ratio) 24.54 kg/m2 Grah am Nem[place] pulse rate 58 /min [facility] blood pressure, cuff size regular Fa [facility] blood pressure, diastolic 65 mm[Hg] Fa [facility] blood pressure, systolic 117 mm[Hg] [facility] oxygen saturation, oximetry 93 % [facility] respiratory rate E&M 18 /min Jazlyn M iller weight E&M 176 [lb_av] [facility] height E&M 71 [in_i] [facility] Body Mass Index (Ratio) 24.82 kg/m2 Grah am [place] blood pressure, cuff size regular Fa ith [place] blood pressure, diastolic 74 mm[Hg] Fa ith [place] blood pressure, systolic 111 mm[Hg] Mauri [facility] oxygen saturation, oximetry 92 % [facility] respiratory rate E&M 16 /min Jazlyn M iller pulse rate 65 /min [facility] weight E&M 178 [lb_av] [facility] height E&M 71 [in_i] Jazlyn Martinez [...] er height E&M 71 [in_i] Sabina Schmidt [facility] Body Mass Index (Ratio) 29.87 kg/m2 Yaa tripp Estefanyiaella blood pressure, diastolic 71 mm[Hg] Br júniorsebastian [facility] blood pressure, systolic 134 mm[Hg] Chika sahrahilario [facility] oxygen saturation, oximetry 98 % Nanette Jacobsiaella respiratory rate E&M 15 /min Yaageorges katelynn Allisoniaella pulse rate 80 /min Nanette Allison adela weight E&M 214.2 [lb_av] Nanette goodrich height E&M 71 [in_i] Nanette Allison adela Body Mass Index (Ratio) 27.61 kg/m2 Luma Lacey RN blood pressure, cuff size large Dc khoa [place] blood pressure, diastolic 70 mm[Hg] Alberta couch [place] blood pressure, systolic 135 mm[Hg] [facility] ernesto [place] oxygen saturation, oximetry 98 % [...] blood pressure, diastolic 67 mm[Hg] Ca therine Denton blood pressure, systolic 145 mm[Hg] Cat herine Alex oxygen saturation, oximetry 94 % Didi Denton respiratory rate E&M 14 /min Catheri ne Alex pulse rate 71 /min Didi Alex weight E&M 198 [lb_av] Didi Alex blood pressure, cuff size regular Ca therine [place] height E&M 71 [in_i] Didi Alex Body [...] Body Mass Index (Ratio) 29.15 kg/m2 [facility], resting Yes Alex Sims blood [...] Telly Webbford blood pressure, diastolic 80 mm[Hg] [facility] [place] blood pressure, systolic 140 mm[Hg] She [facility] cliniceulalia WebbWolff oxygen saturation, oximetry 98 % [facility] Webbford pulse rate 64 /min [facility] Webb mackenzie respiratory rate E&M 18 /min [facility] Foundation[facility]la darby Wolff weight E&M 214 [lb_av] Teresa Webb mackenzie height E&M 71 [in_i] Teresa Webb mackenzie Body Mass Index (Ratio) 30.40 kg/m2 Khoi Ott blood pressure, resting Yes Telly Webbford blood pressure, diastolic 68 mm[Hg] [facility] Web[place] blood pressure, systolic 140 [...] pressure, systolic, left arm 142 mm [Hg] Whitney Leigh blood pressure, diastolic, right arm 60 m m[Hg] Whitney Leigh blood pressure, systolic, right arm 130 m m[Hg] Liz Leigh blood pressure, diastolic 70 mm[Hg] Ki lleen blood pressure, systolic 142 mm[Hg] Nikos farley Leigh oxygen saturation, oximetry 95 % Whitney Leigh respiratory rate E&M 16 /min Whitney Leigh pulse rate 54 /min Whitney Leigh weight E&M 211 [lb_av] Whitney Leigh height E&M 71 [in_i] Liz Leigh [...] Mass Index (Ratio) 27.61 kg/m2 Khoi jacobo [facility] blood pressure, cuff size large Cy zoie [...] respiratory rate E&M 22 /min Sabina Costa [facility] center[facility] pulse rate 88 /min Sabina Schmidt [facility] weight E&M 208 [lb_av] Sabina Schmidt [facility] height E&M 71 [in_i] Sabina Schmidt [facility] Body Mass Index (Ratio) 27.89 kg/m2 Khoi [...] ronel pulse rate 83 /min Sabina Schmidt [facility] weight E&M 189 [lb_av] Sabina Schmidt [facility] height E&M 71 [in_i] Sabina Schmidt [facility] Body Mass Index (Ratio) 25.80 kg/m2 Khoi Ott blood pressure, diastolic, left arm 64 mm [Hg] Ramandeep Luray blood pressure, systolic, left arm 130 mm [Hg] Ramandeep Luray blood pressure, diastolic, standing 70 mm [Hg] Ramandeep Sabine blood pressure, systolic, standing 120 mm [Hg] Ramandeep Luray respiratory rate E&M 16 /min Ramandeep Luray oxygen saturation, oximetry 93 % Ramandeep Sabine pulse rate 77 /min Ramandeep Sabine blood pressure, diastolic 64 mm[Hg] Kr isty [place] blood pressure, systolic 130 mm[Hg] Kri sty [place] weight E&M 185 [lb_av] Ramandeep Luray blood pressure, cuff size regular Kr isty Sabine height E&M 71 [in_i] Ramandeep Luray Body Mass Index (Ratio) 25.41 kg/m2 Khoi [...] Oliverio blood pressure, diastolic 58 mm[Hg] [facility], systolic 116 mm[Hg] Radames [facility] oxygen saturation, oximetry 95 % Michelle Oliverio [...] Tuyet Horton respiratory rate E&M 16 /min oYli Horton weight E&M 181.6 [lb_av] Tuyet march [...] patricia St blood pressure, diastolic 64 mm[Hg] Olile thurman blood pressure, systolic 122 mm[Hg] Georges owen ber pulse rate 52 /min Adele oxygen saturation, oximetry 99 % Adele respiratory rate E&M 20 /min Adele Henderson mare weight E&M 196.2 [lb_av] Adele ber height E&M 71 [in_i] Adele Stber blood pressure, diastolic, left arm 76 mm [Hg] Pedro Pablo Lassiter RN blood pressure, systolic, left arm 141 mm [Hg] Pedro Pablo Lassiter RN blood [...] diastolic, left arm 93 mm [Hg] Nita Superior blood pressure, systolic, left arm 168 mm [Hg] Nita Superior blood pressure, diastolic, right arm 90 m m[Hg] Nita Superior blood pressure, systolic, right arm 172 m m[Hg] Nita Superior blood pressure, diastolic 90 mm[Hg] Fe ambrose Kiki blood pressure, systolic 172 mm[Hg] Fel icia Kiki pulse rate 57 /min Nita Kiki oxygen saturation, oximetry 96 % Nita Kiki respiratory rate E&M 20 /min Nita Superior weight E&M 204 [lb_av] Nita Superior blood pressure, diastolic 75 mm[Hg] Rolanda seph [...] Heriberto Ott triglyceride, serum, fasting 108 mg/dL [facility] HDL cholesterol, serum 33 mg/dL [facility] LDL cholesterol, serum 67 mg/dL [facility] cholesterol, serum 123 mg/dL [facility] platelet count 204 10*3/uL [facility] red blood cell distribution width 11.7 % [facility] mean corpuscular hemoglobin concentration, RBC 32.5 g/dL [facility] mean corpuscular hemoglobin, RBC 31.9 pg [facility] mean corpuscular volume, RBC 97.9 fL [facility] hematocrit, blood 41.8 % [facility] hemoglobin, blood 13.6 g/dL [facility] erythrocyte (RBC) count 4.27 10*6/mm3 [facility] leukocyte count, blood 9.2 10*3/mm3 [facility] calcium, serum 9.2 mg/dL [facility] blood glucose, random 105 mg/dL [facility] creatinine, serum 0.85 mg/dL [facility] urea nitrogen, blood 13 mg/dL [facility] carbon dioxide, serum, total 29 mmol/L [facility] chloride, serum 103 mmol/L [facility] potassium, serum 4.7 mmol/L [facility] sodium, serum 139 mmol/L [facility] LDL cholesterol, serum 90 mg/dL [facility] prothrombin time (patient) 10.2 s Maria [...] by mouth once a day - [facility] metoprolol tartrate 25 mg tablet active Tuan [...] 1 TABLET BY MOUTH EVERY DAY [facility] Eliquis 5 mg tablet active TAKE 1 [...] smoker [employer] smoking, year quit 1998 [facility] number of years as a smoker 10+ [facility] cigarette use yes [facility] smoking status Former smoker [employer] smoking, year quit 1998 [facility] number of years as a smoker 10+ [facility] cigarette use yes [facility] smoking status Former smoker [facility] physical exercise, frequency, days per week [...] of years as a smoker 10+ Didi Denton cigarette use yes Didi Alex smoking status [...] averag e drinks per day 1+ Ramandeep Luray smoking, year quit 1998 Ramandeep Bu sby number of years as a smoker 10+ Ramandeep Luray cigarette use yes Ramandeep Sabine smoking status [...] of years as a smoker 10+ Sabina Yvrose cigarette use yes Sabina carmichael smoking status [...] Kimmy Lona smoking status Former smoker Kimmy Lona number of grandchildren Tuan Ramirez MD social [...] Tuyet march smoking status Former smoker [facility] jordan [...] march smoking status Former smoker Tuyet Ramos ujlian social history revie wed E&M reviewed - [...] years or more [facility] Date Observation Value Provider HRA, [...] Payer name Policy type / Coverage type [place] red libertarian ID [employer] MED[employer] AD[employer]ANTAGE ST 0 003 (HMO POS) Medicare [id number] ADVANCE DIRECTIVES Name Date DISCUSSED - NO DECISION MADE TREATMENT PLAN Date Name Performer [id number],S, H is updated medication list for this problem includes: Rosuvastatin 20 Mg Tablet (Rosuvastatin) Crestor 20 Mg Tablet (Rosuvastatin) ..... 1 tablet once a day Tuan Ramirez MD [id number],S, Tuan Ramirez MD [id number],S,will obtain p Minal Ramirez MD [id number],S, B P today: 142/79 P rior BP: [...] 25 Mg Tablet (Spironolactone) Tuan Ramirez MD [id number],S,n ot in Afib H is updated medication list for this problem includes: Metoprolol Tartrate 25 Mg Tablet (Metoprolol tartrate) Plavix 75 Mg Tablet (Clopidogrel) ..... 1 tablet once a day Tuan Ramirez MD [id number],C,n o CP H is updated medication list for this problem includes: Amlodipine 10 Mg Tablet (Amlodipine) ..... Take 1 tablet by mouth every day Metoprolol Tartrate 25 Mg Tablet (Metoprolol tartrate) Isosorbide Mononitrate 120 Mg Tablet Extended Release 24 Hr (Isosorbide mononitrate) ..... Take 1 tablet by mouth once a day take 1 tablet by mouth once daily Nitrolingual 400 Mcg/spray Belk,non-aerosol (Nitroglycerin) ..... 1 as needed Plavix 75 Mg Tablet (Clopidogrel) ..... 1 tablet once a day Tuan Ramirez MD [id number],N,i ncreased confusion w ill hold inpefa for 1 week to see if confusion improves o btain UACR Tuan Ramirez MD [id number],S,S OB improved. Pt's reports increased confusion. We [...] by mouth once daily Nitrolingual 400 Mcg/spray Belk,non-aerosol (Nitroglycerin) ..... 1 as needed Plavix 75 Mg Tablet (Clopidogrel) ..... 1 tablet once a day Tuan Ramirez MD [id number],C, R eveiwed his admission from last year with NSTEMI. Tuan Ramirez MD [id number],C, C HF class II His updated medication [...] by mouth once daily Nitrolingual 400 Mcg/spray Belk,non-aerosol (Nitroglycerin) ..... 1 as needed Plavix 75 Mg Tablet (Clopidogrel) ..... 1 tablet once a day Tuan Ramirez MD [id number],C, P atient is wheezing and short of breath, CHF class II Tuan Ramirez MD [id number],S, N ot in AFib. H is updated medication list for this problem includes: Metoprolol Tartrate 25 Mg Tablet (Metoprolol tartrate) Plavix 75 Mg Tablet (Clopidogrel) ..... 1 tablet once a day Tuan Ramirez MD [id number],C, B P today: 140/73 P rior BP: [...] 25 Mg Tablet (Spironolactone) Tuan Ramirez MD [id number],S, N o chest pain. His updated medication list for this problem includes: Amlodipine 10 Mg Tablet (Amlodipine) ..... Take 1 tablet by mouth every day Metoprolol Tartrate 25 Mg Tablet (Metoprolol tartrate) Isosorbide Mononitrate 120 Mg Tablet Extended Release 24 Hr (Isosorbide mononitrate) ..... Take 1 tablet by mouth once a day take 1 tablet by mouth once daily Nitrolingual 400 Mcg/spray Belk,non-aerosol (Nitroglycerin) ..... 1 as needed Plavix 75 Mg Tablet (Clopidogrel) ..... 1 tablet once a day Tuan Ramirez MD [id number],S, B P today: 124/80 P rior BP: [...] Spironolactone 25 Mg Tablet (Spironolactone) Dejuan Marxyovany [id number],S, H is updated medication list for this [...] by mouth once daily Nitrolingual 400 Mcg/spray Belk,non-aerosol (Nitroglycerin) ..... 1 as needed Plavix 75 Mg Tablet (Clopidogrel) ..... 1 tablet once a day Dejuan Gray [id number],C, H is updated medication list for this problem includes: Rosuvastatin 20 Mg Tablet (Rosuvastatin) Crestor 20 Mg Tablet (Rosuvastatin) ..... 1 tablet once a day Nanette Han [id number],C, B P today: 134/71 P rior BP: [...] tablet by mouth every day Nanette Han [id number],C, H is updated medication list for this problem includes: Metoprolol Tartrate 25 Mg Tablet (Metoprolol tartrate) Plavix 75 Mg Tablet (Clopidogrel) ..... 1 tablet once a day Nanette Han [id number],C,O verzena doing well. No SOB. He cannot afford Jardiance. Stable at CHF class II. Continues current medications. Nanette Han [id number],S, E ncouraged weight loss. Nanette Han [id number],C,T he pt reports improvement of symptoms with [...] by mouth every day Nitrolingual 400 Mcg/spray Belk,non-aerosol (Nitroglycerin) ..... 1 as needed Plavix 75 Mg Tablet (Clopidogrel) ..... 1 tablet once a day Nanette Han [id number],C,T he pt reports improvement of symptoms with [...] by mouth every day Nitrolingual 400 Mcg/spray Belk,non-aerosol (Nitroglycerin) ..... 1 as needed Plavix 75 Mg Tablet (Clopidogrel) ..... 1 tablet once a day Nanette Han [id number],C, H is updated medication list for this problem includes: Rosuvastatin 20 Mg Tablet (Rosuvastatin) Crestor 20 Mg Tablet (Rosuvastatin) ..... 1 tablet once a day Tuan Ramirez MD [id number],C, B P today: 135/70 P rior BP: [...] by mouth every day Tuan Ramirez MD [id number],C, Echo in the hospital showed RV dilatation [...] by mouth every day Nitrolingual 400 Mcg/spray Belk,non-aerosol (Nitroglycerin) ..... 1 as needed Plavix 75 Mg Tablet (Clopidogrel) ..... 1 tablet once a day Nanette Han [id number],C, H is updated medication list for this problem includes: Rosuvastatin 20 Mg Tablet (Rosuvastatin) Crestor 20 Mg Tablet (Rosuvastatin) ..... 1 tablet once a day Tuan Ramirez MD [id number],C, B P today: 145/67 P rior BP: [...] by mouth every day Tuan Ramirez MD [id number],C,T he pt had a recent admission to [facility] due to CHF exacerbation due to HFpEF. He was diuresed and is feeling better. Echo in the hospital showed RV dilatation adn elevated PA pressure. Today we will start Jardiance 10 mg daily. F/u in one month and consider R/L cardiac cath depending on his sxs. Tuan Ramirez MD [id number],S, E ncouraged weight loss. Nanette Han [id number],Nanette Henderson [id number],C, H is updated medication list for this problem includes: Crestor 20 Mg Tablet (Rosuvastatin) ..... 1 tablet once a day Nanette Han [id number],C, B P today: 130/60 P rior BP: 140/72 (02/15/2021) Labs Reviewed: C reat: 0.93 (09/04/2018) C hol: 89 (09/04/2018) HDL: 44 (09/04/2018) LDL: 25 (09/04/2018) H is updated medication list for this problem includes: Furosemide 40 Mg Tablet (Furosemide) ..... Take 1 tablet by mouth every day Amlodipine 10 Mg Tablet (Amlodipine) ..... 1 tablet once a day Nanette Emely [id number],C,N o SOB H is updated medication list for this problem includes: Symbicort 160-4.5 Mcg/actuation Hfa Aerosol Inhaler (Budesonide-formoterol) ..... 2 puff twice a day Proair Hfa 90 Mcg/actuation Hfa Aerosol Inhaler (Albuterol sulfate) ..... As needed Albuterol Sulfate (bulk) Powder (Albuterol sulfate (bulk)) ..... 2 puff twice a day Albuterol Sulfate 2.5 Mg/3 Ml (0.083 %) Solution For Nebulization (Albuterol sulfate) Nanette Emely [id number],C, He continues to complain of leg swelling, though it has improved since starting the Lasix. Nanette Emely [id number],C,P t did not proceed with cardiac cath [...] tablet once a day Nitrolingual 400 Mcg/spray Belk,non-aerosol (Nitroglycerin) ..... 1 as needed Plavix 75 Mg Tablet (Clopidogrel) ..... 1 tablet once a day Isosorbide Mononitrate 120 Mg Tablet Extended Release 24 Hr (Isosorbide mononitrate) ..... Take 1 tablet by mouth once a day Nanette Han [id number],C, H is updated medication list for this problem includes: Crestor 20 Mg Tablet (Rosuvastatin) ..... 1 tablet once a day Tuan Ramirez MD [id number],STuan MD [id number],C, B P today: 140/72 P rior BP: 130/70 (12/04/2020) Labs Reviewed: C reat: 0.93 (09/04/2018) C hol: 89 (09/04/2018) HDL: 44 (09/04/2018) LDL: 25 (09/04/2018) H is updated medication list for this problem includes: Amlodipine 10 Mg Tablet (Amlodipine) ..... 1 tablet once a day Lasix 40 Mg Tablet (Furosemide) ..... Take 1 once a day Tuan Ramirez MD [id number],Brent Kennedy ontinues on Eliquis. Denies CP or SOB today. Tuan Ramirez MD [id number],BrentP t had a recent admission to the [facility] for chest pain and shortness of breath. [...] For Nebulization (Albuterol sulfate) Tuan Ramirez MD [id number],BrentP t had a recent admission to the [facility] for chest pain and shortness of breath. He has leg swelling worse on the right. 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 BNP during admissionwas 220. In view of his recent symptoms, will proceed to R/L heart cath and venography with IVUS. Tuan Ramirez MD [id number],BrentP t had a recent admission to the [facility] for chest pain and shortness of breath. [...] tablet once a day Nitrolingual 400 Mcg/spray Belk,non-aerosol (Nitroglycerin) ..... 1 as needed Plavix 75 Mg Tablet (Clopidogrel) ..... 1 tablet once a day Isosorbide Mononitrate 120 Mg Tablet Extended Release 24 Hr (Isosorbide mononitrate) ..... Take 1 tablet by mouth once a day Tuan Ramirez MD [id number],C,O n statin H is updated medication list for this problem includes: Crestor 20 Mg Oral Tablet (Rosuvastatin calcium) ..... One tab once daily Nanette Han [id number],C, B P today: 130/70 P rior BP: 140/80 (11/24/2020) Labs Reviewed: C reat: 0.93 (09/04/2018) C hol: 89 (09/04/2018) HDL: 44 (09/04/2018) LDL: 25 (09/04/2018) H is updated medication list for this problem includes: Lasix 40 Mg Oral Tablet (Furosemide) ..... Take one daily Amlodipine Besylate 10 Mg Oral Tablet (Amlodipine besylate) ..... One tab. daily Nanette Han [id number],C,N o SOB. H is updated medication list for this problem includes: Proair Hfa 108 (90 Base) Mcg/act Inhalation Aerosol Solution (Albuterol sulfate) ..... As needed Albuterol Sulfate Powder (Albuterol sulfate) ..... 2 puffs twice daily Symbicort Aerosol (Budesonide-formoterol fumarate aero) ..... 2 puffs twice daily Nanette Han [id number],C,T he pt developed nausea and vomitting after [...] 3rd dose, go to er Nanette Han [id number],C, Leg swelling has improved, will obtain venous duplex and consider venoraphy w/ IVUS and Venaseal. He was also not able to withstand support stockings. Nanette Han [id number],N,P t complains of bilateral leg swelling, denies [...] o r SOB. Inpefa was stopped by fiscal manager becuase of risk of UTI. WIll continue current medications H is updated medication list for this problem includes: Furosemide 40 Mg Tablet (Furosemide) ..... Take 1 tablet by mouth every day Amlodipine 10 Mg Tablet (Amlodipine) ..... Take 1 tablet by mouth every day Metoprolol Tartrate 25 Mg Tablet (Metoprolol tartrate) Spironolactone 25 Mg Tablet (Spironolactone) Nitrolingual 400 Mcg/spray Belk,non-aerosol (Nitroglycerin) ..... 1 as needed Plavix 75 Mg Tablet (Clopidogrel) ..... 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 NO CP or SOB. Inpefa was stopped by fiscal manager sanjuanita of risk of UTI. WIll continue [...] 25 Mg Tablet (Spironolactone) Nitrolingual 400 Mcg/spray Belk,non-aerosol (Nitroglycerin) ..... 1 as needed Plavix 75 Mg Tablet (Clopidogrel) ..... 1 tablet once a day Paulo Chester Cardiology:Pt presjenelle hitchcokc with myocardial infarction, was found to have [...] by mouth once daily Nitrolingual 400 Mcg/spray Belk,non-aerosol (Nitroglycerin) ..... 1 as needed Plavix 75 [...] by mouth once daily Nitrolingual 400 Mcg/spray Belk,non-aerosol (Nitroglycerin) ..... 1 as needed Plavix 75 [...] by mouth once daily Nitrolingual 400 Mcg/spray Belk,non-aerosol (Nitroglycerin) ..... 1 as needed Plavix 75 [...] by mouth once daily Nitrolingual 400 Mcg/spray Belk,non-aerosol (Nitroglycerin) ..... 1 as needed Plavix 75 [...] by mouth once daily Nitrolingual 400 Mcg/spray Belk,non-aerosol (Nitroglycerin) ..... 1 as needed Plavix 75 [...] by mouth every day Nitrolingual 400 Mcg/spray Belk,non-aerosol (Nitroglycerin) ..... 1 as needed Plavix 75 [...] by mouth every day Nitrolingual 400 Mcg/spray Belk,non-aerosol (Nitroglycerin) ..... 1 as needed Plavix 75 [...] by mouth every day Nitrolingual 400 Mcg/spray Belk,non-aerosol (Nitroglycerin) ..... 1 as needed Plavix 75 [...] pt esteban d a recent admission to [facility] due to CHF exacerbation due to HFpEF. [...] tablet once a day Nitrolingual 400 Mcg/spray Belk,non-aerosol (Nitroglycerin) ..... 1 as needed Plavix 75 [...] Cardiology:Pt had a recent admission to the [facility] for chest pain and shortness of breath. [...] Cardiology:Pt had a recent admission to the [facility] for chest pain and shortness of breath. He has leg swelling worse on the right. 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 BNP during admissionwas 220. In view of his recent symptoms, will proceed to R/L heart cath and venography with IVUS. Tuan Ramirez MD Cardiology:Pt had a recent admission to the [facility] for chest pain and shortness of breath. [...] tablet once a day Nitrolingual 400 Mcg/spray Belk,non-aerosol (Nitroglycerin) ..... 1 as needed Plavix 75 [...] only 20 or 40 mg. Vanessa Judge MILITARY SCIENCE TEACHER Cardiology:Advised p t to be careful to not fall, particularly when taking Plavix in addition to Eliquis. Heriberto Ott Cardiology:His [facility] ed medication list for this problem [...] Tablet (Amlodipine besylate) ..... One tab. daily [facility] Cardiology:Echo show ed normal EF. Holter [...] (Apixaban) .... 1 tab po twice daily [facility] Cardiology:Echo show ed normal EF. He [...] relief after 3rd dose, go to er [facility] Cardiology Follow up : H is updated medication list for this problem includes: Crestor 20 Mg Oral Tablet (Rosuvastatin calcium) ..... One tab once daily C HOL: 89 (09/04/2018) LDL: 25 (09/04/2018) HDL: 44 (09/04/2018) Don Hermosillo MD Cardiology Follow up Don barillas MD Cardiology Follow up Don barillas MD Cardiology Follow up Don barillas MD Cardiology:Encouraged weight los s. [facility] Cardiology Heriberto Birch Cardiology:His updat ed medication list for this problem includes: Crestor 20 Mg Oral Tablet (Rosuvastatin calcium) ..... One tab once daily [facility] Cardiology:He had a cough which resolved [...] Tablet (Amlodipine besylate) ..... One tab. daily [facility] Cardiology:No palpit ations. His updated medication list for this problem includes: Eliquis 5 Mg Oral Tablet (Apixaban) .... 1 tab po twice daily [facility] Cardiology:Due for f /u. Orders: C T Chest without contrast (CPT-38029) [facility] Cardiology:Reveiwed his admission from last year with NSTEMI. [facility] Cardiology:Denies ch est pain or SOB. Will obtain f/u echo. The following medications were stopped due to a cough: Altace 10 Mg Oral Capsule (Ramipril) ..... Take one pill a day His updated medication list for this problem includes: Isosorb [place] Er 120mg Tab (Isosorbide mononitrate) ..... Take [...] (Aspirin) ..... One tab by mouth daily [facility] follow up :His updated medication list for this problem includes: Eliquis 5 Mg Oral Tablet (Apixaban) .... 1 tab po twice daily [facility] Cardiology hospital follow up :Due for f/u CT before next appt. [facility] hospital follow up :His updated medication list for this problem includes: Crestor 20 Mg Oral Tablet (Rosuvastatin calcium) ..... One tab once daily [facility] hospital follow up :BP today: 134/70 P rior BP: 110/58 (03/01/2019) His updated medication list for this problem includes: Amlodipine Besylate 5 Mg Oral Tablet (Amlodipine besylate) ..... One tab. daily Altace 10 Mg Oral Capsule (Ramipril) ..... Take one pill a day [facility] hospital follow up :Pt had a recent admission to [facility] for chest pain and ruled in for NSTEMI. Cardiac cath showed 90% in-stent restenosis of the LAD, which was stented. Pt reports his angina has resolved. [facility] follow up :Pt had a recent admission to [facility] for chest pain and ruled in for NSTEMI. Cardiac cath showed 90% in-stent restenosis of the LAD, which was stented. Pt reports his angina has resolved. His updated medication list for this problem includes: Isosorb [place] Er 120mg Tab (Isosorbide mononitrate) ..... Take [...] (Ramipril) ..... Take one pill a day [facility] Cardiology:No palpitations. On E liquis. [facility] Cardiology:His updat ed medication list for this problem includes: Crestor 20 Mg Oral Tablet (Rosuvastatin calcium) ..... One tab once daily [facility] Cardiology:BP today: 110/58 P rior BP: 142/70 (10/10/2018) His updated medication list for this problem includes: Amlodipine Besylate 5 Mg Oral Tablet (Amlodipine besylate) ..... One tab. daily Altace 10 Mg Oral Capsule (Ramipril) ..... Take one pill a day Heriberto [facility] Cardiology:He compla ins of increasing frequency of angina. He does not want to have cardiac cath at this time, but he will monitor his symptoms and let us know if they get worse. [facility] Cardiology:He compla ins of increasing frequency of angina. He does not want to have cardiac cath at this time, but he will monitor his symptoms and let us know if they get worse. His updated medication list for this problem includes: Isosorb [place] Er 120mg Tab (Isosorbide mononitrate) ..... Take [...] (Ramipril) ..... Take one pill a day [facility] Cardiology:Pt had a fall and CT was performed and pulmonary nodules were suspected. 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 Will obtain an echo and f/u CT in 6 months. We will monitor the size of the aneurysmal dilatation and treat as needed. Heriberto [facility] Cardiology:No palpitations. On E liquis. Heriberto [facility] Cardiology Heriberto Birch Cardiology:CHOL: 123 (02/22/2018) LDL: 67 (02/22/2018) HDL: 33 (02/22/2018) T (02/22/2018) [facility] Cardiology:BP today: 142/70 P rior BP: 142/80 (03/26/2018) His updated medication list for this problem includes: Amlodipine Besylate 5 Mg Oral Tablet (Amlodipine besylate) ..... One tab. daily Altace 10 Mg Oral Capsule (Ramipril) ..... Take one pill a day [facility] Cardiology:No chest pain. His updated medication [...] (Ramipril) ..... Take one pill a day [facility] hospital follow up:LDL: 90 (07/28/2017) His updated medication list for this problem includes: Fenofibrate 48 Mg Oral Tablet (Fenofibrate) ..... Once a day [facility] follow up:BP today: 142/80 P rior BP: 138/70 (12/20/2017) His updated medication list for this problem includes: Amlodipine Besylate 5 Mg Oral Tablet (Amlodipine besylate) ..... One tab. daily Altace 10 Mg Oral Capsule (Ramipril) ..... Take one pill a day [facility] follow up:His updated medication list for [...] (Ramipril) ..... Take one pill a day [facility] follow up :BP today: 138/70 P rior BP: 160/86 (11/14/2017) His updated medication list for this problem includes: Amlodipine Besylate 5 Mg Oral Tablet (Amlodipine besylate) ..... One tab. daily Altace 10 Mg Oral Capsule (Ramipril) ..... Take one pill a day [facility] follow [facility] :Orders: A rterial Duplex Bi-Lower EX (CPT-71890) [facility] follow up :Orders: A rterial Duplex Bi-Lower EX (CPT-47834) V enous Doppler Bilateral LE - Reflux (CPT-15593) [facility] follow up :His updated medication list [...] (Ramipril) ..... Take one pill a day [facility] Cardiology Hospital follow up :His updated [...] anderson MD Cardiology Follow up Heriberto Aguilera [facility] Cardiology Follow up:Bradycardia resolved. [facility] Cardiology Follow up :BP today: 147/91 P rior BP: 148/71 (12/14/2016) His updated medication list for this problem includes: Amlodipine Besylate 5 Mg Oral Tablet (Amlodipine besylate) ..... One tab. daily Altace 10 Mg Oral Capsule (Ramipril) ..... Take one pill a day [facility] Cardiology Follow up :No chest pain [...] Heriberto Namrata Cardiology:Continues on Eliquis 5mg BID. [facility] Cardiology:BP today: 148/71 P rior BP: 161/64 (11/21/2016) The following medications were removed from the medication list: Toprol Xl 25 Mg Tb24 (Metoprolol succinate) ..... One tab daily His updated medication list for this problem includes: Amlodipine Besylate 5 Mg Tabs (Amlodipine besylate) ..... One tab. daily Ramipril 5 Mg Oral Caps (Ramipril) ..... Take one tablet daily [facility] Cardiology:The follo wing medications were removed [...] Caps (Ramipril) ..... Take one tablet daily [facility] Cardiology:His Metop rolol was stopped due to marked bradycardia. [facility] Cardiology:The pt wa s admitted to [facility] due to chest pain and cardiac cath revealed significant stenosis of the RCA. This was treated with a stent and his chest pain has completely resolved. [facility] Cardiology:The pt wa s admitted to [facility] due to chest pain and cardiac cath [...] ASA/Plavix. Heriberto Ott Cardiology:Groin dup nikki at [facility] showed that there was no pseudoaneurysm. The [...] with complete resolution of his symptoms. Heriberto [facility] Cardiology:S/P cardi ac cath last week. He [...] includes: Isosorbide Mononitrate Er 60 Mg Oral [id number] (Isosorbide mononitrate) ..... One tab daily Aspirin [...] Trace AR. Mild ot moderate TR. Minimal TN. GC office (04/23/2008) Tuan Ramirez MD 6 [...] Trace AR. Mild ot moderate TR. Minimal TN. office (04/23/2008) Aldair Angeles 6 month follow-up: [...] One tab. daily O rders: E KG (CPT-32524) C ardiac Cath - PCL (*) BP today: 155/96 Prior BP: / () Tuan Ramirez MD cp since monday: H [...] Microalb/Creatinine Urine, Random HEMOGLOBIN A1c DLCO - 91005 FRC - 83303 FVC - 46187 Venous Doppler Bilat eral LE Arterial Duplex [...] Echo Holter Monitor 24 Hr DLCO - 19283 FRC - 46156 FVC - 57916 CT Chest without con trast Complete Echo CT Chest without con trast Complete Echo Venous Doppler Bilat eral LE - Reflux Arterial Duplex Bi-L ower EX MAGNESIUM BASIC METABOLIC PANE L W/EGFR PROTHROMBIN TIME WIT H INR SOCRATES/CV - GC Complete Echo PROBNP, N TERMINAL DLCO - 49064 FRC - 81247 FVC - 05095 Cardiac Cath - Left - CNE Carotid [...] d EKG Tuan Ramirez MD completed SNOMED-CT: 104960295 035266 Current Medications Documented Tuan Ramirez MD completed SNOMED-CT: 340505761 622202 Current Medications Documented slhv .RickyVidalk completed SNOMED-CT: 553786437 480241 Current Medications Documented Tuan Ramirez MD completed SNOMED-CT: 503341539 639676 Current Medications Documented Tuan Ramirez MD completed BLOOD COUNT HEMOGLOBIN Tuan Ramirez MD completed FVC - 84779 Tuan Ramirez MD completed FRC - 84476 Tuan Ramirez MD completed DLCO - 68280 Tuan Ramirez MD complete d SNOMED-CT: 225458415 456853 Current Medications Documented Tuan Ramirez MD completed SNOMED-CT: 276994886 758466 Current Medications Documented Tuan Ramirez MD completed EKG Tuan Ramirez MD completed SNOMED-CT: 136704550 763588 Current Medications Documented Tuan Ramirez MD completed EKG Tuan Ramirez MD completed SNOMED-CT: 047045064 151323 Current Medications Documented Tuan Ramirez MD completed EKG Tuan Ramirez MD completed EKG Tuan Ramirez MD completed EKG Tuan Ramirez MD completed EKG Tuan Ramirez MD completed EKG Tuan Ramirez MD completed EKG Tuan Ramirez MD completed EKG Tuan Ramirez MD completed
--- OUTSIDE RECORDS SUMMARY | 2024-09-06 19:46 | XMS_ITS | Continuity of Care Document ---
Author Organization [facility] Address [address] [place] [address] [place] [address] Phone Care Team Providers Care Trial Judge Name Role Phone [facility] Unavailable Unavail able Darnell Wynne Unavailable Unavailable Procedures Procedure Date Progressive Lens, Polycarb Frames Deluxe Scratch Resistant Coating Eye Exam, New Patient Refraction Advance Directives Directive Yes / No Effective Date File Name No Information Encounters Encounter Description Practice Location Reason(s) For Visit Diagnoses Date Provider Providers Copied on Encounter [facility], [address] [place] [address] [facility], [place], [place], [id number], [place] tel:[phone] [facility] No Information 9200 7 [facility] . [address] [facility], [address], [id number], [place]. tel:[phone] Referring Provider: Lobito Sotelo OD Pastor, [address] [place] [address] [address], [place], [address]. tel:[phone] sulting Provider: Darnell Wynne, [address] [place], [place] [address]ate [facility] [place], [place], [address]. tel:[phone] [facility], [address] [place] [address] [address], [place], [place], [id number], [place] tel:[phone] [facility] No Information Sep- 4-200 7 Sotelo GRACIELA Robin. [address] [place] [address] , [address], [place], [address], [place]. tel:[phone] Family History Family Member Type Diagnosis Age At Onset No Information Payers Payer name Insurance type Covered constitution party ID Fernando sow(s) [employer] Plan [id number] Social History Type Description Quantity Date Captured [...]
[2024-09-06 19:50] VITALS: PULSE 71; RESP 19
[2024-09-06] MEDS: IPRATROPIUM 0.5 MG/ALBUTEROL SULFATE 2.5 MG AMPUL.NEB 3 ML INHALATION (19:50)
[2024-09-06 19:57] VITALS: PULSE 64; RESP 17
[2024-09-06 20:04] VITALS: BP 118/66; PULSE 78; RESP 20; O2SAT 98
[2024-09-06 20:21] LABS: NT Pro B Type Natriuretic Pept 1740 pg/mL (19.9-100)
[2024-09-06 20:46] LABS: Add Urine Microscopic? YES; Appearance Urine Clear (Clear); Bacteria Urine None Seen /hpf; Bilirubin Urine Negative (Negative); Blood Urine Negative (Negative); Color Urine Yellow (Yellow); Glucose Urine UA Negative (Negative); Ketones Urine Trace mg/dL (Negative); Leukocyte Esterase Ur Negative LEU/UL (Negative); Nitrate Urine Negative (Negative); Non Pathogenic Casts 0-2; Protein Urine Trace mg/dL (Negative); RBC Urine 0-2 /hpf (0-2); Specific Grav Ur 1.018 (1.001-1.035); Squamous Epithelial Cell Urine None Seen /hpf (Few); WBC Urine 0-5 /hpf (0-3)
[2024-09-06 21:18] LABS: Influenza A QL RT-PCR Negative (Negative); Influenza B QL RT-PCR Negative (Negative); RSV RNA, RT-PCR Negative (Negative); SARS-CoV-2 RNA PCR Negative (Negative)
--- NOTE | 2024-09-06 21:37 | ECG_ITS ---
Test Date: 2024-09-06 21:46:22 Measurements Intervals [place] Rate: 77 P: 0 ND: 0 QRS: -23 QRSD: 97 T: 26 QT: 370 QTc: 419 Interpretive Statements ATRIAL FIBRILLATION CONSIDER ANT-SEPT INFARCT, POSSIBLY RECENTINFERIOR INFARCT, AGE INDETERMINATE ANTEROSEPTAL INFARCT, AGE INDETERMINATE BORDERLINE ST-T WAVE ABNORMALITY- HIGH LATERAL LEADS BASELINE ARTIFACT- I, II, III, AVR, AVL, AVF, V3-V4 ABNORMAL ECG Compared to ECG 09/06/2024 18:01:56 No significant changes Electronically Signed On 09-07-2024 06:43:48 CDT by Byron Cisneros D.O.
[2024-09-06 21:48] VITALS: BP 125/87; PULSE 78; PULSE 87; RESP 17; O2SAT 95; O2SAT 96
[2024-09-06] MEDS: BENZONATATE 100 MG CAPSULE 200 MG PO (21:57)
--- NOTE | 2024-09-06 22:49 | PC.NURSE ---
PATIENT USED WALKER TO AMBULATE WITH PULSE OXIMETER ON. PATIENT DIDN'T REQUIRE O2 NC TO MAINTAIN AN SPO2 GREATER THAN 92. PATIENT DECLINED ANY SYMPTOMS WORSE THAN HIS BASELINE WITH AMBULATION AT HOME.
[2024-09-06] MEDS: predniSONE 20 MG TABLET 60 MG PO (23:22)
== END 2024-09-06 23:28 | disposition home or self-care (01) ==
PROVIDERS: Registered Nurse; Emergency Provider Emergency Medicine; PCP Internal Medicine
DX: J45.901 Unspecified asthma with (acute) exacerbation (principal); J44.9 Chronic obstructive pulmonary disease, unspecified; I25.10 Atherosclerotic heart disease of native coronary artery without angina pectoris; Z20.822 Contact with and (suspected) exposure to COVID-19; I10 Essential (primary) hypertension; E11.9 Type 2 dia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s; Z79.01 Long term (current) use of anticoagulants; Z79.02 Long term (current) use of antithrombotics/antiplatelets; Z79.84 Long term (current) use of oral hypoglycemic drugs; Z79.899 Other long term (current) drug therapy; I48.91 Unspecified atrial fibrillation; R94.31 Abnormal electrocardiogram [ECG] [EKG]
CPT/HCPCS: 36415; 71046; 80053; 81001; 83690; 83880; 84484; 85025; 85610; 85730; 87637; 93005; 94640; 99284; A9270; J7512

== ENCOUNTER 2024-09-16 10:23 | Outpatient (CLI) | payer MEDICARE, SELFPAY ==
[2024-09-16 11:32] LABS: Absolute Eosinophil Count 0.3 K/mm3 (0.0-0.3)
[2024-09-16 11:50] LABS: NT Pro B Type Natriuretic Pept 2920 pg/mL (19.9-100)
--- OUTSIDE RECORDS SUMMARY | 2024-09-16 11:50 | XMS_ITS | Continuity of Care Document ---
Author Organization [facility] Address [address] [place] [address] [place] [address] Phone Care Team Providers Care Delivery Route Driver Name Role Phone [facility] Unavailable Unavail able Darnell Wynne Unavailable Unavailable Procedures Procedure Date Progressive Lens, Polycarb Frames Deluxe Scratch Resistant Coating Eye Exam, New Patient Refraction Advance Directives Directive Yes / No Effective Date File Name No Information Encounters Encounter Description Practice Location Reason(s) For Visit Diagnoses Date Provider Providers Copied on Encounter [facility], [address] [place] [address] [facility], [place], [place], [id number], [place] tel:[phone] SEC [facility] No Information 9200 7 [facility] . [address] [facility], [address], [id number], [place]. tel:[phone] Referring Provider: Lobito Sotelo OD Pastor, [address] [place] [address] [address], [place], [address]. tel:[phone] sulting Provider: Darnell Wynne, [address] [place], [place] [address], [place], [address]. tel:[phone] [facility], [address] [place] [address] [address], [place], [place], [id number], [place] tel:[phone] [facility] No Information Sep- 4-200 7 Sotelo GRACIELA Robin. [address] [place] [address] , [address], [place], [address], [place]. tel:[phone] Family History Family Member Type Diagnosis Age At Onset No Information Payers Payer name Insurance type Covered democrat ID Fernando sow(s) [employer] Plan [id number] Social History Type Description Quantity Date Captured [...]
[2024-09-16 11:51] LABS: Immunoglobulin G 956 mg/dL (700-1600)
--- OUTSIDE RECORDS SUMMARY | 2024-09-16 11:51 | XMS_ITS ---
Author Organization [facility] Address [address] [address] [place] [address] Care Team Providers Care Parasitology Teacher Name Role Phone Ronak Carlos Unavailable [phone] MEDICATIONS Medication SIG (Take, Route, Frequency, Duration) Notes Start Date End Date Status Ergocalciferol 1.25 MG (67405 UT) 1 capsule Orally Once a week for 90 day(s) 04/14/2023 01/09/2024 Active Calcitriol 0.25 MCG 1 capsule Orally Onc e a day for 90 day(s) 04/14/2023 01/09/2024 Active SOCIAL HISTORY Sex Assigned At : Social History Observation Description Sex Assigned At Male Encounters Encounter Location Date Provider Diagnosis [facility] [address] [facility] [address] [place] [address] 04/14/2023 Carlos Siomns PLAN OF TREATMENT Medication Medication Name Sig Start Date Stop Date Notes Ergocalciferol 1.25 MG (5000 0 UT) 1 capsule Orally Once a week for 90 day(s) 04/14/2023 01/09/2024 Calcitriol 0.25 MCG 1 capsule Orally Onc e a day for 90 day(s) 04/14/2023 01/09/2024 Progress Notes * Kevan SCHAEFER (Yifan) :1940 (83 yo M)Acc No.[id number]:04/14/2023 Patient: Kevan SCHAEFER) :1940 Age:83 Y Sex:Male Address:[address] [place] [address] * Refills Start Calcitriol Capsule, 0.25 MCG, Orally, 90 Capsule, 1 capsule, Once a day, 90 day(s), Refills=2 Start Ergocalciferol Capsule, 1.25 MG (58076 UT), Orally, 13, 1 capsule, Once a week, 90 day(s), Refills=2 * true * Date:
--- OUTSIDE RECORDS SUMMARY | 2024-09-16 11:51 | XMS_ITS | Data Portability ---
Author Organization [place] [facility], Main Office Address [address] [place] [address] Care Team Providers Care Branding Machine Tender Name Role Phone VINNY SORTO Primary Care Provider VINNY SORTO Referring Provider TERRY BLAKELY Tennis Camp Instructor [place] [employer] Pain Management DASH, TRAVIS GRIMES Neurologist ZAIN MAC General Surgeon TUAN RAMIREZ Racing Board Marker Assessment Encounter Date Assessment Date Assessment LastModified by Organization Details LastModified Time 05/16/2024 05/16/2024 08/05/2022: A1C 6.3 Folate/B12/FT4: WNL [...] patient for a total of 68 minutes. Not available 07/09/2024 12:47:18 08/15/2024 08/15/2024 08/08/2024: NT ProBNP 2420 A1C 5.9 Urine random 08/05/2022: A1C 6.3 Folate/B12/FT4: WNL GFR 57 [...] Neg Gluc 111, GFR 56 MCV 100.2 08/08/2024: NT Pro BNP 2420 A1C 5.9 Not available 08/14/2024 18:01:41 09/10/2024 09/10/2024 Due to the patentis eosinophilic profile, history of exacerbations, chronic symptoms, and limited improvement with conventional therapies. Dupixent is medically necessary to reduce exacerbation frequency, improve symptom control, and minimize systemic corticosteroid exposure. Without the additional biologic therapy, the patient is at continued risk for exacerbation-rela naldo morbidity. Time spent with patient included: preparing to see patient by reviewing tests, obtaining and reviewing history, medical examination and evaluation, counseling and educating the patient, ordering medications and tests, documenting clinical information in EHR, independently interpreting results and communicating results to the patient for a total of 46 minutes. Not available 09/10/2024 12:29:40 Plan of Treatment Reminders Order Date Submit Date Provider Last Modified By Organization Details Last Modified Time Details Appointments Any 15 2024 10:30A Ermelinda sifuentes MD Not available Not available Not available Lab vitamin B12 + folate, serum or blood 2024 025 [facility] (Lab), [address] [place], [address], 08/15/2024 16:25:21 lipid panel, serum 2024 025 [facility] (Lab), [address] [place], [address], 08/15/2024 16:25:22 CMP, serum or plasma 2024 025 [facility] (Lab), [address] [place], [address], 08/15/2024 16:25:21 CBC w/ auto diff 2024 025 [facility] (Lab), [address] [place], [address], 08/15/2024 16:25:21 TSH, serum or plasma 2024 025 [facility] (Lab), [address] [place], [address], 08/15/2024 16:25:22 glycohemo globin, total, blood 2024 025 [facility] (Lab), [address] [place], [address], 08/15/2024 16:25:21 microalbu min, urine 2024 025 [facility] (Lab), [address] [place], [address], 08/15/2024 16:25:21 gas panel, arterial blood [email or web address] [place] [address] Lab, [address], [address], 08/21/2024 09:53:03 BNP (B-type natriuret ic peptide), serum or plasma [address] [place] [address] (Lab), [facility], [place], [address], 08/21/2024 09:51:40 ige, total, serum [address] [place] [address] (Lab), [facility], [place], [address], 08/21/2024 09:51:53 tb (M tuberculo sis), ifn-gamma dereck, blood [address] [place] [address] (Lab), [facility] [address], [place], [address], 08/21/2024 09:52:[address] s 1+2+3+4, serum [address] [place] [address] (Lab), [facility], [place], [address], 09/10/2024 15:17:56 respirato ry allergen panel, [facility] A, serum [address] [place] [address] (Lab), [facility], [place], [address], 08/21/2024 09:52:28 respirato ry allergen panel - [facility] b [address] [place] [address] (Lab), [facility], [place], [address], 08/21/2024 09:52:41 eosinophi ls, quant, blood [address] [place] [address] (Lab), [facility], [place], [address], 08/21/2024 09:52:51 vitamin B12 + folate, serum or blood 2023 024 [facility] (Lab), [address] [place], [address], 08/08/2024 13:48:39 lipid panel, serum 2023 024 [facility] (Lab), [address] [place], [address], 08/08/2024 13:48:38 CMP, serum or plasma 2023 024 [facility] (Lab), [address] [place], [address], 08/08/2024 13:48:38 CBC w/ auto diff 2023 024 [facility] (Lab), [address] [place], [address], 08/08/2024 13:44:46 TSH, serum or plasma 2023 024 [facility] (Lab), [address] [place], [address], 08/08/2024 13:48:38 glycohemo globin, total, blood 2023 024 [facility] (Lab), [address] [place], [address], 08/08/2024 13:48:39 microalbu min, urine 2023 024 [facility] (Lab), [address] [place], [address], 08/08/2024 13:48:[address] referral - Please call patient to schedule an appointme nt. Thank you. 2024 025 JOSE ANGEL Sanz MD, [address] [facility] , [address], [address], 08/26/2024 13:05:27 ophthalmo logist referral - Please call patient to schedule an appointme nt. Thank you. 2024 025 JOSE ANGEL Garcia, [address], [place], [address], 08/26/2024 12:15:35 podiatris t referral - Please call patient to schedule an appointme nt. Ton[place] you. 2024 025 [email or web address] Alexi Contreras DPM, [address] [facility], [address], [place], [address], 08/26/2024 15:20:35 cardiolog ist referral - Please call patient to schedule an appointme nt. Thank you. 2024 025 [place], [address] [address] , [facility] [address], [address], 08/26/2024 11:45:25 gastroent erologist referral - Please call patient to schedule an appointme nt. Thank you. 2024 025 TEODORO Gamez MD, [address] [facility], [address], [place], [address], 08/26/2024 11:31:23 cardiolog ist referral 2024 025 [email or web address] [place], [address] [address] , [address], [place], [address], 07/09/2024 18:39:25 pulmonolo gist referral 2024 025 [email or web address] Fidel Fleming MD, [address] [facility], [place], [address], 07/09/2024 18:38:15 ophthalmo logist referral - Please call patient to schedule. 2023 024 leslie Garcia, [address], [address], [place], [address], 08/06/2024 16:30:03 podiatris t referral - Please call patient to schedule. 2023 024 Alexi Contreras DPM, [address] [facility], [address], [place], [address], 08/06/2024 16:30:03 cardiolog ist referral - Please call pt to schedule appt. Thank you 2023 024 [email or web address] [place], [address] [facility], [address], [place], [address], 05/27/2024 08:59:48 gastroent erologist referral - Please call patient to schedule. 2023 024 [email or web address] Mikhail Gamez MD, [address] [facility], [address], [place], [address], 08/06/2024 16:30:03 Procedures None recorded. Surgeries None recorded. Imaging None recorded. Medication Orders Dupixent 300 mg/2 mL subcutane ous pen injector 2024 025 Not available 09/10/2024 15:23:41 Trelegy Ellipta 200 mcg-62.5 mcg-25 mcg powder for inhalatio n 2024 025 [id number], [address] [facility], [place], [address], 09/10/2024 15:23:43 Trelegy Ellipta 200 mcg-62.5 mcg-25 mcg powder for inhalatio n 2024 025 [facility]acy #[id number], [address] [facility], [place], [address], 07/09/2024 12:16:25 prednison e 20 mg tablet [address]/Pharmacy #[id number], [address], [place], [address], 08/15/2024 11:25:02 Zithromax Z-Enio 250 mg tablet [email or web address]/Pharmacy #[id number], [address], [place], [address], 08/15/2024 11:24:43 albuterol sulfate HFA 90 mcg/actua tion aerosol inhaler 2023 024 [facility]/Pharmacy #[id number], [address], [place], [address], 05/16/2024 12:41:13 Patient TargetsNo targets recorded. Patient Instructions Encounter Date Encounter Id Patient Instructions Last Modified By Organization Details Last Modified Time 07/09/2024 [id number] complete PFT w/ post bronchodilator spirometry* [email or web address] Not available 08/21/2024 11:20:02 Reason for Referral Senior Private Client Advisor Referral for Type 2 dia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 Please call patient to schedule. Referring Physician: Desire Melton Medicine, Encounter Date: 05/16/2024 Racing Board Marker Referral for Co ronary arteriosclerosis Please call pt to schedule appt. Thank you Referring Physician: Desire Melton, Encounter Date: 05/16/2024 Tennis Camp Instructor Referral for Visual impairment Please call patient to schedule. Referring Physician: Vinny Sorto Internal Medicine, Encounter Date: 05/16/2024 Marketing Liaison Referral for Liver enzymes level above reference range Please call patient to schedule. Referring Physician: Vinny Sorto Internal Medicine, Encounter Date: 05/16/2024 Sales Representative [employer] Referral for C hronic obstructive pulmonary disease Referring Physician: Desire Melton Medicine, Encounter Date: 07/09/2024 Racing Board Marker Referral for Co ronary arteriosclerosis Referring Physician: Vinny Sorto Internal Medicine, Encounter Date: 07/09/2024 Racing Board Marker Referral for Co ronary arteriosclerosis Please call patient to schedule an appointment. Thank you. Referring Physician: Vinny Sorto Internal Medicine, Encounter Date: 08/15/2024 Senior Private Client Advisor Referral for Type 2 dia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 Please call patient to schedule an appointment. Thak you. Referring Physician: Vinny Sorto Internal Medicine, Encounter Date: 08/15/2024 Tennis Camp Instructor Referral for Visual impairment Please call patient to schedule an appointment. Thank you. Referring Physician: Vinny Sorto Internal Medicine, Encounter Date: 08/15/2024 Marketing Liaison Referral for Liver enzymes level above reference range Please call patient to schedule an appointment. Thank you. Referring Physician: Vinny Sorto Internal Medicine, Encounter Date: 08/15/2024 Neurologist Referral for Tra nsient cerebral ischemia Please call patient to schedule an appointment. Thank you. Referring Physician: Vinny Sorto Internal Medicine, Encounter Date: 08/15/2024 Results Created Date Observation Date Name Description Value Unit Range Abnormal Flag Note LastModifiedBy Organization Detail LastModifiedTime 07/23/19 25 07/23/2024 CT, chest , w/o contr ast No observ ation record ed. [facility] [address], [place], [address], 07/23/2024 17:33:21 09/07/19 25 09/06/2024 imagi ng/di agnos tic resul t No observ ation record ed. [facility] [address], [place], [address], 09/06/2024 19:34:57 Result Notes None recorded. 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 Not Available [facility] 4 08:43:19 Abdominal pain 78732650 Active Not Available [facility] 4 08:43:19 Transient cerebral ischemia 362520123 Active 2021 Not Available [facility] 4 08:43:19 Dyspnea 808808806 Active 2016 Not Available [facility] 4 08:43:19 Moderate chronic obstructi ve pulmonary disease 123118736 Active 2016 Not Available [facility] 4 08:43:19 Dysphagia 15800301 Active Not Available [facility] 4 08:43:19 Chronic ischemic heart disease 557364581 Active Marcia Joseph CCM null, [place] [employer] [facility] 4 13:32:07 Compressi on fracture of lumbar spine 287404875 Active Not Available [facility] 4 08:43:19 Former heavy tobacco smoker 06861089113 4100 Active 2016 Not Available [facility] 4 08:43:19 Atrial fibrillat ion 58640690 Active 2017 Marcia Joseph CCM null, [place] [facility] [place] [employer] [facility] 4 13:32:07 Coronary arteriosc lerosis 98471177 Active 2016 Not Available [facility] 4 08:43:19 Hyperlipi demia 83450963 Active Not Available [facility] 4 08:43:19 Essential hypertens ion 47992894 Active Not Available [facility] 4 08:43:19 Ex-smoker 6245455 Completed 201603/20/2017 Not Available [facility] 3 06:08:09 Gastroeso phageal reflux disease without esophagit is 503115264 Active 2022 Not Available [facility] 4 08:43:19 Type 2 diabetes mellitus without complicat ion 559856168 Active 2022 Not Available [facility] 4 08:43:19 Visual impairmen t 779606699 Active 2022 Not Available [facility] 4 08:43:19 Aneurysm of thoracic aorta 946896753 Active 2022 Not Available [facility] 4 08:43:19 Macrocyto sis 291431153 Active 2022 Not Available [facility] 4 08:43:19 Umbilical hernia 784869144 Active 2022 Not Available [facility] 4 08:43:19 Proteinur ia 14507933 Active 2022 Not Available [facility] 4 08:43:19 Thoracic back pain 659705406 Active 2022 Not Available [facility] 4 08:43:19 Dementia 75073140 Active 2022 Marcia Joseph CCM null, [employer] 4 13:32:07 COVID-19 019505627 Active 2023 Not Available [facility] 4 08:43:19 Cerebral infarctio n 269365704 Active 2023 Not Available [facility] 4 08:43:19 Gynecomas tia 8824946 Active 2023 Not Available [facility] 4 08:43:19 Skin lesion 53883868 Active 2023 Janet Monroy MA null, [facility] 4 14:25:13 Epidermoi d cyst of skin of neck 555633996 Active 2023 Zain rincon MD [address] [facility], [address] [address], [place], [address] , [employer] 4 15:17:03 Liver enzymes level above reference range 159320636 Active 2023 Vinny patricia MD [address], [address], [place], [address] , [facility] [place] [facility] 4 09:46:09 Unsteady when walking 02613470 Active 2023 Vinny patricia MD [address], [address], [place], [address] , [facility] - [facility] 4 09:51:47 Sinusitis 80166194 Active 2023 Khadra Zhang CMA null, [place] [facility] 4 13:51:23 Upper respirato ry infection 80482169 Active 2023 Vinny patricia MD [address], [address], [place], [address] , [facility] [place] [facility] 4 12:39:06 Cough 21651265 Active 2024 Yoly Stewart MA null, [place] [facility] 5 16:05:59 Dyspnea on exertion 46482299 Active 2024 Candy Marie NP [address], [address], [place], [address] , [facility] - [facility] 5 12:03:04 Chronic cough 26579331 Active 2024 Candy Marie NP [address], [address], [place], [address] , [facility] 5 12:42:47 Oxygen saturatio n below reference range 145902477 Active 2024 Cnady Marie NP [address], [address], [place], [address] , [facility] [place] [facility] 5 12:43:55 Severe chronic obstructi ve pulmonary disease 842645869 Active 2024 Candy Marie NP [address], [address], [place], [address] , [facility] [employer] [facility] 11:14:31 Allergic rhinitis 35052170 Active 2024 KEELY Lopez, [facility] [employer] [facility] 11:51:58 Notes:Some problems listed i n Document: #[id number] could not be added to this patient's chart. Please review this document and add these problems to the patient's chart manually as needed. Problem Notes None recorded. Procedures Surgical History Date Name Laterality Status Provider Name and Address Organization Details Recorded Time 01/25/20 Medicare Wellness CPT Code, subsequent completed Luis M River LPN [facility] [employer] [facility] 01/25/2024 09:10:11 01/25/20 Advanced Care Planning completed Luis M River LPN [facility] [employer] [facility] 01/25/2024 10:14:01 01/22/20 Chronic care management services completed Lexi Jones [facility] [employer] [facility] 01/22/2024 14:17:20 12/21/19 24 Chronic care management services completed Lexi Jones [facility] [employer] [facility] 12/21/2023 13:33:15 12/19/19 24 Blank Procedure completed Zain faith MD [address], [address], [place], [address], [facility] [employer] [facility] 12/19/2023 13:03:23 12/19/19 24 incision and drainage of cyst completed LYNDSEY Serrano [facility] [employer] [facility] 01/25/2024 09:32:10 11/07/19 Chronic care management services completed Lexi Jones [facility] [employer] [facility] 11/07/2023 13:42:57 12/09/19 Medicare Wellness CPT Code, subsequent completed Mary De La Vega RN [facility] [employer] [facility] 12/08/2022 10:33:58 10/05/19 23 Transitional_Care_ Management completed Vinny Sorto MD [address], [address], [place], [address], [place] [facility] [employer] [facility] 10/04/2022 12:05:41 03/13/20 19 Cardiovascular Procedure completed Not Available [facility] 07/27/2022 05:58:45 11/29/19 17 Cardiac Stent Placement completed Not Available [facility] 07/27/2022 05:58:45 07/28/19 16 Cataract Surgery completed Not Available [facility] 07/27/2022 05:58:45 Cholecystectomy completed Not Available [facility] 07/27/2022 05:58:45 Appendectomy completed Not Available [facility] 07/27/2022 05:58:45 Imaging Results Imaging Date Name Status LastModified by Organiz ation Details LastModified Time 07/23/2024 CT, chest, w/o contrast active [facility] [address] [facility] [address], [place], [address], 07/23/2024 17:33:21 09/06/2024 imaging/diagno stic result active [facility] [address], [place], [address], 09/06/2024 19:34:57 Procedure Notes None recorded. Medical Equipment None Reported. Allergies Allergen ID Allergen Name Allergen Category Reaction Reaction Severity Criticality Documentation Date Start Date Code Code System Note Provider Name and Address Organization Details Recorded Time 59709 ticagrelo r medicatio n Not available Not available Not available 07/27/2022 62962 32 RxNorm Other react ions and sever ities : 'Adve rse react ion to subst ance' . HODA Benjamin, [facility] 4 14:15:59 93182 Product containin g penicilli n (product) medicatio n Not available Not available Not available 07/27/2022 63818 8001 SNOMED Other react ions and sever ities : 'Adve rse react ion to subst ance' . HODA Benjamin, [employer] 4 14:15:59 Medications Name Sig Start Date [...] t Available prednison e 20 mg tablet TAKE 2 TABLETS (40 MG) BY MOUTH DAILY FOR 5 DAYS active Not Available Not Available No [...] Available nitroglyc pancho 400 mcg/spray transling ual [place] 1 spray as needed by translin gual [...] e 50 mcg/actua tion nasal spray,christine pension [place] 2 sprays every day by intranas al [...] Not Available losartan 11/24 completed 50mg daily, [facility] Dr [place] added on 07/08/19 21 Not [...] CHRONIC ANGINA. 11/08 completed Stopped per 11/06/21 [facility] discharg e summary Not Available Not [...] completed Not Available Not Available Not Available Dupixent 300 mg/2 mL subcutane ous pen injector Inject 2 mL every 2 weeks by subcutan eous route. 2024 active Not Available Not Available Not Avai lable Trelegy Ellipta 200 mcg-62.5 mcg-25 mcg powder for inhalatio n Inhale 1 puff every day by inhalati on route. 2024 active Not Available Not Available Not Avai lable aspirin 81 mg capsule Take 1 capsule [...] Updated DateTime 4 180.34 cm 23.6 kg/m2 64253.1 1 g 97.4 [degF] 78 /min 126 mm[Hg] LYNDSEY Serrano [place] [employer] [facility] [employer] [facility] 4 11:56:59 Date Recorded Body height Body [...] 128 mm[Hg] 60 mm[Hg] Odalys Sheffield MA [facility] [employer] [facility] 5 10:50:41 Date Recorded Body height Body mass index (BMI) Body weight Heart rate Oxygen saturation Oxygen saturation in Arterial blood by Pulse oximetry Body temperature Systolic blood pressure Diastolic blood pressure Provider Name and Address Organization Details Last Updated DateTime 5 180.34 cm 22.9 kg/m2 11036.1 5 g 78 /min 92 % 92 % 97.5 [degF] 130 mm[Hg] 64 mm[Hg] Yoly Stewart MA [employer] [facility] [employer] [facility] 5 11:55:18 Date Recorded Body height Body mass index (BMI) Body weight Body temperature Heart rate Systolic blood pressure Diastolic blood pressure Provider Name and Address Organization Details Last Updated DateTime 5 180.34 cm 23.3 kg/m2 30272.9 3 g 97.4 [degF] 72 /min 120 mm[Hg] 64 mm[Hg] LYNDSEY Serrano [place] - [employer] [facility] 5 11:28:49 Date Recorded Body height Body mass index (BMI) Body weight Body temperature Heart rate Oxygen saturation Oxygen saturation in Arterial blood by Pulse oximetry Systolic blood pressure Diastolic blood pressure Provider Name and Address Organization Details Last Updated DateTime 5 180.34 cm 23.4 kg/m2 95906.5 2 g 97.3 [degF] 76 /min 97 % 97 % 120 mm[Hg] 70 mm[Hg] Yoly Stewart [place] 5 11:03:02 Social History Question Answer Notes LastModified by Organization Details LastModified Time Tobacco Smoking Status Former Smoker Patient quit 20 years ago. Not Available [facility] 07/27/2022 05:56:41 Do You Have An Advance Directive? No 01/25/24 POLST Signed Today. ACP Done [email or web address] Information not available 01/25/2024 What Is Your Level Of Alcohol Consumption? None [email or web address] Information not available 01/25/2024 Are You Blind Or Do You Have Difficulty Seeing? 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 [id number] Information not available 07/27/2022 Is Blood Transfusion Acceptable In An Emergency? Yes Information not available 01/25/2024 What Is Your Level Of Caffeine Consumption? Occasional [id number] Information not available 07/27/2022 What Is Your Code Status? DNR [email or web address] Information not available 01/25/2024 In The 14 Days Before Symptom Onset, Have You Had Close Contact With A Laboratory-confi rmed COVID-19 While That Case Was Ill? No [id number] [id number] Information not available 07/27/2022 In The 14 Days Before Symptom Onset, Have You Had Close Contact With A Person Who Is Under Investigation For COVID-19 While That Person Was Ill? No [id number].[id number] [id number] Information not available 07/27/2022 Are You Currently Employed? No Retired [email or web address] Information not available 11/02/2023 Are You Deaf Or Do You Have Serious Difficulty Hearing? No [id number].[id number] [id number] Information not available 07/27/2022 What Type Of Diet Are You Following? REGULAR MIGRATION.0301 [id number] Information not available 07/27/2022 What Is The Highest Grade Or Level Of School You Have Completed Or The Highest Degree You Have Received? [id number] [id number] Information not available 07/27/2022 Do You Have An Electrostatic Air Filter? No Information not available 09/10/2024 How Many Days Of Moderate To Strenuous Exercise, Like A Brisk Walk, Did You Do In The Last 7 Days? 0 [id number] Information not available 07/27/2022 Have There Been Any Changes To Your Family Or Social Situation? No [id number] Information not available 07/27/2022 What Is The Fluoride Status Of Your Home? Unknown [id number] Information not available 07/27/2022 When Did You Quit Smoking? 16+[email or web address] igarette [id number] Information not available 07/27/2022 Are There Any Guns Present In Your Home? Yes [email or web address] Information not available 01/25/2024 Do You Have A Humidifier? No Information not available 09/10/2024 Do You Use Insect Repellent Routinely? No [id number] Information not available 07/27/2022 Where Do You Live? [place] [id number] Information not available 07/27/2022 Advance Directive- Providers Has Reviewed Directive And Consents To Follow Them (insert Provider Name With Any Objectives In Notes Field) Yes [email or web address] Information not available 01/25/2024 Presence Of Domestic Violence No [email or web address] Information not available 01/25/2024 Guns Present In The Home? Yes [email or web address] Information not available 01/25/2024 Are You Able To Care For Yourself? Yes Information not available 01/25/2024 Are You Blind Or Do Yo Have Difficulty Seeing? Yes Blind In Right Eye [email or web address] Information not available 01/25/2024 Are You Deaf Or Do You Have Serious Difficulty Hearing? No [email or web address] Information not available 01/25/2024 General Stress Level? Low [email or web address] Information not available 01/25/2024 Live Alone Of With Others? With Others Information not available 01/25/2024 Do You Have A Medical Power Of Quality Control Microbiology Supervisor? No MIGRATION.030 [id number] Information not available 07/27/2022 Do You Have Moisture Problems In Your Home? No Information not available 09/10/2024 What Was The Date Of Your Most Recent Tobacco Screening? 09/10/2024 Information not available 09/10/2024 How Many Children Do You Have? 1 Information not available 01/25/2024 Have You Ever Been Counseled For Unhealthy Alcohol Use? No MIGRATION.0301 [id number] Information not available 07/27/2022 Do You Have Any Pets? Yes Dog Information not available 01/25/2024 What Is Your Relationship Status? MIGRATION.0301 [id number] Information not available 07/27/2022 Do You Use Your Seat Belt Or Car Seat Routinely? Yes MIGRATION.0301 [id number] Information not available 07/27/2022 Are You Sexually Active? No [email or web address] Information not available 01/25/2024 Do You Have Smoke And Carbon Monoxide Detectors In Your Home? Yes MIGRATION.0301 [id number] Information not available 07/27/2022 Are You Passively Exposed To Smoke? Yes MIGRATION.0301 [id number] Information not available 07/27/2022 Are There Any Smokers In Your House? Yes MIGRATION.0301 [id number] Information not available 07/27/2022 What Types Of Sporting Activities Do You Participate In? None MIGRATION.0301 299723 Information not available 07/27/2022 Do You Feel Stressed (tense, Restless, Nervous, Or Anxious, Or Unable To Sleep At Night)? [id number] MIGRATION.0301 [id number] Information not available 07/27/2022 Do You Use Any Illicit Or Recreational Drugs? No MIGRATION.0301 [id number] Information not available 07/27/2022 Do You Use Sunscreen Routinely? No MIGRATION.0301 670293 Information not available 07/27/2022 Has Tobacco Cessation Counseling Been Provided? No N/A MIGRATION.0301 286722 Information not available 07/27/2022 Have You Recently Traveled Abroad? No MIGRATION.0301 995324 Information not available 07/27/2022 Do You Have Any Dietary Restrictions? No MIGRATION.0301 870037 Information not available 07/27/2022 Do You Or Have You Ever Used Any Other Forms Of Tobacco Or Nicotine? No MIGRATION.0301 170146 Information not available 07/27/2022 Sex: Male Functional Status Question Answer Note LastModified by Organizat ion Details LastModified Time Do you have difficulty walking or climbing stairs? Yes uses Walker, cane Information not available 01/25/2024 Do you have transportation difficulties? No MIGRATION.886454 [id number] Information not available 07/27/2022 Are you able to walk? YESASSIST Uses cane and walker Information not available 01/25/2024 Do you have difficulty doing errands alone? Yes does not drive [email or web address] Information not available 01/25/2024 Are you able to care for yourself? Yes MIGRATION.431339 0929 Information not available 07/27/2022 Do you have difficulty dressing or bathing? No MIGRATION.517487 4750 Information not available 07/27/2022 What is your exercise level? None [email or web address] Information not available 01/25/2024 Mental Status Question Answer Note LastModified by Organizat ion Details LastModified Time Do you have difficulty concentrating, remembering or making decisions? Yes Dementia dx. Information not available 01/25/2024 Family History Relationship Description Onset Age of this Age Resolved Age Notes LastModified by Organization Details LastModified Time Mother Heart disease MIGRATION.173 [id number] Not available 07/27/2022 05:58:50 Father Malignant tumor of lung [email or web address] Not available 2023 12:08:10 Medical History Condition Response NERVE DISEASE N BLINDNESS N RHEUMATIC FEVER N KIDNEY STONES N BLADDER PROBLEMS N MRSA N OTHER # 1 N POLIO N LUNG DISEASE/DISORDER N HISTORY OF DRUG ABUSE N COPD Y RADIATION / CHEMOTHERAPY N Other # 2 N BLOOD DISEASES N [...] Time Influenza, adjuvanted, quadrivalent, PF 2 completed HODA Benjamin, [facility] [employer] [facility] 11/07/2023 13:38:40 COVID-19, mRNA, LNP-S, PF, 30 mcg/0.3 mL dose 1 completed HODA Benjamin, [facility] [employer] [facility] 11/07/2023 13:38:40 COVID-19, mRNA, LNP-S, PF, 30 mcg/0.3 mL dose 1 completed HODA Benjamin, [facility] [employer] [facility] 11/07/2023 13:38:40 Influenza, high-dose, quadrivalent, PF 3 completed Vinny Sorto MD [address] [place] [address], [id number], [facility] [facility] 03/28/2023 16:43:46 COVID-19, mRNA, LNP-S, PF, 100 mcg/0.5mL dose or 50 mcg/0.25mL dose 1 completed HODA Benjamin, [facility] [employer] [facility] 11/07/2023 13:38:40 COVID-19, mRNA, LNP-S, PF, 100 mcg/0.5mL dose or 50 mcg/0.25mL dose 1 completed Lexi Jones CCM null, [facility] 11/07/2023 13:38:40 Influenza, high-dose, trivalent, PF 9 completed Lexi Jones CCM null, [facility] 11/07/2023 13:38:40 Influenza, split virus, quadrivalent, PF 2 completed Lexi Jones CCM null, [facility] 11/07/2023 13:38:40 COVID-19, mRNA, LNP-S, PF, 30 mcg/0.3 mL dose 1 completed Lexi Jones CCM null, [facility] 11/07/2023 13:38:40 Influenza, high-dose, quadrivalent, PF 1 completed Not Available [facility] 07/03/2023 08:43:21 Influenza, high-dose, quadrivalent, PF 0 completed Not Available [facility] 07/03/2023 08:43:21 pneumococcal polysaccharide PPV23 0 completed Not Available [facility] 07/03/2023 08:43:21 Pneumococcal conjugate PCV 13 8 completed Not Available [facility] 07/03/2023 08:43:21 Influenza, high-dose, trivalent, PF 8 completed Not Available [facility] 07/03/2023 08:43:21 Influenza, high-dose, trivalent, PF 7 completed Not Available [facility] 07/03/2023 08:43:21 Influenza, high-dose, trivalent, PF 6 completed Not Available [facility] 07/03/2023 08:43:21 Influenza, high-dose, trivalent, PF 5 completed Not Available [facility] 07/03/2023 08:43:21 Influenza, split virus, trivalent, preservative 4 completed Noelle Colorado Pastor null, [facility] 05/15/2024 14:44:06 Influenza, split virus, trivalent, preservative 3 completed Noelle Colorado, RMA null, [facility] 05/15/2024 14:44:07 Past Encounters Encounter ID Performer Location Encounter Start Date Encounter Closed Date Diagnosis/Indication Diagnosis SNOMED-CT Code Diagnosis ICD10 Code Diagnosis Note [id number] [facility] [address] [place] [address] [address] [address] 11/24/2020 00:00:00 11/24/2020 15:37:17 [id number] [facility] [address] [place] [address] [address] [address] 01/12/2021 00:00:00 01/12/2021 09:59:30 [id number] [facility] [address] [place] [address] [place] [address] 03/25/2021 00:00:00 03/25/2021 17:19:03 [id number] [facility] [address] [place] [address] [place] [address] 04/01/2021 00:00:00 04/01/2021 11:26:18 [id number] [facility] [address] [place] [address] [place] [address] 07/29/2021 00:00:00 07/29/2021 11:23:15 [id number] [facility] [address] [place] [address] [place] [address] 11/04/2021 00:00:00 11/04/2021 14:16:35 [id number] [facility] [address] [place] [address] [place] [address] 11/16/2021 00:00:00 11/16/2021 15:45:01 [id number] [facility] [address] [place] [address] [place] [address] 02/03/2022 00:00:00 02/03/2022 11:33:21 [id number] Vinny patricia MD [facility] Internal [facility] 15 [address]43 [facility], [facility] 15 [place] [address] 08/11/2022 10:28:09 08/11/2022 10:49:09 Screening - NAD 261233962 Z13.9 C-scope: 4 years ago, at [facility], clear as per his history, Get illniub98/ 08/15 Dr Ibarra C-scope UTD on flu shotUTD PCV #13 03/27/18, #23 11/13/2019 Should get shingles vaccineCan do tdapUTD COVID 19 vaccine and do all boosters as per CDC 11/14/17:F illed his handicap parking RTC in 3 monthsDo labsER if any symptoms worsensHe did verbalize his understand ing of the above Coronary arteriosclerosis 93313031 I25.10 S/p [facility] d/c on 01/03/2021 Hx of a.fibHx [...] this time refer to the ER at [facility], he will be taken in a wheelchair , discussed with Dr Palomo [facility] ER , also personally called Dr Ramirez 11/16/2021 :Much improved OV 02/03/2022 :Dr Ramirez 12/23/2021 , is now on jardiance, f/u in 05/2022 OV 08/11/2022 :Keep apt with Dr Ramirez Gastrolaverneop 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 430109223 K21.9 On pantoprazo le 40mg daily PRNDoes well Hyperlipidemia 94342296 E78.5 On rosuvastat in 20mg dailyDoes well, get labs Chronic ob structive pulmonary disease 34254160 J44.9 Not on incruse On flonaseOn symbicortO n proairOn HHNs Does wellStill declines any referrals to pulmonary 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 314424601 E11.9 On metformin 500mg bidOn jardiance 10mg daily Does wellGet labs Dr Warren 08/06/2021 Visual impairment 147567 003 H54.[address] Dennis states that he is able to drive Aneurysm o f thoracic aorta 007202463 I71.20 S/p CT chest: 11/18/[address] [facility] [address] Ramirez Macrocytosis 526578927 D 75.89 Get labs Umbilical hernia 0638594 07 K42.9 Does well Proteinuria 40956761 R80 .9 CKD Declines any referrals to nephrology at this time Transient cerebral ischemia 282579593 G45.9 OV 02/03/2022 :S/p MRI 12/27/2021 : [...] that he is doing very well now [id number] Vinny patricia MD [facility] Internal [facility] 15 [address] [facility], [facility] 15 [place] [address] 10/04/2022 11:39:45 10/04/2022 12:18:29 Transition of care [id number] 105 Z75.8 Transition Care Management Questionna ireDate of Discharge 09/23/22Adm ission Date: 09/21/22Dat e of Contact: 1st attempt: 09/26/22Reas on for Ad[facility]: [facility] Diagnosis( es): Acute COPD exacerbati on, acute on chronic diastolic CHFDiagnos tic Test(s) Performed: Other: chest xray, lab workDid your hospital physician prescribe any new medicines upon discharge? yes: Eliquis dose increased to 10mg BIDDid you sheepskin pickler your prescripti on(s) and begin taking them [...] De La Vega RN Screening - NAD 73062976 3 Z13.9 C-scope: 4 years ago, at [facility], clear as per his history, Get ygezlih84/ 08/15 Dr Ibarra C-scope UTD on flu shotUTD PCV #13 03/27/18, #23 11/13/2019 Should get shingles vaccineCan do tdapUTD COVID 19 vaccine and do all boosters as per CDC 11/14/17:F illed his handicap parking RTC in 2 monthsDo labsER if any symptoms worsensHe did verbalize his understand ing of the above Coronary arteriosclerosis 95761955 I25.10 S/p [facility] d/c on 01/03/2021 Hx of a.fibHx [...] this time refer to the ER at [facility], he will be taken in a wheelchair , discussed with Dr Palomo [facility] ER , also personally called Dr Ramirez 11/16/2021 :Much improved OV 02/03/2022 :Dr Ramirez 12/23/2021 , is now on jardiance, f/u in 05/2022 OV 08/11/2022 :Keep apt with Dr Ramirez OV 10/04/2022 :Admitted and d/c [facility] 09/21 to 09/23 for SOB, noted to have RUL pneumonia, treated with duoneb, IV solumedrol and azithromyc in, IV lasixAlso on eliquis 10mg bid then 5mg bid D/c onamlodipi ne 10mg dailyeliqu is 5mg bidisosorb maddie 120mg dailylasix 40mg dailymetfo rmin 500mg bidmetopro lol 25mg bidproairr osuvastati n 20mg ailyspiron olactone 25mg dailysymbi anel Gastroesop 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 152246862 K21.9 On pantoprazo le 40mg daily PRNDoes well Hyperlipidemia 06876628 E78.5 On rosuvastat in 20mg dailyDoes well, get labs Chronic ob structive pulmonary disease 17161892 J44.9 Not on incruse On flonaseOn symbicortO n proairOn HHNsOn Wixela, states 10/04/2022 that he has stopped this as it was 'not working' now agreeable to see Dr Felming Does well 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 323580468 E11.9 On metformin 500mg bidOn jardiance 10mg daily Does wellGet labs Dr Warren 08/06/2021 Visual impairment 313456 003 H54.[address] Dennis states that he is able to drive Aneurysm o f thoracic aorta 563876739 I71.20 S/p CT chest: 11/18/[address] Ramirez Macrocytosis 897845241 D 75.89 Get labs Umbilical hernia 2466496 07 K42.9 Does well Proteinuria 38835461 R80 .9 CKD Declines any referrals to nephrology at this time Transient cerebral ischemia 278371605 G45.9 OV 02/03/2022 :S/p MRI 12/27/2021 : [...] well now OV 10/04/2022 :Does well now [id number] Vinny patricia MD [facility] Internal Med [facility] [address] [facility], [facility] [address] [place] [address] 12/08/2022 10:02:59 12/08/2022 10:40:51 Screening - NAD 924301343 Z13.9 C-scope: 4 years ago, at [facility], clear as per his history, Get / 08/15 Dr Ibarra C-scope UTD on flu shotUTD PCV #13 03/27/18, #23 11/13/2019 Should get shingles vaccineCan do tdapUTD COVID 19 vaccine and do all boosters as per CDC 11/14/17:F illed his handicap parking RTC in 3 monthsDo labsER if any symptoms worsensHe did verbalize his understand ing of the above Coronary arteriosclerosis 25488542 I25.10 S/p [facility] d/c on 01/03/2021 Hx of a.fibHx [...] this time refer to the ER at [facility], he will be taken in a wheelchair , discussed with Dr Palomo [facility] ER , also personally called Dr Ramirez 11/16/2021 :Much improved OV 02/03/2022 :Dr Ramirez 12/23/2021 , is now on jardiance, f/u in 05/2022 OV 08/11/2022 :Keep apt with Dr Ramirez OV 12/08/2022 :Sees Dr Ennis venous doppler 09/29/2022 Dr Ramirez Gastroesop 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 904195333 K21.9 On pantoprazo le 40mg daily PRNDoes well Hyperlipidemia 95783173 E78.5 On rosuvastat in 20mg dailyDoes well, get labs Chronic ob structive pulmonary disease 62955827 J44.9 Not on incruse On flonaseOn symbicortO n proairOn HHNs Does wellStill declines any referrals to pulmonary 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 219794103 E11.9 On metformin 500mg bidOn jardiance 10mg daily Does wellGet labs Dr Warren 08/06/2021 Visual impairment 868692 003 H54.[address] Burgos He states that he is able to drive Aneurysm o f thoracic aorta 954061409 I71.20 S/p CT chest: 11/18/[address] [facility] [address] Ramirez Macrocytosis 634092201 D 75.89 Get labs Umbilical hernia 8037127 07 K42.9 Does well Proteinuria 80475551 R80 .9 CKDDecline s any referrals to nephrology at this time BUN/Cr/GFR stable 12/01/2022 Transient cerebral ischemia 422756482 G45.9 OV 02/03/2022 :S/p MRI 12/27/2021 : [...] Does well now Adult heal th examination 043908619 Z00.00 Screening for disorder 634905737 Z13.9 [id number] Vinny patricia MD [facility] [address] [facility] [address] [place] [address] 03/28/2023 09:10:36 03/28/2023 10:23:39 Screening - NAD 494833820 Z13.9 C-scope: 4 years ago, at [facility], clear as per his history, Get breqasu12/ 08/15 Dr Ibarra C-scope UTD on flu shotUTD PCV #13 03/27/18, #23 11/13/2019 Should get shingles vaccineCan do tdapUTD COVID 19 vaccine and do all boosters as per CDC 11/14/17:F illed his handicap parking RTC in 3 monthsDo labsER if any symptoms worsensHe and his did verbalize his understand ing of the above Coronary arteriosclerosis 18439537 I25.10 S/p [facility] d/c on 01/03/2021 Hx of a.fibHx [...] this time refer to the ER at [facility], he will be taken in a wheelchair , discussed with Dr Palomo [facility] ER MD, also personally called Dr [...] Ramirez Gastroesop 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 155666614 K21.9 On pantoprazo le 40mg daily PRNDoes well Hyperlipidemia 64144918 E78.5 On rosuvastat in 20mg daily Does well, get labs Chronic ob structive pulmonary disease 33523996 J44.9 Not on incruse On flonaseOn symbicortO n proairOn HHNs Does wellStill declines any referrals to pulmonary 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 864359276 E11.9 On metformin 500mg bidOn jardiance 10mg daily Does wellGet labs Dr Warren 08/06/2021 Visual impairment 913725 003 H54.[address] Burgos He states that he is able to drive Aneurysm o f thoracic aorta 414169692 I71.20 S/p CT chest: 11/18/[address] [facility] [address] Ramirez Macrocytosis 976901761 D 75.89 Get labs Umbilical hernia 0024775 07 K42.9 Does well Proteinuria 92843311 R80 .9 CKDDecline s any referrals to nephrology at this time BUN/Cr/GFR stable 12/01/2022 Transient cerebral ischemia 250764224 G45.9 OV 02/03/2022 :S/p MRI 12/27/2021 : Neg for acuteNeeds to see neurology, referral was provided to Dr Hernandze, but he is very adamant that he [...] 'break' from the 'doctors' Thoracic back pain 20582 8004 M54.6 Xray T spine: 03/09/2023 MRI L Spine: 03/09/2023 See NS Adult heal th examination 312534624 Z00.00 Depression screening 171 889926 Z13.31 Administra tion of influenza vaccine 97201550 Z23 [id number] Vinny patricia MD [facility] Internal [facility] [address] [facility], [facility] [address] [place] [address] 07/04/2023 09:12:10 07/04/2023 09:55:23 Screening - NAD 422194883 Z13.9 C-scope: 4 years ago, at [facility], clear as per his history, Get dqefcft57/ 08/15 Dr Ibarra C-scope, no complaints now, [...] understand ing of the above Coronary arteriosclerosis 92332187 I25.10 S/p [facility] d/c on 01/03/2021 Hx of a.fibHx of ascending aortic dilatation 11/04/2021 : C/o severe SOB, +ve rales noted grabiel lower to mid lungs, severe pitting edemaAt this time refer to the ER at [facility], he will be taken in a wheelchair , discussed with Dr Palomo [facility] ER MD, also personally called Dr Ashley Ramirez 12/23/2021 , is now on jardiance, f/u in 05/2022 [place] venous doppler 09/29/2022 Dr Ramirez On ASAOn amlodipine 10mg dailyOn plavixOn eliquisOn lasixOn isosorbide 120mg dailyOn metoprolol 25mg bidOn NTGOn spironolac tone 25mg dailyKeep apt with cardiology Dr Ramirez Gastroesop 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 952155297 K21.9 On pantoprazo le 40mg daily PRNDoes well Hyperlipidemia 58269811 E78.5 On rosuvastat in 20mg daily Does well, get labs Chronic ob structive pulmonary disease 37610969 J44.9 Not on incruse On flonaseOn symbicortO n proairOn HHNs Does wellStill declines any referrals to pulmonary 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 950162472 E11.9 On metformin 500mg bidNot on jardiance 10mg daily Does wellGet labs Dr Warren 08/06/2021 Visual impairment 893900 003 H54.[address] Burgos He states that he is able to drive Aneurysm o f thoracic aorta 202837743 I71.20 S/p CT chest: 11/18/[address] [facility] [address] Ramirez Macrocytosis 467897517 D 75.89 Get labs Umbilical hernia 5896331 07 K42.9 Does well Proteinuria 82827874 R80 .9 CKDDecline s any referrals to nephrology at this time BUN/Cr/GFR stable 06/21/2023 Transient cerebral ischemia 299095672 G45.9 OV 02/03/2022 :S/p MRI 12/27/2021 : [...] get an apt WINDY Thoracic back pain 15210 8004 M54.6 Xray T spine: 03/09/2023 MRI L Spine: 03/09/2023 As per his he is doing well, he still has some back pain, but she would like him to see neurology Gynecomastia 5455212 N62 Noted on CTA C/A/P 04/26/2023 [id number] Vinny patricia MD [facility] [address] [facility] [address] [place] [address] 11/02/2023 09:58:39 11/02/2023 10:49:02 Screening - NAD 431118198 Z13.9 C-scope: 4 years ago, at [facility], clear as per his history, Get yuytvcj22/ 08/15 Dr Ibarra C-scope, no complaints now, [...] understand ing of the above Coronary arteriosclerosis 82447227 I25.10 S/p [facility] d/c on 01/03/2021 Hx of a.fibHx of ascending aortic dilatation 11/04/2021 : C/o severe SOB, +ve rales noted grabiel lower to mid lungs, severe pitting edemaAt this time refer to the ER at [facility], he will be taken in a wheelchair , discussed with Dr Palomo [facility] ER MD, also personally called Dr Ashley Ramirez 12/23/2021 , is now on jardiance, f/u in 05/2022 [place] venous doppler 09/29/2022 Dr Ramirez On ASAOn amlodipine 10mg dailyOn plavixOn eliquisOn lasixNot taking isosorbide 120mg dailyOn metoprolol 25mg bidOn NTGOn spironolac tone 25mg daily Dr Ramirez 09/05/2023 , next in 6 months Gastroesop 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 300171981 K21.9 On pantoprazo le 40mg daily PRNDoes well Hyperlipidemia 01332724 E78.5 On rosuvastat in 20mg daily Does well, get labs Chronic ob structive pulmonary disease 50733852 J44.9 Not on incruse On flonaseOn symbicortO n proairOn HHNs Does wellStill declines any referrals to pulmonary Type 2 cnonie 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 806473354 E11.9 On metformin 500mg bidNot on jardiance 10mg daily Does wellGet labs Dr Warren 08/06/2021 Visual impairment 542467 003 H54.[address] Burgos He states that he is able to drive Aneurysm o f thoracic aorta 662521045 I71.20 S/p CT chest: 11/18/[address] Ramirez Macrocytosis 964006941 D 75.89 Get labs Umbilical hernia 6184085 07 K42.9 Does well Proteinuria 57800978 R80 .9 CKDDecline s any referrals to nephrology at this time BUN/Cr/GFR stable 06/21/2023 Transient cerebral ischemia 667863167 G45.9 OV 02/03/2022 :S/p MRI 12/27/2021 : [...] next in one year Thoracic back pain 81553 8004 M54.6 Xray T spine: 03/09/2023 MRI L Spine: 03/09/2023 As per his he is doing well, he still has some back pain, but she would like him to see neurology IPC 06/27/2023 : [place] Younger, f/u PRN Gynecomastia 2591144 N62 Noted on CTA C/A/P 04/26/2023 Mammogram: 07/31/2023 : asymmetric gynecomast ia of the R breastDoes not want any referrals 11/02/2023 [id number] Shital Tiptoniner [facility] Internal Med [facility] [address] [place] [address] 1 11/07/2023 13:36:48 11/07/2023 14:02:21 Chronic obstructive pulmonary disease 67863613 J44.9 Hyperlipidemia 78383112 E78.5 Essential hypertension 91287398 I10 Atrial fibrillation 4943 6004 I48.91 [id number] Zain rincon MD [facility] General Surgery [address] [place] [address] 1 12/19/2023 12:04:09 12/25/2023 14:06:45 Epidermoid cyst of skin of neck 938239729 L72.0 [id number] Shital Nix [facility] Internal Med [facility] [address] [place] [address] 1 12/21/2023 13:29:29 02/15/2024 15:14:35 Skin lesion 90039455 L98.9 Essential hypertension 49767920 I10 Hyperlipidemia 04467332 E78.5 Chronic ob structive pulmonary disease 57593841 J44.9 [id number] Vinny patricia MD [facility] OF [facility] Internal Med [facility] [address] [place] [address] 1 01/25/2024 09:20:02 01/25/2024 10:03:11 Screening - NAD [id number] Z13.9 C-scope: 4 years ago, at [place], clear as per his history, Get bpzakrw44/ 08/15 Dr Ibarra C-scope, no complaints now, [...] understand ing of the above Coronary arteriosclerosis 89364030 I25.10 S/p [facility] d/c on 01/03/2021 Hx of a.fibHx of ascending aortic dilatation 11/04/2021 : C/o severe SOB, +ve rales noted grabiel lower to mid lungs, severe pitting edemaAt this time refer to the ER at [facility], he will be taken in a wheelchair , discussed with Dr Palomo [facility] ER MD, also personally called Dr Ashley Ramirez 12/23/2021 , is now on jardiance, f/u in 05/2022 US venous doppler 09/29/2022 Dr Ramirez On ASAOn amlodipine 10mg dailyNot on plavixOn eliquisOn lasixNot taking isosorbide 120mg dailyOn metoprolol 25mg bidOn NTGOn spironolac tone 25mg daily Dr Ramirez 09/05/2023 , next in 6 months Gastroesop 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 679920686 K21.9 On pantoprazo le 40mg daily PRNDoes well Hyperlipidemia 27270180 E78.5 On rosuvastat in 20mg daily Does well, get labs Chronic ob structive pulmonary disease 69395175 J44.9 Not on incruse On flonaseOn symbicortO n proairOn HHNs Does wellStill declines any referrals to pulmonary 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 140149670 E11.9 On metformin 500mg bidNot on jardiance 10mg daily Does wellGet labs Dr Warren 08/06/2021 Visual impairment 859637 003 H54.[address] Burgos He states that he is able to drive Aneurysm o f thoracic aorta 721883013 I71.20 S/p CT chest: 11/18/[address] [facility] [address] Ramirez Macrocytosis 489370432 D 75.89 Get labs Umbilical hernia 8909672 07 K42.9 Does well Proteinuria 55722224 R80 .9 CKDDecline s any referrals to nephrology at this time BUN/Cr/GFR stable 06/21/2023 Transient cerebral ischemia 252836731 G45.9 OV 02/03/2022 :S/p MRI 12/27/2021 : [...] Sees his neurologis t Thoracic back pain 23105 8004 M54.6 Xray T spine: 03/09/2023 MRI L Spine: 03/09/2023 As per his he is doing well, he still has some back pain, but she would like him to see neurology IPC 06/27/2023 : [place] Younger, f/u PRN Gynecomastia 7785067 N62 Noted on CTA C/A/P 04/26/2023 Mammogram: 07/31/2023 : asymmetric gynecomast ia of the R breastDoes not want any referrals 11/02/2023 Adult heal th examination 398347261 Z00.00 Screening for disorder 611815975 Z13.9 Liver enzy mes level above reference range 117132747 R74.01 Get Labs and US liver done Unsteady when walking 22 512913 R26.89 OV 01/25/2024 :He does need to get a walker, this will assist him in his ADLs, IADLs and assist him in safely ambulating 8982059 Shital Nix [facility] Internal Med [address] [place] [address] 01/22/2024 14:14:26 02/21/2024 10:06:42 Chronic obstructive pulmonary disease 13628411 J44.9 Essential hypertension 39613955 I10 Hyperlipidemia 69967930 E78.5 Coronary arteriosclerosis 12713834 I25.10 [id number] Vinny patricia MD [facility] Internal Med [facility] [address] [facility], [address] [place] [address] 05/16/2024 11:23:51 05/16/2024 12:40:03 Screening - NAD 436406302 Z13.9 C-scope: 4 years ago, at [place], clear as per his history, Get ydczayz26/ 08/15 Dr Ibarra C-scope, no complaints now, [...] understand ing of the above Coronary arteriosclerosis 39666448 I25.10 S/p [facility] d/c on 01/03/2021 Hx of a.fibHx of ascending aortic dilatation 11/04/2021 : C/o severe SOB, +ve rales noted grabiel lower to mid lungs, severe pitting edemaAt this time refer to the ER at [facility], he will be taken in a wheelchair , discussed with Dr Palomo [facility] ER MD, also personally called Dr Ashley Ramirez 12/23/2021 , is now on jardiance, f/u in 05/2022 US venous doppler 09/29/2022 Dr Ramirez On ASAOn amlodipine 10mg dailyNot on plavixOn eliquisOn lasixNot taking isosorbide 120mg dailyOn metoprolol 25mg bidOn NTGOn spironolac tone 25mg daily Dr Ramirez 09/05/2023 , next in 6 months Gastroesop 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 324581485 K21.9 On pantoprazo le 40mg daily PRNDoes well Hyperlipidemia 87676217 E78.5 On rosuvastat in 20mg daily Does well, get labs Chronic ob structive pulmonary disease 61987634 J44.9 Not on incruse On flonaseOn symbicortO n proairOn HHNs Does wellStill declines any referrals to pulmonary 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 903819725 E11.9 On metformin 500mg bidNot on jardiance 10mg daily Does wellGet labs Dr Warren 08/06/2021 Visual impairment 058236 003 H54.[address] Burgos He states that he is able to drive Aneurysm o f thoracic aorta 796704642 I71.20 S/p CT chest: 11/18/[address] [facility] [address] Ramirez Macrocytosis 648617957 D 75.89 Get labs Umbilical hernia 7787537 07 K42.9 Does well Proteinuria 92172282 R80 .9 CKDDecline s any referrals to nephrology at this time BUN/Cr/GFR stable 06/21/2023 Transient cerebral ischemia 112755845 G45.9 OV 02/03/2022 :S/p MRI 12/27/2021 : [...] Sees his neurologis t Thoracic back pain 78125 8004 M54.6 Xray T spine: 03/09/2023 MRI L Spine: 03/09/2023 As per his he is doing well, he still has some back pain, but she would like him to see neurology IPC 06/27/2023 : [place] Aren, f/u PRN Gynecomastia 3443217 N62 Noted on CTA C/A/P 04/26/2023 Mammogram: 07/31/2023 : asymmetric gynecomast ia of the R breastDoes not want any referrals 11/02/2023 Liver enzy mes level above reference range 288383719 R74.01 Get LabsUS liver 01/31/2024 : nodular liver, cirrhosis, see GI today 05/16/2024 , he and his have declined any new referrals Unsteady when walking 22 457528 R26.89 OV 01/25/2024 :He does need to get a walker, this will assist him in his ADLs, IADLs and assist him in safely ambulating OV 05/16/2024 : He now has a walker, his GD bought him a walker, advised to use this diligently Upper resp iratory infection 21449958 J06.9 Has noted a cough and productive for whitish sputum, mild wheezingGe t on Z-pack, take OTC zyrtec, get on albuterol PRN, ER if worse, he and his verbalized his understand ing of the above 9434384 Vinny patricia MD [facility] Internal Med [facility] [address] [facility], [address] [place] [address] 07/09/2024 10:41:41 07/09/2024 11:46:17 Screening - NAD 692652681 Z13.9 C-scope: 4 years ago, at [place], clear as per his history, Get qkotozi13/ 08/15 Dr Ibarra C-scope, no complaints now, [...] understand ing of the above Coronary arteriosclerosis 06367032 I25.10 S/p [facility] d/c on 01/03/2021 Hx of a.fibHx of ascending aortic dilatation 11/04/2021 : C/o severe SOB, +ve rales noted grabiel lower to mid lungs, severe pitting edemaAt this time refer to the ER at [facility], he will be taken in a wheelchair , discussed with Dr Palomo [facility] ER MD, also personally called Dr Ashley Ramirez 12/23/2021 , is now on jardiance, f/u in 05/2022 US venous doppler 09/29/2022 Dr Ramirez On ASAOn amlodipine 10mg dailyNot on plavixOn eliquisOn lasixNot taking isosorbide 120mg dailyOn metoprolol 25mg bidOn NTGOn spironolac tone 25mg daily Dr Ramirez 09/05/2023 , next in 6 months Chronic ob structive pulmonary disease 77489963 J44.9 Not on incruse On flonaseOn symbicortO n proairOn HHNs Has noted a cough, as per this is constant, his meds were renewed, will get referral to pulmonary Addendum: 07/09/2024 :Candy Marie NP 07/09/2024 , now on trelegy and is to see her again in 09/10/2024 [id number] Candy Marie NP [facility] Pulmonolo [address], [address] [address] 07/09/2024 11:39:32 07/11/2024 15:50:58 Chronic obstructive pulmonary disease 53344843 J44.9 Stop Symbicort and start Trelegy and [...] and increase use of inhaler Chronic cough 32348167 R 05.3 CT order done by primary Oxygen sat uration below reference range 234978344 R79.81 [facility] order for care check, O2 set up, [id number] Vinny patricia MD [facility] Internal Med [place] [address] [facility], [address] [place] [address] 08/15/2024 11:06:29 08/15/2024 12:03:01 Screening - NAD 984973625 Z13.9 C-scope: 4 years ago, at [place], clear as per his history, Get / [...] understand ing of the above Coronary arteriosclerosis 94241284 I25.10 S/p [facility] d/c on 01/03/2021 Hx of a.fibHx of ascending aortic dilatation 11/04/2021 : C/o severe SOB, +ve rales noted grabiel lower to mid lungs, severe pitting edemaAt this time refer to the ER at [facility], he will be taken in a wheelchair , discussed with Dr Palomo [facility] ER MD, also personally called Dr [...] 6 months Chronic ob structive pulmonary disease 60167760 J44.9 Not on incruse On flonaseOn symbicortO n proairOn HHNs Has noted a cough, as per this is constant, his meds were renewed, will get referral to pulmonary Addendum: 07/09/2024 :Candy Marie NP 07/09/2024 , now on trelegy and is to see her again in 09/10/2024 CT chest: 07/23/2024 : Mild emphysema Gastroesop 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 758235150 K21.9 On pantoprazo le 40mg daily PRNDoes well Hyperlipidemia 79356041 E78.5 On rosuvastat in 20mg daily Does well, get labs 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 563395224 E11.9 On metformin 500mg bidNot on jardiance 10mg daily Does wellGet labs Dr Warren 08/06/2021 Visual impairment 611655 003 H54.[address] Burgos He states that he is able to drive Aneurysm o f thoracic aorta 956126002 I71.20 S/p CT chest: 11/18/[address] Ramirez Macrocytosis 349032395 D 75.89 Get labs Umbilical hernia 3824117 07 K42.9 Does well Proteinuria 69824953 R80 .9 CKDDecline s any referrals to nephrology at this time BUN/Cr/GFR stable 06/21/2023 Transient cerebral ischemia 371677724 G45.9 OV 02/03/2022 :S/p MRI 12/27/2021 : [...] Sees his neurologis t Thoracic back pain 89868 8004 M54.6 Xray T spine: 03/09/2023 MRI L Spine: 03/09/2023 As per his he is doing well, he still has some back pain, but she would like him to see neurology IPC 06/27/2023 : [place] Younger, f/u PRN Gynecomastia 9740325 N62 Noted on CTA C/A/P 04/26/2023 Mammogram: 07/31/2023 : asymmetric gynecomast ia of the R breastDoes not want any referrals 11/02/2023 Liver enzy mes level above reference range 706317808 R74.01 Get LabsUS liver 01/31/2024 : nodular liver, cirrhosis, see GI today 05/16/2024 , he and his have declined any new referrals Unsteady when walking 22 858080 R26.89 OV 01/25/2024 :He does need to get a walker, this will assist him in his ADLs, IADLs and assist him in safely ambulating OV 05/16/2024 : He now has a walker, his GD bought him a walker, advised to use this diligently OV 08/15/2024 : Does well now, uses his walker [id number] Candy Marie NP [facility] Pulmonolo gy [address] [address] 09/10/2024 10:45:05 09/10/2024 15:24:09 Chronic obstructive pulmonary disease 31334671 J44.9 J44.1 Continue Trelegy and use discussed- continued productive cough over 2 monthsUse Albuterol inhaler as neededCAT- 33Mmrc-4 (difficult y doing ADL's)Albu terol nebulizer prnPFT orderLab work order from last visit given to to have done asapCT chest done in 06/2024 emphysema notedEncou rage to maintain vaccines when dueF/u with PMD for any new labsF/u with me in 3 months-Sam legy use-will call if needs Albuterol (has some at home)Aware to call if any changes in symptoms or increase in use of Albuterol- severe symptoms ERContinue home O2 as needed-not es currently prednisone is helping his breathing. Health Concerns Section Related Observation LastModified by Organization Detai ls LastModified Time None Recorded Concern Status LastModified by Organization Details LastModified Time None Recorded Advance Directives Directive N: 01/25/24 POLST signed enid francis ACP done Payers Encounter Date Sequence Insurance Name Policy Number Policy Rosen Covered Member ID Rosen Member ID Guarantor Name 05/16/2024 1 [facility] (MEDICARE REPLACEMENT/ ADVANTAGE - HMO) [id number] Yifan Callahanston [id number] Yifan Schaefer 07/09/2024 1 [facility] (MEDICARE REPLACEMENT/ ADVANTAGE - HMO) [id number] Yifan Schaefer [id number] Yifan Schaefer 07/09/2024 1 [facility] (MEDICARE REPLACEMENT/ ADVANTAGE - HMO) [id number] Yifan Schaefer [id number] Yifan Schaefer 08/15/2024 1 [facility] (MEDICARE REPLACEMENT/ ADVANTAGE - HMO) [id number] Yifan Schaefer [id number] Yifan Schaefer 09/10/2024 1 [facility] (MEDICARE REPLACEMENT/ ADVANTAGE - HMO) [id number] Yifan Nails Silvano [id number] Yifan T Silvano Notes Date Note Type Note Provider Name and Address Organization Details Recorded Time 05/16/2024 text/html Here to everett Ram Hx:CADHTNHLDCOPDGJoey viewed social family and surgical historyHere to establish [...] the labsOV 01/12/2021:TCM visitAdmitted and d/c from [facility] for atypical R sided chest pain [...] 2OV 11/16/2021:Here for TCMAdmitted and D/c from [facility] for COPD/CHFFeels much better nowOV 02/03/2022:Here for his f/u apt, he feels well today, he did have a TIA and was admitted to [facility] from 12/27 to 12/30 and is [...] walker and he did do the labs Vinny Sorto MD [address] [place] [address], [place] [address], [place], [address], [facility] 05/18/2024 12:42:55 07/09/2024 text/html Here to everett Ram Hx:MARICRUZCOPPaulie viewed social family and surgical historyHere to establish [...] wants an earlier apt with Dr Ramirez [facility] as some of his meds were changed by Dr Vasquez did do the labsOV 01/12/2021:TCM visitAdmitted and d/c from [facility] for atypical R sided chest pain [...] 2OV 11/16/2021:Here for TCMAdmitted and D/c from [facility] for COPD/CHFFeels much better nowOV 02/03/2022:Here for his f/u apt, he feels well today, he did have a TIA and was admitted to [facility] from 12/27 to 12/30 and is [...] here with his , c/o MARCO ANTONIO orozco with some wheezing and a mild cough productive for whiteish sputum, states that he now has been using a walker and he did do the labs OV 07/09/2024: Here for his f/u apt, see case, he does have continues cough, non productive sputum, no fevers or chills, no chest pain Vinny Sorto MD [address] [facility], [address], [place], [address], [employer] [facility] 07/09/2024 18:12:46 07/09/2024 text/html COPDReported bypatient.Severity:nba y limiting; severe; uses nebulizer/inhaler an average of 21 times/week lately Duration:attacks are frequent; constant Onset/Timing:chronic; chronic: slowly much worse Context:cigarette smoking; occupational exposure Modifying Factors:relieved with rest; worse with exertion Associated Symptoms:no snoring; no excessive daytime sleepiness; no arousals from sleep; no decrease in exercise capacity; no coughing up sputum; no fever; no weight loss; no depression;dyspnea at rest;decrease in exercise capacity;fatigue;cough ing up sputum clear / white and frothy;cough loose;wheezing at restNotes:sleeps with his dogcough started about 2 months agoincreased sob- has to help with dressing, shower and all ADL'shx of 2 ppd smoker for 50+ yearstruck driverhx of heart diseasewife notes pt has dementia early stage-wakes up scared because he is sob Candy Marie NP [address] [facility], [address], [place], [address], [employer] [facility] 07/11/2024 15:24:44 08/15/2024 text/html Here to everett Ram Hx:Arminda viewed social family and surgical historyHere to establish [...] wants an earlier apt with Dr Ramirez [facility] as some of his meds were changed by Dr Vasquez did do the labsOV 01/12/2021:TCM visitAdmitted and d/c from [facility] for atypical R sided chest pain [...] 2OV 11/16/2021:Here for TCMAdmitted and D/c from [facility] for COPD/CHFFeels much better nowOV 02/03/2022:Here for his f/u apt, he feels well today, he did have a TIA and was admitted to [facility] from 12/27 to 12/30 and is [...] here with his , c/o MARCO ANTONIO orozco with some wheezing and a mild cough productive for whiteish sputum, states that he now has been using a walker and he did do the labs OV 07/09/2024: Here for his f/u apt, see case, he does have continues cough, non productive sputum, no fevers or chills, no chest pain OV 08/15/2024: Here for his f/u apt, he is doing well today, he did do the labs, he is here with his , as per his he is to see cardiology in 2 weeks, he feels very well today and his wheezing and cough is almost at his baseline Vinny Sorto MD [address] [facility], [facility] [address], [place], [address], [facility] [employer] 09/12/2024 14:08:18 09/10/2024 text/html COPDReported bypatient.Quality:symp toms worse with lying down Severity:very limiting; severe; uses nebulizer/inhaler an average of 5-6 times/week lately Duration:attacks are frequent Onset/Timing:chronic: slowly much worse Context:cigarette smoking; recurrent bronchopulmonary infections Modifying Factors:relieved with rest; relieved with oxygen; worse in a supine position; worse with exertion Associated Symptoms:no snoring; no excessive daytime sleepiness; no arousals from sleep; no coughing up sputum; no fever; no wheezing; no weight loss; no depression;dyspnea exertional;decrease in exercise capacity;fatigue;cough ing up sputum clear / white and frothy;cough loose;weight lossNotes:Patient last seen in June-has not had lab work done or PFT due to clerical issues.Patient was placed on a steroid burst by this [employer] SUPERVISOR in June and was just seen in ER 09/06/2024 for exacerbation of COPD-EOS 12 as noted on his lab work done in ER-he was sent home with another steroid burst. He notes he is feeling better on the steroids. He has had a weight loss of 60 pounds in the past year with increasing weakness. His notes it is getting harder to get him to appointments due to weakness and not having O2 to take with him when he has trouble breathing. Candy Marie NP [address] [facility], [facility] [address], [place], [address], [place] [facility] 09/10/2024 15:24:08
--- OUTSIDE RECORDS SUMMARY | 2024-09-16 11:51 | XMS_ITS ---
Author Organization [facility] Office Address [address] [address] [place] [address] Care Team Providers Care Senior Ux Developer Name Role Phone Ronak Carlos Unavailable [phone] MEDICATIONS Medication SIG (Take, Route, Frequency, Duration) Notes Start Date End Date Status Calcitriol 0.25 MCG 1 capsule Orally Onc e a day for 90 day(s) 04/14/2023 01/09/2024 Active Ergocalciferol 1.25 MG (79216 UT) 1 capsule Orally Once a week for 90 day(s) 04/14/2023 01/09/2024 Active SOCIAL HISTORY Sex Assigned At : Social History Observation Description Sex Assigned At Male Encounters Encounter Location Date Provider Diagnosis [place] [facility] [address] [facility] [address] [place] [address] 07/07/2023 Carlos Simons Chronic kidney disea se, [...] Kevan SCHAEFER (Yifan) :1940 (84 yo M)Acc No.[id number]:07/07/2023 Progress Notes Patient: Kevan CSHAEFER (Yifan) Provider: MD LEELEE, Christian.Pastor.Brent.P, F.A.S.N. :1940 Age:83 Y Sex:Male Date:07/07/2023 Address:[address] [place] [address] Subjective: * Chief Complaints: * * Medical History: * Medications: Taking Calcitriol 0.25 MCG Capsule 1 capsule Orally Once a day , stop date 01/09/2024, Taking Ergocalciferol 1.25 MG (79074 UT) Capsule 1 capsule Orally Once a week , stop date 01/09/2024 Objective: Assessment: * Assessment: 1. Chronic kidney disease, stage 3a - N18.31 2. Essential (primary) hypertension - I10 3. Anxiety disorder, unspecified - F41.9 4. Renal osteodystrophy - N25.0 5. Vitamin D deficiency, unspecified - E55.9 Plan: * Treatment: * Billing Information: * Visit Code: 01498 Office Visit, Est Pt., Level 4. * Procedure Codes: * Sign off status: Pending * Provider: MD LEELEE, Corwin.P, F.A.S.N. Date: 07/07/2023
--- OUTSIDE RECORDS SUMMARY | 2024-09-16 11:51 | XMS_ITS | Patient Health Record ---
Author Organization [facility] Office Address [address] [place] [address] Care Team Providers Care It Project Coordinator Name Role Phone Ronak Carlos Unavailable [phone] REASON FOR REFERRAL No Information MEDICATIONS Medication SIG (Take, Route, Frequency, Duration) Notes Start Date End Date Status Calcitriol 0.25 MCG TAKE 1 CAPSULE BY MO UTH EVERY DAY FOR 90 DAYS for 90 Active Vitamin D (Ergocalciferol) 1.25 MG (10920 UT) TAKE 1 CAPSULE BY MOUTH ONE TIME PER WEEK FOR 90 DAYS for 90 Active SOCIAL HISTORY Sex Assigned At : Social History Observation Description Sex Assigned At Male PROBLEMS Problem Type ICD Code Onset Dates Problem Status W/U Status Risk SNOMED Code Notes Problem Vitamin D deficiency, unspecified (E55.9) Active confirmed Vitamin D deficiency (09580394) Problem Anxiety disorder, unspecified (F41.9) Active confirmed Anxiety disorde r (676141387) Problem Essential (primary) hypertension (I10) Active confirmed Essential hypertension (44321898) Problem Renal osteodystrophy (N25.0) Active confirmed Renal osteodystrophy (92440362) Problem Chronic kidney disease, stage 3a (N18.31) Active confirmed Chronic kidney disease stage 3A (disorder) (307891078) Encounters Encounter Location Date Provider Diagnosis [place] [facility] [address] [facility] [address] [place] [address] 11/03/2023 Carlos Simons Chronic kidney disea se, [...]
--- OUTSIDE RECORDS SUMMARY | 2024-09-16 11:52 | XMS_ITS | CONTINUITY OF CARE DOCUMENT ---
Author Name crystal rojas Address Unknown Organization [facility] Address [address] [place] [address] Phone [phone] Care Team Providers Care Logistics Planning Manager Name Role Phone Tuan Ramirez MD Unavailable [phone] ANGELIC SQUIRES, FREEDOM Unavailable [phone] FREEDOM ATWOOD MD Unavailable PROBLEMS Condition Status Date Provider Notes CAD-07/02 NUC ISCHEMIA completed - Tuan Ramirez MD CAD - 02/2019 CATH MAINTENANCE FOREMAN mid/distal LAD, patent RCA stent, mid LAD stent (90% ISR) active Heriberto Ott Angina pectoris completed - Tuan Ramirez MD Shortness of breath completed - Heriberto Ott COPD active Tuan Ramirez MD Atrial fibrillation active Heriberto Birch rg Chest pain completed - Tuan Ramirez MD Current use of anticoagulants active Heriberto Ott Cardiology examination active Tuan Garcia Confusion active Paulo Nemo CHF active Tuan Ramirez MD Leg edema, bilateral active Brandon Lovett MD Cough due to DESTINY inhibitors active Don Hermosillo MD Overweight active Heriberto Ott NSTEMI active Heriberto Ott Ascending aortic dilatation active Tuan Ramirez MD Leg pain, bilateral completed - Heriberto Ott Claudication completed - Heriberto Ott Wheezing completed - Don Hermosillo MD R heronin lump completed - Tuan Ramirez MD Bradycardia active Tuan Ramirez MD Syncope active Tuan Ramirez MD CAROTID STENOSIS - <50% LICA active Tuan Ramirez MD AAA-03/02 ABD US NORM completed - Tuan Ramirez MD Tobacco use quit active Don Hermosillo MD to o remtoe screen HTN active Tuan Ramirez MD ENCOUNTERS Date Type Provider Location Encounter Diag nosis - In-person encounter Office Visit Tuan Ramirez MD [place] Cardiology examination - In-person encounter Office Visit Tuan Ramirez MD [place] - In-person encounter Office Visit Tuna Ramirez MD [place] - In-person encounter Office Visit Tuan Ramirez MD [place] Confusion - In-person encounter Office Visit Tuan Ramirez MD [place] [facility] - In-person encounter Office Visit Tuan Ramirez MD [place] - In-person encounter Office Visit Tuan Ramirez MD [place] [facility] - In-person encounter Office Visit Tuan Ramirez MD [place] [facility] - In-person encounter Office Visit Tuan Ramirez MD [place] CHF - In-person encounter Office Visit Tuan Ramirez MD [place] [facility] - In-person encounter Office Visit Tuan Ramirez MD [place] [facility] - In-person encounter Office Visit Tuan Ramirez MD [facility] Office - In-person encounter Office Visit Tuan Ramirez MD [facility] Office - In-person encounter Office Visit Brandon Lovett MD [facility] Office Leg edema, bilateral - In-person encounter Office Visit Tuan Ramirez MD [place] [facility] - In-person encounter Office Visit Don Hermosillo MD [place] Tobacco use quitWheezingCough due to DESTINY inhibitors - In-person encounter Office Visit Tuan Ramirez MD [place] [place] [facility] Shortness of breathOverweight - In-person encounter Office Visit Tuan Ramirez MD [place] [facility] 02/2019 CATH [employer]INTE[employer]NCE [employer]EMAN mid/distal LAD, patent RCA stent, mid LAD stent (90% ISR)Angina pectorisAtrial fibrillationChest painClaudicationLeg pain, bilateralNSTEMI - In-person encounter Office Visit Tuan Ramirez MD [facility] Office Ascending aortic dilatation - In-person encounter Office Visit Tuan Ramirez MD [place] [facility] - In-person encounter Office Visit Tuan Ramirez MD [place] [facility] R groin lump - In-person encounter Office Visit Tuan Ramirez MD [place] [facility] - In-person encounter Office Visit Sunny Simons MD [place] [facility] - In-person encounter Office Visit Tuan Ramirez MD [place] [facility] - In-person encounter Office Visit Tuan Ramirez MD [place] [place] [facility] 02/2019 CATH MAINTENANCE FOREMAN mid/distal LAD, patent RCA stent, mid LAD stent (90% ISR)Current use of anticoagulants - In-person encounter Office Visit Tuan Ramirez MD [place] [facility] - In-person encounter Office Visit Tuan Ramirez MD [place] [place] [facility] BradycardiaCOPD - In-person encounter Office Visit Tuan Ramirez MD [place] [facility] - In-person encounter Office Visit Tuan Ramirez MD [facility] Office HTNCAD - 02/2019 CAT H MAINTENANCE FOREMAN mid/distal LAD, patent RCA stent, mid LAD stent (90% ISR)R groin lump - In-person encounter Office Visit Tuan Ramirez MD [place] [facility] CAROTID STENOSIS - <50% LICA - In-person encounter Office Visit Tuan Ramirez MD [place] [facility] CAD-07/02 NUC ISCHEMIATobacco use quitCAD - 02/2019 CATH MAINTENANCE FOREMAN mid/distal LAD, patent RCA stent, mid LAD stent (90% ISR)AAA-03/02 [facility] US NORMCAROTID STENOSIS - <50% LICABradycardia - In-person encounter Office Visit Tuan Ramirez MD [place] [place] [facility] - In-person encounter Office Visit Tuan Ramirez MD [place] [facility] SyncopeBradycardia - In-person encounter Office Visit Tuan Ramirez MD [place] [facility] - In-person encounter Office Visit Tuan Ramirez MD [place] [facility] - In-person encounter Office Visit Tuan Ramirez MD [place] [facility] - In-person encounter Office Visit Tuan Ramirez MD [facility] Office - In-person encounter Office Visit Tuan Ramirez MD [place] [facility] - In-person encounter Office Visit Tuan Ramirez MD [place] [facility] - In-person encounter Office Visit Tuan Ramirez MD [place] [facility] - In-person encounter Office Visit Tuan Ramirez MD [place] [facility] - In-person encounter Office Visit Tuan Ramirez MD [place] [place] [facility] VITAL SIGNS Date Observation Value Provider [...] Martha Martinez height E&M 71 [in_i] Martha [place] Body Mass Index (Ratio) 24.54 kg/m2 Grah am Nemo pulse rate 58 /min [facility] blood pressure, cuff size regular Fa [facility] blood pressure, diastolic 65 mm[Hg] Fa [facility] blood pressure, systolic 117 mm[Hg] [facility] oxygen saturation, oximetry 93 % [facility] respiratory rate E&M 18 /min Jazlyn M iller weight E&M 176 [lb_av] [facility] height E&M 71 [in_i] [facility] Body Mass Index (Ratio) 24.82 kg/m2 Grah am Nemo blood pressure, cuff size regular Fa ith [place] blood pressure, diastolic 74 mm[Hg] Fa ith [place] blood pressure, systolic 111 mm[Hg] Mauri [facility] oxygen saturation, oximetry 92 % [facility] respiratory rate E&M 16 /min Jazlyn M iller pulse rate 65 /min [facility] weight E&M 178 [lb_av] [facility] height E&M 71 [in_i] Jazlyn Martinez [...] er height E&M 71 [in_i] Sabina Schmidt [facility] Body Mass Index (Ratio) 29.87 kg/m2 Yaa tripp Estefanymtella blood pressure, diastolic 71 mm[Hg] Br júniorsebastian [facility] blood pressure, systolic 134 mm[Hg] Chika sahrahilario [facility] oxygen saturation, oximetry 98 % Nanette Jacobsmtella respiratory rate E&M 15 /min Yaageorges katelynn Allisonmtella pulse rate 80 /min Nanette Allison adela weight E&M 214.2 [lb_av] Nanette goodrich height E&M 71 [in_i] Nanette Allison adela Body Mass Index (Ratio) 27.61 kg/m2 Luma Lacey RN blood pressure, cuff size large Hi khoa [place] blood pressure, diastolic 70 mm[Hg] Alberta couch [place] blood pressure, systolic 135 mm[Hg] [facility] ernesto [place] oxygen saturation, oximetry 98 % [...] blood pressure, diastolic 67 mm[Hg] Ca therine [place] blood pressure, systolic 145 mm[Hg] Cat herine Alex oxygen saturation, oximetry 94 % Didi [place] respiratory rate E&M 14 /min Catheri ne Alex pulse rate 71 /min Didi Alex weight E&M 198 [lb_av] Iddi Alex blood pressure, cuff size regular Ca therine [place] height E&M 71 [in_i] Didi Alex Body Mass Index (Ratio) 27.47 kg/m2 Yaa arlin Han blood pressure, cuff size large Tr jermaine Daigle blood pressure, diastolic 60 mm[Hg] Tr jermaine Daigle blood pressure, systolic 130 mm[Hg] Nikolay orozcobarbara Daigle respiratory rate E&M 18 /min Rose Daigle oxygen saturation, oximetry 96 % Rose Daigle pulse rate 96 /min Roes Daigle weight E&M 197 [lb_av] Rose Daigle [...] Body Mass Index (Ratio) 29.15 kg/m2 [facility]aa [facility], resting Yes Alex Sims [...] Telly Webbford blood pressure, diastolic 80 mm[Hg] [facility] blood pressure, systolic 140 mm[Hg] She [facility]rinol[facility] clinicseulalia WebbWolff oxygen saturation, oximetry 98 % [facility] Webbford pulse rate 64 /min [facility]prakash Webb mackenzie respiratory rate E&M 18 /min [facility] Systemkarla darby Wolff weight E&M 214 [lb_av] Teresa Webb mackenzie height E&M 71 [in_i] Teresa Webb mackenzie Body Mass Index (Ratio) 30.40 kg/m2 Khoi Ott blood pressure, resting Yes Telly Webbford blood pressure, diastolic 68 mm[Hg] [facility] Webbford blood pressure, systolic 140 mm[Hg] She [...] pressure, systolic, left arm 142 mm [Hg] [place] Leigh blood pressure, diastolic, right arm 60 m m[Hg] [place] Leigh blood pressure, systolic, right arm 130 m m[Hg] Liz Leigh blood pressure, diastolic 70 mm[Hg] Ki lleen blood pressure, systolic 142 mm[Hg] Nikos farley Leigh oxygen saturation, oximetry 95 % [place] Leigh respiratory rate E&M 16 /min [place] Leigh pulse rate 54 /min [place] Leigh weight E&M 211 [lb_av] [place] Leigh height E&M 71 [in_i] Liz Leigh [...] Mass Index (Ratio) 27.61 kg/m2 Khoi jacobo [facility] blood pressure, cuff size large Cy zoie [...] respiratory rate E&M 22 /min Sabina Costa [facility]ople[facility] hospitaljordin pulse rate 88 /min Sabina Schmidt [facility] weight E&M 208 [lb_av] Sabina Schmidt [facility] height E&M 71 [in_i] Sabina Schmidt [facility] Body Mass Index (Ratio) 27.89 kg/m2 Khoi [...] ronel pulse rate 83 /min Sabina Schmidt [facility] weight E&M 189 [lb_av] Sabina Schmidt [facility] height E&M 71 [in_i] Sabina Schmidt [facility] Body Mass Index (Ratio) 25.80 kg/m2 Khoi Ott blood pressure, diastolic, left arm 64 mm [Hg] Ramandeep [place] blood pressure, systolic, left arm 130 mm [Hg] Ramandeep [place] blood pressure, diastolic, standing 70 mm [Hg] Ramandeep Sabine blood pressure, systolic, standing 120 mm [Hg] Ramandeep [place] respiratory rate E&M 16 /min Ramandeep [place] oxygen saturation, oximetry 93 % Ramandeep Sabine pulse rate 77 /min Ramandeep Sabine blood pressure, diastolic 64 mm[Hg] Kr isty [place] blood pressure, systolic 130 mm[Hg] Kri sty [place] weight E&M 185 [lb_av] Ramandeep [place] blood pressure, cuff size regular Kr isty Sabine height E&M 71 [in_i] Ramandeep [place] Body Mass Index (Ratio) 25.41 kg/m2 Khoi [...] Oliverio blood pressure, diastolic 58 mm[Hg] [facility], systolic 116 mm[Hg] Radames [facility], oximetry 95 % Michelle [...] RN blood pressure, diastolic 71 mm[Hg] Live aLssiter RN blood pressure, systolic 143 mm[Hg] Pedro [...] diastolic, left arm 93 mm [Hg] Nita Ripon blood pressure, systolic, left arm 168 mm [Hg] Nita [place]on blood pressure, diastolic, right arm 90 m m[Hg] Nita [place] blood pressure, systolic, right arm 172 m m[Hg] Nita [place] blood pressure, diastolic 90 mm[Hg] Fe ambrose Kiki blood pressure, systolic 172 mm[Hg] Fel icia Kiki pulse rate 57 /min Nita Kiki oxygen saturation, oximetry 96 % Nita Kiki respiratory rate E&M 20 /min Nita [place]on weight E&M 204 [lb_av] Nita [place] blood pressure, diastolic 75 mm[Hg] Rolanda seph [...] pressure, diastolic, right arm 83 m m[Hg] PedroP ablo Lassiter RN blood pressure, systolic, right arm [...] MD HDL cholesterol, serum 44 mg/dL Tuan aRmirez MD LDL cholesterol, serum 25 mg/dL Tuan [...] Heriberto Ott triglyceride, serum, fasting 108 mg/dL [facility] HDL cholesterol, serum 33 mg/dL [facility] LDL cholesterol, serum 67 mg/dL [facility] cholesterol, serum 123 mg/dL [facility] platelet count 204 10*3/uL [facility] red blood cell distribution width 11.7 % [facility] mean corpuscular hemoglobin concentration, RBC 32.5 g/dL [facility] mean corpuscular hemoglobin, RBC 31.9 pg [facility] mean corpuscular volume, RBC 97.9 fL [facility] hematocrit, blood 41.8 % [facility] hemoglobin, blood 13.6 g/dL [facility] erythrocyte (RBC) count 4.27 10*6/mm3 [facility] leukocyte count, blood 9.2 10*3/mm3 [facility] calcium, serum 9.2 mg/dL [facility] blood glucose, random 105 mg/dL [facility] creatinine, serum 0.85 mg/dL [facility] urea nitrogen, blood 13 mg/dL [facility] carbon dioxide, serum, total 29 mmol/L [facility] chloride, serum 103 mmol/L [facility] potassium, serum 4.7 mmol/L [facility] sodium, serum 139 mmol/L [facility] LDL cholesterol, serum 90 mg/dL [facility] prothrombin time (patient) 10.2 s Maria [...] by mouth once a day - [facility]op[facility] tartrate 25 mg tablet active [...] 1 TABLET BY MOUTH EVERY DAY [facility] Eliquis 5 mg tablet active TAKE 1 TABLET BY MOUTH TWICE A DAY Rachael Rushifarhan furosemide 40 mg tablet completed TAKE 1 TABLET BY MOUTH EVERY DAY - Sabina Frances albuterol sulfate 2.5 mg/3 mL (0.083 %) solution for nebulization active Ramandeep Regalado metformin 500 mg tablet active twice a day Raamndeep Regalado Lasix 40 mg tablet completed Take [...] 1 tablet once a day - Yoly Edne ProAir HFA 90 mcg/actuation HFA aerosol inhaler [...] smoker [place] smoking, year quit 1998 [facility] number of years as a smoker 10+ [facility] cigarette use yes [facility] smoking status Former smoker Amen. smoking, year quit 1998 [facility] number of years as a smoker 10+ [facility] cigarette use yes [facility] smoking status Former smoker [facility] physical exercise, frequency, days per week no Tuan Ramirez MD caffeine use, averag e drinks per day 1+ Tuan Ramirez MD smoking, year quit 1998 Tuan millan MD number of years as a smoker 10+ Tuan Ramirez MD cigarette use yes Tuan Ramirez MD smoking status Former smoker Tuan Ramirez MD social history revie wed E&M reviewed - no changes required Tuna Ramirez MD social history revie wed E&M [...] of years as a smoker 10+ Didi Avoca cigarette use yes Didi Alex smoking status [...] averag e drinks per day 1+ Ramandeep [place] smoking, year quit 1998 Ramandeep Bu sby number of years as a smoker 10+ Ramandeep [place] cigarette use yes Ramandeep Sabine smoking status Former smoker Ramandeep Regalado social history E&M Marital Statu s: Kaylee ji with family/friends E thnicity: Smoking History: [...] Regalado social history E&M Marital Statu s: Kaylee ji with family/friends E thnicity: Smoking History: [...] rogers smoking status Former smoker Teresa Kennedy asida social history revie wed E&M reviewed - [...] MD social history E&M Marital Statu s: Kaylee ji with family/friends E thnicity: Smoking History: [...] corado social history E&M Marital Statu s: Kaylee ji with family/friends E thnicity: Smoking History: [...] MD social history E&M Marital Statu s: Kaylee ji with family/friends E thnicity: Smoking History: [...] drinks per day social basis only Tuyet Hortno caffeine use, averag e drinks per day [...] years or more [facility] smoking status [facility] FUNCTIONAL STATUS Date Observation Value Provider HRA, [...] Payer name Policy type / Coverage type [place] red green party ID [employer] MED[employer]ARE [employer]AGE ST 0 003 (HMO POS) Medicare [id number] ADVANCE DIRECTIVES Name Date DISCUSSED - NO DECISION MADE TREATMENT PLAN Date Name Performer [id number],S, H is updated medication list for this problem includes: Rosuvastatin 20 Mg Tablet (Rosuvastatin) Crestor 20 Mg Tablet (Rosuvastatin) ..... 1 tablet once a day Tuan Ramirez MD [id number],S, Tuan Ramirez MD [id number],S,will obtain p Minal Ramirez MD [id number],S, B P today: 142/79 P rior BP: [...] 25 Mg Tablet (Spironolactone) Tuan Ramirez MD [id number],S,n ot in Afib H is updated medication list for this problem includes: Metoprolol Tartrate 25 Mg Tablet (Metoprolol tartrate) Plavix 75 Mg Tablet (Clopidogrel) ..... 1 tablet once a day Tuan Ramirez MD [id number],C,n o CP H is updated medication list for this problem includes: Amlodipine 10 Mg Tablet (Amlodipine) ..... Take 1 tablet by mouth every day Metoprolol Tartrate 25 Mg Tablet (Metoprolol tartrate) Isosorbide Mononitrate 120 Mg Tablet Extended Release 24 Hr (Isosorbide mononitrate) ..... Take 1 tablet by mouth once a day take 1 tablet by mouth once daily Nitrolingual 400 Mcg/spray [place],non-aerosol (Nitroglycerin) ..... 1 as needed Plavix 75 Mg Tablet (Clopidogrel) ..... 1 tablet once a day Tuan Ramirez MD [id number],N,i ncreased confusion w ill hold inpefa for 1 week to see if confusion improves o btain UACR Tuan Ramirez MD [id number],S,S OB improved. Pt's reports increased confusion. We [...] by mouth once daily Nitrolingual 400 Mcg/spray [place],non-aerosol (Nitroglycerin) ..... 1 as needed Plavix 75 Mg Tablet (Clopidogrel) ..... 1 tablet once a day Tuan Ramirze MD [id number],C, R eveiwed his admission from last year with NSTEMI. Tuan Ramirez MD [id number],C, C HF class II His updated medication [...] by mouth once daily Nitrolingual 400 Mcg/spray [place],non-aerosol (Nitroglycerin) ..... 1 as needed Plavix 75 Mg Tablet (Clopidogrel) ..... 1 tablet once a day Tuan Ramirez MD [id number],C, P atient is wheezing and short of breath, CHF class II Tuan Ramirez MD [id number],S, N ot in AFib. H is updated medication list for this problem includes: Metoprolol Tartrate 25 Mg Tablet (Metoprolol tartrate) Plavix 75 Mg Tablet (Clopidogrel) ..... 1 tablet once a day Tuan Ramirez MD [id number],C, B P today: 140/73 P rior BP: [...] 25 Mg Tablet (Spironolactone) Tuan Ramirez MD [id number],S, N o chest pain. His updated medication list for this problem includes: Amlodipine 10 Mg Tablet (Amlodipine) ..... Take 1 tablet by mouth every day Metoprolol Tartrate 25 Mg Tablet (Metoprolol tartrate) Isosorbide Mononitrate 120 Mg Tablet Extended Release 24 Hr (Isosorbide mononitrate) ..... Take 1 tablet by mouth once a day take 1 tablet by mouth once daily Nitrolingual 400 Mcg/spray [place],non-aerosol (Nitroglycerin) ..... 1 as needed Plavix 75 Mg Tablet (Clopidogrel) ..... 1 tablet once a day Tuan Ramirez MD [id number],S, B P today: 124/80 P rior BP: [...] tartrate) Spironolactone 25 Mg Tablet (Spironolactone) Dejuan Annegloria [id number],S, H is updated medication list for this [...] by mouth once daily Nitrolingual 400 Mcg/spray [place],non-aerosol (Nitroglycerin) ..... 1 as needed Plavix 75 Mg Tablet (Clopidogrel) ..... 1 tablet once a day Dejuan Gray [id number],C, H is updated medication list for this problem includes: Rosuvastatin 20 Mg Tablet (Rosuvastatin) Crestor 20 Mg Tablet (Rosuvastatin) ..... 1 tablet once a day Nanette Han [id number],C, B P today: 134/71 P rior BP: [...] tablet by mouth every day Nanette Han [id number],C, H is updated medication list for this problem includes: Metoprolol Tartrate 25 Mg Tablet (Metoprolol tartrate) Plavix 75 Mg Tablet (Clopidogrel) ..... 1 tablet once a day Nanette Han [id number],C,O tami doing well. No SOB. He cannot afford Jardiance. Stable at CHF class II. Continues current medications. Nanette Han [id number],S, E ncouraged weight loss. Nanette Han [id number],C,T he pt reports improvement of symptoms with [...] by mouth every day Nitrolingual 400 Mcg/spray [place],non-aerosol (Nitroglycerin) ..... 1 as needed Plavix 75 Mg Tablet (Clopidogrel) ..... 1 tablet once a day Nanette Han [id number],C,T he pt reports improvement of symptoms with [...] by mouth every day Nitrolingual 400 Mcg/spray [place],non-aerosol (Nitroglycerin) ..... 1 as needed Plavix 75 Mg Tablet (Clopidogrel) ..... 1 tablet once a day Nanette Han [id number],C, H is updated medication list for this problem includes: Rosuvastatin 20 Mg Tablet (Rosuvastatin) Crestor 20 Mg Tablet (Rosuvastatin) ..... 1 tablet once a day Tuan Ramirez MD [id number],C, B P today: 135/70 P rior BP: [...] by mouth every day Tuan Ramirez MD [id number],C, Echo in the hospital showed RV dilatation [...] by mouth every day Nitrolingual 400 Mcg/spray [place],non-aerosol (Nitroglycerin) ..... 1 as needed Plavix 75 Mg Tablet (Clopidogrel) ..... 1 tablet once a day Nanette Han [id number],C, H is updated medication list for this problem includes: Rosuvastatin 20 Mg Tablet (Rosuvastatin) Crestor 20 Mg Tablet (Rosuvastatin) ..... 1 tablet once a day Tuan Ramirez MD [id number],C, B P today: 145/67 P rior BP: [...] by mouth every day Tuan Ramirez MD [id number],C,T he pt had a recent admission to [facility] due to CHF exacerbation due to HFpEF. He was diuresed and is feeling better. Echo in the hospital showed RV dilatation adn elevated PA pressure. Today we will start Jardiance 10 mg daily. F/u in one month and consider R/L cardiac cath depending on his sxs. Tuan Ramirez MD [id number],S, E ncouraged weight loss. Nanette Han [id number],Nanette Henderson [id number],C, H is updated medication list for this problem includes: Crestor 20 Mg Tablet (Rosuvastatin) ..... 1 tablet once a day Nanette Han [id number],C, B P today: 130/60 P rior BP: 140/72 (02/15/2021) Labs Reviewed: C reat: 0.93 (09/04/2018) C hol: 89 (09/04/2018) HDL: 44 (09/04/2018) LDL: 25 (09/04/2018) H is updated medication list for this problem includes: Furosemide 40 Mg Tablet (Furosemide) ..... Take 1 tablet by mouth every day Amlodipine 10 Mg Tablet (Amlodipine) ..... 1 tablet once a day Nanetet Emely [id number],C,N o SOB H is updated medication list for this problem includes: Symbicort 160-4.5 Mcg/actuation Hfa Aerosol Inhaler (Budesonide-formoterol) ..... 2 puff twice a day Proair Hfa 90 Mcg/actuation Hfa Aerosol Inhaler (Albuterol sulfate) ..... As needed Albuterol Sulfate (bulk) Powder (Albuterol sulfate (bulk)) ..... 2 puff twice a day Albuterol Sulfate 2.5 Mg/3 Ml (0.083 %) Solution For Nebulization (Albuterol sulfate) Nanette Emely [id number],C, He continues to complain of leg swelling, though it has improved since starting the Lasix. Nanette Han [id number],C,P t did not proceed with cardiac cath [...] tablet once a day Nitrolingual 400 Mcg/spray [place],non-aerosol (Nitroglycerin) ..... 1 as needed Plavix 75 Mg Tablet (Clopidogrel) ..... 1 tablet once a day Isosorbide Mononitrate 120 Mg Tablet Extended Release 24 Hr (Isosorbide mononitrate) ..... Take 1 tablet by mouth once a day Nanette Han [id number],C, H is updated medication list for this problem includes: Crestor 20 Mg Tablet (Rosuvastatin) ..... 1 tablet once a day Tuan Ramirez MD [id number],S, Tuan Ramirez MD [id number],C, B P today: 140/72 P rior BP: 130/70 (12/04/2020) Labs Reviewed: C reat: 0.93 (09/04/2018) C hol: 89 (09/04/2018) HDL: 44 (09/04/2018) LDL: 25 (09/04/2018) H is updated medication list for this problem includes: Amlodipine 10 Mg Tablet (Amlodipine) ..... 1 tablet once a day Lasix 40 Mg Tablet (Furosemide) ..... Take 1 once a day Tuan Ramirez MD [id number],Brent Kennedy ontinues on Eliquis. Denies CP or SOB today. Tuan Ramirez MD [id number],BrentP t had a recent admission to the [facility] for chest pain and shortness [...] For Nebulization (Albuterol sulfate) Tuan Ramirez MD [id number],BrentP t had a recent admission to the [facility] for chest pain and shortness of breath. He has leg swelling worse on the right. 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 BNP during admissionwas 220. In view of his recent symptoms, will proceed to R/L heart cath and venography with IVUS. Tuan Ramirez MD [id number],BrentP t had a recent admission to the [facility] for chest pain and shortness of breath. [...] tablet once a day Nitrolingual 400 Mcg/spray [place],non-aerosol (Nitroglycerin) ..... 1 as needed Plavix 75 Mg Tablet (Clopidogrel) ..... 1 tablet once a day Isosorbide Mononitrate 120 Mg Tablet Extended Release 24 Hr (Isosorbide mononitrate) ..... Take 1 tablet by mouth once a day Tuan Ramirez MD [id number],C,O n statin H is updated medication list for this problem includes: Crestor 20 Mg Oral Tablet (Rosuvastatin calcium) ..... One tab once daily Nanette Han [id number],C, B P today: 130/70 P rior BP: 140/80 (11/24/2020) Labs Reviewed: C reat: 0.93 (09/04/2018) C hol: 89 (09/04/2018) HDL: 44 (09/04/2018) LDL: 25 (09/04/2018) H is updated medication list for this problem includes: Lasix 40 Mg Oral Tablet (Furosemide) ..... Take one daily Amlodipine Besylate 10 Mg Oral Tablet (Amlodipine besylate) ..... One tab. daily Nanette Han [id number],C,N o SOB. H is updated medication list for this problem includes: Proair Hfa 108 (90 Base) Mcg/act Inhalation Aerosol Solution (Albuterol sulfate) ..... As needed Albuterol Sulfate Powder (Albuterol sulfate) ..... 2 puffs twice daily Symbicort Aerosol (Budesonide-formoterol fumarate aero) ..... 2 puffs twice daily Nanette Han [id number],C,T he pt developed nausea and vomitting after [...] 3rd dose, go to er Nanette Han [id number],C, Leg swelling has improved, will obtain venous duplex and consider venoraphy w/ IVUS and Venaseal. He was also not able to withstand support stockings. Nanette Han [id number],N,P t complains of bilateral leg swelling, denies [...] Ramirez MD Cardiology Go Mack Cardiology:Appears c ompdanny o julia to use lasix prn for SOB Go Frederick Cardiology: H is updated medication list for [...] o r SOB. Inpefa was stopped by [facility] domiuase of risk of UTI. WIll continue current medications H is updated medication list for this problem includes: Furosemide 40 Mg Tablet (Furosemide) ..... Take 1 tablet by mouth every day Amlodipine 10 Mg Tablet (Amlodipine) ..... Take 1 tablet by mouth every day Metoprolol Tartrate 25 Mg Tablet (Metoprolol tartrate) Spironolactone 25 Mg Tablet (Spironolactone) Nitrolingual 400 Mcg/spray [place],non-aerosol (Nitroglycerin) ..... 1 as needed Plavix 75 Mg Tablet (Clopidogrel) ..... 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 NO CP or SOB. Inpefa was stopped by [facility] sanjuanita of risk of UTI. WIll continue [...] 25 Mg Tablet (Spironolactone) Nitrolingual 400 Mcg/spray [place],non-aerosol (Nitroglycerin) ..... 1 as needed Plavix 75 Mg Tablet (Clopidogrel) ..... 1 tablet once a day Paulo Chester Cardiology:Pt tenisha hitchcock with myocardial infarction, was found to [...] Tuan Ramirez MD Cardiology:will obtain proBNP Gi l Ermelinda Ramirez MD Cardiology: B P today: 142/79 [...] by mouth once daily Nitrolingual 400 Mcg/spray [place],non-aerosol (Nitroglycerin) ..... 1 as needed Plavix 75 [...] by mouth once daily Nitrolingual 400 Mcg/spray [place],non-aerosol (Nitroglycerin) ..... 1 as needed Plavix 75 Mg Tablet (Clopidogrel) ..... 1 tablet once a day Tuan Ramirez MD Cardiology: Bina crystal his admission from last year with NSTEMI. [...] by mouth once daily Nitrolingual 400 Mcg/spray [place],non-aerosol (Nitroglycerin) ..... 1 as needed Plavix 75 [...] by mouth once daily Nitrolingual 400 Mcg/spray [place],non-aerosol (Nitroglycerin) ..... 1 as needed Plavix 75 [...] by mouth once daily Nitrolingual 400 Mcg/spray [place],non-aerosol (Nitroglycerin) ..... 1 as needed Plavix 75 [...] by mouth every day Nitrolingual 400 Mcg/spray [place],non-aerosol (Nitroglycerin) ..... 1 as needed Plavix 75 Mg Tablet (Clopidogrel) ..... 1 tablet once a day Nanette Han Cardiology:The pt re ports improvement [...] by mouth every day Nitrolingual 400 Mcg/spray [place],non-aerosol (Nitroglycerin) ..... 1 as needed Plavix 75 Mg Tablet (Clopidogrel) ..... 1 tablet once a day Nanette Emely Cardiology: H is updated medication list for [...] by mouth every day Nitrolingual 400 Mcg/spray [place],non-aerosol (Nitroglycerin) ..... 1 as needed Plavix 75 [...] pt esteban d a recent admission to [facility] due to CHF exacerbation due to HFpEF. [...] tablet once a day Nitrolingual 400 Mcg/spray [place],non-aerosol (Nitroglycerin) ..... 1 as needed Plavix 75 [...] Cardiology:Pt had a recent admission to the [facility] for chest pain and shortness [...] Cardiology:Pt had a recent admission to the [facility] for chest pain and shortness of breath. He has leg swelling worse on the right. 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 BNP during admissionwas 220. In view of his recent symptoms, will proceed to R/L heart cath and venography with IVUS. Tuan Ramirez MD Cardiology:Pt had a recent admission to the [facility] for chest pain and shortness [...] tablet once a day Nitrolingual 400 Mcg/spray [place],non-aerosol (Nitroglycerin) ..... 1 as needed Plavix 75 [...] 20 or 40 mg. Vanessa Judge NP Cardiology:Advised p t to be careful to not fall, particularly when taking Plavix in addition to Eliquis. Heriberto Ott Cardiology:His updat ed medication list for this [...] Tablet (Amlodipine besylate) ..... One tab. daily Heriberto Ott Cardiology:Echo show ed normal EF. Holter monitor [...] (Apixaban) .... 1 tab po twice daily [facility] Cardiology:Echo show ed normal EF. He [...] relief after 3rd dose, go to er [facility] Cardiology Follow up : H is updated medication list for this problem includes: Crestor 20 Mg Oral Tablet (Rosuvastatin calcium) ..... One tab once daily C HOL: 89 (09/04/2018) LDL: 25 (09/04/2018) HDL: 44 (09/04/2018) Don Hermosillo MD Cardiology Follow up Don barillas MD Cardiology Follow up Don barillas MD Cardiology Follow up Don barillas MD Cardiology:Encouraged weight los s. Heriberto [facility] Cardiology Heriberto Birch Cardiology:His updat ed medication list for this problem includes: Crestor 20 Mg Oral Tablet (Rosuvastatin calcium) ..... One tab once daily [facility] Cardiology:He had a cough which resolved [...] Tablet (Amlodipine besylate) ..... One tab. daily [facility] Cardiology:No palpit ations. His updated medication list for this problem includes: Eliquis 5 Mg Oral Tablet (Apixaban) .... 1 tab po twice daily [facility] Cardiology:Due for f /u. Orders: C T Chest without contrast (CPT-00735) [facility] Cardiology:Reveiwed his admission from last year with NSTEMI. [facility] Cardiology:Denies ch est pain or SOB. Will obtain f/u echo. The following medications were stopped due to a cough: Altace 10 Mg Oral Capsule (Ramipril) ..... Take one pill a day His updated medication list for this problem includes: Isosorb [place] Er 120mg Tab (Isosorbide mononitrate) ..... Take [...] (Aspirin) ..... One tab by mouth daily [facility] follow up :His updated medication list for this problem includes: Eliquis 5 Mg Oral Tablet (Apixaban) .... 1 tab po twice daily [facility] follow up :Due for f/u CT before next appt. [facility] Cardiology hospital follow up :His updated medication list for this problem includes: Crestor 20 Mg Oral Tablet (Rosuvastatin calcium) ..... One tab once daily [facility] hospital follow up :BP today: 134/70 P rior BP: 110/58 (03/01/2019) His updated medication list for this problem includes: Amlodipine Besylate 5 Mg Oral Tablet (Amlodipine besylate) ..... One tab. daily Altace 10 Mg Oral Capsule (Ramipril) ..... Take one pill a day [facility] hospital follow up :Pt had a recent admission to [facility] for chest pain and ruled in for NSTEMI. Cardiac cath showed 90% in-stent restenosis of the LAD, which was stented. Pt reports his angina has resolved. [facility] hospital follow up :Pt had a recent admission to [facility] for chest pain and ruled in for NSTEMI. Cardiac cath showed 90% in-stent restenosis of the LAD, which was stented. Pt reports his angina has resolved. His updated medication list for this problem includes: Isosorb [place] Er 120mg Tab (Isosorbide mononitrate) ..... Take [...] (Ramipril) ..... Take one pill a day [facility] Cardiology:No palpitations. On E liquis. [facility] Cardiology:His updat ed medication list for this problem includes: Crestor 20 Mg Oral Tablet (Rosuvastatin calcium) ..... One tab once daily [facility] Cardiology:BP today: 110/58 P rior BP: 142/70 (10/10/2018) His updated medication list for this problem includes: Amlodipine Besylate 5 Mg Oral Tablet (Amlodipine besylate) ..... One tab. daily Altace 10 Mg Oral Capsule (Ramipril) ..... Take one pill a day Heriberto [facility] Cardiology:He compla ins of increasing frequency of angina. He does not want to have cardiac cath at this time, but he will monitor his symptoms and let us know if they get worse. [facility] Cardiology:He compla ins of increasing frequency of angina. He does not want to have cardiac cath at this time, but he will monitor his symptoms and let us know if they get worse. His updated medication list for this problem includes: Isosorb [place] Er 120mg Tab (Isosorbide mononitrate) ..... Take [...] (Ramipril) ..... Take one pill a day [facility] Cardiology:Pt had a fall and CT was performed and pulmonary nodules were suspected. 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 Will obtain an echo and f/u CT in 6 months. We will monitor the size of the aneurysmal dilatation and treat as needed. Heriberto [facility] Cardiology:No palpitations. On E liquis. Heriberto [facility] Cardiology Heriberto Birch Cardiology:CHOL: 123 (02/22/2018) LDL: 67 (02/22/2018) HDL: 33 (02/22/2018) T (02/22/2018) [facility] Cardiology:BP today: 142/70 P rior BP: 142/80 (03/26/2018) His updated medication list for this problem includes: Amlodipine Besylate 5 Mg Oral Tablet (Amlodipine besylate) ..... One tab. daily Altace 10 Mg Oral Capsule (Ramipril) ..... Take one pill a day [facility] Cardiology:No chest pain. His updated medication [...] (Ramipril) ..... Take one pill a day [facility] hospital follow up:LDL: 90 (07/28/2017) His updated medication list for this problem includes: Fenofibrate 48 Mg Oral Tablet (Fenofibrate) ..... Once a day [facility] follow up:BP today: 142/80 P rior BP: 138/70 (12/20/2017) His updated medication list for this problem includes: Amlodipine Besylate 5 Mg Oral Tablet (Amlodipine besylate) ..... One tab. daily Altace 10 Mg Oral Capsule (Ramipril) ..... Take one pill a day [facility] follow up:His updated medication list for this [...] (Ramipril) ..... Take one pill a day [facility] follow up :BP today: 138/70 P rior BP: 160/86 (11/14/2017) His updated medication list for this problem includes: Amlodipine Besylate 5 Mg Oral Tablet (Amlodipine besylate) ..... One tab. daily Altace 10 Mg Oral Capsule (Ramipril) ..... Take one pill a day [facility] follow up Al migdalia [facility] follow up :Orders: A rterial Duplex Bi-Lower EX (CPT-78650) [facility] follow up :Orders: A rterial Duplex Bi-Lower EX (CPT-54287) V enous Doppler Bilateral LE - Reflux (CPT-18513) [facility] follow up :His updated medication list for [...] (Ramipril) ..... Take one pill a day [facility] follow up :His updated medication list for [...] ..... Take one pill a day Heriberto [facility] Cardiology Hospital follow up Chris negron [facility] Cardiology Follow up Sunny anderson MD Cardiology Follow up Sunny anderson MD Cardiology Follow up Sunny anderson MD Cardiology Follow up Sunny anderson MD Cardiology Follow up Sunny anderson MD Cardiology Follow up Heriberto [facility] Cardiology Follow up:Bradycardia resolved. [facility] Cardiology Follow up :BP today: 147/91 P rior BP: 148/71 (12/14/2016) His updated medication list for this problem includes: Amlodipine Besylate 5 Mg Oral Tablet (Amlodipine besylate) ..... One tab. daily Altace 10 Mg Oral Capsule (Ramipril) ..... Take one pill a day [facility] Cardiology Follow up :No chest pain [...] ..... Take one pill a day Heriberto [facility] Cardiology:Continues on Eliquis 5mg BID. [facility] Cardiology:BP today: 148/71 P rior BP: 161/64 (11/21/2016) The following medications were removed from the medication list: Toprol Xl 25 Mg Tb24 (Metoprolol succinate) ..... One tab daily His updated medication list for this problem includes: Amlodipine Besylate 5 Mg Tabs (Amlodipine besylate) ..... One tab. daily Ramipril 5 Mg Oral Caps (Ramipril) ..... Take one tablet daily [facility] Cardiology:The follo wing medications were removed [...] Caps (Ramipril) ..... Take one tablet daily [facility] Cardiology:His Metop rolol was stopped due to marked bradycardia. [facility] Cardiology:The pt wa s admitted to [facility] due to chest pain and cardiac cath revealed significant stenosis of the RCA. This was treated with a stent and his chest pain has completely resolved. [facility] Cardiology:The pt wa s admitted to [facility] due to chest pain and cardiac cath [...] ASA/Plavix. Heriberto Ott Cardiology:Groin dup nikki at [facility] showed that there was no pseudoaneurysm. The [...] with complete resolution of his symptoms. Heriberto Namrata Cardiology:S/P cardi ac cath last week. He complains of swelling and pain in the right groin. 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 He is scheduled for thrombin injection tomorrow morning by Dr. Bang/Dr. Ash. Heriberto Ott Cardiology:The pt un derwent successful stenting of [...] includes: Isosorbide Mononitrate Er 60 Mg Oral [id number] (Isosorbide mononitrate) ..... One tab daily Aspirin [...] Trace AR. Mild ot moderate TR. Minimal CA. GC office (04/23/2008) Tuan Ramirez MD 6 [...] Trace AR. Mild ot moderate TR. Minimal CA. office (04/23/2008) Aldair [place] 6 month follow-up: [...] One tab. daily O rders: E KG (CPT-64016) C ardiac Cath - PCL (*) BP [...] Microalb/Creatinine Urine, Random HEMOGLOBIN A1c DLCO - 25473 FRC - 30522 FVC - 68435 Venous Doppler Bilat eral LE Arterial Duplex [...] Echo Holter Monitor 24 Hr DLCO - 31715 FRC - 83405 FVC - 07685 CT Chest without con trast Complete Echo CT Chest without con trast Complete Echo Venous Doppler Bilat eral LE - Reflux Arterial Duplex Bi-L ower EX MAGNESIUM BASIC METABOLIC PANE L W/EGFR PROTHROMBIN TIME WIT H INR SOCRATES/CV - GC Complete Echo PROBNP, N TERMINAL DLCO - 84443 FRC - 95767 FVC - 08045 Cardiac Cath - Left - CNE Carotid [...] d EKG Tuan Ramirez MD completed SNOMED-CT: 257621987 860430 Current Medications Documented Tuan Ramirez MD completed SNOMED-CT: 846688867 764343 Current Medications Documented slhv .RickyVidalk completed SNOMED-CT: 252606286 709403 Current Medications Documented Tuan Ramirez MD completed SNOMED-CT: 625469883 414485 Current Medications Documented Tuan Ramirez MD completed BLOOD COUNT HEMOGLOBIN Tuan Ramirez MD completed FVC - 79771 Tuan Ramirez MD completed FRC - 81355 Tuan Ramirez MD completed DLCO - 10597 Tuan Ramirez MD complete d SNOMED-CT: 723511353 677397 Current Medications Documented Tuan Ramirez MD completed SNOMED-CT: 950524576 508841 Current Medications Documented Tuan Ramirez MD completed EKG Tuan Ramirez MD completed SNOMED-CT: 332160506 508652 Current Medications Documented Tuan Ramirez MD completed EKG Tuan Ramirez MD completed SNOMED-CT: 707692936 386273 Current Medications Documented Tuan Ramirez MD completed EKG Tuan Ramirez MD completed EKG Tuan Ramirez MD completed EKG Tuan Ramirez MD completed EKG Tuan Ramirez MD completed EKG Tuan Ramirez MD completed EKG Tuan Ramirez MD completed EKG Tuan Ramirez MD completed
--- OUTSIDE RECORDS SUMMARY | 2024-09-16 11:52 | XMS_ITS ---
Author Organization [facility] Address [address] [address] [place] [address] Care Team Providers Care Student Nurse Name Role Phone Ronak Carlos Unavailable [phone] MEDICATIONS Medication SIG (Take, Route, Frequency, Duration) Notes Start Date End Date Status Calcitriol 0.25 MCG 1 capsule Orally Onc e a day for 90 day(s) 04/14/2023 01/09/2024 Active Ergocalciferol 1.25 MG (91881 UT) 1 capsule Orally Once a week for 90 day(s) 04/14/2023 01/09/2024 Active SOCIAL HISTORY Sex Assigned At : Social History Observation Description Sex Assigned At Male Encounters Encounter Location Date Provider Diagnosis [place] [facility] [address] [facility] [address] [place] [address] 11/03/2023 Carlos Simons Chronic kidney disea se, [...] Kevan SCHAEFER (Yifan) :1940 (84 yo M)Acc No.[id number]:11/03/2023 Progress Notes Patient: Kevan SCHAEFER (Yifan) Provider: MD LEELEE, DishaP, F.A.S.N. :1940 Age:83 Y Sex:Male Date:11/03/2023 Address:[address] [place] [address] Subjective: * Chief Complaints: * * Medical History: * Medications: Taking Calcitriol 0.25 MCG Capsule 1 capsule Orally Once a day , stop date 01/09/2024, Taking Ergocalciferol 1.25 MG (25411 UT) Capsule 1 capsule Orally Once a week , stop date 01/09/2024 Objective: Assessment: * Assessment: 1. Chronic kidney disease, stage 3a - N18.31 (Primary) 2. Essential (primary) hypertension - I10 3. Anxiety disorder, unspecified - F41.9 4. Renal osteodystrophy - N25.0 5. Vitamin D deficiency, unspecified - E55.9 Plan: * Treatment: * Billing Information: * Visit Code: [id number] Office Visit, Est Pt., Level 4. * Procedure Codes: * Sign off status: Pending * Provider: MD LEELEE, DishaP, F.A.S.N. Date: 11/03/2023
[2024-09-18 21:08] LABS: NIL 0.02 IU/mL; Quantiferon TB Plus, 1T NEGATIVE (NEGATIVE); TB1-NIL 0.01 IU/mL; TB2-NIL 0.01 IU/mL
[2024-09-19 20:09] LABS: Immunoglobulin E 60 kU/L (<OR=114)
== END 2024-09-16 10:24 | disposition home or self-care (01) ==
PROVIDERS: PCP Internal Medicine; Visit Provider Nurse Practitioner
DX: R06.09 Other forms of dyspnea (principal); J30.2 Other seasonal allergic rhinitis
CPT/HCPCS: 36415; 82784; 82785; 83880; 85048; 86003; 86480

== ENCOUNTER 2024-10-28 19:47 | Emergency (ER) | payer MEDICARE, SELFPAY ==
--- NOTE | ~2024-10-28 | CT_ITS ---
EXAMINATION: CT pelvis wo con DATE: 10/28/2024 21:04 INDICATION: Possible fracture. TECHNIQUE: Computed tomography (CT) of the pelvis was performed without intravenous contrast. Automat ed exposure control and iterative reconstruction technique were employed. The dose-length product was 258.28 mGy-cm. COMPARISON: X-ray bilateral hips and pelvis, same date; CT cap 04/26/2023 FINDINGS: Stable chronic lateral superior endplate deformity and L4. Mild multilevel lumbar degenerat pam disc disease. Mild degenerative changes in the bilateral hips. Osteopenia. Atherosclerotic arteri al calcification, without evident aneurysm. Prostatomegaly with calcification. Mild bladder wall thic kening in a partially distended urinary bladder. Uncomplicated appearing bilateral fat-containing ing uinal hernias. Moderate sized uncomplicated fat-containing umbilical hernia. Multiple serpiginous vei ns noted in the bilateral inguinal canals. Diverticulosis without evidence of diverticulitis. IMPRESSION: No pelvic or hip fracture detected. Prior radiographic findings likely artifactual. Mild bladder wall thickening, probably secondary to outlet compromise from prostatomegaly. Possible bilateral varicoceles. Reviewed, dictated and finalized at location K. IMPRESSION: No pelvic or hip fracture detected. Prior radiographic findings likely artifact ual. Mild bladder wall thickening, probably secondary to outlet compromise from pros tatomegaly. Possible bilateral varicoceles.
--- NOTE | ~2024-10-28 | XR_ITS ---
EXAM: XR hip BI 2V w AP pelvis DATE: 10/28/2024 20:20 HISTORY: fall(s); R > L hip pain . COMPARISON: None available. FINDINGS: Osteopenia. Mild lower lumbar degenerative disc disease. Mild bilateral hip osteoarthritis . Scattered vascular calcifications. Pelvic phleboliths. Possible nondisplaced right pubic bone and i nferior pubic ramus fractures. IMPRESSION: Possible nondisplaced right pubic bone and inferior pubic ramus fractures. Recommend CT o f the pelvis for further evaluation. Reviewed, dictated and finalized at location K. IMPRESSION: Possible nondisplaced right pubic bone and inferior pubic ramus fra ctures. Recommend CT of the pelvis for further evaluation.
[2024-10-28 19:47] VITALS: BP 124/71; PULSE 75; RESP 20; TEMP 36.6; O2SAT 100
--- NOTE | 2024-10-28 19:58 | ED_ITS ---
HPI - Fall General Chief Complaint: Fall Stated Complaint: EVERYTHING HURTS S/P FALL Time Seen by Provider: 10/28/24 19:49 Source: patient and RN notes reviewed Mode of arrival: EMS History of Present Illness HPI Narrative: Patient presents after a reported ground level fall. Patient states he has had 3 or 4 falls. He had initially stated that everything hurts but says it is really his hip. He has his hand on his left hip but he keeps pointing to and states that his is right hip that is bothering him. Patient reports being on hospice although he does know what his hospice diagnosis is. He does have a cough on examination and is on 2 L nasal cannula which he states is his baseline. He denies any nausea or vomiting. He denies hitting his head. Related Data Home Medications ?Medication ?Instructions ?Recorded ?Confirmed ?Last Taken ?Type albuterol sulfate 2.5 mg/3 mL 2.5 mg inhalation TID PRN 04/27/23 04/27/23 Unknown History (0.083 %) solution for nebulization Shortness Of Breath Or Wheezing amlodipine 10 mg tablet 10 mg PO DAILY 04/27/23 04/27/23 Unknown History apixaban 5 mg tablet (Eliquis) 5 mg PO BID 04/27/23 04/27/23 Unknown History budesonide-formoterol HFA 160 2 inh inhalation BID 04/27/23 04/27/23 Unknown History mcg-4.5 mcg/actuation aerosol inhaler (Symbicort) calcitriol 0.25 mcg capsule 0.25 mcg PO DAILY 04/27/23 04/27/23 Unknown History clopidogrel 75 mg tablet 75 mg PO DAILY 04/27/23 04/27/23 Unknown History cyclobenzaprine 5 mg tablet 5 mg PO Q8-10H 04/27/23 04/27/23 Unknown History ergocalciferol (vitamin D2) 1,250 1,250 mcg PO WEEKLY 04/27/23 04/27/23 Unknown History mcg (50,000 unit) capsule furosemide 40 mg tablet 40 mg PO DAILY 04/27/23 04/27/23 Unknown History isosorbide mononitrate 120 mg 120 mg PO DAILY 04/27/23 04/27/23 Unknown History tablet,extended release 24 hr metformin 500 mg tablet 500 mg PO BID 04/27/23 04/27/23 Unknown History metoprolol tartrate 25 mg tablet 25 mg PO BID 04/27/23 04/27/23 Unknown History pantoprazole 40 mg tablet,delayed 40 mg PO DAILY PRN Acid Reflux 04/27/23 04/27/23 Unknown History release rosuvastatin 20 mg tablet 20 mg PO DAILY 04/27/23 04/27/23 Unknown History spironolactone 25 mg tablet 25 mg PO DAILY 04/27/23 04/27/23 Unknown History Allergies Allergy/AdvReac Type Severity Reaction Status Date / Time Penicillins Allergy Unknown Other Verified 09/06/24 17:33 ticagrelor (From Brilinta) Allergy Difficulty Verified 09/06/24 17:33 Breathing PMFSH Past Medical History Medical History On supplemental oxygen by nasal cannula 2LPM Hospice care patient COPD (chronic obstructive pulmonary disease) CAD (coronary artery disease) Social History Social History Smoking packs per day: 2 Smoking cigarettes per day: 40.0 Smoking status: Former smoker Alcohol intake: never Substance use: never Lack of Transportation: No Lack of Food: Never True Current Housing: I Have Housing Concerned About Future Housing: No Difficulty Paying Gas/Electric Bills: No Difficulty Paying for Meds: No Currently Unemployed: No Education: Decline to Answer Difficulty w/ Childcare or Family Care: No Spiritual care concerns: No Exam Narrative: GENERAL: well-nourished, and in no acute distress. HEAD: Normocephalic, atraumatic. EYES: Non injected, non icteric ENT: Nares clear, no rhinorrhea or epistaxis. Gross auditory acuity intact. NECK: Supple. No meningismus. CHEST: Speaking in full sentences. No respiratory distress. Occasionally coughing. Coarse expiratory wheezes. NC at 2LPM. HEART: Regular rate and rhythm. . ABDOMEN: Soft, nondistended. EXTREMITIES: Able to show some bilateral LE movement. Pelvis: Stable to compression but with TTP over R hip. SKIN: Warm, dry, no rash. No ecchymosis over R hip. NEURO: No focal deficits. Alert and oriented. Answering questions. Following commands. Normal speech without aphasia or dysarthria. PSYCH: Normal mood and affect. Course Vital Signs Vital signs: Vital Signs Temperature 98 F 10/28/24 19:47 Pulse Rate 75 10/28/24 19:47 Respiratory Rate 20 10/28/24 19:47 Blood Pressure 124/71 10/28/24 19:47 Pulse Oximetry 100 10/28/24 19:47 Oxygen Delivery Room Air 10/28/24 19:47 Temperature 98 F 10/28/24 19:47 Pulse Rate 73 10/28/24 22:20 Respiratory Rate 18 10/28/24 22:20 Blood Pressure 113/65 10/28/24 22:20 Pulse Oximetry 97 10/28/24 22:20 Oxygen Delivery Room Air 10/28/24 19:47 MDM - Fall MDM Narrative Medical decision making narrative: Patient presents with hip pain after a ground level fall. He was initially holding his left hip however he does clearly states that it is his right hip that hurts. He notes that he has fallen 3 or 4 times at home. He is currently on hospice although he does not know his diagnosis. Per review of the EMR, he does have a history of COPD for which he is on 2 L nasal cannula chronically. In the emergency department they are afebrile with vital signs within normal limits. CT negative for acute process this x-ray felt to be artifactual. Patient is on hospice thus given his cough reasonable to treat with empiric antibiotics rather than further work this out with imaging. Patient given 1st dose of Tessalon Perles and doxycycline while in the emergency department the rest the course prescribed. Patient reassessed at bedside. Extensively discussed his conservative but focused work up while in the ED . Discharged with Rx for multimodal pain medications. Patient has nurse, nurse machine operator assistant/home health, social work, clergy, etc as part of hospice team. I encouraged family to continue to target symptom management and this was also one of the reasons he is being prescribed antibiotics when typically would adhere to principles of dutiful antibiotic stewardship but, given his symptoms of cough and/or urination are affecting his quality of life, reasonable to treat as if possible infection and see if get improvement. Family verifies understanding. Stable for discharge. Differential Diagnosis Differential diagnosis: Likely other (Hip fracture, dislocation, bony contusion; recurrent falls; COPD progression; hospice patient) Imaging Data Radiologist's impression: IMPRESSION: Possible nondisplaced right pubic bone and inferior pubic ramus fractures. Recommend CT of the pelvis for further evaluation. IMPRESSION: No pelvic or hip fracture detected. Prior radiographic findings likely artifactual. Mild bladder wall thickening, probably secondary to outlet compromise from prostatomegaly. Possible bilateral varicoceles. Discharge Plan Discharge Clinical Impression: Fall, Acute hip pain, Cough, On supplemental oxygen by nasal cannula, Hospice care patient, Bladder wall thickening, Enlarged prostate Patient Disposition: Hospice - Home Condition: Stable Instructions: Antibiotic Form, Fall Prevention for Older Adults (ED), Acute Cough (ED), Hip Pain (ED) Additional Instructions: There was initially concern for possible fracture based on x-ray however the CT scan did not show fracture and so it was felt that what was seen on the initial x-rays was artifact. 4000mg Acetaminophen/Tylenol is safe to take in 24 hours and can also use topical approach. Continue taking other medications as prescribed. Given the cough, patient is being prescribed antibiotic and cough medicine for this. Follow-up with primary care provider/hospice team. Return to the ED with new/worsening/unmanaged symptoms. Patient Language: Spanish Prescriptions: New benzonatate 100 mg capsule 100 mg PO BID PRN (Reason: cough) Qty: 20 0RF doxycycline hyclate 100 mg capsule 100 mg PO DAILY Qty: 5 0RF acetaminophen 500 mg capsule 1,000 mg PO Q6H PRN (Reason: pain) Qty: 30 0RF lidocaine 4 % adhesive patch,medicated 1 patch topical DAILY PRN (Reason: pain) Qty: 10 0RF No Action furosemide 40 mg tablet 40 mg PO DAILY metformin 500 mg tablet 500 mg PO BID albuterol sulfate 2.5 mg /3 mL (0.083 %) solution for nebulization 2.5 mg inhalation TID PRN (Reason: Shortness Of Breath Or Wheezing) clopidogrel 75 mg tablet 75 mg PO DAILY spironolactone 25 mg tablet 25 mg PO DAILY isosorbide mononitrate 120 mg tablet extended release 24 hr 120 mg PO DAILY amlodipine 10 mg tablet 10 mg PO DAILY pantoprazole 40 mg tablet,delayed release (DR/EC) 40 mg PO DAILY PRN (Reason: Acid Reflux) calcitriol 0.25 mcg capsule 0.25 mcg PO DAILY cyclobenzaprine 5 mg tablet 5 mg PO Q8-10H rosuvastatin 20 mg tablet 20 mg PO DAILY metoprolol tartrate 25 mg tablet 25 mg PO BID budesonide-formoterol [Symbicort] 160-4.5 mcg/actuation HFA aerosol inhaler 2 inh INHALATION BID Eliquis 5 mg tablet 5 mg PO BID ergocalciferol (vitamin D2) 1,250 mcg (50,000 unit) capsule 1,250 mcg PO WEEKLY Rx Instructions: on monday prednisone 20 mg tablet 40 mg PO DAILY 5 Days Qty: 10 0RF Follow-up/Referrals: Noreen,MD Vinny [Primary Care Provider] - Time of Disposition: 21:30
[2024-10-28] MEDS: ALBUTEROL SULFATE NEB 2.5 MG/3 ML INH INHALATION (20:23)
--- OUTSIDE RECORDS SUMMARY | 2024-10-28 20:23 | XMS_ITS | Continuity of Care Document ---
Author Organization [facility] Address [address] [place] [address] [place] [address] Phone Care Team Providers Care Oceanographer Assistant Name Role Phone [facility] Unavailable Unavail able Darnell Wynne Unavailable Unavailable Procedures Procedure Date Progressive Lens, Polycarb Frames Deluxe Scratch Resistant Coating Eye Exam, New Patient Refraction Advance Directives Directive Yes / No Effective Date File Name No Information Encounters Encounter Description Practice Location Reason(s) For Visit Diagnoses Date Provider Providers Copied on Encounter [facility], [address] [place] [address] [facility], [place], [place], [id number], [place] tel:[phone] [facility] No Information [address] [facility] . [address] [facility], [address], [id number], [place]. tel:[phone] Referring Provider: Lobito Sotelo OD [facility], [address] [place] [address] [address], [place], [address]. tel:[phone] sulting Provider: Darnell Wynne, [address] [place], [place] [address], [place], [address]. tel:[phone] [facility], [address] [place] [address] [address], [place], [place], [id number], [place] tel:[phone] [facility] No Information Sep- 4-200 7 Sotelo GRACIELA Robin. [address] [place] [address] , [address], [place], [address], [place]. tel:[phone] Family History Family Member Type Diagnosis Age At Onset No Information Payers Payer name Insurance type Covered libertarian ID Fernando sow(s) [employer] [id number] Social History Type Description Quantity Date Captured [...]
--- OUTSIDE RECORDS SUMMARY | 2024-10-28 20:23 | XMS_ITS | Data Portability ---
Author Organization [place] [facility] [employer], Main Office Address [address] [place] [address] Care Team Providers Care Nuclear Plant Technical Advisor Name Role Phone FREEDOM SORTO Primary Care Provider FREEDOM SORTO Referring Provider TERRY BLAKELY Promotional Marketing Analyst [place] [facility] DASH, TRAVIS GRIMES Neurologist YVES MAC General Surgeon TUAN RAMIREZ Concrete Boom Pump Operator Assessment Encounter Date Assessment Date Assessment LastModified [...] + folate, serum or blood 2024 025 [facility] (Lab), [address] [place], [address], 08/15/2024 16:25:21 lipid panel, serum 2024 025 [facility] (Lab), [address] [place], [address], 08/15/2024 16:25:22 CMP, serum or plasma 2024 025 [facility] (Lab), [address] [place], [address], 08/15/2024 16:25:21 CBC w/ auto diff 2024 025 [facility] (Lab), [address] [place], [address], 08/15/2024 16:25:21 TSH, serum or plasma 2024 025 [facility] (Lab), [address] [place], [address], 08/15/2024 16:25:22 glycohemo globin, total, blood 2024 025 [facility] (Lab), [address] [place], [address], 08/15/2024 16:25:21 microalbu min, urine 2024 025 [facility] (Lab), [address] [place], [address], 08/15/2024 16:25:21 gas panel, arterial blood [email or web address] [place] [address] Lab, [address], [address], 08/21/2024 09:53:03 BNP (B-type natriuret ic peptide), serum or plasma [address] [place] [address] (Lab), [facility], [place], [address], 08/21/2024 09:51:40 ige, total, serum [address] [place] [address] (Lab), [facility], [place], [address], 08/21/2024 09:51:53 tb (M tuberculo sis), ifn-gamma dereck, blood [address] [place] [address] (Lab), [facility]0 [facility] [address], [place], [address], 08/21/2024 09:52:[address] s 1+2+3+4, serum [address] [place] [address] (Lab), [facility], [place], [address], 09/10/2024 15:17:56 respirato ry allergen panel, [facility], serum [address] [place] [address] (Lab), [facility], [place], [address], 08/21/2024 09:52:28 respirato ry allergen panel - [facility] b [address] [place] [address] (Lab), [facility], [place], [address], 08/21/2024 09:52:41 eosinophi ls, quant, blood [address] [place] [address] (Lab), [facility], [place], [address], 08/21/2024 09:52:51 vitamin B12 + folate, serum or blood 2023 024 [facility] (Lab), [address] [place], [address], 08/08/2024 13:48:39 lipid panel, serum 2023 024 [facility] (Lab), [address] [place], [address], 08/08/2024 13:48:38 CMP, serum or plasma 2023 024 [facility] (Lab), [address] [place], [address], 08/08/2024 13:48:38 CBC w/ auto diff 2023 024 [facility] (Lab), [address] [place], [address], 08/08/2024 13:44:46 TSH, serum or plasma 2023 024 [facility] (Lab), [address] [place], [address], 08/08/2024 13:48:38 glycohemo globin, total, blood 2023 024 [facility] (Lab), [address] [place], [address], 08/08/2024 13:48:39 microalbu min, urine 2023 024 [facility] (Lab), [address] [place], [address], 08/08/2024 13:48:[address] referral - Please call patient to schedule an appointme nt. Thank you. 2024 025 JOSE ANGEL Sanz MD, [address] [facility] , [address], [address], 08/26/2024 13:05:27 ophthalmo logist referral - Please call patient to schedule an appointme nt. Thank you. 2024 025 JOSE ANGEL Garcia, [address], [place], [address], 08/26/2024 12:15:35 podiatris t referral - Please call patient to schedule an appointme nt. Ton[place] you. 2024 025 [email or web address] Alexi Contreras DPM, [address] [facility], [address], [place], [address], 08/26/2024 15:20:35 cardiolog ist referral - Please call patient to schedule an appointme nt. Thank you. 2024 025 [place], [address] [address] , [facility] [address], [address], 08/26/2024 11:45:25 gastroent erologist referral - Please call patient to schedule an appointme nt. Thank you. 2024 025 TEODORO Gamez MD, [address] [facility], [address], [place], [address], 08/26/2024 11:31:23 cardiolog ist referral 2024 025 [email or web address] [place], [address] [address] , [facility] [address], [place], [address], 07/09/2024 18:39:25 pulmonolo gist referral 2024 025 [email or web address] Fidel Fleming MD, [address] [facility], [place], [address], 07/09/2024 18:38:15 ophthalmo logist referral - Please call patient to schedule. 2023 024 leslie Garcia, [address], [place], [address], 08/06/2024 16:30:03 podiatris t referral - Please call patient to schedule. 2023 024 Alexi Contreras DPM, [address] [facility], [address], [place], [address], 08/06/2024 16:30:03 cardiolog ist referral - Please call pt to schedule appt. Thank you 2023 024 [email or web address] [place], [address] [address] , [address], [place], [address], 05/27/2024 08:59:48 gastroent erologist referral - Please call patient to schedule. 2023 024 [email or web address] Mikhail Gamez MD, [address] [facility], [address], [place], [address], 08/06/2024 16:30:03 Procedures None recorded. Surgeries None recorded. Imaging None recorded. Medication Orders Dupixent 300 mg/2 mL subcutane ous pen injector 2024 025 Not available 09/25/2024 12:30:17 Trelegy Ellipta 200 mcg-62.5 mcg-25 mcg powder for inhalatio n [address] [id number] [address], [place], [address], 09/10/2024 15:23:43 Trelegy Ellipta 200 mcg-62.5 mcg-25 mcg powder for inhalatio n 2024 025 [facility]/Pharmacy #[id number], [address] , [place], [address], 07/09/2024 12:16:25 prednison e 20 mg tablet [address]/Pharmacy #[id number], [address], [place], [address], 08/15/2024 11:25:02 Zithromax Z-Enio 250 mg tablet [email or web address]/Pharmacy #[id number], [address], [place], [address], 08/15/2024 11:24:43 albuterol sulfate HFA 90 mcg/actua tion aerosol inhaler 2023 024 [facility]/Pharmacy #[id number], [address], [place], [address], 05/16/2024 12:41:13 Patient TargetsNo targets recorded. Patient Instructions Encounter Date Encounter Id Patient Instructions Last Modified By Organization Details Last Modified Time 07/09/2024 [id number] complete PFT w/ post bronchodilator spirometry* [email or web address] Not available 08/21/2024 11:20:02 Reason for Referral Pulverizer Feeder Referral for Type 2 dia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 Please call patient to schedule. Referring Physician: Desire Melton Medicine, Encounter Date: 05/16/2024 Concrete Boom Pump Operator Referral for Co ronary arteriosclerosis Please call pt to schedule appt. Thank you Referring Physician: Desire Melton, Encounter Date: 05/16/2024 Promotional Marketing Analyst Referral for Visual impairment Please call patient to schedule. Referring Physician: Freedom Sorto Internal Medicine, Encounter Date: 05/16/2024 Skin Drier Referral for Liver enzymes level above reference range Please call patient to schedule. Referring Physician: Freedom Sorto Internal Medicine, Encounter Date: 05/16/2024 Senior Foreman Referral for C hronic obstructive pulmonary disease Referring Physician: Desire Melton Medicine, Encounter Date: 07/09/2024 Concrete Boom Pump Operator Referral for Co ronary arteriosclerosis Referring Physician: Freedom Sorto Internal Medicine, Encounter Date: 07/09/2024 Concrete Boom Pump Operator Referral for Co ronary arteriosclerosis Please call patient to schedule an appointment. Thank you. Referring Physician: Freedom Sorto Internal Medicine, Encounter Date: 08/15/2024 Pulverizer Feeder Referral for Type 2 dia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 Please call patient to schedule an appointment. Thak you. Referring Physician: Freedom Sorto Internal Medicine, Encounter Date: 08/15/2024 Promotional Marketing Analyst Referral for Visual impairment Please call patient to schedule an appointment. Thank you. Referring Physician: Freedom Sorto Internal Medicine, Encounter Date: 08/15/2024 Skin Drier Referral for Liver enzymes level above reference [...] contr ast No observ ation record ed. [facility] [address], [place], [address], 07/23/2024 17:33:21 09/07/19 25 09/06/2024 imagi ng/di agnos tic resul t No observ ation record ed. [facility] [address], [place], [address], 09/06/2024 19:34:57 Result Notes None recorded. 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 Not Available [facility] 4 08:43:19 Abdominal pain 41459100 Active Not Available [facility] 4 08:43:19 Transient cerebral ischemia 864491475 Active 2021 Not Available [facility] 4 08:43:19 Dyspnea 639934529 Active 2016 Not Available [facility] 4 08:43:19 Moderate chronic obstructi ve pulmonary disease 985021276 Active 2016 Not Available [facility] 4 08:43:19 Dysphagia 31936502 Active Not Available [facility] 4 08:43:19 Chronic ischemic heart disease 945883345 Active Marcia Joseph CCM null, [place] [employer] [facility] 4 13:32:07 Compressi on fracture of lumbar spine 388260294 Active Not Available [facility] 4 08:43:19 Former heavy tobacco smoker 43100226963 4100 Active 2016 Not Available [facility] 4 08:43:19 Atrial fibrillat ion 78476179 Active 2017 Marcia Joseph CCM null, [place] [facility] [place] [employer] [facility] 4 13:32:07 Coronary arteriosc lerosis 80766378 Active 2016 Not Available [facility] 4 08:43:19 Hyperlipi demia 56164927 Active Not Available [facility] 4 08:43:19 Essential hypertens ion 90119407 Active Not Available [facility] 4 08:43:19 Ex-smoker 4038874 Completed 201603/20/2017 Not Available [facility] 3 06:08:09 Gastroeso phageal reflux disease without esophagit is 685366784 Active 2022 Not Available [facility] 4 08:43:19 Type 2 diabetes mellitus without complicat ion 053307750 Active 2022 Not Available [facility] 4 08:43:19 Visual impairmen t 046654936 Active 2022 Not Available [facility] 4 08:43:19 Aneurysm of thoracic aorta 796739540 Active 2022 Not Available [facility] 4 08:43:19 Macrocyto sis 485853362 Active 2022 Not Available [facility] 4 08:43:19 Umbilical hernia 643849800 Active 2022 Not Available [facility] 4 08:43:19 Proteinur ia 31550123 Active 2022 Not Available [facility] 4 08:43:19 Thoracic back pain 561229741 Active 2022 Not Available [facility] 4 08:43:19 Dementia 19214338 Active 2022 Marcia Joseph CCM null, [employer] 4 13:32:07 COVID-19 235501025 Active 2023 Not Available [facility] 4 08:43:19 Cerebral infarctio n 863508958 Active 2023 Not Available [facility] 4 08:43:19 Gynecomas tia 7302751 Active 2023 Not Available [facility] 4 08:43:19 Skin lesion 34611478 Active 2023 Janet Monroy MA null, [employer] 4 14:25:13 Epidermoi d cyst of skin of neck 075996348 Active 2023 Yves rincon MD [address] [facility], [address] [address], [place], [address] , [employer] 4 15:17:03 Liver enzymes level above reference range 979472357 Active 2023 Freedom patricia MD [address], [address], [place], [address] , [facility] [place] [facility] 4 09:46:09 Unsteady when walking 33754841 Active 2023 Freedom patricia MD [address], [address], [place], [address] , [facility] 4 09:51:47 Sinusitis 24456949 Active 2023 Khadra Zhang CMA null, [place] [facility] [place] [facility] 4 13:51:23 Upper respirato ry infection 89052765 Active 2023 Freedom patricia MD [address], [address], [place], [address] , [facility] - [facility] [place] [facility] 4 12:39:06 Cough 23695720 Active 2024 Yoly Stewart MA null, [place] [facility] 5 16:05:59 Dyspnea on exertion 43943178 Active 2024 Candy Marie NP [address], [address], [place], [address] , [facility] 5 12:03:04 Chronic cough 93440611 Active 2024 Candy Marie NP [address], [address], [place], [address] , [facility] 5 12:42:47 Oxygen saturatio n below reference range 957999568 Active 2024 Candy Marie NP [address], [address], [place], [address] , [facility] - [facility] [place] [facility] 5 12:43:55 Severe chronic obstructi ve pulmonary disease 812874574 Active 2024 Candy Marie NP [address], [address], [place], [address] , [facility] 5 11:14:31 Allergic rhinitis 45981530 Active 2024 Yoly Stewart MA null, [place] [facility] 5 11:51:58 Failure to thrive 88948101 Active 2024 Noelle ColoradoMADHUPastor null, [facility] 11:03:17 Adult failure to thrive syndrome 112919696 Active 2024 Noelle McdanielMADHU matthewPastor null, [facility] 11:03:42 Notes:Some problems listed i n Document: #[id number] could not be added to this patient's chart. Please review this document and add these problems to the patient's chart manually as needed. Problem Notes None recorded. Procedures Surgical History Date Name Laterality Status Provider Name and Address Organization Details Recorded Time 01/25/20 Medicare Wellness CPT Code, subsequent completed Luis M River LPN [facility] 01/25/2024 09:10:11 01/25/20 Advanced Care Planning completed Luis M River LPN [facility] 01/25/2024 10:14:01 01/22/20 Chronic care management services completed Lexi Jones [facility] 01/22/2024 14:17:20 12/21/19 Chronic care management services completed Lexi Jones [facility] 12/21/2023 13:33:15 12/19/19 24 Blank Procedure completed Yves faith MD [address] [facility], [facility] [address], [place], [address], [facility] 12/19/2023 13:03:23 12/19/19 incision and drainage of cyst completed LYNDSEY Serrano [facility] 01/25/2024 09:32:10 11/07/19 Chronic care management services completed Lexi Jones [facility] 11/07/2023 13:42:57 12/09/19 Medicare Wellness CPT Code, subsequent completed Mary De La Vega RN [place] [facility] 12/08/2022 10:33:58 10/05/19 23 Transitional_Care_ Management completed Freedom Sorto MD [address], [facility] [address], [place], [address], [employer] 10/04/2022 12:05:41 03/13/20 19 Cardiovascular Procedure completed Not Available [facility] 07/27/2022 05:58:45 11/29/19 17 Cardiac Stent Placement completed Not Available [facility] 07/27/2022 05:58:45 07/28/19 16 Cataract Surgery completed Not Available [facility] 07/27/2022 05:58:45 Cholecystectomy completed Not Available [facility] 07/27/2022 05:58:45 Appendectomy completed Not Available [employer] 07/27/2022 05:58:45 Imaging Results None recorded. Procedure Notes None recorded. Medical Equipment None Reported. Allergies Allergen ID Allergen Name Allergen Category Reaction Reaction Severity Criticality Documentation Date Start Date Code Code System Note Provider Name and Address Organization Details Recorded Time 10373 ticagrelo r medicatio n Not available Not available Not available 07/27/2022 37978 32 RxNorm Other react ions and sever ities : 'Adve rse react ion to subst ance' . HODA Benjamin, [employer] 4 14:15:59 22391 Product containin g penicilli n (product) medicatio n Not available Not available Not available 07/27/2022 28870 8001 SNOMED Other react ions and sever ities : 'Adve rse react ion to subst ance' . HODA Benjamin, [facility] 4 14:15:59 Medications Name Sig Start Date [...] NEBULIZE R 3 TIMES A DAY NEEDED 2024 active Not Available Not Available Not Avai lable azithromy cata 250 mg tablet Take 2 [...] Available nitroglyc pancho 400 mcg/spray transling ual [place] 1 spray as needed by translin gual [...] e 50 mcg/actua tion nasal spray,christine pension [place] 2 sprays every day by intranas al [...] 1 TABLET BY MOUTH TWICE A DAY 2024 active Not Available Not Available Not Avai lable [employer] r 18 mcg and [...] 11/08 completed Stopped per 11/06/21 [facility] discharg e summary Not Available Not [...] Updated DateTime 5 180.34 cm 22.9 kg/m2 10307.1 5 g 78 /min 92 % 92 % 97.5 [degF] 130 mm[Hg] 64 mm[Hg] Yoly Stewart MA [place] [employer] [facility] [employer] 5 11:55:18 Date Recorded Body height Body temperature Heart rate Oxygen saturation Oxygen saturation in Arterial blood by Pulse oximetry Systolic blood pressure Diastolic blood pressure Provider Name and Address Organization Details Last Updated DateTime 5 180.34 cm 97.4 [degF] 63 /min 91 % 91 % 128 mm[Hg] 60 mm[Hg] Odalys Sheffield MA [employer] [facility] [employer] 5 10:50:41 Date Recorded Body height Body mass index (BMI) Body weight Body temperature Heart rate Systolic blood pressure Diastolic blood pressure Provider Name and Address Organization Details Last Updated DateTime 5 180.34 cm 23.3 kg/m2 59277.9 3 g 97.4 [degF] 72 /min 120 mm[Hg] 64 mm[Hg] LYNDSEY Serrano [employer] [facility] [employer] 5 11:28:49 Date Recorded Body height Body mass index (BMI) Body weight Body temperature Heart rate Oxygen saturation Oxygen saturation in Arterial blood by Pulse oximetry Systolic blood pressure Diastolic blood pressure Provider Name and Address Organization Details Last Updated DateTime 5 180.34 cm 23.4 kg/m2 71057.5 2 g 97.3 [degF] 76 /min 97 % 97 % 120 mm[Hg] 70 mm[Hg] Yoly Stewart MA [place] [employer] [facility] [employer] 5 11:03:02 Date Recorded Body height Body mass index (BMI) Body weight Body temperature Heart rate Systolic blood pressure Provider Name and Address Organization Details Last Updated DateTime 4 180.34 cm 23.6 kg/m2 67522.1 1 g 97.4 [degF] 78 /min 126 mm[Hg] LYNDSEY Serrano [place] [facility] [place] [facility] 4 11:56:59 Social History Question Answer Notes LastModified by Organization Details LastModified Time Tobacco Smoking Status Former Smoker Patient quit 20 years ago. Not Available [employer] 07/27/2022 05:56:41 Do You Have An Advance Directive? No 01/25/24 POLST Signed Today. ACP Done [email or web address] Information not available 01/25/2024 Are You Blind Or Do You Have Difficulty Seeing? 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 MIGRATION.030 [id number] Information not available 07/27/2022 Is Blood Transfusion Acceptable In An Emergency? Yes Information not available 01/25/2024 What Is Your Level Of Caffeine Consumption? Occasional [id number].[id number] [id number] Information not available 07/27/2022 What Is Your Code Status? DNR [email or web address] Information not available 01/25/2024 In The 14 Days Before Symptom Onset, Have You Had Close Contact With A Laboratory-confi rmed COVID-19 While That Case Was Ill? No MIGRATION.0301 [id number] Information not available 07/27/2022 In The 14 Days Before Symptom Onset, Have You Had Close Contact With A Person Who Is Under Investigation For COVID-19 While That Person Was Ill? No MIGRATION.0301 [id number] Information not available 07/27/2022 Are You Deaf Or Do You Have Serious Difficulty Hearing? No MIGRATION.0301 [id number] Information not available 07/27/2022 What Type Of Diet Are You Following? REGULAR MIGRATION.030 [id number] Information not available 07/27/2022 What Is The Highest Grade Or Level Of School You Have Completed Or The Highest Degree You Have Received? IN98928-3 MIGRATION.0301 [id number] Information not available 07/27/2022 Do You Have An Electrostatic Air Filter? No Information not available 09/10/2024 How Many Days Of Moderate To Strenuous Exercise, Like A Brisk Walk, Did You Do In The Last 7 Days? 0 MIGRATION.030 [id number] Information not available 07/27/2022 Have There Been Any Changes To Your Family Or Social Situation? No MIGRATION.030 [id number] Information not available 07/27/2022 What Is The Fluoride Status Of Your Home? Unknown MIGRATION.030 [id number] Information not available 07/27/2022 When Did You Quit Smoking? 16+yearssincelastc igarette MIGRATION.030 [id number] Information not available 07/27/2022 Are There Any Guns Present In Your Home? Yes [email or web address] Information not available 01/25/2024 Do You Have A Humidifier? No Information not available 09/10/2024 Do You Use Insect Repellent Routinely? No MIGRATION.030 [id number] Information not available 07/27/2022 Where Do You Live? SingleLevelHouse MIGRATION.030 [id number] Information not available 07/27/2022 Advance Directive- Providers Has Reviewed Directive And Consents To Follow Them (insert Provider Name With Any Objectives In Notes Field) Yes [email or web address] Information not available 01/25/2024 Presence Of Domestic Violence No [email or web address] Information not available 01/25/2024 Guns Present In The Home? Yes [email or web address] Information not available 01/25/2024 Are You Able To Care For Yourself? Yes Information not available 01/25/2024 Are You Blind Or Do Yo Have Difficulty Seeing? Yes Blind In Right Eye [email or web address] Information not available 01/25/2024 Are You Deaf Or Do You Have Serious Difficulty Hearing? No [email or web address] Information not available 01/25/2024 General Stress Level? Low [email or web address] Information not available 01/25/2024 Live Alone Of With Others? With Others [email or web address] Information not available 01/25/2024 Do You Have A Medical Power Of Hand Fabric Cutter? No MIGRATION.030 [id number] Information not available 07/27/2022 Do You Have Moisture Problems In Your Home? No Information not available 09/10/2024 What Was The Date Of Your Most Recent Tobacco Screening? 09/10/2024 Information not available 09/10/2024 How Many Children Do You Have? 1 [email or web address] Information not available 01/25/2024 Have You Ever Been Counseled For Unhealthy Alcohol Use? No MIGRATION.0301 [id number] Information not available 07/27/2022 Do You Have Any Pets? Yes Dog [email or web address] Information not available 01/25/2024 What Is Your Relationship Status? MIGRATION.0301 [id number] Information not available 07/27/2022 Do You Use Your Seat Belt Or Car Seat Routinely? Yes MIGRATION.0301 [id number] Information not available 07/27/2022 Are You Sexually Active? No [email or web address] Information not available 01/25/2024 Do You Have Smoke And Carbon Monoxide Detectors In Your Home? Yes MIGRATION.0301 [id number] Information not available 07/27/2022 Are You Passively Exposed To Smoke? Yes MIGRATION.0301 [id number] Information not available 07/27/2022 Are There Any Smokers In Your House? Yes MIGRATION.0301 [id number] Information not available 07/27/2022 What Types Of Sporting Activities Do You Participate In? None MIGRATION.0301 [id number] Information not available 07/27/2022 Do You Use Sunscreen Routinely? No MIGRATION.0301 [id number] Information not available 07/27/2022 Has Tobacco Cessation Counseling Been Provided? No N/A MIGRATION.0301 [id number] Information not available 07/27/2022 Have You Recently Traveled Abroad? No MIGRATION.0301 [id number] Information not available 07/27/2022 Do You Have Difficulty Walking Or Climbing Stairs? Yes Uses Walker, Cane [email or web address] Information not available 01/25/2024 Do You Have Any Dietary Restrictions? No MIGRATION.0301 [id number] Information not available 07/27/2022 Sex: Male Functional Status Question Answer Note LastModified by Organizat ion Details LastModified Time Do you use any illicit or recreational drugs? No MIGRATION.154118 9023 Information not available 07/27/2022 Do you or have you ever used any other forms of tobacco or nicotine? No MIGRATION.984154 9882 Information not available 07/27/2022 What is your level of alcohol consumption? None Information not available 01/25/2024 Are you currently employed? No Retired [email or web address] Information not available 11/02/2023 Have you been exposed to chemicals or toxins? not that aware of Information not available 09/10/2024 Do you have transportation difficulties? No MIGRATION.627068 6101 Information not available 07/27/2022 Are you able to walk? YESASSIST Uses cane and walker [email or web address] Information not available 01/25/2024 Do you have difficulty doing errands alone? Yes does not drive Information not available 01/25/2024 Are you able to care for yourself? Yes MIGRATION.070816 1023 Information not available 07/27/2022 Do you have difficulty dressing or bathing? No MIGRATION.689423 2266 Information not available 07/27/2022 What is your exercise level? None [email or web address] Information not available 01/25/2024 Mental Status Question Answer Note LastModified by Organizat ion Details LastModified Time Do you feel stressed (tense, restless, nervous, or anxious, or unable to sleep at night)? [id number] MIGRATION.510467 0656 Information not available 07/27/2022 Do you have difficulty concentrating, remembering or making decisions? Yes Dementia dx. [email or web address] Information not available 01/25/2024 Family History Relationship Description Onset Age of this Age Resolved Age Notes LastModified by Organization Details LastModified Time Mother Heart disease MIGRATION.[id number] Not available 07/27/2022 05:58:50 Father Malignant neoplasm of lung [email or web address] Not available 2023 12:08:10 [...] INSOMNIA N HIGH CHOLESTEROL / HYPERLIPIDEMIA Y EYE PROBLEMS N HYPERTHYROIDISM N EDEMA N CHRONIC PAIN SYNDROME N [...] N ALZHEIMER'S DISEASE N Brain Problems N DEMENTIA N HERPES N SEIZURES/EPILEPSY N HEADACHES/MIGRAINES N VASCULAR DISEASE N PACEMAKER N Blood Disorder N DIZZINESS N HEART DISEASE/HEART PROBLEMS Y KIDNEY DISEASE N MULTIPLE SCLEROSIS N CANCER: SPECIFY N CARDIAC ARRHYTHMIA N ATRIAL FIBRILLATION N Gall Stones N PULMONARY EMBOLISM N AUTOIMMUNE DISEASE N Immunizations Vaccine Type Date Status Note Provider Nam e and Address Organization Details Recorded Time Influenza, adjuvanted, quadrivalent, PF 2 completed HODA Benjamin, [facility] 11/07/2023 13:38:40 COVID-19, mRNA, LNP-S, PF, 30 mcg/0.3 mL dose 1 completed Lexi Jones CCM null, [facility] Superior Services [facility] 11/07/2023 13:38:40 COVID-19, mRNA, LNP-S, PF, 30 mcg/0.3 mL dose 1 completed HODA Benjamin, [facility] 11/07/2023 13:38:40 Influenza, high-dose, quadrivalent, PF 3 completed Freedom Sorto MD [address] [place] [address], [address], [address], [facility] 03/28/2023 16:43:46 COVID-19, mRNA, LNP-S, PF, 100 [...] high-dose, quadrivalent, PF 1 completed Not Available [facility] 07/03/2023 08:43:21 Influenza, high-dose, quadrivalent, PF 0 completed Not Available [facility] 07/03/2023 08:43:21 pneumococcal polysaccharide PPV23 0 completed Not Available [facility] 07/03/2023 08:43:21 Pneumococcal conjugate PCV 13 8 completed Not Available [facility] 07/03/2023 08:43:21 Influenza, high-dose, trivalent, PF 8 completed Not Available [facility] 07/03/2023 08:43:21 Influenza, high-dose, trivalent, PF 7 completed Not Available [facility] 07/03/2023 08:43:21 Influenza, high-dose, trivalent, PF 6 completed Not Available [facility] 07/03/2023 08:43:21 Influenza, high-dose, trivalent, PF 5 completed Not Available [facility] 07/03/2023 08:43:21 Influenza, split virus, trivalent, preservative 4 completed LYNDSEY Serrano null, [facility] 05/15/2024 14:44:06 Influenza, split virus, trivalent, preservative 3 completed NoelleLYNDSEY Guerin [facility] 05/15/2024 14:44:07 Past Encounters Encounter ID Performer Location Encounter Start Date Encounter Closed Date Diagnosis/Indication Diagnosis SNOMED-CT Code Diagnosis ICD10 Code Diagnosis Note [id number] Freedom patricia MD [facility] [address] [place] [address] 11/24/2020 00:00:00 11/24/2020 15:37:17 [id number] MD HARVINDER [facility] [address] [place] [address] 01/12/2021 00:00:00 01/12/2021 09:59:30 [id number] MD ENZO [facility] [address] [place] [address] 03/25/2021 00:00:00 03/25/2021 17:19:03 [id number] MD HARVINDER [facility] [address] [place] [address] 04/01/2021 00:00:00 04/01/2021 11:26:18 [id number] Freedom patricia MD [facility] [address] [place] [address] 07/29/2021 00:00:00 07/29/2021 11:23:15 [id number] MD HARVINDER [facility] [address] [place] [address] 11/04/2021 00:00:00 11/04/2021 14:16:35 [id number] MD HARVINDER [facility] [address] [place] [address] 11/16/2021 00:00:00 11/16/2021 15:45:01 [id number] Freedom patricia MD [facility] Internal Med [facility] [address] [address] 02/03/2022 00:00:00 02/03/2022 11:33:21 [id number] Freedom patricia MD [facility] Internal Med [facility] [address] [address] 08/11/2022 10:28:09 08/11/2022 10:49:09 Screening - NAD [id number] Z13.9 C-scope: 4 years ago, at [place], clear as per his history, Get fcnrhji41/ 08/15 Dr Stacey Kennedy-scope UTD on flu shotUTD PCV #13 03/27/18, #23 11/13/2019 Should get shingles vaccineCan do tdapUTD COVID 19 vaccine and do all boosters as per CDC 11/14/17:F illed his handicap parking RTC in 3 monthsDo labsER if any symptoms worsensHe did verbalize his understand ing of the above Coronary arteriosclerosis 91984263 I25.10 S/p [facility] d/c on 01/03/2021 Hx of a.fibHx [...] refer to the ER at [facility], he will be taken in a wheelchair , discussed with Dr Palomo [facility] ER MD, also personally called Dr Ramirez 11/16/2021 :Much improved OV 02/03/2022 :Dr Ramirez 12/23/2021 , is now on jardiance, f/u in 05/2022 OV 08/11/2022 :Keep apt with Dr Ramirez Gastroesop 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 681619346 K21.9 On pantoprazo le 40mg daily PRNDoes well Hyperlipidemia 03442195 E78.5 On rosuvastat in 20mg dailyDoes well, get labs Chronic ob structive pulmonary disease 75633782 J44.9 Not on incruse On flonaseOn symbicortO n proairOn HHNs Does wellStill declines any referrals to pulmonary 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 738366104 E11.9 On metformin 500mg bidOn jardiance 10mg daily Does wellGet labs Dr Warren 08/06/2021 Visual impairment 959749 003 H54.[address] Dennis states that he is able to drive Aneurysm o f thoracic aorta 604828015 I71.20 S/p CT chest: 11/18/[address] [facility] [address] Ramirez Macrocytosis 980005908 D 75.89 Get labs Umbilical hernia 3532691 07 K42.9 Does well Proteinuria 64553942 R80 .9 CKD Declines any referrals to nephrology at this time Transient cerebral ischemia 326602893 G45.9 OV 02/03/2022 :S/p MRI 12/27/2021 : [...] that he is doing very well now [id number] Freedom patricia MD [facility] [address] [place] [address] 10/04/2022 11:39:45 10/04/2022 12:18:29 Transition of care [id number] 105 Z75.8 Transition Care Management Questionna ireDate of Discharge 09/23/22Adm ission Date: 09/21/22Dat e of Contact: 1st attempt: 5/1/23Reas on for Admission: [facility] Facility Type inpatient acute care [facility] Diagnosis( es): Acute COPD exacerbati on, acute on chronic diastolic CHFDiagnos tic Test(s) Performed: Other: chest xray, lab workDid your hospital physician prescribe any new medicines upon discharge? yes: Eliquis dose increased to 10mg BIDDid you brick picker your prescripti on(s) and begin taking [...] De La Vega RN Screening - NAD 54955384 3 Z13.9 C-scope: 4 years ago, at [place], clear as per his history, Get cosgorn87/ 08/15 Dr Ibarra C-scope UTD on flu shotUTD PCV #13 03/27/18, #23 11/13/2019 Should get shingles vaccineCan do tdapUTD COVID 19 vaccine and do all boosters as per CDC 11/14/17:F illed his handicap parking RTC in 2 monthsDo labsER if any symptoms worsensHe did verbalize his understand ing of the above Coronary arteriosclerosis 37921334 I25.10 S/p [facility] d/c on 01/03/2021 Hx of a.fibHx [...] refer to the ER at [facility], he will be taken in a wheelchair , discussed with Dr Palomo [facility] ER MD, also personally called Dr Ramirez 11/16/2021 :Much improved OV 02/03/2022 :Dr Ramirez 12/23/2021 , is now on jardiance, f/u in 05/2022 OV 08/11/2022 :Keep apt with Dr Ramirez OV 10/04/2022 :Admitted and d/c [facility] 09/21 to 09/23 for SOB, noted to have RUL pneumonia, treated with duoneb, IV solumedrol and azithromyc in, IV lasixAlso on eliquis 10mg bid then 5mg bid D/c onamlodipi ne 10mg dailyeliqu is 5mg bidisosorb maddie 120mg dailylasix 40mg dailymetfo rmin 500mg bidmetopro lol 25mg bidproairr osuvastati n 20mg ailyspiron olactone 25mg dailysymbi anel Gastroesop 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 279807827 K21.9 On pantoprazo le 40mg daily PRNDoes well Hyperlipidemia 75920883 E78.5 On rosuvastat in 20mg dailyDoes well, get labs Chronic ob structive pulmonary disease 57251650 J44.9 Not on incruse On flonaseOn symbicortO n proairOn HHNsOn Wixela, states 10/04/2022 that he has stopped this as it was 'not working' now agreeable to see Dr Fleming Does well 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 810222046 E11.9 On metformin 500mg bidOn jardiance 10mg daily Does wellGet labs Dr Warren 08/06/2021 Visual impairment 042431 003 H54.[address] Dennis states that he is able to drive Aneurysm o f thoracic aorta 090396216 I71.20 S/p CT chest: 11/18/[address] Ramirez Macrocytosis 247897646 D 75.89 Get labs Umbilical hernia 2967759 07 K42.9 Does well Proteinuria 03030682 R80 .9 CKD Declines any referrals to nephrology at this time Transient cerebral ischemia 635597084 G45.9 OV 02/03/2022 :S/p MRI 12/27/2021 : [...] well now OV 10/04/2022 :Does well now [id number] Freedom patricia MD [facility] Internal Med [facility] [address] [facility], [address] [place] [address] 12/08/2022 10:02:59 12/08/2022 10:40:51 Screening - NAD 417238630 Z13.9 C-scope: 4 years ago, at [place], clear as per his history, Get newxvvr21/ 08/15 Dr Ibarra C-scope UTD on flu shotUTD PCV #13 03/27/18, #23 11/13/2019 Should get shingles vaccineCan do tdapUTD COVID 19 vaccine and do all boosters as per CDC 11/14/17:F illed his handicap parking RTC in 3 monthsDo labsER if any symptoms worsensHe did verbalize his understand ing of the above Coronary arteriosclerosis 80880032 I25.10 S/p [facility] d/c on 01/03/2021 Hx of a.fibHx [...] refer to the ER at [facility], he will be taken in a wheelchair , discussed with Dr Palomo [facility] ER MD, also personally called Dr Ramirez 11/16/2021 :Much improved OV 02/03/2022 :Dr Ramirez 12/23/2021 , is now on jardiance, f/u in 05/2022 OV 08/11/2022 :Keep apt with Dr Ramirez OV 12/08/2022 :Sees Dr Ennis venous doppler 09/29/2022 Dr Ramirez Gastroesop 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 725978978 K21.9 On pantoprazo le 40mg daily PRNDoes well Hyperlipidemia 22935471 E78.5 On rosuvastat in 20mg dailyDoes well, get labs Chronic ob structive pulmonary disease 84728202 J44.9 Not on incruse On flonaseOn symbicortO n proairOn HHNs Does wellStill declines any referrals to pulmonary 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 809059844 E11.9 On metformin 500mg bidOn jardiance 10mg daily Does wellGet labs Dr Warren 08/06/2021 Visual impairment 054870 003 H54.[address] Burgos He states that he is able to drive Aneurysm o f thoracic aorta 861266652 I71.20 S/p CT chest: 11/18/[address] [facility] [address] Ramirez Macrocytosis 233528164 D 75.89 Get labs Umbilical hernia 8364324 07 K42.9 Does well Proteinuria 03409137 R80 .9 CKDDecline s any referrals to nephrology at this time BUN/Cr/GFR stable 12/01/2022 Transient cerebral ischemia 907821253 G45.9 OV 02/03/2022 :S/p MRI 12/27/2021 : [...] Does well now Adult heal th examination 404010121 Z00.00 Screening for disorder 007974900 Z13.9 [id number] Freedom patricia MD [facility] [place] [facility] [address] [facility], [address] [place] [address] 03/28/2023 09:10:36 03/28/2023 10:23:39 Screening - NAD 783656055 Z13.9 C-scope: 4 years ago, at [place], clear as per his history, Get ectqfnw33/ 08/15 Dr Ibarra C-scope UTD on flu shotUTD PCV #13 03/27/18, #23 11/13/2019 Should get shingles vaccineCan do tdapUTD COVID 19 vaccine and do all boosters as per CDC 11/14/17:F illed his handicap parking RTC in 3 monthsDo labsER if any symptoms worsensHe and his did verbalize his understand ing of the above Coronary arteriosclerosis 90576823 I25.10 S/p [facility] d/c on 01/03/2021 Hx of a.fibHx [...] refer to the ER at [facility], he will be taken in a wheelchair , discussed with Dr Palomo [facility] ER , also personally called Dr [...] Ramirez Gastroesop 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 713948464 K21.9 On pantoprazo le 40mg daily PRNDoes well Hyperlipidemia 39624979 E78.5 On rosuvastat in 20mg daily Does well, get labs Chronic ob structive pulmonary disease 63077287 J44.9 Not on incruse On flonaseOn symbicortO n proairOn HHNs Does wellStill declines any referrals to pulmonary 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 266811031 E11.9 On metformin 500mg bidOn jardiance 10mg daily Does wellGet labs Dr Warren 08/06/2021 Visual impairment 967143 003 H54.[address] Burgos He states that he is able to drive Aneurysm o f thoracic aorta 053300825 I71.20 S/p CT chest: 11/18/[address] [facility] [address] Ramirez Macrocytosis 508125661 D 75.89 Get labs Umbilical hernia 8635534 07 K42.9 Does well Proteinuria 88621949 R80 .9 CKDDecline s any referrals to nephrology at this time BUN/Cr/GFR stable 12/01/2022 Transient cerebral ischemia 806928932 G45.9 OV 02/03/2022 :S/p MRI 12/27/2021 : [...] 'break' from the 'doctors' Thoracic back pain 52607 8004 M54.6 Xray T spine: 03/09/2023 MRI L Spine: 03/09/2023 See NS Adult heal th examination 597675043 Z00.00 Depression screening 171 549532 Z13.31 Administra tion of influenza vaccine 96411484 Z23 [id number] Freedom patricia MD [facility] Internal Med [facility] [address] [facility], [address] [place] [address] 07/04/2023 09:12:10 07/04/2023 09:55:23 Screening - NAD 405718374 Z13.9 C-scope: 4 years ago, at [place], clear as per his history, Get wofelit97/ 08/15 Dr Ibarra C-scope, no complaints now, [...] understand ing of the above Coronary arteriosclerosis 67079982 I25.10 S/p [facility] d/c on 01/03/2021 Hx of a.fibHx of ascending aortic dilatation 11/04/2021 : C/o severe SOB, +ve rales noted grabiel lower to mid lungs, severe pitting edemaAt this time refer to the ER at [facility], he will be taken in a wheelchair , discussed with Dr Palomo [facility] ER MD, also personally called Dr Ashley Ramirez 12/23/2021 , is now on jardiance, f/u in 05/2022 [place] venous doppler 09/29/2022 Dr Ramirez On ASAOn amlodipine 10mg dailyOn plavixOn eliquisOn lasixOn isosorbide 120mg dailyOn metoprolol 25mg bidOn NTGOn spironolac tone 25mg dailyKeep apt with cardiology Dr Ramirez Gastroesop 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 513160043 K21.9 On pantoprazo le 40mg daily PRNDoes well Hyperlipidemia 20235855 E78.5 On rosuvastat in 20mg daily Does well, get labs Chronic ob structive pulmonary disease 07931007 J44.9 Not on incruse On flonaseOn symbicortO n proairOn HHNs Does wellStill declines any referrals to pulmonary 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 144120559 E11.9 On metformin 500mg bidNot on jardiance 10mg daily Does wellGet labs Dr Warren 08/06/2021 Visual impairment 232295 003 H54.[address] Burgos He states that he is able to drive Aneurysm o f thoracic aorta 139263937 I71.20 S/p CT chest: 11/18/[address] [facility] [address] Ramirez Macrocytosis 748610953 D 75.89 Get labs Umbilical hernia 6082249 07 K42.9 Does well Proteinuria 04221683 R80 .9 CKDDecline s any referrals to nephrology at this time BUN/Cr/GFR stable 06/21/2023 Transient cerebral ischemia 211497456 G45.9 OV 02/03/2022 :S/p MRI 12/27/2021 : [...] get an apt WINDY Thoracic back pain 81511 8004 M54.6 Xray T spine: 03/09/2023 MRI L Spine: 03/09/2023 As per his he is doing well, he still has some back pain, but she would like him to see neurology Gynecomastia 9334954 N62 Noted on CTA C/A/P 04/26/2023 [id number] Freedom patricia MD [facility] Internal [facility] [address] [place] [address] 11/02/2023 09:58:39 11/02/2023 10:49:02 Screening - NAD 221790605 Z13.9 C-scope: 4 years ago, at [place], clear as per his history, Get vcunjez45/ 08/15 Dr Ibarra C-scope, no complaints now, [...] understand ing of the above Coronary arteriosclerosis 90385630 I25.10 S/p [facility] d/c on 01/03/2021 Hx of a.fibHx of ascending aortic dilatation 11/04/2021 : C/o severe SOB, +ve rales noted grabiel lower to mid lungs, severe pitting edemaAt this time refer to the ER at [facility], he will be taken in a wheelchair , discussed with Dr Palomo [facility] ER , also personally called Dr Ashley Ramirez 12/23/2021 , is now on jardiance, f/u in 05/2022 [place] venous doppler 09/29/2022 Dr Ramirez On ASAOn amlodipine 10mg dailyOn plavixOn eliquisOn lasixNot taking isosorbide 120mg dailyOn metoprolol 25mg bidOn NTGOn spironolac tone 25mg daily Dr Ramirez 09/05/2023 , next in 6 months Gastroesop 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 955759398 K21.9 On pantoprazo le 40mg daily PRNDoes well Hyperlipidemia 84765195 E78.5 On rosuvastat in 20mg daily Does well, get labs Chronic ob structive pulmonary disease 93444199 J44.9 Not on incruse On flonaseOn symbicortO n proairOn HHNs Does wellStill declines any referrals to pulmonary 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 932971507 E11.9 On metformin 500mg bidNot on jardiance 10mg daily Does wellGet labs Dr Warren 08/06/2021 Visual impairment 609870 003 H54.[address] Burgos He states that he is able to drive Aneurysm o f thoracic aorta 869853336 I71.20 S/p CT chest: 11/18/[address] [facility] [address] Raimrez Macrocytosis 386057958 D 75.89 Get labs Umbilical hernia 3002388 07 K42.9 Does well Proteinuria 70113090 R80 .9 CKDDecline s any referrals to nephrology at this time BUN/Cr/GFR stable 06/21/2023 Transient cerebral ischemia 745149940 G45.9 OV 02/03/2022 :S/p MRI 12/27/2021 : [...] next in one year Thoracic back pain 26357 8004 M54.6 Xray T spine: 03/09/2023 MRI L Spine: 03/09/2023 As per his he is doing well, he still has some back pain, but she would like him to see neurology IPC 06/27/2023 : [place]or Younger, f/u PRN Gynecomastia 4110767 N62 Noted on CTA C/A/P 04/26/2023 Mammogram: 07/31/2023 : asymmetric gynecomast ia of the R breastDoes not want any referrals 11/02/2023 [id number] Freedom patricia MD [facility] Internal Med [facility] [address] [place] [address] 11/07/2023 13:36:48 11/07/2023 14:02:21 Chronic obstructive pulmonary disease 06472768 J44.9 Hyperlipidemia 84753303 E78.5 Essential hypertension 23867523 I10 Atrial fibrillation 4943 6004 I48.91 [id number] Yves rincon MD [facility] General Surgery [address] [place] [address] 12/19/2023 12:04:09 12/25/2023 14:06:45 Epidermoid cyst of skin of neck 040095889 L72.0 [id number] Freedom patricia MD [facility] Internal Med [facility] [address] [place] [address] 1 12/21/2023 13:29:29 02/15/2024 15:14:35 Skin lesion 66740948 L98.9 Essential hypertension 96233195 I10 Hyperlipidemia 71110605 E78.5 Chronic ob structive pulmonary disease 56111948 J44.9 [id number] Freedom patricia MD [facility] Internal Med [facility] [address] [place] [address] 01/25/2024 09:20:02 01/25/2024 10:03:11 Screening - NAD 664757876 Z13.9 C-scope: 4 years ago, at [place], clear as per his history, Get pbosppu87/ 08/15 Dr Ibarra C-scope, no complaints now, [...] understand ing of the above Coronary arteriosclerosis 00910179 I25.10 S/p [facility] d/c on 01/03/2021 Hx of a.fibHx of ascending aortic dilatation 11/04/2021 : C/o severe SOB, +ve rales noted grabiel lower to mid lungs, severe pitting edemaAt this time refer to the ER at [facility], he will be taken in a wheelchair , discussed with Dr Palomo [facility] ER MD, also personally called Dr Ashley Ramirez 12/23/2021 , is now on jardiance, f/u in 05/2022 [place] venous doppler 09/29/2022 Dr Ramirez On ASAOn amlodipine 10mg dailyNot on plavixOn eliquisOn lasixNot taking isosorbide 120mg dailyOn metoprolol 25mg bidOn NTGOn spironolac tone 25mg daily Dr Ramirez 09/05/2023 , next in 6 months Gastroesop 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 583590998 K21.9 On pantoprazo le 40mg daily PRNDoes well Hyperlipidemia 94412643 E78.5 On rosuvastat in 20mg daily Does well, get labs Chronic ob structive pulmonary disease 37553819 J44.9 Not on incruse On flonaseOn symbicortO n proairOn HHNs Does wellStill declines any referrals to pulmonary 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 921568484 E11.9 On metformin 500mg bidNot on jardiance 10mg daily Does wellGet labs Dr Warren 08/06/2021 Visual impairment 080328 003 H54.[address] Burgos He states that he is able to drive Aneurysm o f thoracic aorta 978484639 I71.20 S/p CT chest: 11/18/[address] Ramirez Macrocytosis 197653176 D 75.89 Get labs Umbilical hernia 1418467 07 K42.9 Does well Proteinuria 77226940 R80 .9 CKDDecline s any referrals to nephrology at this time BUN/Cr/GFR stable 06/21/2023 Transient cerebral ischemia 707041300 G45.9 OV 02/03/2022 :S/p MRI 12/27/2021 : [...] Sees his neurologis t Thoracic back pain 63230 8004 M54.6 Xray T spine: 03/09/2023 MRI L Spine: 03/09/2023 As per his he is doing well, he still has some back pain, but she would like him to see neurology IPC 06/27/2023 : [place] Younger, f/u PRN Gynecomastia [id number] N62 Noted on CTA C/A/P 04/26/2023 Mammogram: 07/31/2023 : asymmetric gynecomast ia of the R breastDoes not want any referrals 11/02/2023 Adult heal th examination [id number] Z00.00 Screening for disorder 682103488 Z13.9 Liver enzy mes level above reference range 434101398 R74.01 Get Labs and US liver done Unsteady when walking 22 828842 R26.89 OV 01/25/2024 :He does need to get a walker, this will assist him in his ADLs, IADLs and assist him in safely ambulating [id number] Freedom patricia MD [facility] Internal Med [facility] [address] [address] 01/22/2024 14:14:26 02/21/2024 10:06:42 Chronic obstructive pulmonary disease 79610726 J44.9 Essential hypertension 70343602 I10 Hyperlipidemia 18513226 E78.5 Coronary arteriosclerosis 75177777 I25.10 [id number] Freedom patricia MD [facility] Internal Med [facility] [address] [address] 05/16/2024 11:23:51 05/16/2024 12:40:03 Screening - NAD 710161466 Z13.9 C-scope: 4 years ago, at [place], clear as per his history, Get / [...] understand ing of the above Coronary arteriosclerosis 05671249 I25.10 S/p [facility] d/c on 01/03/2021 Hx of a.fibHx of ascending aortic dilatation 11/04/2021 : C/o severe SOB, +ve rales noted grabiel lower to mid lungs, severe pitting edemaAt this time refer to the ER at [facility], he will be taken in a wheelchair , discussed with Dr Palomo [facility] ER MD, also personally called Dr Ashley Ramirez 12/23/2021 , is now on jardiance, f/u in 05/2022 US venous doppler 09/29/2022 Dr Ramirez On ASAOn amlodipine 10mg dailyNot on plavixOn eliquisOn lasixNot taking isosorbide 120mg dailyOn metoprolol 25mg bidOn NTGOn spironolac tone 25mg daily Dr Ramirez 09/05/2023 , next in 6 months Gastroesop 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 405390467 K21.9 On pantoprazo le 40mg daily PRNDoes well Hyperlipidemia 35450627 E78.5 On rosuvastat in 20mg daily Does well, get labs Chronic ob structive pulmonary disease 01021406 J44.9 Not on incruse On flonaseOn symbicortO n proairOn HHNs Does wellStill declines any referrals to pulmonary 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 782609328 E11.9 On metformin 500mg bidNot on jardiance 10mg daily Does wellGet labs Dr Warren 08/06/2021 Visual impairment 455487 003 H54.[address] Burgos He states that he is able to drive Aneurysm o f thoracic aorta 698216929 I71.20 S/p CT chest: 11/18/[address] Ramirez Macrocytosis 469190615 D 75.89 Get labs Umbilical hernia 4091591 07 K42.9 Does well Proteinuria 32505258 R80 .9 CKDDecline s any referrals to nephrology at this time BUN/Cr/GFR stable 06/21/2023 Transient cerebral ischemia 040287607 G45.9 OV 02/03/2022 :S/p MRI 12/27/2021 : [...] Sees his neurologis t Thoracic back pain 86021 8004 M54.6 Xray T spine: 03/09/2023 MRI L Spine: 03/09/2023 As per his he is doing well, he still has some back pain, but she would like him to see neurology IPC 06/27/2023 : [place] Younger, f/u PRN Gynecomastia 2773262 N62 Noted on CTA C/A/P 04/26/2023 Mammogram: 07/31/2023 : asymmetric gynecomast ia of the R breastDoes not want any referrals 11/02/2023 Liver enzy mes level above reference range 197980003 R74.01 Get LabsUS liver 01/31/2024 : nodular liver, cirrhosis, see GI today 05/16/2024 , he and his have declined any new referrals Unsteady when walking 22 009135 R26.89 OV 01/25/2024 :He does need to get a walker, this will assist him in his ADLs, IADLs and assist him in safely ambulating OV 05/16/2024 : He now has a walker, his GD bought him a walker, advised to use this diligently Upper resp iratory infection 82975068 J06.9 Has noted a cough and productive for whitish sputum, mild wheezingGe t on Z-pack, take OTC zyrtec, get on albuterol PRN, ER if worse, he and his verbalized his understand ing of the above [id number] Freedom patricia MD [facility] Internal Med [facility] [address] [facility], [place] [address] 07/09/2024 10:41:41 07/09/2024 11:46:17 Screening - NAD 106844817 Z13.9 C-scope: 4 years ago, at [place], clear as per his history, Get gbunlxy84/ 08/15 Dr Stacey Terrell, no complaints now, [...] understand ing of the above Coronary arteriosclerosis 47597761 I25.10 S/p [facility] d/c on 01/03/2021 Hx of a.fibHx of ascending aortic dilatation 11/04/2021 : C/o severe SOB, +ve rales noted grabiel lower to mid lungs, severe pitting edemaAt this time refer to the ER at [facility], he will be taken in a wheelchair , discussed with Dr Palomo [facility] ER MD, also personally called Dr Ashley Ramirez 12/23/2021 , is now on jardiance, f/u in 05/2022 US venous doppler 09/29/2022 Dr Ramirez On ASAOn amlodipine 10mg dailyNot on plavixOn eliquisOn lasixNot taking isosorbide 120mg dailyOn metoprolol 25mg bidOn NTGOn spironolac tone 25mg daily Dr Ramirez 09/05/2023 , next in 6 months Chronic ob structive pulmonary disease 52295319 J44.9 Not on incruse On flonaseOn symbicortO n proairOn HHNs Has noted a cough, as per this is constant, his meds were renewed, will get referral to pulmonary Addendum: 07/09/2024 :Candy Marie DIRECTOR SKILLS 07/09/2024 , now on trelegy and is to see her again in 09/10/2024 [id number] Candy Marie NP [facility] [address], [facility] [address] [place] [address] 07/09/2024 11:39:32 07/11/2024 15:50:58 Chronic obstructive pulmonary disease 56328921 J44.9 Stop Symbicort and start Trelegy and [...] and increase use of inhaler Chronic cough 86615357 R 05.3 CT order done by primary Oxygen sat uration below reference range 334245949 R79.81 [facility] order for care check, O2 set up, [id number] Freedom patricia MD [facility] Internal Med [facility] [address] [facility] [place] [address] 08/15/2024 11:06:29 08/15/2024 12:03:01 Screening - NAD 673939495 Z13.9 C-scope: 4 years ago, at [place], clear as per his history, Get / [...] understand ing of the above Coronary arteriosclerosis 32371032 I25.10 S/p [facility] d/c on 01/03/2021 Hx of a.fibHx of ascending aortic dilatation 11/04/2021 : C/o severe SOB, +ve rales noted grabiel lower to mid lungs, severe pitting edemaAt this time refer to the ER at [facility], he will be taken in a wheelchair , discussed with Dr Palomo [facility] ER MD, also personally called Dr [...] 6 months Chronic ob structive pulmonary disease 58497724 J44.9 Not on incruse On flonaseOn symbicortO n proairOn HHNs Has noted a cough, as per this is constant, his meds were renewed, will get referral to pulmonary Addendum: 07/09/2024 :Candy Marie DIRECT[employer] 07/09/2024 , now on trelegy and is to see her again in 09/10/2024 CT chest: 07/23/2024 : Mild emphysema Gastroesop 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 352844511 K21.9 On pantoprazo le 40mg daily PRNDoes well Hyperlipidemia 90326779 E78.5 On rosuvastat in 20mg daily Does well, get labs 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 209721576 E11.9 On metformin 500mg bidNot on jardiance 10mg daily Does wellGet labs Dr Warren 08/06/2021 Visual impairment 006975 003 H54.[address] Burgos He states that he is able to drive Aneurysm o f thoracic aorta 709920892 I71.20 S/p CT chest: 11/18/[address] Ramirez Macrocytosis 804987029 D 75.89 Get labs Umbilical hernia 5789830 07 K42.9 Does well Proteinuria 80237326 R80 .9 CKDDecline s any referrals to nephrology at this time BUN/Cr/GFR stable 06/21/2023 Transient cerebral ischemia 787584287 G45.9 OV 02/03/2022 :S/p MRI 12/27/2021 : [...] Sees his neurologis t Thoracic back pain 39958 8004 M54.6 Xray T spine: 03/09/2023 MRI L Spine: 03/09/2023 As per his he is doing well, he still has some back pain, but she would like him to see neurology IPC 06/27/2023 : [place] Younger, f/u PRN Gynecomastia 0222079 N62 Noted on CTA C/A/P 04/26/2023 Mammogram: 07/31/2023 : asymmetric gynecomast ia of the R breastDoes not want any referrals 11/02/2023 Liver enzy mes level above reference range 445363492 R74.01 Get LabsUS liver 01/31/2024 : nodular liver, cirrhosis, see GI today 05/16/2024 , he and his have declined any new referrals Unsteady when walking 22 806291 R26.89 OV 01/25/2024 :He does need to get a walker, this will assist him in his ADLs, IADLs and assist him in safely ambulating OV 05/16/2024 : He now has a walker, his GD bought him a walker, advised to use this diligently OV 08/15/2024 : Does well now, uses his walker [id number] Candy Marie NP [facility] Pulmonolo gy [address], [facility] [address] [place] [address] 09/10/2024 10:45:05 09/10/2024 15:24:09 Chronic obstructive pulmonary disease 99912525 J44.9 J44.1 Continue Trelegy and use discussed- [...] es currently prednisone is helping his breathing. Goals Section Goal Description Progress Status Start [...] plan as per care team recommendation (s) venus active 2023 Lexi Jones CCM Information not available 11/07/2023 18:00:12 Decrease d Alcohol Consumpt ion Reports decreased alcohol consumption as per care team recommendation (s) jeannette active 2023 Lexi Jones CCM Information not [...] Manages life events with effective coping methods [facility] Lexi Jones CCM Information not available 11/07/2023 18:00:13 Diet Adherenc e Follows prescribed or recommended diet [facility] 2023 Leix Jones CCM Information not available 11/07/2023 18:00:13 Chronic Conditio n Action Plan Follows action plan for any worsening of chronic condition(s) as per care team recommendation (s) jeannette active 2023 Lexi Joens CCM Information not available 11/07/2023 18:00:13 Fall [...] Jones CCM Information not available 11/07/2023 18:00:13 Financdyana Kent Reports financial status and/or income meets needs [...] Rosen Member ID Guarantor Name 05/16/2024 1 [facility] (MEDICARE REPLACEMENT/ ADVANTAGE - HMO) [id number] Yifan Schaefer [id number] Yifan Schaefer 07/09/2024 1 [facility] (MEDICARE REPLACEMENT/ ADVANTAGE - HMO) [id number] Yifan Schaefer [id number] Yifan Schaefer 07/09/2024 1 [facility] (MEDICARE REPLACEMENT/ ADVANTAGE - HMO) [id number] Yifan Schaefer [id number] Yifan Schaefer 08/15/2024 1 [facility] (MEDICARE REPLACEMENT/ ADVANTAGE - HMO) [id number] Yifan Schaefer [id number] Yifan Schaefer 09/10/2024 1 [facility] (MEDICARE REPLACEMENT/ ADVANTAGE - HMO) [id number] Yifan Schaefer [id number] Yifan Schaefer Notes Date Note Type Note Provider Name and Address Organization Details Recorded Time 05/16/2024 text/html Here to everett Ram Hx:Arminda viewed [...] wants an earlier apt with Dr Ramirez [facility] as some of his meds were changed by Dr Vasquez did do the labsOV 01/12/2021:TCM visitAdmitted and d/c from [facility] for atypical R sided chest pain [...] for TCMAdmitted and D/c from [facility] for COPD/CHFFeels much better nowOV 02/03/2022:Here for his f/u apt, he feels well today, he did have a TIA and was admitted to [facility] from 12/27 to 12/30 and is [...] do the labs Freedom Sorto MD [address] [facility], [place], [address], [place] [facility] 05/18/2024 12:42:55 07/09/2024 text/html Here to everett Ram Hx:CADEVELDCOPPaulie viewed social family and surgical historyHere to [...] 01/12/2021:TCM visitAdmitted and d/c from [facility] for atypical R sided chest pain [...] for TCMAdmitted and D/c from [facility] for COPD/CHFFeels much better nowOV 02/03/2022:Here for his f/u apt, he feels well today, he did have a TIA and was admitted to [facility] from 12/27 to 12/30 and is [...] here with his , c/o MARCO ANTONIO sx with some wheezing and a mild cough productive for whiteish sputum, states that he now has been using a walker and he did do the labs OV 07/09/2024: Here for his f/u apt, see case, he does have continues cough, non productive sputum, no fevers or chills, no chest pain Freedom Sorto MD [address], [address], [place], [address], [employer] 07/09/2024 18:12:46 07/09/2024 text/html COPDReported bypatient.Severity:nba y [...] is sob Candy Marie NP [address], [place], [address], [employer] 07/11/2024 15:24:44 08/15/2024 text/html Here to everett Ram Hx:LAURENCEHTNHLDCOPDGJoey viewed social family and surgical historyHere to [...] 01/12/2021:TCM visitAdmitted and d/c from [facility] for atypical R sided chest pain [...] for TCMAdmitted and D/c from [facility] for COPD/CHFFeels much better nowOV 02/03/2022:Here for his f/u apt, he feels well today, he did have a TIA and was admitted to [facility] from 12/27 to 12/30 and is [...] and cough is almost at his baseline Freedom Sorto MD [address] [place] [address], [facility] [address], [place], [address], [facility] 09/12/2024 14:08:18 09/10/2024 text/html COPDReported bypatient.Quality:symp toms [...] placed on a steroid burst by this DIRECTOR SKILLS in June and was just seen in [...] has trouble breathing. Candy Marie NP [address] [address], [place], [address], [place] [facility] 09/10/2024 15:24:08
--- OUTSIDE RECORDS SUMMARY | 2024-10-28 20:24 | XMS_ITS ---
Author Organization [facility] Address [address] [address] [place] [address] Care Team Providers Care Ship Pilot Dispatcher Name Role Phone Ronak Carlos Unavailable [phone] Medications Medication SIG (Take, Route, Frequency, Duration) Notes Start Date End Date Status Calcitriol 0.25 MCG 1 capsule Orally Onc e a day for 90 day(s) 04/14/2023 01/09/2024 Active Ergocalciferol 1.25 MG (80592 UT) 1 capsule Orally Once a week for 90 day(s) 04/14/2023 01/09/2024 Active Social History Sex Assigned At : Social History Observation Description Sex Assigned At Male Encounters Encounter Location Date Provider Diagnosis [facility] [address] [facility] [address] [place] [address] 11/03/2023 Carlos Simons Chronic kidney disea se, stage 3a N18.31 ; Essential (primary) hypertension I10 ; Anxiety disorder, unspecified F41.9 ; Renal osteodystrophy N25.0 and Vitamin D deficiency, unspecified E55.9 Assessments Encounter Date Diagnosis (ICD Code) Assessment Notes Treatment Notes Treatment Clinical Notes Section Notes 11/03/2023 Chronic kidney disease, stage 3a (ICD-10 - N18.31) 11/03/2023 Essential (primary) hypertension (ICD-10 - I10) 11/03/2023 Anxiety disorder, unspecified (ICD-10 - F41.9) 11/03/2023 Renal osteodystrophy (ICD-10 - N25.0) 11/03/2023 Vitamin D deficiency, unspecified (ICD-10 - E55.9) Plan Of Treatment No Information Progress Notes * Kevan SCHAEFER (Yifan) :1940 (84 yo M)Acc No.[id number]:11/03/2023 Progress Notes Patient: Kevan JASSO (Yifan) Provider: Mone GODOY MD, DishaP, F.A.S.N. :1940 A ge:83 Y S ex:Male Date:11/03/2023 Address:[address] [place] [address] Subjective: * Chief Complaints: * * Medical History: * Medications: T aking Calcitriol 0.25 MCG Capsule 1 capsule Orally Once a day , stop date 01/09/2024, Taking Ergocalciferol 1.25 MG (40367 UT) Capsule 1 capsule Orally Once a week , stop date 01/09/2024 Objective: * Vitals: Assessment: * Assessment: 1. C hronic kidney disease, stage 3a - N18.31 (Primary) 2 . E ssential (primary) hypertension - I10 3 . A nxiety disorder, unspecified - F41.9 ?4. R enal osteodystrophy - N25.0 5 . V itamin D deficiency, unspecified - E55.9 Plan: * Treatment: * Billing Information: * Visit Code: 70260 Office Visit, Est Pt., Level 4. * Procedure Codes: * Electronic signature of Korin Simons MD on 10/28/2024 at 08:23 PM CDT Sign off status: Pending * Provider: Mone GODOY MD, Deny, F.A.S.N. Date: 0 11/03/2023 Generated for Printing/Faxing/eTransmitting on: 10/28/2024 08:23 PM CDT
--- OUTSIDE RECORDS SUMMARY | 2024-10-28 20:24 | XMS_ITS | CONTINUITY OF CARE DOCUMENT ---
Author Name crystal rojas Address Unknown Organization [facility] Address [address] [facility] [address] [place] [address] Phone [phone] Care Team Providers Care Slate Handler Name Role Phone Tuan Ramirez MD Unavailable [phone] FREEDOM ATWOOD MD Unavailable FREEDOM ATWOOD MD Unavailable PROBLEMS Condition Status Date Provider Notes CAD-07/02 NUC ISCHEMIA completed - Tuan Ramirez MD HTN active Tuan Ramirez MD Tobacco use quit active Don Hermosillo MD to o reme screen CAD - 02/2019 CATH BULLET MAKER mid/distal LAD, patent RCA stent, mid LAD [...] In-person encounter Office Visit Tuan Ramirez MD [facility] Cardiology examination - In-person encounter Office Visit Tuan Ramirez MD [facility] - In-person encounter Office Visit Tuan Ramirez MD [facility] - In-person encounter Office Visit Tuan Ramirez MD [facility] Confusion - In-person encounter Office Visit Tuan Ramirez MD [facility] - In-person encounter Office Visit Tuan Ramirez MD [facility] - In-person encounter Office Visit Tuan Ramirez MD [facility] - In-person encounter Office Visit Tuan Ramirez MD [facility] - In-person encounter Office Visit Tuan Ramirez MD [facility] CHF - In-person encounter Office Visit Tuan Ramirez MD [facility] - In-person encounter Office Visit Tuan Ramirez MD [facility] - In-person encounter Office Visit Tuan Ramirez MD [facility] Office - In-person encounter Office Visit Tuan Ramirez MD [facility] Office - In-person encounter Office Visit Brandon Lovett MD [facility] Office Leg edema, bilateral - In-person encounter Office Visit Tuan Ramirez MD [facility] - In-person encounter Office Visit Don Hermosillo MD [facility] Tobacco use quitWheezingCough due to DESTINY inhibitors - In-person encounter Office Visit Tuan Ramirez MD [facility] Shortness of breathOverweight - In-person encounter Office Visit Tuan Ramirez MD [facility] 02/2019 CATH BULLET MAKER mid/distal LAD, patent RCA stent, mid LAD stent (90% ISR)Angina pectorisAtrial fibrillationChest painClaudicationLeg pain, bilateralNSTEMI - In-person encounter Office Visit Tuan Ramirez MD [facility] Office Ascending aortic dilatation - In-person encounter Office Visit Tuan Ramirez MD [facility] - In-person encounter Office Visit Tuan Ramirez MD [facility] R groin lump - In-person encounter Office Visit Tuan Ramirez MD [facility] - In-person encounter Office Visit Sunny Simons MD [facility] - In-person encounter Office Visit Tuan Ramirez MD [facility] - In-person encounter Office Visit Tuan Ramirez MD [facility] 02/2019 CATH BULLET MAKER mid/distal LAD, patent RCA stent, mid LAD stent (90% ISR)Current use of anticoagulants - In-person encounter Office Visit Tuan Ramirez MD [facility] - In-person encounter Office Visit Tuan Ramirez MD [facility] BradycardiaCOPD - In-person encounter Office Visit Tuan Ramirez MD [place] [facility] - In-person encounter Office Visit Tuan Ramirez MD [facility] Office HTNCAD - 02/2019 CAT H BULLET MAKER mid/distal LAD, patent RCA stent, mid LAD stent (90% ISR)R groin lump - In-person encounter Office Visit Tuan Ramirez MD [facility] CAROTID STENOSIS - <50% LICA - In-person encounter Office Visit Tuan Ramirez MD [facility] CAD-07/02 NUC ISCHEMIATobacco use quitCAD - 02/2019 CATH BULLET MAKER mid/distal LAD, patent RCA stent, mid LAD stent (90% ISR)AAA-03/02 [facility] US NORMCAROTID STENOSIS - <50% LICABradycardia - In-person encounter Office Visit Tuan Ramirez MD [facility] - In-person encounter Office Visit Tuan Ramirez MD [facility] SyncopeBradycardia - In-person encounter Office Visit Tuan Ramirez MD [facility] - In-person encounter Office Visit Tuan Ramirez MD [facility] - In-person encounter Office Visit Tuan Ramirez MD [facility] - In-person encounter Office Visit Tuan Ramirez MD [facility] Office - In-person encounter Office Visit Tuan Ramirez MD [facility] - In-person encounter Office Visit Tuan Ramirez MD [facility] - In-person encounter Office Visit Tuan Ramirez MD [facility] - In-person encounter Office Visit Tuan Ramirez MD [facility] - In-person encounter Office Visit Tuan Ramirez MD [facility] VITAL SIGNS Date Observation Value Provider [...] Martha Martinez height E&M 71 [in_i] Martha Orlando Body Mass Index (Ratio) 24.54 kg/m2 Grah am Nemo pulse rate 58 /min [facility] blood pressure, cuff size regular Fa [facility] blood pressure, diastolic 65 mm[Hg] Fa [facility] blood pressure, systolic 117 mm[Hg] [facility] oxygen saturation, oximetry 93 % [facility] respiratory rate E&M 18 /min Jazlyn M iller weight E&M 176 [lb_av] [facility] height E&M 71 [in_i] [facility] Body Mass Index (Ratio) 24.82 kg/m2 Grah am Nemo blood pressure, cuff size regular Fa ith Orlando blood pressure, diastolic 74 mm[Hg] Fa ith Orlando blood pressure, systolic 111 mm[Hg] [facility] oxygen saturation, oximetry 92 % [facility] respiratory rate E&M 16 /min Jazlyn M iller pulse rate 65 /min [facility] weight E&M 178 [lb_av] [facility] height E&M 71 [in_i] Jazlyn Martinez [...] er height E&M 71 [in_i] Sabina Schmidt [facility] Body Mass Index (Ratio) 29.87 kg/m2 Yaa tripp Estefanyflella blood pressure, diastolic 71 mm[Hg] Br júniorsebastian [facility] blood pressure, systolic 134 mm[Hg] Chika sahrahilario [facility] oxygen saturation, oximetry 98 % Nanette Jacobsflella respiratory rate E&M 15 /min Yaageorges katelynn Allisonflella pulse rate 80 /min Nanette Allison adela weight E&M 214.2 [lb_av] Nanette goodrich height E&M 71 [in_i] Nanette Allison adela Body Mass Index (Ratio) 27.61 kg/m2 Luma Lacey RN blood pressure, cuff size large Ms khoa Almonte blood pressure, diastolic 70 mm[Hg] Alberta couch [place] blood pressure, systolic 135 mm[Hg] [facility] ernesto [place] oxygen saturation, oximetry [...] blood pressure, diastolic 67 mm[Hg] Ca therine Alex blood pressure, systolic 145 mm[Hg] Cat herine Wynot oxygen saturation, oximetry 94 % Didi Alex respiratory rate E&M 14 /min Catheri ne Wynot pulse rate 71 /min Didi Alex weight E&M 198 [lb_av] Didi Wynot blood pressure, cuff size regular Ca therine Wynot height E&M 71 [in_i] Didi Wynot Body Mass Index (Ratio) 27.47 kg/m2 Yaa [...] Alex Regalado height E&M 71 [in_i] Ramandeep Broadwater Body Mass Index (Ratio) 29.15 kg/m2 [facility] blood pressure, resting Yes Alex Sims blood pressure, cuff size regular Giogri Sims blood pressure, diastolic 70 mm[Hg] Giorgi [...] Telly Webbford blood pressure, diastolic 80 mm[Hg] [facility] pressure, systolic 140 mm[Hg] She kathrinst. [facility] hospitaleul[facility] WebbWolff oxygen saturation, oximetry 98 % [facility] Webbford pulse rate 64 /min [facility] Webb mackenzie respiratory rate E&M 18 /min [facility] darby Wolff weight E&M 214 [lb_av] Teresa Webb mackenzie height E&M 71 [in_i] Teresa Webb mackenize Body Mass Index (Ratio) 30.40 kg/m2 Khoi Ott blood pressure, resting Yes Telly Webbford blood pressure, diastolic 68 mm[Hg] [facility] Web[facility]ord blood pressure, systolic 140 mm[Hg] [...] pressure, systolic, left arm 142 mm [Hg] Liz Leigh blood pressure, diastolic, right arm 60 m m[Hg] Liz Leigh blood pressure, systolic, right arm 130 m m[Hg] Curran Leigh blood pressure, diastolic 70 mm[Hg] Ki lleen blood pressure, systolic 142 mm[Hg] Nikos farley Leigh oxygen saturation, oximetry 95 % Liz Leigh respiratory rate E&M 16 /min Curran Leigh pulse rate 54 /min Liz Leigh weight E&M 211 [lb_av] Curran Leigh height E&M 71 [in_i] Liz Leigh [...] Mass Index (Ratio) 27.61 kg/m2 Khoi jacobo [facility] blood pressure, cuff size large Cy zoie [...] respiratory rate E&M 22 /min Sabina Costa [facility] pulse rate 88 /min Sabina Schmidt [facility] weight E&M 208 [lb_av] Sabina Schmidt [facility] height E&M 71 [in_i] Sabina Schmidt [facility] Body Mass Index (Ratio) 27.89 kg/m2 Khoi [...] ronel pulse rate 83 /min Sabina Schmidt [facility] weight E&M 189 [lb_av] Sabina Schmidt [facility] height E&M 71 [in_i] Sabina Schmidt [facility] Body Mass Index (Ratio) 25.80 kg/m2 Khoi Ott blood pressure, diastolic, left arm 64 mm [Hg] Ramandeep Broadwater blood pressure, systolic, left arm 130 mm [Hg] Ramandeep Sabine blood pressure, diastolic, standing 70 mm [Hg] Ramandeep Broadwater blood pressure, systolic, standing 120 mm [Hg] Ramandeep Broadwater respiratory rate E&M 16 /min Ramandeep Broadwater oxygen saturation, oximetry 93 % Ramandeep Broadwater pulse rate 77 /min Ramandeep Broadwater blood pressure, diastolic 64 mm[Hg] Kr isty Sabine blood pressure, systolic 130 mm[Hg] Kri sty Sabine weight E&M 185 [lb_av] Ramandeep Sabine blood pressure, cuff size regular Kr isty Sabine height E&M 71 [in_i] Ramandeep Broadwater Body Mass Index (Ratio) 25.41 kg/m2 Khoi [...] Oliverio blood pressure, diastolic 58 mm[Hg] [facility], systolic 116 mm[Hg] Radames [facility] saturation, oximetry 95 % [...] diastolic, left arm 93 mm [Hg] Nita Kiki blood pressure, systolic, left arm 168 mm [Hg] Nita Crary blood pressure, diastolic, right arm 90 m m[Hg] Nita Kiki blood pressure, systolic, right arm 172 m m[Hg] Nita Crary blood pressure, diastolic 90 mm[Hg] Fe ambrose Kiki blood pressure, systolic 172 mm[Hg] Fel icia Kiki pulse rate 57 /min Nita Kiki oxygen saturation, oximetry 96 % Nita Crary respiratory rate E&M 20 /min Nita Kiki weight E&M 204 [lb_av] Nita Kiki blood pressure, diastolic 75 mm[Hg] Rolanda seph [...] 155 mm[Hg] Salas pulse rate 52 /min Zeonbia Clemens oxygen saturation, oximetry 95 % Zenobia [...] Heriberto Ott triglyceride, serum, fasting 108 mg/dL [facility] HDL cholesterol, serum 33 mg/dL [facility] LDL cholesterol, serum 67 mg/dL [facility] cholesterol, serum 123 mg/dL [facility] platelet count 204 10*3/uL [facility] red blood cell distribution width 11.7 % [facility] mean corpuscular hemoglobin concentration, RBC 32.5 g/dL [facility] mean corpuscular hemoglobin, RBC 31.9 pg [facility] mean corpuscular volume, RBC 97.9 fL [facility] hematocrit, blood 41.8 % [facility] hemoglobin, blood 13.6 g/dL [facility] erythrocyte (RBC) count 4.27 10*6/mm3 [facility] leukocyte count, blood 9.2 10*3/mm3 [facility] calcium, serum 9.2 mg/dL [facility] blood glucose, random 105 mg/dL [facility] creatinine, serum 0.85 mg/dL [facility] urea nitrogen, blood 13 mg/dL [facility] carbon dioxide, serum, total 29 mmol/L [facility] chloride, serum 103 mmol/L [facility] potassium, serum 4.7 mmol/L [facility] sodium, serum 139 mmol/L [facility] LDL cholesterol, serum 90 mg/dL [facility] prothrombin time (patient) 10.2 s Maria Fernanda [...] by mouth once a day - [facility]ardo [facility] met[facility]rol[facility] tartrate 25 mg tablet active Tuan [...] 1 TABLET BY MOUTH EVERY DAY Eduardo [facility] Eliquis 5 mg tablet active TAKE 1 [...] smoker [employer] pace smoking, year quit 1998 [facility] number of years as a smoker 10+ [facility] cigarette use yes [facility] smoking status Former smoker [employer] smoking, year quit 1998 [facility] number of years as a smoker 10+ [facility] cigarette use yes [facility] smoking status Former smoker [facility] physical exercise, frequency, days per week [...] averag e drinks per day 1+ Didi Wynot smoking, year quit 1998 Didi Alex number of years as a smoker 10+ Didi Alex cigarette use yes Didi Wynot smoking status Former smoker Didi Ot is [...] exercise, frequency, days per week no Ramandeep Broadwater caffeine use, averag e drinks per day 1+ Ramandeep Sabine smoking, year quit 1998 Ramandeep Bu sby number of years as a smoker 10+ Ramandeep Broadwater cigarette use yes Ramandeep Sabine smoking status [...] Lindsey henry is a former smoker. Don Hermsoillo MD social history revtulio wed E&M reviewed [...] a smoker 10 years or more Tuyet Hroton cigarette use yes Tuyet march smoking status [...] Tuyet march smoking status Former smoker Tuyet Kililan smoking/tobacco cess ation, patient education and counseling [...] years or more [facility] Date Observation Value Provider [...] (inactive) Management Plan continue current therapy Tuan Ramierz MD HRA, CV Assess/Plan, Angina (inactive) Management [...] Payer name Policy type / Coverage type [place] red democrat ID [employer] MED[employer]AGE [address] 0 003 (HMO POS) Medicare [id number] ADVANCE DIRECTIVES Name Date DISCUSSED - NO DECISION MADE TREATMENT PLAN Date Name Performer [id number],S, H is updated medication list for this problem includes: Rosuvastatin 20 Mg Tablet (Rosuvastatin) Crestor 20 Mg Tablet (Rosuvastatin) ..... 1 tablet once a day Tuan Ramirez MD [id number],S, Tuan Ramirez MD [id number],S,will obtain p Minal Ramirez MD [id number],S, B P today: 142/79 P rior BP: [...] 25 Mg Tablet (Spironolactone) Tuan Ramirez MD [id number],S,n ot in Afib H is updated medication list for this problem includes: Metoprolol Tartrate 25 Mg Tablet (Metoprolol tartrate) Plavix 75 Mg Tablet (Clopidogrel) ..... 1 tablet once a day Tuan Ramirez MD [id number],C,n o CP H is updated medication list for this problem includes: Amlodipine 10 Mg Tablet (Amlodipine) ..... Take 1 tablet by mouth every day Metoprolol Tartrate 25 Mg Tablet (Metoprolol tartrate) Isosorbide Mononitrate 120 Mg Tablet Extended Release 24 Hr (Isosorbide mononitrate) ..... Take 1 tablet by mouth once a day take 1 tablet by mouth once daily Nitrolingual 400 Mcg/spray [place],non-aerosol (Nitroglycerin) ..... 1 as needed Plavix 75 Mg Tablet (Clopidogrel) ..... 1 tablet once a day Tuan Ramirez MD [id number],N,i ncreased confusion w ill hold inpefa for 1 week to see if confusion improves o btain UACR Tuna Ramirez MD [id number],S,S OB improved. Pt's reports increased confusion. We [...] by mouth once daily Nitrolingual 400 Mcg/spray [place],non-aerosol (Nitroglycerin) ..... 1 as needed Plavix 75 Mg Tablet (Clopidogrel) ..... 1 tablet once a day Tuan Ramirez MD [id number],C, R eveiwed his admission from last year with NSTEMI. Tuan Ramirez MD [id number],C, C HF class II His updated medication [...] by mouth once daily Nitrolingual 400 Mcg/spray [place],non-aerosol (Nitroglycerin) ..... 1 as needed Plavix 75 Mg Tablet (Clopidogrel) ..... 1 tablet once a day Tuan Ramirez MD [id number],C, P atient is wheezing and short of breath, CHF class II Tuan Ramirez MD [id number],S, N ot in AFib. H is updated medication list for this problem includes: Metoprolol Tartrate 25 Mg Tablet (Metoprolol tartrate) Plavix 75 Mg Tablet (Clopidogrel) ..... 1 tablet once a day Tuan Ramirez MD [id number],C, B P today: 140/73 P rior BP: [...] 25 Mg Tablet (Spironolactone) Tuan Ramirez MD [id number],S, N o chest pain. His updated medication list for this problem includes: Amlodipine 10 Mg Tablet (Amlodipine) ..... Take 1 tablet by mouth every day Metoprolol Tartrate 25 Mg Tablet (Metoprolol tartrate) Isosorbide Mononitrate 120 Mg Tablet Extended Release 24 Hr (Isosorbide mononitrate) ..... Take 1 tablet by mouth once a day take 1 tablet by mouth once daily Nitrolingual 400 Mcg/spray [place],non-aerosol (Nitroglycerin) ..... 1 as needed Plavix 75 Mg Tablet (Clopidogrel) ..... 1 tablet once a day Tuan Ramirez MD [id number],S, B P today: 124/80 P rior BP: [...] Spironolactone 25 Mg Tablet (Spironolactone) Dejuan Marxyovany [id number],S, H is updated medication list for this [...] by mouth once daily Nitrolingual 400 Mcg/spray [place],non-aerosol (Nitroglycerin) ..... 1 as needed Plavix 75 Mg Tablet (Clopidogrel) ..... 1 tablet once a day Dejuan Gray [id number],C, H is updated medication list for this problem includes: Rosuvastatin 20 Mg Tablet (Rosuvastatin) Crestor 20 Mg Tablet (Rosuvastatin) ..... 1 tablet once a day Nanette Han [id number],C, B P today: 134/71 P rior BP: [...] tablet by mouth every day Nanette Han [id number],C, H is updated medication list for this problem includes: Metoprolol Tartrate 25 Mg Tablet (Metoprolol tartrate) Plavix 75 Mg Tablet (Clopidogrel) ..... 1 tablet once a day Nanette Han [id number],C,O verzena doing well. No SOB. He cannot afford Jardiance. Stable at CHF class II. Continues current medications. Nanette Han [id number],S, E ncouraged weight loss. Nanette Han [id number],C,T he pt reports improvement of symptoms with [...] by mouth every day Nitrolingual 400 Mcg/spray [place],non-aerosol (Nitroglycerin) ..... 1 as needed Plavix 75 Mg Tablet (Clopidogrel) ..... 1 tablet once a day Nanette Han [id number],C,T he pt reports improvement of symptoms with [...] by mouth every day Nitrolingual 400 Mcg/spray [place],non-aerosol (Nitroglycerin) ..... 1 as needed Plavix 75 Mg Tablet (Clopidogrel) ..... 1 tablet once a day Nanette Han [id number],C, H is updated medication list for this problem includes: Rosuvastatin 20 Mg Tablet (Rosuvastatin) Crestor 20 Mg Tablet (Rosuvastatin) ..... 1 tablet once a day Tuan Ramirez MD [id number],C, B P today: 135/70 P rior BP: [...] by mouth every day Tuan Ramirez MD [id number],C, Echo in the hospital showed RV dilatation [...] by mouth every day Nitrolingual 400 Mcg/spray [place],non-aerosol (Nitroglycerin) ..... 1 as needed Plavix 75 Mg Tablet (Clopidogrel) ..... 1 tablet once a day Nanette Han [id number],C, H is updated medication list for this problem includes: Rosuvastatin 20 Mg Tablet (Rosuvastatin) Crestor 20 Mg Tablet (Rosuvastatin) ..... 1 tablet once a day Tuan Ramirez MD [id number],C, B P today: 145/67 P rior BP: [...] by mouth every day Tuan Ramirez MD [id number],C,T he pt had a recent admission to [facility] due to CHF exacerbation due to HFpEF. He was diuresed and is feeling better. Echo in the hospital showed RV dilatation adn elevated PA pressure. Today we will start Jardiance 10 mg daily. F/u in one month and consider R/L cardiac cath depending on his sxs. Tuan Ramirez MD [id number],S, E ncouraged weight loss. Nanette Han [id number],Nanette Henderson [id number],C, H is updated medication list for this problem includes: Crestor 20 Mg Tablet (Rosuvastatin) ..... 1 tablet once a day Nanette Han [id number],C, B P today: 130/60 P rior BP: 140/72 (02/15/2021) Labs Reviewed: C reat: 0.93 (09/04/2018) C hol: 89 (09/04/2018) HDL: 44 (09/04/2018) LDL: 25 (09/04/2018) H is updated medication list for this problem includes: Furosemide 40 Mg Tablet (Furosemide) ..... Take 1 tablet by mouth every day Amlodipine 10 Mg Tablet (Amlodipine) ..... 1 tablet once a day Nanette Emely [id number],C,N o SOB H is updated medication list for this problem includes: Symbicort 160-4.5 Mcg/actuation Hfa Aerosol Inhaler (Budesonide-formoterol) ..... 2 puff twice a day Proair Hfa 90 Mcg/actuation Hfa Aerosol Inhaler (Albuterol sulfate) ..... As needed Albuterol Sulfate (bulk) Powder (Albuterol sulfate (bulk)) ..... 2 puff twice a day Albuterol Sulfate 2.5 Mg/3 Ml (0.083 %) Solution For Nebulization (Albuterol sulfate) Nanette Emely [id number],C, He continues to complain of leg swelling, though it has improved since starting the Lasix. Nanette Emely [id number],C,P t did not proceed with cardiac cath [...] tablet once a day Nitrolingual 400 Mcg/spray [place],non-aerosol (Nitroglycerin) ..... 1 as needed Plavix 75 Mg Tablet (Clopidogrel) ..... 1 tablet once a day Isosorbide Mononitrate 120 Mg Tablet Extended Release 24 Hr (Isosorbide mononitrate) ..... Take 1 tablet by mouth once a day Nanette Han [id number],C, H is updated medication list for this problem includes: Crestor 20 Mg Tablet (Rosuvastatin) ..... 1 tablet once a day Tuan Ramirez MD [id number],STuan MD [id number],C, B P today: 140/72 P rior BP: 130/70 (12/04/2020) Labs Reviewed: C reat: 0.93 (09/04/2018) C hol: 89 (09/04/2018) HDL: 44 (09/04/2018) LDL: 25 (09/04/2018) H is updated medication list for this problem includes: Amlodipine 10 Mg Tablet (Amlodipine) ..... 1 tablet once a day Lasix 40 Mg Tablet (Furosemide) ..... Take 1 once a day Tuan Ramirez MD [id number],Brent Kennedy ontinues on Eliquis. Denies CP or SOB today. Tuan Ramirez MD [id number],BrentP t had a recent admission to [facility] for chest pain and shortness of [...] For Nebulization (Albuterol sulfate) Tuan Ramirez MD [id number],BrentP t had a recent admission to the [facility] for chest pain and shortness of breath. He has leg swelling worse on the right. 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 BNP during admissionwas 220. In view of his recent symptoms, will proceed to R/L heart cath and venography with IVUS. Tuan Ramirez MD [id number],BrentP t had a recent admission to the [facility] for chest pain and shortness of [...] tablet once a day Nitrolingual 400 Mcg/spray [place],non-aerosol (Nitroglycerin) ..... 1 as needed Plavix 75 Mg Tablet (Clopidogrel) ..... 1 tablet once a day Isosorbide Mononitrate 120 Mg Tablet Extended Release 24 Hr (Isosorbide mononitrate) ..... Take 1 tablet by mouth once a day Tuan Ramirez MD [id number],C,O n statin H is updated medication list for this problem includes: Crestor 20 Mg Oral Tablet (Rosuvastatin calcium) ..... One tab once daily Nanette Han [id number],C, B P today: 130/70 P rior BP: 140/80 (11/24/2020) Labs Reviewed: C reat: 0.93 (09/04/2018) C hol: 89 (09/04/2018) HDL: 44 (09/04/2018) LDL: 25 (09/04/2018) H is updated medication list for this problem includes: Lasix 40 Mg Oral Tablet (Furosemide) ..... Take one daily Amlodipine Besylate 10 Mg Oral Tablet (Amlodipine besylate) ..... One tab. daily Nanette Han [id number],C,N o SOB. H is updated medication list for this problem includes: Proair Hfa 108 (90 Base) Mcg/act Inhalation Aerosol Solution (Albuterol sulfate) ..... As needed Albuterol Sulfate Powder (Albuterol sulfate) ..... 2 puffs twice daily Symbicort Aerosol (Budesonide-formoterol fumarate aero) ..... 2 puffs twice daily Nanette Han [id number],C,T he pt developed nausea and vomitting after [...] 3rd dose, go to er Nanette Han [id number],C, Leg swelling has improved, will obtain venous duplex and consider venoraphy w/ IVUS and Venaseal. He was also not able to withstand support stockings. Nanette Han [id number],N,P t complains of bilateral leg swelling, denies [...] o r SOB. Inpefa was stopped by survey research associate becuase of risk of UTI. WIll continue current medications H is updated medication list for this problem includes: Furosemide 40 Mg Tablet (Furosemide) ..... Take 1 tablet by mouth every day Amlodipine 10 Mg Tablet (Amlodipine) ..... Take 1 tablet by mouth every day Metoprolol Tartrate 25 Mg Tablet (Metoprolol tartrate) Spironolactone 25 Mg Tablet (Spironolactone) Nitrolingual 400 Mcg/spray [place],non-aerosol (Nitroglycerin) ..... 1 as needed Plavix 75 Mg Tablet (Clopidogrel) ..... 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 NO CP or SOB. Inpefa was stopped by survey research associate sanjuanita of risk of UTI. WIll continue [...] 25 Mg Tablet (Spironolactone) Nitrolingual 400 Mcg/spray [place],non-aerosol (Nitroglycerin) ..... 1 as needed Plavix 75 [...] by mouth once daily Nitrolingual 400 Mcg/spray [place],non-aerosol (Nitroglycerin) ..... 1 as needed Plavix 75 [...] by mouth once daily Nitrolingual 400 Mcg/spray [place],non-aerosol (Nitroglycerin) ..... 1 as needed Plavix 75 [...] by mouth once daily Nitrolingual 400 Mcg/spray [place],non-aerosol (Nitroglycerin) ..... 1 as needed Plavix 75 [...] by mouth once daily Nitrolingual 400 Mcg/spray [place],non-aerosol (Nitroglycerin) ..... 1 as needed Plavix 75 [...] by mouth once daily Nitrolingual 400 Mcg/spray [place],non-aerosol (Nitroglycerin) ..... 1 as needed Plavix 75 [...] by mouth every day Nitrolingual 400 Mcg/spray [place],non-aerosol (Nitroglycerin) ..... 1 as needed Plavix 75 [...] by mouth every day Nitrolingual 400 Mcg/spray [place],non-aerosol (Nitroglycerin) ..... 1 as needed Plavix 75 [...] by mouth every day Nitrolingual 400 Mcg/spray [place],non-aerosol (Nitroglycerin) ..... 1 as needed Plavix 75 [...] pt esteban d a recent admission to [facility] due to CHF exacerbation due to HFpEF. [...] tablet once a day Nitrolingual 400 Mcg/spray [place],non-aerosol (Nitroglycerin) ..... 1 as needed Plavix 75 [...] Cardiology:Pt had a recent admission to the [facility] for chest pain and shortness of [...] Cardiology:Pt had a recent admission to the [facility] for chest pain and shortness of breath. He has leg swelling worse on the right. 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 BNP during admissionwas 220. In view of his recent symptoms, will proceed to R/L heart cath and venography with IVUS. Tuan Ramirez MD Cardiology:Pt had a recent admission to the [facility] for chest pain and shortness of [...] tablet once a day Nitrolingual 400 Mcg/spray [place],non-aerosol (Nitroglycerin) ..... 1 as needed Plavix 75 [...] only 20 or 40 mg. Vanessa Judge RETAIL SERVICE SPECIALIST Cardiology:Advised p t to be careful to not fall, particularly when taking Plavix in addition to Eliquis. Heriberto Ott Cardiology:His [facility] ed medication list for this problem includes: [...] Tablet (Amlodipine besylate) ..... One tab. daily [facility] Cardiology:Echo show ed normal EF. Holter monitor [...] (Apixaban) .... 1 tab po twice daily [facility] Cardiology:Echo show ed normal EF. He could [...] relief after 3rd dose, go to er [facility] Follow up : H is updated medication list for this problem includes: Crestor 20 Mg Oral Tablet (Rosuvastatin calcium) ..... One tab once daily C HOL: 89 (09/04/2018) LDL: 25 (09/04/2018) HDL: 44 (09/04/2018) Don Hermosillo MD Cardiology Follow up Don barillas MD Cardiology Follow up Don barillas MD Cardiology Follow up Don barillas MD Cardiology:Encouraged weight los s. [facility] Heriberto Birch Cardiology:His updat ed medication list for this problem includes: Crestor 20 Mg Oral Tablet (Rosuvastatin calcium) ..... One tab once daily [facility] Cardiology:He had a cough which resolved after [...] Tablet (Amlodipine besylate) ..... One tab. daily [facility] Cardiology:No palpit ations. His updated medication list for this problem includes: Eliquis 5 Mg Oral Tablet (Apixaban) .... 1 tab po twice daily [facility] Cardiology:Due for f /u. Orders: C T Chest without contrast (CPT-90986) [facility] Cardiology:Reveiwed his admission from last year with NSTEMI. [facility] Cardiology:Denies ch est pain or SOB. Will obtain f/u echo. The following medications were stopped due to a cough: Altace 10 Mg Oral Capsule (Ramipril) ..... Take one pill a day His updated medication list for this problem includes: Isosorb [place] 120mg Tab (Isosorbide mononitrate) ..... Take [...] (Aspirin) ..... One tab by mouth daily [facility] follow up :His updated medication list for this problem includes: Eliquis 5 Mg Oral Tablet (Apixaban) .... 1 tab po twice daily [facility] hospital follow up :Due for f/u CT before next appt. [facility] hospital follow up :His updated medication list for this problem includes: Crestor 20 Mg Oral Tablet (Rosuvastatin calcium) ..... One tab once daily [facility] hospital follow up :BP today: 134/70 P rior BP: 110/58 (03/01/2019) His updated medication list for this problem includes: Amlodipine Besylate 5 Mg Oral Tablet (Amlodipine besylate) ..... One tab. daily Altace 10 Mg Oral Capsule (Ramipril) ..... Take one pill a day [facility] hospital follow up :Pt had a recent admission to [facility] for chest pain and ruled in for NSTEMI. Cardiac cath showed 90% in-stent restenosis of the LAD, which was stented. Pt reports his angina has resolved. [facility] follow up :Pt had a recent admission to [facility] for chest pain and ruled in for NSTEMI. Cardiac cath showed 90% in-stent restenosis of the LAD, which was stented. Pt reports his angina has resolved. His updated medication list for this problem includes: Isosorb [place] 120mg Tab (Isosorbide mononitrate) ..... Take [...] (Ramipril) ..... Take one pill a day [facility] Cardiology:No palpitations. On E liquis. [facility] Cardiology:His updat ed medication list for this problem includes: Crestor 20 Mg Oral Tablet (Rosuvastatin calcium) ..... One tab once daily [facility] Cardiology:BP today: 110/58 P rior BP: 142/70 (10/10/2018) His updated medication list for this problem includes: Amlodipine Besylate 5 Mg Oral Tablet (Amlodipine besylate) ..... One tab. daily Altace 10 Mg Oral Capsule (Ramipril) ..... Take one pill a day Heriberto [facility] Cardiology:He compla ins of increasing frequency of angina. He does not want to have cardiac cath at this time, but he will monitor his symptoms and let us know if they get worse. [facility] Cardiology:He compla ins of increasing frequency of angina. He does not want to have cardiac cath at this time, but he will monitor his symptoms and let us know if they get worse. His updated medication list for this problem includes: Isosorb [place] 120mg Tab (Isosorbide mononitrate) ..... Take [...] (Ramipril) ..... Take one pill a day [facility] Cardiology:Pt had a fall and CT was performed and pulmonary nodules were suspected. 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 Will obtain an echo and f/u CT in 6 months. We will monitor the size of the aneurysmal dilatation and treat as needed. Heriberto [facility] Cardiology:No palpitations. On E liquis. Heriberto [facility] Cardiology Heriberto Birch Cardiology:CHOL: 123 (02/22/2018) LDL: 67 (02/22/2018) HDL: 33 (02/22/2018) T (02/22/2018) [facility] Cardiology:BP today: 142/70 P rior BP: 142/80 (03/26/2018) His updated medication list for this problem includes: Amlodipine Besylate 5 Mg Oral Tablet (Amlodipine besylate) ..... One tab. daily Altace 10 Mg Oral Capsule (Ramipril) ..... Take one pill a day [facility] Cardiology:No chest pain. His updated medication list [...] (Ramipril) ..... Take one pill a day [facility] hospital follow up:LDL: 90 (07/28/2017) His updated medication list for this problem includes: Fenofibrate 48 Mg Oral Tablet (Fenofibrate) ..... Once a day [facility] follow up:BP today: 142/80 P rior BP: 138/70 (12/20/2017) His updated medication list for this problem includes: Amlodipine Besylate 5 Mg Oral Tablet (Amlodipine besylate) ..... One tab. daily Altace 10 Mg Oral Capsule (Ramipril) ..... Take one pill a day [facility] follow up:His updated medication list for this [...] (Ramipril) ..... Take one pill a day [facility] follow up :BP today: 138/70 P rior BP: 160/86 (11/14/2017) His updated medication list for this problem includes: Amlodipine Besylate 5 Mg Oral Tablet (Amlodipine besylate) ..... One tab. daily Altace 10 Mg Oral Capsule (Ramipril) ..... Take one pill a day [facility] :Orders: A rterial Duplex Bi-Lower EX (CPT-23735) [facility] follow up :Orders: A rterial Duplex Bi-Lower EX (CPT-09447) V enous Doppler Bilateral LE - Reflux (CPT-51608) [facility] follow up :His updated medication list for [...] (Ramipril) ..... Take one pill a day [facility] follow up :His updated medication [...] anderson MD Cardiology Follow up Heriberto [facility] Cardiology Follow up:Bradycardia resolved. [facility] Follow up :BP today: 147/91 P rior BP: 148/71 (12/14/2016) His updated medication list for this problem includes: Amlodipine Besylate 5 Mg Oral Tablet (Amlodipine besylate) ..... One tab. daily Altace 10 Mg Oral Capsule (Ramipril) ..... Take one pill a day [facility] Follow up :No chest pain or [...] Heriberto Namrata Cardiology:Continues on Eliquis 5mg BID. [facility] Cardiology:BP today: 148/71 P rior BP: 161/64 (11/21/2016) The following medications were removed from the medication list: Toprol Xl 25 Mg Tb24 (Metoprolol succinate) ..... One tab daily His updated medication list for this problem includes: Amlodipine Besylate 5 Mg Tabs (Amlodipine besylate) ..... One tab. daily Ramipril 5 Mg Oral Caps (Ramipril) ..... Take one tablet daily [facility] Cardiology:The follo wing medications were removed from [...] Caps (Ramipril) ..... Take one tablet daily [facility] Cardiology:His Metop rolol was stopped due to marked bradycardia. [facility] Cardiology:The pt wa s admitted to [facility] due to chest pain and cardiac cath revealed significant stenosis of the RCA. This was treated with a stent and his chest pain has completely resolved. [facility] Cardiology:The pt wa s admitted to [facility] due to chest pain and cardiac cath [...] ASA/Plavix. Heriberto Ott Cardiology:Groin dup nikki at [facility] showed that there was no pseudoaneurysm. The [...] with complete resolution of his symptoms. Heriberto [facility] Cardiology:S/P cardi ac cath last week. He [...] includes: Isosorbide Mononitrate Er 60 Mg Oral [id number] (Isosorbide mononitrate) ..... One tab daily Aspirin [...] Trace AR. Mild ot moderate TR. Minimal CO. GC office (04/23/2008) Tuan Ramirez MD 6 [...] Trace AR. Mild ot moderate TR. Minimal CO. office (04/23/2008) Aldair [place] 6 month follow-up: [...] One tab. daily O rders: E KG (CPT-48182) C ardiac Cath - PCL (*) BP [...] Microalb/Creatinine Urine, Random HEMOGLOBIN A1c DLCO - 91003 FRC - 38280 FVC - 45138 Venous Doppler Bilat eral LE Arterial Duplex [...] Echo Holter Monitor 24 Hr DLCO - 85074 FRC - 23648 FVC - 24257 CT Chest without con trast Complete Echo CT Chest without con trast Complete Echo Venous Doppler Bilat eral LE - Reflux Arterial Duplex Bi-L ower EX MAGNESIUM BASIC METABOLIC PANE L W/EGFR PROTHROMBIN TIME WIT H INR SOCRATES/CV - GC Complete Echo PROBNP, N TERMINAL DLCO - 84810 FRC - 19201 FVC - 49570 Cardiac Cath - Left - CNE Carotid [...] d EKG Tuan Ramirez MD completed SNOMED-CT: 557043795 316911 Current Medications Documented Tuan Ramirez MD completed SNOMED-CT: 937834822 692621 Current Medications Documented slhv .RickyVidalk completed SNOMED-CT: 215356857 425119 Current Medications Documented Tuan Ramirez MD completed SNOMED-CT: 390275389 214179 Current Medications Documented Tuan Ramirez MD completed BLOOD COUNT HEMOGLOBIN Tuan Ramirez MD completed FVC - 37045 Tuan Ramirez MD completed FRC - 73782 Tuan Ramirez MD completed DLCO - 97310 Tuan Ramirez MD complete d SNOMED-CT: 694025968 997578 Current Medications Documented Tuan Ramirez MD completed SNOMED-CT: 225618724 380744 Current Medications Documented Tuan Ramirez MD completed EKG Tuan Ramirez MD completed SNOMED-CT: 637455344 624397 Current Medications Documented Tuan Ramirez MD completed EKG Tuan Ramirez MD completed SNOMED-CT: 377660002 633307 Current Medications Documented Tuan Ramirez MD completed EKG Tuan Ramirez MD completed EKG Tuan Ramirez MD completed EKG Tuan Ramirez MD completed EKG Tuan Ramirez MD completed EKG Tuan Ramirez MD completed EKG Tuan Ramirez MD completed EKG Tuan Ramirez MD completed
--- OUTSIDE RECORDS SUMMARY | 2024-10-28 20:24 | XMS_ITS | Patient Health Record ---
Author Organization [facility] Office Address [address] [place] [address] Care Team Providers Care Cryptologic Support Specialist Name Role Phone Carlos Simons Unavailable [phone] Reason For Referral No Information Medications Medication SIG (Take, Route, Frequency, Duration) Notes Start Date End Date Status Calcitriol 0.25 MCG TAKE 1 CAPSULE BY MO UTH EVERY DAY FOR 90 DAYS for 90 Active Vitamin D (Ergocalciferol) 1.25 MG (23190 UT) TAKE 1 CAPSULE BY MOUTH ONE TIME PER WEEK FOR 90 DAYS for 90 Active Social History Sex Assigned At : Social History Observation Description Sex Assigned At Male Problems Problem Type SNOMED Code ICD Code Onset Dates Problem Status W/U Status Risk Notes Problem Vitamin D deficiency, unspecified (E55.9) Active confirmed Problem Anxiety disorder (284860963) Anxiety disorder, unspecified (F41.9) Active confirmed Problem Essential hypertension (87185170) Essential (primary) hypertension (I10) Active confirmed Problem Renal osteodystrophy (60858964) Renal osteodystrophy (N25.0) Active confirmed Problem Chronic kidney disease stage 3A (disorder) (691256102) Chronic kidney disease, stage 3a (N18.31) Active confirmed Encounters Encounter Location Date Provider Diagnosis [place] [facility] [address] [facility] [address] [place] [address] 11/03/2023 Carlos Simons Chronic kidney disea se, [...]
--- OUTSIDE RECORDS SUMMARY | 2024-10-28 20:24 | XMS_ITS ---
Author Organization [facility] Address [address] [address] [place] [address] Care Team Providers Care Plate Embosser Name Role Phone Ronak Carlos Unavailable [phone] Medications Medication SIG (Take, Route, Frequency, Duration) Notes Start Date End Date Status Calcitriol 0.25 MCG 1 capsule Orally Onc e a day for 90 day(s) 04/14/2023 01/09/2024 Active Ergocalciferol 1.25 MG (83731 UT) 1 capsule Orally Once a week for 90 day(s) 04/14/2023 01/09/2024 Active Social History Sex Assigned At : Social History Observation Description Sex Assigned At Male Encounters Encounter Location Date Provider Diagnosis [place] [facility] [address] [facility] [address] [place] [address] 07/07/2023 Carlos Simons Chronic kidney disea se, [...] Kevan SCHAEFER (Yifan) :1940 (84 yo M)Acc No.[id number]:07/07/2023 Progress Notes Patient: Kevan JASSO (Yifan) Provider: Mone GODOY MD, Christian.AdalidP, F.A.S.N. :1940 A ge:83 Y S ex:Male Date:07/07/2023 Address:[address] [place] [address] Subjective: * Chief Complaints: * * Medical History: * Medications: T aking Calcitriol 0.25 MCG Capsule 1 capsule Orally Once a day , stop date 01/09/2024, Taking Ergocalciferol 1.25 MG (92447 UT) Capsule 1 capsule Orally Once a week , stop date 01/09/2024 Objective: * Vitals: Assessment: * Assessment: 1. C hronic kidney disease, stage 3a - N18.31 2 . E ssential (primary) hypertension - I10 3 . A nxiety disorder, unspecified - F41.9 4 .?Renal osteodystrophy - N25.0 5 . V itamin D deficiency, unspecified - E55.9? Plan: * Treatment: * Billing Information: * Visit Code: 68920 Office Visit, Est Pt., Level 4. * Procedure Codes: * Electronic signature of Korin Simons MD on 10/28/2024 at 08:23 PM CDT Sign off status: Pending * Provider: Mone GODOY MD, Deny, F.A.S.N. Date: 0 07/07/2023 Generated for Printing/Faxing/eTransmitting on: 0 10/28/2024 08:23 PM CDT
[2024-10-28 20:26] VITALS: PULSE 70; RESP 15
[2024-10-28] MEDS: HYDROcodone/acetaminophen (*CRX) 5-325 MG TABLET 1 TAB PO (20:41)
[2024-10-28] MEDS: DOXYCYCLINE HYCLATE 100 MG TABLET PO (22:01)
[2024-10-28] MEDS: BENZONATATE 100 MG CAPSULE PO (22:02)
[2024-10-28] MEDS: LIDOCAINE 5% PATCH 1 PATCH TRANSDERM (22:02)
[2024-10-28 22:20] VITALS: BP 113/65; PULSE 73; RESP 18; O2SAT 97
== END 2024-10-28 22:20 | disposition hospice, home (50) ==
PROVIDERS: Emergency Provider Student in an Organized Health Care Education/Training Program; PCP Internal Medicine
DX: M25.551 Pain in right hip (principal); R05.9 Cough, unspecified; Z99.81 Dependence on supplemental oxygen; N32.89 Other specified disorders of bladder; N40.0 Benign prostatic hyperplasia without lower urinary tract symptoms; J44.9 Chronic obstructive pulmonary disease, unspecified; I25.10 Atherosclerotic heart disease of native coronary artery without angina pectoris; W19.XXXA Unspecified fall, initial encounter
CPT/HCPCS: 72192; 73521; 94640; 99284; A9270